=== PATIENT | female | born 1950 | race Caucasian/White ===

== ENCOUNTER 2025-01-06 17:52 | Inpatient (IN) | payer BC, SELFPAY ==
--- NOTE | 2025-01-06 16:04 | ED.GENMED ---
History of Present Illness
General
Chief Complaint: Breathing Problem
Time Seen by Provider: 01/06/25 15:53
History of Present Illness
History of Present Illness:
Patient is a 74-year-old woman with history of hypertension, hypothyroidism, ITP presenting to the emergency department with shortness of breath. For the past few days she has been having shortness of breath and a cough. Today she went to her
primary care doctor and was found to have pneumonia. Her symptoms worsened and she was having a hard time breathing so she came in for further evaluation. She has been having some nausea and vomiting. No diarrhea. No long car rides or plane
rides. No chest pain with the coughing.
Past History
Past History
ED Past Medical History: HTN, Hypothyroidism and Other (ITP, glaucoma, sleep apnea)
ED Past Surgical History: Gynecological (Hysterectomy) and Orthopedic (Bilateral total knee replacement)
Social History
Tobacco: Non-smoker
Alcohol: None
Drug: None
Personal:
Living: with family
Phy Exam
Physical Exam
Physical Exam:
GENERAL: in no acute distress
HEENT: normocephalic, extraocular movements intact, dry oral mucosa
NECK: normal inspection
RESPIRATORY: Moderate respiratory distress, tachypneic, coarse breath sounds in all lung rivera
CARDIOVASCULAR: regular rhythm tachycardic rate
ABDOMEN/: soft, non-distended, non-tender to palpation, no rebound or guarding
EXTREMITIES: non-tender, no edema/swelling
NEUROLOGIC: awake and alert, moves all extremities
SKIN: warm
Scores
Heart Failure Risk
Heart Failure Risk Score: Not Applicable
Sepsis
Sepsis Screening
Sepsis Assessment: Severe Sepsis
Sepsis Screening: Lactate >/=4mmol/L and Worsening O2 Saturation
Sepsis Screen
Sepsis Screen: Severe Sepsis
Date: 01/06/25
Time: 16:30
Course
Orders/Labs/Results
Orders:
Orders
01/06/25 16:01
0.9% Sodium Chloride 1000 ml [Nss] 1,000 ml IV BOLUS
Ondansetron Injectable [Zofran] 4 mg IV NOW STA
01/06/25 16:02
Electrocardiogram (*1) Urgent
Reason for Study: Shortness of Breath
EKG- Treatment ONCE
01/06/25 16:03
CR Chest Portable - 1 View Urgent
Comment:
Reason For Exam: cough
Reason Study Needs to be Portable: Patient Unstable
01/06/25 16:05
Blood Culture Q30M
GEN Source: Blood/Venous
Specimen Description:
01/06/25 16:06
COVID-19 Antigen Urgent
Source: Nasal Swab
Complete Blood Count/With Diff Urgent
Comprehensive Metabolic Panel Urgent
Lactic Acid Q4H
Comment: CANCEL 2nd LACTIC ACID IF 1st LACTIC ACID IS LESS THAN 2
Venous Blood Gas Urgent
%Oxygen/Room Air: 80
Influenza A+B Rapid Molecular Urgent
GEN Source: Nasal Swab
Specimen Description:
01/06/25 16:08
Acetaminophen 1000MG/100Ml [Ofirmev] 1,000 mg in 100 ml .ROUTE .STK-MED
01/06/25 16:11
Acetaminophen 1000MG/100Ml [Ofirmev] 1,000 mg IV NOW STA
01/06/25 16:25
Azithromycin 500 mg/250 ml [Zithromax Infusion] 500 mg in 250 ml IV NOW
CefTRIAXone [Rocephin] 2,000 mg IV NOW STA
01/06/25 16:29
Sterile Water [Sterile Water For Injection] 20 ml .ROUTE .STK-MED
01/06/25 16:45
Blood Culture Q30M
GEN Source: Blood/Venous
Specimen Description:
01/06/25 20:15
Lactic Acid Q4H
Comment: CANCEL 2nd LACTIC ACID IF 1st LACTIC ACID IS LESS THAN 2
Abnormal Lab Results
01/06/25
16:06
WBC 17.0 H 10^3/uL
(4.8-10.8)
RBC 6.47 H 10^6/uL
(4.20-5.40)
MCV 62.0 L fL
(81.0-99.0)
MCH 18.9 L pg
(27.0-31.0)
MCHC 30.4 L g/dL
(33.0-37.0)
RDW 17.2 H %
(11.5-14.5)
Abs Immat Gran (auto) 0.1 H 10^3/uL
(0-0.05)
Absolute Neuts (auto) 13.3 H 10^3/uL
(1.4-6.5)
Absolute Monos (auto) 1.1 H 10^3/uL
(0.1-0.6)
Immature Gran % 0.6 H %
(0-0.5)
Neutrophils % 78.3 H %
(42.2-75.2)
Lymphocytes % 14.3 L %
(20.5-51.1)
VBG pH 7.24 L
(7.32-7.43)
VBG pO2 54 H mmHg
(30-50)
VBG HCO3 18.4 L mmol/L
(22-27)
Chloride 109 H mmol/L
(98-107)
Carbon Dioxide 18 L mmol/L
(22-30)
Glucose 289 H mg/dl
(70-99)
Lactic Acid 6.7 H* mmol/L
(0.7-2.0)
Total Bilirubin 1.7 H mg/dl
(0.2-1.3)
AST 56 H U/L
(14-36)
ALT 47 H U/L
(0-35)
01/06/25 16:06
01/06/25 16:06
Vital Signs
Initial and Last Documented VS:
Initial Vital Signs
Temp Pulse Resp Pulse Ox
100.4 F H 123 18 86
01/06/25 15:47 01/06/25 15:47 01/06/25 15:47 01/06/25 15:47
Last Documented Vital Signs
Temp Pulse Resp BP Pulse Ox
100.4 F H 117 33 158/82 98
01/06/25 15:47 01/06/25 16:22 01/06/25 16:22 01/06/25 16:22 01/06/25 16:41
MDM/Problems Addressed
Differential Diagnosis Includes:
Patient is a 74-year-old woman presenting to the emergency department with shortness of breath difficulty breathing for the past few days. On arrival patient is febrile tachypneic tachycardic and hypoxic. Patient is placed on nasal cannula but
still hypoxic to the 80s so respiratory called for high flow. On exam she does have coarse breath sounds in all lung rivera and does have dry oral mucosa. Concern for sepsis, pneumonia, viral illness. Will check blood work EKG chest x-ray and
respiratory swab. Will give fluids and antiemetics.
*Critical Care Note
Total Time (30-74mins, 75-104mins- exclusive of procedures): 31
comment:
Critical care statement: A total of 31 minutes of critical care time was provided for this patient. This includes management of unstable vital signs, evaluation of the patient at bedside, reviewing the patient's pertinent medical records, ordering
and reviewing studies, arranging urgent treatment with development of a management plan, evaluating patient's response to treatment, frequent reassessment, and discussion with consultants. This time was separate from time utilized to perform the
aforementioned documented procedures.
Update Note
Update Note:
On reevaluation patient's respiratory distress has slightly improved though she remains tachypneic. VBG consistent with metabolic acidosis. She is maxed out on high flow nasal cannula. Her oxygen saturation is in the 90s. I did discuss goals of
care and patient is a full code. Portable chest x-ray per my interpretation with bilateral pneumonia. Will empirically give antibiotics.
I did receive a critical for patient's lactate it is at 6. Patient does meet criteria for sepsis. Will order additional fluids at patients ideal body weight to reach sepsis fluid goal (1.5L).
On reevaluation patient is able to speak in full sentences though remains slightly tachypneic. Her oxygen saturation has remained appropriate. Will discuss with hospitalist for admission.
ED Attending Note
-
Portions of this chart may have been created with voice recognition software.� Occasional wrong word or��sound alike� substitutions may have occurred due to the inherent limitations of voice recognition software.
Discharge Plan
Departure
Prescriptions:
No Action
levothyroxine 112 MCG tablet
112 mcg PO DAILY@07
latanoprost 1 DROP drops
1 drp BOTH EYES HS
Patient Comments:
metoprolol succinate 50 mg Capsule,Sprinkle,Er 24hr
50 mg PO HS
Elderberry Zinc Vit C 90-15 mg Lozenge
1 veronique PO DAILY
hydromorphone [Dilaudid] 2 mg tablet
2 mg PO Q4H PRN (Reason: moderate-severe pain) Qty: 30 0RF
Patient Comments:
05/16/22: Per PDMP, last filled 05/13/22 #30 for 5 days
lorazepam 0.5 MG tablet
0.5 mg PO HSPRN PRN (Reason: anxiety) Qty: 1 0RF
Patient Comments:
05/16/22: Per PDMP, last filled 04/14/22 #60 for 30 days
acetaminophen 325 MG tablet
650 mg PO Q4HPRN PRN (Reason: mild pain)
Rx Instructions:
Do NOT exceed >4000 mg daily.
prednisone 10 mg tablet
30 mg PO TAPER
Patient Comments:
05/16/22: Per daughter, 10mg dose to start 05/17/22
Rx Instructions:
3 tabs (30mg) x2 days, 2 tabs (20mg) x2 days, 1 tab (10mg) x2 days, then stop
aspirin 325 mg tablet
325 mg PO DAILY
Rx Instructions:
Take daily x4 weeks post-surgery for blood clot prevention.
docusate sodium 100 mg capsule
100 mg PO BIDPRN PRN (Reason: constipation)
ondansetron 4 mg tablet,disintegrating
4 mg PO Q6HPRN PRN (Reason: nausea and vomiting)
Referrals:
UNKNOWN,NO INTERVIEW [Family Provider] -
Interventions
Interventions:
*Risk Screen - Suicide Last Done: 01/06/25 15:47
*General Assessment Last Done: 01/06/25 15:47
*Neglect/Abuse Screening Last Done: 01/06/25 15:47
*ED- Fall Risk Assessment Last Done: 01/06/25 16:16
*ED COVID-19 Vaccine History Last Done: 01/06/25 16:16
ED- Cardiac Assessment Last Done: 01/06/25 16:50
ED- Pulmonary Assessment Last Done: 01/06/25 16:50
Discharge Date and Time
Print Language: SPANISH
[2025-01-06] MEDS: OFIRMEV 1000 MG IV (16:11)
[2025-01-06] MEDS: ZOFRAN 4 MG IV (16:12)
[2025-01-06] MEDS: NSS 1000 IV ×2 (16:12→20:24)
[2025-01-06 16:15] VITALS: BMI 40.9
[2025-01-06 16:21] LABS: Venous Blood Gas B.E. -8.7 mmol/L (-4 to +4); Venous Blood Gas HCO3 18.4 mmol/L (22-27); Venous Blood Gas O2 Sat % 85.1 %; Venous Blood Gas pCO2 43 mmHg (35-48); Venous Blood Gas pH 7.24 (7.32-7.43); Venous Blood Gas pO2 54 mmHg (30-50)
[2025-01-06 16:22] VITALS: BP 158/82
[2025-01-06 16:28] LABS: % Basophils 0.2 % (0-2); % Eosinophils 0.2 % (0-6); % Immature Granulocytes 0.6 % (0-0.5); % Lymphocytes 14.3 % (20.5-51.1); % Monocytes 6.4 % (1.7-9.3); % Neutrophils 78.3 % (42.2-75.2); Absolute Immature Granulocytes 0.1 10^3/uL (0-0.05); Absolute Lymphocytes 2.4 10^3/uL (1.2-3.4); Absolute Monocytes 1.1 10^3/uL (0.1-0.6); Absolute Neutrophils 13.3 10^3/uL (1.4-6.5); Hematocrit 40.1 % (37.0-47.0); Hemoglobin 12.2 g/dL (12.0-16.0); Mean Corp Hgb Conc. 30.4 g/dL (33.0-37.0); Mean Corpuscular Hgb 18.9 pg (27.0-31.0); Nucleated Red Blood Cells % 0.1 %; Platelet Count 263 10^3/uL (130-400); Red Blood Cell Count 6.47 10^6/uL (4.20-5.40); Red Cell Dist. Width 17.2 % (11.5-14.5)
[2025-01-06 16:36] LABS: ALT (SGPT) 47 U/L (0-35); AST (SGOT) 56 U/L (14-36); Albumin 4.5 g/dl (3.5-5.0); Alkaline Phosphatase 91 U/L (38-126); Blood Urea Nitrogen 17 mg/dl (7-17); Calcium 9.4 mg/dl (8.4-10.2); Carbon Dioxide 18 mmol/L (22-30); Chloride 109 mmol/L (98-107); Estimated Creatinine Clearance 58 ml/min; Glucose 289 mg/dl (70-99); Potassium 4.6 mmol/L (3.5-5.1); Sodium 141 mmol/L (135-145); Total Bilirubin 1.7 mg/dl (0.2-1.3); Total Protein 7.7 g/dl (6.3-8.2); eGFR > 60.00
[2025-01-06 16:41] LABS: Lactic Acid 6.7 mmol/L (0.7-2.0)
[2025-01-06] MEDS: ZITHROMAX INFUSION 250 IV (16:41)
[2025-01-06] MEDS: ROCEPHIN 2000 MG IV (16:41)
[2025-01-06 16:56] LABS: COVID-19 Antigen Negative (Negative)
--- NOTE | 2025-01-06 16:56 | HPS.HSE ---
Family Physician
-
Family Physician: NO INTERVIEW UNKNOWN
Chief Complaint
-
sob
fever
History of Present Illness
74-year-old woman with history of hypertension, hypothyroidism, ITP presenting to the emergency department with shortness of breath which is worse with exertion since Thursday. she was noted have fever of 101 for which she was taking Tylenol. she was
producing brownish sputum with cough today. Complain of dry heaves. She is complaining of headache. Denied dizzy. Denied chest pain. Patient denied abdominal pain, vomiting or diarrhea, she denied dysuria hematuria.
Upon arrival she was noted hypoxic. Chest x-ray concerning for pneumonia. Patient received fluids, antibiotics. Admitting for further management
Medical History
Past Medical History
Past Medical History: Reports Other
Additional Past Medical History:
Hypertension, stroke, asthma
Past Surgical History: Reports Other
Additional Past Surgical History:
Cataract surgery, right TKA, left TKA
Social History
Tobacco: Non-smoker
Alcohol: None
Drug: None
Living: With Family
Family History
Family History: Not pertinent
Allergies / Home Medications
Allergies reflects when Allergies were last updated in [facility].
Home Medications with original date entered in [facility]
Allergy/Medication List:
Allergies
Allergy/AdvReac Type Severity Reaction Status Date / Time
carvedilol Allergy chest Verified 01/06/25 15:46
discomfort
cyclobenzaprine HCl Allergy throat Verified 01/06/25 15:46
[From Flexeril] closing,
tongue
swelling
hydralazine Allergy chest Verified 01/06/25 15:46
discomfort
hydrochlorothiazide Allergy chest Verified 01/06/25 15:46
discomfort
levofloxacin [From Levaquin] Allergy diarrhea Verified 01/06/25 15:46
mivacurium Allergy pseudocholinesterase Verified 01/06/25 15:46
deficiency
oxycodone Allergy Nausea/Vomi Verified 01/06/25 15:46
ting
succinylcholine Allergy pseudocholinesterase Verified 01/06/25 15:46
deficiency
Home Medications
levothyroxine 112 mcg tablet 112 mcg PO DAILY Thyroid 09/14/16
latanoprost 0.005 % eye drops 1 drp BOTH EYES HS Eye condition 10/13/16
metoprolol succinate 50 mg capsule sprinkle, ext. release 24 hr 50 mg PO HS Blood pressure 04/21/22
lorazepam 0.5 mg tablet 0.5 mg PO HSPRN PRN anxiety #1 tab 05/13/22
acetaminophen 650 mg tablet,extended release 1,300 mg PO [id number] PRN mild pain 01/06/25
elderberry fruit 350 mg capsule 350 mg PO DAILY 01/06/25
gabapentin 100 mg capsule 100 mg PO Q8HPRN PRN mild pain 01/06/25
tizanidine 2 mg tablet 2 mg PO Q6HPRN PRN muscle spasms 01/06/25
Review of Systems
-
Constitutional: Reports Fever
EENT: Reports No Symptoms
Respiratory: Reports Cough and Trouble Breathing
Cardiac: Reports No Symptoms
Abdomen/GI: Reports No Symptoms
: Reports No Symptoms
Musculoskeletal: Reports No Symptoms
Skin: Reports No Symptoms
Neurological: Reports Headache
Endocrine: Reports No Symptoms
Hematologic/Lymphatic: Reports No Symptoms
Psych: Reports No Symptoms
Physical Exam
Vital Signs
Vital Signs
Temp Pulse Resp BP Pulse Ox
100.4 F H 117 33 158/82 98
01/06/25 15:47 01/06/25 16:22 01/06/25 16:22 01/06/25 16:22 01/06/25 16:41
Physical Exam
General: Well Developed, Well Nourished and No Apparent Distress
HEENT: NormoCephalic, Moist mucous membranes and Atraumatic
Respiratory: Rales and Rhonchi
Cardiac: S1/S2 and Regular Rhythm; No Murmur or Rub
GI: Soft, Non Tender, Non Distended and Normal Bowel Sounds; No Organomegaly
Rectal: Deferred by Provider
Musculoskeletal: No Clubbing, No Cyanosis and Other (Trace lower extremities edema)
Skin: No Rash
Neuro: AO x 3 and Nonfocal/grossly intact
Psych: Calm
Laboratory Results
-
01/06/25 16:06
01/06/25 16:06
Laboratory Results
Lactic Acid 6.7 mmol/L (0.7-2.0) H* 01/06/25 16:06
Total Bilirubin 1.7 mg/dl (0.2-1.3) H 01/06/25 16:06
AST 56 U/L (14-36) H 01/06/25 16:06
ALT 47 U/L (0-35) H 01/06/25 16:06
Alkaline Phosphatase 91 U/L (38-126) 01/06/25 16:06
Data Reviewed
-
Diagnostic Radiology: Report Reviewed by me
Lab Data: Labs Reviewed by me
Impression/Plan
-
# Severe sepsis secondary to pneumonia
# Acute hypoxic respiratory failure
- WBC 17.0, lactic 6.5, tach cardia, temp 100.4
- Flu, COVID-negative
- Chest x-ray with impression of Bilateral consolidative airspace opacities most concerning for pneumonia. Prominent pulmonary vascular markings raise the possibility for a component of pulmonary edema, and opacities could also reflect interstitial
and alveolar pulmonary edema in the appropriate clinical setting.
- IV ceftriaxone and Zithromax in ER
-initiated on vanco and Zosyn
- Tylenol as needed for fever
- Sepsis fluid continued
- Blood culture sent from ER
- Continue to trend lactic
- Continue supplemental oxygen to keep sat greater than 95
- Wean as tolerated
# Non-anion gap metabolic acidosis likely from dehydration
- CO2 18
- Fluids continued
- BMP in a.m.
# hyperglycemia
- Blood sugar elevated in 280
- Obtain A1c
- Sliding scale
# Transaminitis likely from dehydration/acute infection
- AST 56, ALT 47
- Denied any abdominal pain
- Trend LFT in a.m.
History of ITP/thalassemia
# History of incidental right upper lobe lung mass 2.4 x 2.3 x 1.4 cm
- PET scan as outpatient with no acute findings as per patient
# Hypothyroidism
- Levothyroxine continued
#Generalized anxiety
-Continue lorazepam 0.5 mg as needed give now
# History of hypertension
-Metoprolol continued
# History of muscle spasm
-Tizanidine continued
# DVT prophylaxis
-Lovenox
# CODE STATUS
-Full code
[2025-01-06 17:01] VITALS: BP 134/67
--- NOTE | 2025-01-06 17:48 | W.PN.UPDATE ---
Update Note
Progress Note Update
This is an addendum to the H&P written by Ashley Johnson on 01/06/2025.� Patient seen and examined independently with MERCHANDISE MARKER.
74-year-old female past medical history of lung mass, CAD, hypertension, hypothyroidism, ITP, thalassemia, anxiety, presenting with shortness of breath and cough.� Also with nausea and vomiting.
Patient incidentally found to have a right upper lung lobe lesion in 2021.� Followed up with [facility] had a PET scan and follow-up scan which showed that it had resolved and lobectomy was not needed.
Patient with temperature 100.4, tachycardic.� Patient hypoxemic requiring high flow oxygen.
Labs show leukocytosis, lactic acidosis of 6.7.� Blood sugar 289.� Mild transaminitis.� ABG shows pH of 7.24, [id number], bicarb of 18.
Chest x-ray shows bilateral consolidative airspace opacities concerning for pneumonia, pulmonary vascular markings raise the possibility for component of pulm edema.� COVID and flu are negative.
Patient with hypoxemic respiratory failure and sepsis secondary to community-acquired pneumonia.
Check sputum culture, blood cultures, strep antigen, Legionella antigen, MRSA.� IV fluids.� Vancomycin/Zosyn.� Pulmonary consulted.
Blood sugar of 289 likely secondary to infection.� No history of diabetes.� Check A1c.� Insulin sliding scale.
[2025-01-06] MEDS: NSS 500 IV (18:12)
[2025-01-06 19:00] VITALS: BP 118/48
[2025-01-06 19:42] VITALS: BMI 39.4
[2025-01-06 19:45] VITALS: BP 136/96
--- NOTE | 2025-01-06 19:57 | PHA.VAN.IN ---
Assessment
- Assessment
Renal Function: Appears similar to baseline
Concomitant Antimicrobials: piperacillin/tazobactam
Plan
- Plan
Initial / Loading Dose: vanc 2000mg pending administration
Maintenance Regimen: dosing by level
Monitoring: random level 01/07 0600
MRSA Screen: Ordered per protocol
Pharmacokinetics Vancomycin I
- -
Patient Age: 74
Patient Sex: Female
Vancomycin Day #: 1
Indication: Pulmonary/Respiratory
Requesting Provider: Ashley Johnson
Pertinent Antimicrobial Allergies:
levofloxacin - diarrhea
Height / Weight:
Height 5 ft
Actual Weight 91.5 kg
Pertinent Past Medical History: BMI ~39
- Vital Signs / Lab Results
Temp Pulse Resp BP Pulse Ox
98.5 F 111 49 134/67 91
01/06/25 18:13 01/06/25 17:01 01/06/25 17:01 01/06/25 17:01 01/06/25 19:42
Lab Results - Hematology
01/06/25
16:06
WBC 17.0 H
Lab Results - Chemistry
01/06/25
16:06
BUN 17
Creatinine 0.9
Estimated Creat Clear 58
Albumin 4.5
01/06/25
16:06
Lactic Acid 6.7 H*
Microbiology Results
01/06/25 16:06 Influenza Types A & B ([facility]) - Final
Nasal Swab Negative for Influenza A & B, NAAT
Negative results must be combined with clinical observations
and patient history.
Nucleic Acid Amplification test (NAAT)performed on the
[employer] platform.
[2025-01-06] MEDS: VANCOCIN 540 MG IV (20:23)
[2025-01-06] MEDS: MUCINEX 600 MG PO (20:25)
[2025-01-06] MEDS: XALATAN OPHTHALMIC SOLUTION 1 DROP BOTH EYES (20:25)
[2025-01-06] MEDS: LOVENOX SC (20:25)
[2025-01-06] MEDS: TOPROL XL 50 MG PO (20:49)
[2025-01-06 21:49] LABS: Glucose - Point of Care 190 mg/dl (70-99)
[2025-01-06] MEDS: TESSALON PERLES 100 MG PO (22:30)
[2025-01-06 22:47] VITALS: BP 135/86
[2025-01-06] MEDS: ZOSYN 50 IV (23:44)
[2025-01-07] VITALS (28 sets, daily range): BP systolic 106–157; BP diastolic 68–127; PULSE 2–122; O2SAT 95
[2025-01-07] MEDS: ZANAFLEX 2 MG PO (00:21)
[2025-01-07] MEDS: ATIVAN 0.5 MG PO (00:21)
[2025-01-07] MEDS: ZOSYN 50 IV (04:51)
[2025-01-07 05:42] LABS: Vancomycin Random 13.1 ug/ml
[2025-01-07 05:45] LABS: Hematocrit 34.2 % (37.0-47.0); Hemoglobin 10.5 g/dL (12.0-16.0); Mean Corp Hgb Conc. 30.7 g/dL (33.0-37.0); Mean Corpuscular Hgb 18.9 pg (27.0-31.0); Mean Corpuscular Volume 61.6 fL (81.0-99.0); Platelet Count 180 10^3/uL (130-400); Red Blood Cell Count 5.55 10^6/uL (4.20-5.40); Red Cell Dist. Width 15.6 % (11.5-14.5); White Blood Cell Count 11.6 10^3/uL (4.8-10.8)
[2025-01-07 05:49] LABS: ALT (SGPT) 68 U/L (0-35); AST (SGOT) 123 U/L (14-36); Albumin 3.5 g/dl (3.5-5.0); Alkaline Phosphatase 75 U/L (38-126); Blood Urea Nitrogen 15 mg/dl (7-17); Calcium 8.6 mg/dl (8.4-10.2); Carbon Dioxide 22 mmol/L (22-30); Chloride 114 mmol/L (98-107); Estimated Creatinine Clearance 64 ml/min; Glucose 118 mg/dl (70-99); Potassium 4.7 mmol/L (3.5-5.1); Sodium 145 mmol/L (135-145); Total Bilirubin 1.1 mg/dl (0.2-1.3); Total Protein 6.5 g/dl (6.3-8.2); eGFR > 60.00
[2025-01-07] MEDS: SYNTHROID 112 MCG PO (06:04)
--- NOTE | 2025-01-07 06:17 | PTCARENOTE ---
Admitted pt last night. Continues to be on HFNC, now 40L 40%, orthopneic, tachypneic, ESPITIA. Pt was having wheezing overnight at one point, PRN nebs ordered if needed, pt ended up settling down. VSS. NSR 80bpm. Dry cough, tessalon pearls ordered prn.
Pt very anxious at times, prn ativan given. Pt c/o R rotator cuff pain throughout the night, zanaflex given. IVF overnight. Rechecked lactic, now WNL. No fevers. Sugar 190 at bedtime. pt OOB to BSC, tolerating well. NO other issues. Will monitor.
[2025-01-07] MEDS: MUCINEX PO (07:53)
[2025-01-07] MEDS: TESSALON PERLES 100 MG PO ×2 (07:57→17:19)
[2025-01-07 08:07] LABS: Glucose - Point of Care 105 mg/dl (70-99)
[2025-01-07] MEDS: DUONEB 3 ML INH ×3 (08:14→17:49)
[2025-01-07 08:17] LABS: Glycohemoglobin (HgbA1c) 6.2 % (4.0-5.6)
--- NOTE | 2025-01-07 08:22 | W.PN.HOSP.TC ---
Today's Communication/Plan
-
Check cultures
Continue antibiotics
Wean high flow oxygen
Pulmonary consult
Incentive spirometry
Assessment / Plan
Assessment / Plan
Gen-AAOx3, NAD
HEENT-NC, AT, anicteric, clear oral mm
Neck-supple
CV-reg, no M, +S1/S2
Lungs-decreased breath sounds bilaterally with rales
Abd-soft, NT, ND
Ext-no edema
Musculoskeletal-no cyanosis, clubbing
Skin-warm and dry
Neuro-grossly non-focal
Psych-calm, cooperative
Acute hypoxic respiratory failure -due to extensive bilateral pneumonia. High flow nasal cannula currently, 40 L, 50%.
Pulmonary consulted.
Sepsis due to extensive multifocal community-acquired pneumonia -chest x-ray reviewed. CT scan noted.
Ceftriaxone/azithromycin ordered.
Urinary antigens negative. Blood cultures pending. Influenza and COVID-negative.
Fever improved. Leukocytosis improving.
Lactic acidosis due to sepsis, improved.
Intensive spirometry.
Elevated LFTs -suspect due to severe pneumonia, sepsis. Monitor for now.
Impaired fasting glucose -hemoglobin A1c 6.2%.
Essential hypertension -stable.
Hypothyroidism -levothyroxine.
Morbid obesity due to excess calories
Full code
Anticipated Discharge: > 48 hours
Subjective/Interval History
-
Date of Service: January 07, 2025
Patient seen and examined. Feeling a little better. No complaints.
Objective Data
-
Labs:
Laboratory Results
01/07/25
04:50
WBC 11.6 H
Hgb 10.5 L
Hct 34.2 L
Plt Count 180 D
Sodium 145
Potassium 4.7
Chloride 114 H
Carbon Dioxide 22
BUN 15
Creatinine 0.8
Glucose 118 H
Calcium 8.6
Total Bilirubin 1.1
AST 123 H
ALT 68 H
Alkaline Phosphatase 75
Vital Signs:
Vital Signs
Temp Pulse Resp BP Pulse Ox
98.4 F 91 44 142/86 93
01/07/25 06:28 01/07/25 06:08 01/07/25 06:08 01/07/25 06:08 01/07/25 08:19
I&O
01/06/25 01/07/25 01/08/25
06:59 06:59 06:59
Intake Total 480 / 480
Output Total 400 / 400
Balance -400 / -400 480 / 480
Review of Systems
-
History Source: Patient
All other systems: Reviewed and negative
[2025-01-07] MEDS: TYLENOL 650 MG PO (09:52)
[2025-01-07] MEDS: NSS 1000 IV ×2 (10:23→22:49)
--- NOTE | 2025-01-07 11:57 | PTCARENOTE ---
Patient complaining of feeling 'very warm'. Oral temp checked and was 100.8F. PO tylenol given per order and temp rechecked after approx an hour and was 98.1F orally.
[2025-01-07 12:47] LABS: Glucose - Point of Care 143 mg/dl (70-99)
[2025-01-07] MEDS: STERILE WATER FOR INJECTION 20 ML IV (13:19)
[2025-01-07] MEDS: ROCEPHIN 2000 MG IV (13:19)
[2025-01-07] MEDS: ZITHROMAX INFUSION 250 IV (15:47)
--- NOTE | 2025-01-07 15:59 | PTCARENOTE ---
Patient AOx3. NSR on monitor. BP stable. Patient on HFNC. HFNC being weaned by RT throughout shift. Patient has stress incontinence. Utilizes bedside commode. Assist x1 when OOB. IVF running per order. Call tompkins within reach, bed in lowest position,
and bed of wheels locked.
--- NOTE | 2025-01-07 16:40 | CON.PUL ---
Consultation
Consultation Request
Date/Time Consultation Requested: 01/06/2025 - 1946
Date/Time Consultation Performed: 01/07/2025 - 1439
Requesting Provider: PRITI Loya
Performing Provider: Dr. Priest
Reason for Consultation: PNA
Medical History
-
Chief Complaint: SOB + cough
History of Present Illness:
74-year-old female non-smoker with a past medical history of CVA, asthma, hypertension, hypothyroidism and ITP/thalassemia who presented with shortness of breath + cough. Symptoms started this past Thursday (01/03/2025). Initially in the ER she was
febrile to 100.4 �F, tachycardic to 123, respiratory rate initially 18, BP 158/82 and saturating 86% on room air. She was transitioned to high flow nasal cannula at 60% FiO2 with saturations improvement to 98%. Initial labs were significant for
leukocytosis to 17, glucose 289, lactate 6.7, T. bili 1.7, and COVID-19 antigen negative. Blood cultures collected, and CXR showed bilateral pneumonia. In the ER she was given ceftriaxone, acetaminophen, Zofran, Zithromax, and 1 L NS 0.9% and
admitted to the IMU for further care. Pulmonary service consulted for additional management/recommendations.
When I saw the patient today, she was tachypneic, still following commands but in mild respiratory distress. Still coughing up phlegm. Currently on high flow nasal cannula at 100% FiO2, 60 L/min. She denies chest pain, HERNANDES, nausea, fevers or
chills. Of note, CT chest obtained yesterday showed extensive bilateral multifocal pneumonia, worse on the right.
PMHx: Hypertension, history of CVA, asthma, hypothyroidism, history of ITP
PSHx: Cataract surgery, right TKA, left TKA
Past Medical History
Past Medical History: Other (Above as per HPI)
Past Surgical History: Other (Above as per HPI)
Social History
Tobacco: Non-smoker
Alcohol: None
Drug: None
Family History
Family History: Other (Mother: Osteoporosis)
Allergies / Home Medications
Allergies
Allergy/AdvReac Type Severity Reaction Status Date / Time
carvedilol Allergy chest Verified 01/06/25 15:46
discomfort
cyclobenzaprine HCl Allergy throat Verified 01/06/25 15:46
[From Flexeril] closing,
tongue
swelling
hydralazine Allergy chest Verified 01/06/25 15:46
discomfort
hydrochlorothiazide Allergy chest Verified 01/06/25 15:46
discomfort
levofloxacin [From Levaquin] Allergy diarrhea Verified 01/06/25 15:46
mivacurium Allergy pseudocholinesterase Verified 01/06/25 15:46
deficiency
oxycodone Allergy Nausea/Vomi Verified 01/06/25 15:46
ting
succinylcholine Allergy pseudocholinesterase Verified 01/06/25 15:46
deficiency
Home Medications
�Medication �Instructions �Recorded �Confirmed �Last Taken �Type
levothyroxine 112 mcg tablet 112 mcg PO DAILY Thyroid 09/14/16 01/06/25 01/06/25 History
latanoprost 0.005 % eye drops 1 drp BOTH EYES HS Eye condition 10/13/16 01/06/25 01/05/25 History
metoprolol succinate 50 mg capsule 50 mg PO HS Blood pressure 04/21/22 01/06/25 01/05/25 History
sprinkle, ext. release 24 hr
lorazepam 0.5 mg tablet 0.5 mg PO HSPRN PRN anxiety #1 tab 05/13/22 01/06/25 05/11/22 22:00 Rx
acetaminophen 650 mg 1,300 mg PO [id number] PRN mild pain 01/06/25 01/06/25 01/06/25 History
tablet,extended release
elderberry fruit 350 mg capsule 350 mg PO DAILY Supplement 01/06/25 01/06/25 Unknown History
gabapentin 100 mg capsule 100 mg PO Q8HPRN PRN mild pain 01/06/25 01/06/25 Unknown History
tizanidine 2 mg tablet 2 mg PO Q6HPRN PRN muscle spasms 01/06/25 01/06/25 Unknown History
Review of Systems
-
History Source: Patient
All other systems: Negative unless noted
Vitals / Labs / Diagnostic Testing
Vital Signs
Temp Pulse Resp BP Pulse Ox
100.8 F H 94 28 142/86 93
01/07/25 09:26 01/07/25 08:27 01/07/25 08:27 01/07/25 06:08 01/07/25 08:27
Lab Data
01/07/25 04:50
01/07/25 04:50
Microbiology
01/06/25 21:24 Nose Nasal Screen MRSA (PCR) - Final
MRSA not detected - performed by PCR methodology.
01/06/25 21:58 Urine Legionella Urinary Antigen - Final
Negative for Legionella pneumophila Serogroup 1 antigen.
A negative result does not rule out the possiblity of
Legionella infection due to other serogroups or species of
Legionella. Clinical correlation is recommended.
01/06/25 21:58 Urine Streptococcus pneumoniae Antigen (M - Final
Negative for Streptococcus pneumoniae antigen.
A negative result does not exclude infection with
Streptococcus pneumoniae. Clinical correlation is
recommended.
01/06/25 16:06 Nasal Swab Influenza Types A & B (CHIOMA) - Final
Negative for Influenza A & B, NAAT
Negative results must be combined with clinical observations
and patient history.
Nucleic Acid Amplification test (NAAT)performed on the
[employer] platform.
Diagnostic Testing:
Physical Exam
-
HEENT: Normocephalic and Anicteric
Cardiovascular: S1/S2, Peripheral Edema (negative) and Other (Tachycardic)
Respiratory: Wheeze (negative), Rales (Bibasilar), Rhonchi (Bilateral (R >L)) and Accessory Resp Muscle Use (Positive)
GI: Soft, Distended (Abdominal obesity), Non Tender and Normal Bowel Sounds
Neurology: AO x 3 and Tremors (negative)
Skin: Warm and Dry
General: Respiratory Distress (Mild), Chills (negative), Sweats (negative) and Other (Anxious appearing female)
Assessment
-
Assessment: 74-year-old female non-smoker with a past medical history of CVA, asthma, hypertension, hypothyroidism and ITP/thalassemia who presented with shortness of breath + cough. Symptoms started this past Thursday (01/03/2025). Initially in
the ER she was febrile to 100.4 �F, tachycardic to 123, respiratory rate initially 18, BP 158/82 and saturating 86% on room air. She was transitioned to high flow nasal cannula at 60% FiO2 with saturations improvement to 98%. Initial labs were
significant for leukocytosis to 17, glucose 289, lactate 6.7, T. bili 1.7, and COVID-19 antigen negative. Blood cultures collected, and CXR showed bilateral pneumonia. In the ER she was given ceftriaxone, acetaminophen, Zofran, Zithromax, and 1 L
NS 0.9% and admitted to the IMU for further care. Pulmonary service consulted for additional management/recommendations.
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
Impression:
#Severe CAP
#Acute respiratory failure with hypoxia due to above
#Sepsis without shock due to pneumonia
#Acute anemia
#Prediabetes (HbA1c: 6.2 on 01/07/2025)
#Transaminitis
#Obesity (BMI: 39.4)
#History of hypertension
#History of CVA
#History of ITP/thalassemia
#Severe hepatic steatosis likely due to morbid obesity
#Severe coronary artery calcifications seen radiographically on CT chest
Plan:
- Patient was admitted to the IMU with severe multifocal pneumonia with small bilateral effusions, likely parapneumonic although unable to rule out component of acute decompensated heart failure
- Although she has asthma and her medical history, she does not take any inhalers at home nor is she on home oxygen
- Continue with high flow nasal cannula with low threshold to intubate and transfer to ICU for closer monitoring given her respiratory distress and already on HFNC at 100% FiO2
- Continue aspiration precautions, keep HOB >30 to 45�
- Transition to BiPAP in an attempt to improve work of breathing; check blood gas; if respiratory status does not improve then she needs to be transferred to the ICU immediately
- Maintain SpO2 >90-94%
- Start DuoNebs TID with prn nebulized bronchodilators (not currently bronchospastic)
- Anxiolytics as needed - will give 2mg IV ativan now as well given she is very anxious
- Continue with ceftriaxone + Zithromax
- No need to broaden antibiotics at this time given she lacks risk factors for MRSA or Pseudomonas
- Start hydrocortisone given she has severe CAP
- Check sputum culture if we can collect a decent sample
- Legionella + strep pneumoniae urine antigens both negative
- Follow-up blood cultures x2 collected 01/06 (NGTD)
- Given the small bilateral pleural effusions with possible component of acute decompensated heart failure, check echo
-Of note, prior CTA chest from 05/16/2022 showed a posterolateral right upper lobe ovoid opacity measuring 2.4 x 2.3 x 1.4 cm. She apparently had followed with [facility] afterwards and had a subsequent PET/CT scan and was told that this
opacity had 'disappeared.'
- Given the degree of her current multifocal pneumonia, I am unable to tell if this opacity has persisted or not. We will need to repeat CT chest in 4 to 6 weeks to follow-up her multifocal pneumonia to resolution and to re-assess if this RUL
opacity has truly resolved or not
- Maintain MAP>65
- Replete electrolytes with K>4, Mg>2
- Maintain euglycemia with goal BG 140-180
- Trend H/H and transfuse if needed to keep Hb>7g/dL; keep plt>20k, unless there is concern for bleeding then keep plt>50k
- DVT ppx: LMWH
The patient's daughter, Jaylyn, was updated at bedside. All questions were answered.
Patient is on 100% FiO2 via high-flow nasal cannula and has a low threshold to be transferred to the ICU with need for endotracheal intubation. She is critically ill and needs to be closely monitored given her high-risk clinical status.
Critical care statement: A total of 42 minutes of critical care time was provided for this patient today. This includes management of unstable vital signs, evaluation of the patient at bedside, reviewing the patient's pertinent medical records
including radiographs, microbiology, laboratory evaluations, and discussion with primary team, consultants, pharmacy, nutrition, physical therapy, case management, charge nurse, critical care nursing, and respiratory therapy.
Data:
CT chest with IV contrast 01/06/2025:
Extensive bilateral multifocal pneumonia.
Small bilateral pleural effusions, right greater than left.
Severe coronary artery calcifications. Please correlate with symptoms of and risk factors for coronary artery disease, with further workup as clinically appropriate.
Severe hepatic steatosis.
[2025-01-07] MEDS: LOVENOX 40 MG SC (17:19)
[2025-01-07] MEDS: COMPAZINE 10 MG IV (17:19)
[2025-01-07 17:20] LABS: Glucose - Point of Care 134 mg/dl (70-99)
[2025-01-07] MEDS: SOLU-CORTEF 50 MG IV (18:01)
[2025-01-07] MEDS: ATIVAN 2 MG IV (18:01)
--- NOTE | 2025-01-07 18:05 | RR ---
Addendum entered by Jeanette Crawley RN 01/07/25 18:09:
SCRAP PREPARATION SUPERVISOR's, RT, and Dr. Priest to beside. Patient's HFNC turned up to 60L 100% with SpO2 in the 90's. Work of breathing still increased, HR in 140's and RR in high 30's-40's. Patient placed on BiPAP by RT 07/28. Patient very lethargic.
Original Note:
A Rapid Response was called on this patient, please see Rapid Response form.
Patients daughter notified this RN that patient 'does not look well'. RN to bedside. Patients HR in 140's, RR in 40's, and SpO2 in low 80's on HFNC 50%.
--- NOTE | 2025-01-07 18:31 | PTCARENOTE ---
Called to IMU bed 3356 for Intubation. Intubated by Dr Priest then transferred to ICU bed 3362. Propofol gtt started. Placing DHT.
8 ETT. 21 at the lip. On A/C 20/400/100%/5
--- NOTE | 2025-01-07 18:38 | PTCARENOTE ---
RT at bedside attempting to get ABG while patient on BiPAP 07/28. Patient limp, not responding to painful stimuli, cool to the touch, and pale. HR in 140's, RR in 40's and SpO2 in 80's-low 90's. Dr. Priest made aware. Intubation completed at
bedside by Dr. Priest. Patient transferred to ICU by 2 RN's and RT. Verbal report given to CAMPUS SECURITY OFFICER.
--- NOTE | 2025-01-07 18:39 | W.SUR.POST ---
Surgical Immediate Post Op
Note
Endotracheal Intubation Procedure
Date of procedure: 01/07/2025
Pre Op Diagnosis: Acute respiratory distress, acute hypoxic respiratory failure
Post Op Diagnosis: Same as above
Procedure Performed: Endotracheal intubation
Primary Proceduralist: Dr. Priest
Secondary Surgeons: N/A
RSI used: yes - 30 mg etomidate followed by 110 mg succinylcholine
ETT seen inserted through glottis: Yes
Successful endotracheal intubation confirmed by: Color capnometry + auscultation of bilateral lung rivera with stethoscope
Estimated Blood Loss: N/A
Fluids: N/A
Drains/Shunts: N/A
Specimens/Cultures: N/A
Doppler/Duplex/Angio (Y/N): N/A
Complications: No immediate complications
Details: Patient first pre-oxygenated via [id number] and then positioned into the sniff position. RSI given. Airway was first suctioned via Yankauer and then vocal cords were visualized using GlideScope using S3 blade. An 8.0 size ETT was
inserted into the glottis with no resistance. ETT highway patrol pilot balloon inflated. Color capnometry confirmed placement and there was bilateral breath sounds heard upon auscultation of the anterior chest. There were no immediate complications.
[2025-01-07] MEDS: SUBLIMAZE 100 MCG IV (19:44)
[2025-01-07] MEDS: LOPRESSOR 25 MG TUBE (19:45)
[2025-01-07] MEDS: SUBLIMAZE 100 IV (19:59)
--- NOTE | 2025-01-07 20:00 | PTCARENOTE ---
Resumed care of pt this evening. Received pt intubated and sedated w/ propofol gtt via right peripheral IV site. Pupils are equal and reactive to light. Pt is in NSR w/ BBB on tele monitor, +1 edema B/L lower extremities, and has palpable pedal
pulses bilaterally. Pt has a #8 ETT 25 cm at the right lip and tolerating vent settings satting at 97% pules ox. On auscultation pt lungs sound coarse, diminished with rhonchi TO. Pt is NPO and has a left nare small bore dobhoff NG tube. Pt's
abdomen is round, obese, and has active BS. Skin is C/D/I.
[2025-01-07] MEDS: TYLENOL ORAL SOLUTION 650 MG PO (20:13)
[2025-01-07 20:24] LABS: HCO3 20.8 mmol/L (21-28); O2 Saturation % 99.7 % (94-98); PCO2 36 mmHg (32-35); PO2 141 mmHg (83-108); pH 7.37 (7.35-7.45)
--- NOTE | 2025-01-07 22:00 | PTCARENOTE ---
Bailon placed per order. Fentanyl gtt initiated by this RN. Pt suctioned for small amount of blood tinged secretions. Pt continues to tolerate vent settings.
[2025-01-07 22:26] LABS: Hematocrit 28.4 % (37.0-47.0); Hemoglobin 8.7 g/dL (12.0-16.0); Mean Corp Hgb Conc. 30.6 g/dL (33.0-37.0); Mean Corpuscular Hgb 18.7 pg (27.0-31.0); Mean Corpuscular Volume 61.1 fL (81.0-99.0); Platelet Count 189 10^3/uL (130-400); Red Blood Cell Count 4.65 10^6/uL (4.20-5.40); Red Cell Dist. Width 15.7 % (11.5-14.5); White Blood Cell Count 9.7 10^3/uL (4.8-10.8)
[2025-01-07 22:33] LABS: INR 1.33; PT 16.8 Sec (11.4-14.6)
[2025-01-07 22:34] LABS: APTT 36.3 Sec (23.4-35.0)
[2025-01-07 22:36] LABS: Triglycerides 119 mg/dl (10-149)
[2025-01-07 22:37] LABS: Lactic Acid 1.7 mmol/L (0.7-2.0)
[2025-01-07 22:37] LABS: Blood Urea Nitrogen 17 mg/dl (7-17); Calcium 8.7 mg/dl (8.4-10.2); Carbon Dioxide 24 mmol/L (22-30); Chloride 112 mmol/L (98-107); Estimated Creatinine Clearance 64 ml/min; Glucose 217 mg/dl (70-99); Magnesium 2.1 mg/dl (1.6-2.3); Phosphorus 2.3 mg/dl (2.5-4.5); Potassium 4.2 mmol/L (3.5-5.1); Sodium 139 mmol/L (135-145); eGFR > 60.00
[2025-01-07] MEDS: XALATAN OPHTHALMIC SOLUTION 1 DROP BOTH EYES (22:58)
[2025-01-07 23:47] LABS: Glucose - Point of Care 191 mg/dl (70-99)
[2025-01-08] VITALS (24 sets, daily range): BP systolic 92–115; BP diastolic 60–72; BMI 40.7
[2025-01-08] MEDS: SOLU-CORTEF 50 MG IV ×5 (00:02→23:33)
[2025-01-08] MEDS: SUBLIMAZE 50 MCG IV ×2 (01:53→04:25)
--- NOTE | 2025-01-08 02:00 | PTCARENOTE ---
Pt awoke and can follow commands. Pt nods head appropriately when asked yes or no questions.
--- NOTE | 2025-01-08 05:00 | PTCARENOTE ---
Propofol and fentanyl gtts increased due to being asynchronous w/ vent.
[2025-01-08] MEDS: DIPRIVAN 100 IV ×3 (05:10→20:16)
[2025-01-08] MEDS: SYNTHROID 112 MCG TUBE (05:28)
[2025-01-08 05:30] LABS: Lactic Acid 1.9 mmol/L (0.7-2.0)
[2025-01-08 05:38] LABS: Hematocrit 28.2 % (37.0-47.0); Hemoglobin 8.8 g/dL (12.0-16.0); Mean Corp Hgb Conc. 31.2 g/dL (33.0-37.0); Platelet Count 178 10^3/uL (130-400); Red Blood Cell Count 4.62 10^6/uL (4.20-5.40); Red Cell Dist. Width 15.4 % (11.5-14.5); White Blood Cell Count 8.3 10^3/uL (4.8-10.8)
[2025-01-08 05:50] LABS: ALT (SGPT) 95 U/L (0-35); AST (SGOT) 106 U/L (14-36); Albumin 2.9 g/dl (3.5-5.0); Alkaline Phosphatase 78 U/L (38-126); Blood Urea Nitrogen 17 mg/dl (7-17); Calcium 8.6 mg/dl (8.4-10.2); Carbon Dioxide 22 mmol/L (22-30); Chloride 115 mmol/L (98-107); Estimated Creatinine Clearance 65 ml/min; Glucose 178 mg/dl (70-99); Magnesium 2.3 mg/dl (1.6-2.3); Potassium 4.8 mmol/L (3.5-5.1); Sodium 142 mmol/L (135-145); Total Bilirubin 0.9 mg/dl (0.2-1.3); Total Protein 5.6 g/dl (6.3-8.2); eGFR > 60.00
[2025-01-08] MEDS: NOVOLOG FLEXPEN-LOW RESISTANCE 1 UNITS SC ×3 (05:53→11:42)
[2025-01-08] MEDS: NSS IV (07:13)
[2025-01-08] MEDS: LOPRESSOR TUBE (08:02)
[2025-01-08] MEDS: DUONEB 3 ML INH ×3 (08:13→19:33)
--- NOTE | 2025-01-08 08:14 | W.PN.INTV ---
Today's Communication / Plan
Recommendations
Mechanical ventilation
Broad-spectrum antibiotics
DuoNebs
Light sedation with goal RASS 0 to -2
Stress dose steroids
Daily SAT/SBT if clinically appropriate
Maintain MAP >65
Send off sputum culture from ETT
Continue ICU level care for this critically ill pt
Assessment
-
Assessment: 74-year-old female non-smoker with a past medical history of CVA, asthma, hypertension, hypothyroidism and ITP/thalassemia who presented with shortness of breath + cough. Symptoms started this past Thursday (01/03/2025). Initially in
the ER she was febrile to 100.4 �F, tachycardic to 123, respiratory rate initially 18, BP 158/82 and saturating 86% on room air. She was transitioned to high flow nasal cannula at 60% FiO2 with saturations improvement to 98%. Initial labs were
significant for leukocytosis to 17, glucose 289, lactate 6.7, T. bili 1.7, and COVID-19 antigen negative. Blood cultures collected, and CXR showed bilateral pneumonia. In the ER she was given ceftriaxone, acetaminophen, Zofran, Zithromax, and 1 L
NS 0.9% and admitted to the IMU for further care. Pulmonary service consulted for additional management/recommendations; patient was managed in the IMU and she deteriorated, being transitioned from high flow nasal cannula to BiPAP and was
emergently intubated on 01/07 and transferred to the ICU where she is currently being managed.
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
Impression:
#Severe CAP
#Acute respiratory failure with hypoxia due to above on mechanical ventilation (intubated 01/07/2025)
#Sepsis without shock due to pneumonia
#Acute anemia
#Prediabetes (HbA1c: 6.2 on 01/07/2025)
#Transaminitis
#Obesity (BMI: 39.4)
#History of hypertension
#History of CVA
#History of ITP/thalassemia
#Severe hepatic steatosis likely due to morbid obesity
#Severe coronary artery calcifications seen radiographically on CT chest
Plan:
- Patient was admitted to the IMU with severe multifocal pneumonia with small bilateral effusions, likely parapneumonic although unable to rule out component of acute decompensated heart failure
- Although she has asthma in her medical history, she does not take any inhalers at home nor is she on home oxygen
- Patient was on high flow nasal cannula on 01/07 and became increasingly short of breath/tachypneic with a panic attack on the evening of 01/07 and then became unresponsive after given Ativan and transitioned to BiPAP and was emergently intubated
and transferred to the ICU where she currently is being managed
- Continue with mechanical ventilation with daily SAT/SBT if clinically appropriate
- Maintain plateau pressure <30 and titrate FiO2 + PEEP to keep SpO2 >90-94%
- Continue aspiration precautions; keep HOB >30-45�
- prn nebulized bronchodilators - not currently bronchospastic
- Oropharyngeal + deep ETT suctioning with subglottic as needed
- Daily CXR + blood gas
- Daily vent adjustments as needed based on blood gas and SaO2
- Low level of sedation with goal RASS as 0 to -2
- Continue DuoNebs TID with prn nebulized bronchodilators (not currently bronchospastic)
- Anxiolytics as needed
- Continue with ceftriaxone + Zithromax
- No need to broaden antibiotics at this time given she lacks risk factors for MRSA or Pseudomonas
- Check sputum culture from ETT
- Legionella + strep pneumoniae urine antigens both negative
- Follow-up blood cultures x2 collected 01/06 (NGTD)
- I believe there is a component of acute pulmonary edema � give 40 mg IV Lasix today and check echo tomorrow
- Recent CT chest on 01/06/2025 showed small bilateral pleural effusions with possible component of acute decompensated heart failure
- Of note, prior CTA chest from 05/16/2022 showed a posterolateral right upper lobe ovoid opacity measuring 2.4 x 2.3 x 1.4 cm. She apparently had followed with [facility] afterwards and had a subsequent PET/CT scan and was told that this
opacity had 'disappeared.'
- Given the degree of her current multifocal pneumonia, I am unable to tell if this opacity has persisted or not. We will need to repeat CT chest in 4 to 6 weeks to follow-up her multifocal pneumonia to resolution and to re-assess if this RUL
opacity has truly resolved or not
- Maintain MAP>65
- Continue hydrocortisone given severe CAP
- Replete electrolytes with K>4, Mg>2
- Maintain euglycemia with goal BG 140-180; A1C: 6.2 on 01/07/2025
- Start ISS and add q6hr aspart 3 units to help keep BG controlled adelina while on stress dose steroids
- Trend H/H and transfuse if needed to keep Hb>7g/dL; keep plt>20k, unless there is concern for bleeding then keep plt>50k
- Early nutrition � start tube feeds
- Consider starting PPI if she goes into shock, otherwise can hold off on stress ulcer prophylaxis per recent SCCM guidelines
- DVT ppx: LMWH
Code status: Full code
The patient's daughter, Jaylyn, was updated by phone by Dr. Urbina on 01/08. All questions were answered.
Continue ICU level of care for this critically ill patient
Critical care statement: A total of 46 minutes of critical care time was provided for this patient today. This includes management of unstable vital signs, evaluation of the patient at bedside, reviewing the patient's pertinent medical records
including radiographs, microbiology, laboratory evaluations, and discussion with primary team, consultants, pharmacy, nutrition, physical therapy, case management, charge nurse, critical care nursing, and respiratory therapy.
Data:
CT chest with IV contrast 01/06/2025:
Extensive bilateral multifocal pneumonia.
Small bilateral pleural effusions, right greater than left.
Severe coronary artery calcifications. Please correlate with symptoms of and risk factors for coronary artery disease, with further workup as clinically appropriate.
Severe hepatic steatosis.
Subjective Dataa
Subjective Data
Date of Service:
Date of Service: January 08, 2025
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
Subjective:
Patient intubated yesterday due to respiratory distress. Currently intubated on AC/CMV at 20/400/5/50% with PIP 26 cmH2O, VTe 286 mL and breathing at 20 breaths/minute. Plateau pressure currently 24. Sedated on propofol at 20 mcg/kg/min, and
fentanyl at 50 mcg/hr.
Patient's cousin, Karmyn, at bedside and I also spoke to the daughter, Jaylyn, over the phone. All questions were answered. Patient's heart rate currently 66, BP 108/71 and saturating 95%. Patient is easily arousable and following all commands.
Review of Systems
General: Other (Unobtainable due to intubated/on sedation)
Objective Data
Data Reviewed
Vital Signs / I&O / Oxygen:
Vital Signs
Temp Pulse Resp BP Pulse Ox
98.6 F 66 20 101/64 96
01/08/25 08:00 01/08/25 09:00 01/08/25 09:00 01/08/25 09:00 01/08/25 09:00
Intake and Output
01/07/25 01/08/25 01/09/25
06:59 06:59 06:59
Intake Total 3222.0 / 3222.0
Output Total 400 / 400 332.0 / 332.0
Balance -400 / -400 2890.0 / 2890.0
SaO2 [A/C] 98
SaO2 96
Nasal Cannula flow liters per 60
minute
Physical Exam
General: Respiratory Distress (negative), Chills (negative), Sweats (negative) and Other (Intubated/sedated)
HEENT: Normocephalic, Anicteric and Other (ETT in place)
Cardiovascular: S1-S2, Rub (negative) and Peripheral Edema (negative)
Respiratory: Wheeze (negative), Crackles (Bibasilar), Rhonchi (Bilaterally), Non-Labored Respirations, Stridor (negative) and ET Tube (Mechanical breath sounds heard bilaterally)
GI: Soft, Distended (Abdominal obesity), Non Tender and Normal Bowel Sounds
Neurology: Tremors (negative) and Other (Sedated although easily arousable and following all commands)
Skin: Warm, Dry, Cyanosis (negative) and Jaundice (negative)
Labs/Micro/Reports
Lab Data
01/08/25 04:59
01/08/25 04:59
Laboratory Results
01/07/25 01/07/25 01/07/25
18:15 20:01 22:10
PT 16.8 H
INR 1.33
APTT 36.3 H
pH Cancelled 7.37
pCO2 Cancelled 36 H
pO2 Cancelled 141 H
HCO3 Cancelled 20.8 L
O2 Delivery Level Cancelled
Microbiology
01/06/25 16:40 Blood/Venous Blood Culture - Preliminary
No Growth in 24 hours- Final report to follow
01/06/25 16:05 Blood/Venous Blood Culture - Preliminary
No Growth in 24 hours- Final report to follow
01/06/25 21:24 Nose Nasal Screen MRSA (PCR) - Final
MRSA not detected - performed by PCR methodology.
01/06/25 21:58 Urine Legionella Urinary Antigen - Final
Negative for Legionella pneumophila Serogroup 1 antigen.
A negative result does not rule out the possiblity of
Legionella infection due to other serogroups or species of
Legionella. Clinical correlation is recommended.
01/06/25 21:58 Urine Streptococcus pneumoniae Antigen (M - Final
Negative for Streptococcus pneumoniae antigen.
A negative result does not exclude infection with
Streptococcus pneumoniae. Clinical correlation is
recommended.
05/16/25 16:06 Nasal Swab Influenza Types A & B (CHIOMA) - Final
Negative for Influenza A & B, NAAT
Negative results must be combined with clinical observations
and patient history.
Nucleic Acid Amplification test (NAAT)performed on the
[employer] platform.
--- NOTE | 2025-01-08 08:17 | W.PN.HOSP.TC ---
Today's Communication/Plan
-
BNP
Anemia labs
Continue antibiotics
Assessment / Plan
Assessment / Plan
Gen-sedated, intubated
HEENT-NC, AT, anicteric, clear oral mm
Neck-supple
CV-reg, no M, +S1/S2
Lungs-decreased breath sounds bilaterally with rales
Abd-soft, NT, ND
Ext-no edema
Musculoskeletal-no cyanosis, clubbing
Skin-warm and dry
Acute hypoxic respiratory failure -due to extensive bilateral pneumonia. Transitioned from high flow nasal cannula to intubation January 07. Stable in ICU. Currently sedated.
Intensive care service ordered echocardiogram. Will also check BNP, cannot rule out component of heart failure.
Started on empiric steroids by lumpia wrapper maker for possible ARDS.
Sepsis due to extensive multifocal community-acquired pneumonia -chest x-ray reviewed. CT scan noted.
Continue ceftriaxone/azithromycin.
Urinary antigens negative. Blood cultures negative so far. Influenza and COVID-negative.
Fever improved. Leukocytosis resolved.
Lactic acidosis due to sepsis, improved.
Intensive spirometry.
Elevated LFTs -suspect due to severe pneumonia, sepsis. Monitor for now.
Microcytic anemia -baseline hemoglobin unknown, suspect hemoglobin of 12.2 on admission was hemoconcentration. Current hemoglobin 8.8. No clinical evidence of bleeding. Will check anemia labs.
Impaired fasting glucose -hemoglobin A1c 6.2%.
Essential hypertension -stable.
Hypothyroidism -levothyroxine.
Morbid obesity due to excess calories
Full code
Anticipated Discharge: > 48 hours
Subjective/Interval History
-
Date of Service: January 08, 2025
Patient seen and examined. Sedated, intubated.
Objective Data
-
Labs:
Laboratory Results
01/07/25 01/07/25 01/08/25
20:01 22:10 04:59
WBC 9.7 8.3
Hgb 8.7 L 8.8 L
Hct 28.4 L 28.2 L
Plt Count 189 178
PT 16.8 H
INR 1.33
APTT 36.3 H
HCO3 20.8 L
Sodium 139 142
Potassium 4.2 4.8
Chloride 112 H 115 H
Carbon Dioxide 24 22
BUN 17 17
Creatinine 0.8 0.8
Glucose 217 H 178 H
Calcium 8.7 8.6
Total Bilirubin 0.9
AST 106 H
ALT 95 H
Alkaline Phosphatase 78
Vital Signs:
Vital Signs
Temp Pulse Resp BP Pulse Ox
98.5 F 61 20 92/60 97
01/08/25 07:42 01/08/25 06:00 01/08/25 06:00 01/08/25 06:00 01/08/25 04:00
I&O
01/07/25 01/08/25 01/09/25
06:59 06:59 06:59
Intake Total 3222.0 / 3222.0
Output Total 400 / 400 332.0 / 332.0
Balance -400 / -400 2890.0 / 2890.0
Review of Systems
-
Unable to obtain full review of systems at this time due to: Acuity and Patient Intubation
[2025-01-08 08:44] LABS: Reticulocyte Count 1.1 % (0.4-2.8)
[2025-01-08 08:52] LABS: Iron 29 ug/dl (37-170)
[2025-01-08 09:01] LABS: Percent Saturation 13 % (20-50); Total Iron Binding Capacity 211 ug/dl (265-497)
[2025-01-08] MEDS: TYLENOL ORAL SOLUTION 650 MG PO (10:02)
[2025-01-08 10:20] LABS: NT-proBNP 7480 pg/ml
[2025-01-08] MEDS: LASIX 40 MG IV (10:41)
[2025-01-08 11:17] LABS: Folate 11.1 ng/ml (2.76-20); Vitamin B12 603 pg/ml (239-931)
[2025-01-08] MEDS: LIDOCAINE 4% PATCH 1 PATCH TOPICAL (11:38)
[2025-01-08 11:52] LABS: Glucose - Point of Care 188 mg/dl (70-99)
--- NOTE | 2025-01-08 12:23 | PTCARENOTE ---
elevated blood sugars discussed with Dr Priest, plans to add standing coverage with ssi
--- NOTE | 2025-01-08 12:28 | PTCARENOTE ---
systems reviewed. pt given lasix as ordered this am and ivf capped. Anxious at times but settles with current sedation. Had c/o headache that resolved with tylenol. Plan to initiate tf when recs entered from dietitian. Pt denies
sob/pain/nausea. Breath sounds mildly improved from am, otherwise no changes in assessment. Otherwise please refer to work list
[2025-01-08] MEDS: ROCEPHIN 2000 MG IV (13:25)
[2025-01-08] MEDS: STERILE WATER FOR INJECTION 20 ML IV (13:25)
--- NOTE | 2025-01-08 13:40 | CHAP ---
Ms. Ireland was resting, with her cousin at the bedside. Her cousin shared background; Ramona has been caring for her at home. Emotional and spiritual support provided. Prayer blanket also provided, along with assurance of our
on-going availability.
--- NOTE | 2025-01-08 15:45 | PTCARENOTE ---
systems reviewed. pt remains pleasant and cooperative. assisting with repositioning in bed. only c/o itchy eyes, asked for face to be washed.
[2025-01-08] MEDS: ZITHROMAX INFUSION 250 IV (16:04)
[2025-01-08] MEDS: NOVOLOG FLEXPEN-MODERATE RESISTANCE 1 UNITS SC ×2 (17:18→23:35)
[2025-01-08] MEDS: NOVOLOG FLEXPEN 3 UNITS SC ×2 (17:18→23:35)
[2025-01-08] MEDS: LOVENOX 40 MG SC (17:25)
[2025-01-08 17:26] LABS: Glucose - Point of Care 163 mg/dl (70-99)
[2025-01-08] MEDS: SUBLIMAZE 100 IV (19:22)
--- NOTE | 2025-01-08 20:00 | PTCARENOTE ---
Resumed care of pt this evening. Received pt intubated and sedated on propofol and fentanyl gtts infusing via peripheral IV sites. Pt is arousable to verbal and tactile cues. Pt can open eyes spontaneously, move all 4 extremities, and can nod or
shake head to yes and no questions. Pt is in NSR on tele monitor w/ a BBB, has trace edema B/L lower extremities, and palpable pedal pulses bilaterally. Pt tolerating current vent settings satting at 94% pulse ox. On auscultation pt lungs sound
coarse, rhonchorous, w/ scattered fine crackles TO. Pt receiving tube feeds via left nare dobhoff NG tube. Pt's abdomen is round w/ active BS. Bailon cath in place draining edward colored urine. Skin is C/D/I.
[2025-01-08] MEDS: LOPRESSOR 25 MG TUBE (20:16)
[2025-01-08] MEDS: XALATAN OPHTHALMIC SOLUTION 1 DROP BOTH EYES (23:35)
[2025-01-09] VITALS (29 sets, daily range): BP systolic 98–148; BP diastolic 58–96; BMI 40.9
[2025-01-09] MEDS: DIPRIVAN 100 IV ×3 (03:13→17:24)
[2025-01-09 03:54] LABS: Hematocrit 27.8 % (37.0-47.0); Hemoglobin 8.8 g/dL (12.0-16.0); Mean Corp Hgb Conc. 31.7 g/dL (33.0-37.0); Mean Corpuscular Volume 60.2 fL (81.0-99.0); Platelet Count 219 10^3/uL (130-400); Red Blood Cell Count 4.62 10^6/uL (4.20-5.40); Red Cell Dist. Width 15.5 % (11.5-14.5); White Blood Cell Count 10.2 10^3/uL (4.8-10.8)
[2025-01-09 04:09] LABS: ALT (SGPT) 78 U/L (0-35); AST (SGOT) 46 U/L (14-36); Albumin 2.9 g/dl (3.5-5.0); Alkaline Phosphatase 77 U/L (38-126); Blood Urea Nitrogen 25 mg/dl (7-17); Carbon Dioxide 22 mmol/L (22-30); Chloride 114 mmol/L (98-107); Estimated Creatinine Clearance 52 ml/min; Glucose 199 mg/dl (70-99); Potassium 4.2 mmol/L (3.5-5.1); Sodium 142 mmol/L (135-145); Total Bilirubin 0.5 mg/dl (0.2-1.3); Total Protein 5.6 g/dl (6.3-8.2); Triglycerides 260 mg/dl (10-149); eGFR 59.86
[2025-01-09 04:40] LABS: B.E. -3.7 mmol/L; HCO3 20.1 mmol/L (21-28); PCO2 31 mmHg (32-35); PO2 89 mmHg (83-108); pH 7.42 (7.35-7.45)
[2025-01-09 05:45] LABS: Glucose - Point of Care 236 mg/dl (70-99)
[2025-01-09] MEDS: NOVOLOG FLEXPEN-MODERATE RESISTANCE 3 UNITS SC ×3 (05:46→17:46)
[2025-01-09] MEDS: NOVOLOG FLEXPEN 3 UNITS SC ×3 (05:47→17:46)
[2025-01-09] MEDS: SOLU-CORTEF 50 MG IV ×4 (05:55→23:31)
[2025-01-09] MEDS: SYNTHROID 112 MCG TUBE (05:55)
--- NOTE | 2025-01-09 08:00 | PTCARENOTE ---
Received from date night caregiver RN; AAOx3, drowsy and lightly sedated but nods appropriately to verbal and tactile stimulation from RN; +2 Pupils - PERRLA present; Anxious at times; VSS; SR with occasional PVC's on monitor; +1 B/L ankle edema; +2 radial
and DP pulses; SpO2 93-98%; ET tube 8.0 at 24 cm at center lip; Ventilator settings A/C 20/400/5 FiO2 40%; Lungs sounds diminished, rhonchi, and coarse throughout; Dobhoff at 70 cm in left nare with tube feed settings Jevity 1.5 at 40 ml/hr with 25
ml Q1H flushes; Urinary catheter draining clear, yellow urine; PIVx2 - #20 RAC and #20 left hand; Propofol and Fentanyl infusing - see nursing flowsheets for further details; See nursing documentation for further details
[2025-01-09] MEDS: DUONEB 3 ML INH ×3 (08:01→19:56)
[2025-01-09] MEDS: LIDOCAINE 4% PATCH 1 PATCH TOPICAL (08:19)
[2025-01-09] MEDS: LOPRESSOR 25 MG TUBE ×2 (08:19→20:23)
--- NOTE | 2025-01-09 08:56 | W.PN.HOSP.TC ---
Today's Communication/Plan
-
Mechanical vent. Antibiotics. Cardiology eval.
Assessment / Plan
Assessment / Plan
Gen-sedated, intubated
HEENT-NC, AT, anicteric, clear oral mm
Neck-supple
CV-reg, no M, +S1/S2
Lungs-decreased breath sounds bilaterally with rales
Abd-soft, NT, ND
Ext-no edema
Musculoskeletal-no cyanosis, clubbing
Skin-warm and dry
A/P:
Acute hypoxic respiratory failure -due to extensive bilateral pneumonia. Transitioned from high flow nasal cannula to intubation January 07. Remains in ICU. Currently sedated but follows commands on the ventilator.
Started on empiric steroids by pearl cutter for possible ARDS. Currently on hydrocortisone 50 mg IV every 6 hours. Discussed with family at bedside today on 01/09.
Abnormal echocardiogram with features of acute HFrEF/valvulopathy/WMA-BNP 7480; Echocardiogram showed EF of 45 to 50% and basal inferolateral hypokinesis, moderate-severe mitral regurgitation, mild aortic regurgitation. Will likely need diuresis as
needed and ischemic evaluation at some point. Cardiology consult-discussed with cardiology via [place] text today.
Sepsis due to extensive multifocal community-acquired pneumonia -chest x-ray reviewed. CT scan noted.
Continue ceftriaxone/azithromycin.
Urinary antigens negative. Blood cultures negative so far. Influenza and COVID-negative.
Fever improved. Leukocytosis resolved.
Lactic acidosis due to sepsis, improved.
Intensive spirometry.
Elevated LFTs -suspect due to severe pneumonia, sepsis. Cannot rule out passive venous congestion. Monitor for now.
Microcytic anemia -baseline hemoglobin unknown, suspect hemoglobin of 12.2 on admission was hemoconcentration. Current hemoglobin 8.8. No clinical evidence of bleeding. B12 603, folate 11, iron 29, TIBC 211, 13% saturation, and ferritin 636.
Impaired fasting glucose -hemoglobin A1c 6.2%.
Essential hypertension -stable.
Hypothyroidism -levothyroxine.
Morbid obesity due to excess calories
Full code
Total time spent on today's encounter was 52 minutes which included time spent in counseling the patient/family regarding diagnosis and treatment plan as listed above, goals of care, and symptom management. Case was discussed with nursing staff,
specialists, and care coordinators/case management. All labs and imaging personally reviewed by me. Remainder the time spent in detailed review of previous records, lab data, imaging, and other medical provider documentation.
Anticipated Discharge: > 48 hours
Subjective/Interval History
-
Date of Service: January 09, 2025
Patient seen and examined. Remains on the vent. She is alert and follows simple commands. Afebrile
Objective Data
-
Labs:
Laboratory Results
01/09/25 01/09/25
03:31 04:18
WBC 10.2
Hgb 8.8 L
Hct 27.8 L
Plt Count 219 D
HCO3 20.1 L
Sodium 142
Potassium 4.2
Chloride 114 H
Carbon Dioxide 22
BUN 25 H
Creatinine 1.0
Glucose 199 H
Calcium 9.0
Total Bilirubin 0.5
AST 46 H
ALT 78 H
Alkaline Phosphatase 77
Vital Signs:
Vital Signs
Temp Pulse Resp BP Pulse Ox
98.0 F 70 23 112/71 95
01/09/25 08:00 01/09/25 08:19 01/09/25 08:03 01/09/25 08:19 01/09/25 08:03
I&O
01/08/25 01/09/25 01/10/25
06:59 06:59 06:59
Intake Total 3222.0 / 3338.0 1819 / 1835 32 / 32
Output Total 332.0 / 342.0 1136 / 1156 36 / 36
Balance 2890.0 / 2996.0 683 / 679 -4 / -4
[2025-01-09] MEDS: NOVOLOG FLEXPEN SC (12:06)
[2025-01-09 12:12] LABS: Glucose - Point of Care 204 mg/dl (70-99)
[2025-01-09] MEDS: ROCEPHIN 2000 MG IV (13:17)
[2025-01-09] MEDS: STERILE WATER FOR INJECTION 20 ML IV (13:18)
--- NOTE | 2025-01-09 13:36 | PTCARENOTE ---
Spontaneous breathing trial attempted; Tube feed placed on hold as per MD Rawls for trial; Fentanyl and Propofol drips weaned off; Patient requesting frequent suctioning during trial; SpO2 dropped to 87-90% and patient placed back on A/C 20//5
FiO2 40% by RT; SpO2 still dropping to 89-91% after spontaneous breathing trial attempt - MD Rawls notified and FiO2 increased to 50%; Tube feed restarted; Fentanyl and Propofol drips restarted; Patient now resting comfortably in bed
--- NOTE | 2025-01-09 15:08 | CM ---
Met with patient and introduced CM and role. Unable to speak at this time. Called and spoke with daughter, Jaylyn, who reports that patient lives with her in a 1 story home plus basement home with 6 steps to enter in the front and no steps
through the garage with a stair lift to the main level. [employer] patient was independent and drove. She does not use any DME or in-home services. 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 Patient has a large family and support
system. She does have a HC POA. Daughter will supply to nurses. PCP is Dr. Giuseppe Gonzalez and Pharmacy is [facility] on [address] in [place]. Discharge POC: TBD based on medical progression. If HH is warranted, family prefers [facility]
services.
--- NOTE | 2025-01-09 15:46 | CON.CAR ---
Addendum entered and electronically signed by Jose Antonio Jaquez MD 01/09/25 17:53:
74 yo female with PMH of HTN, hyperlipidemia admitted with severe PNA. We are consulted for acute HF. She is intubated, but awake and alert on exam. Tele: SR 60s. Echo: EF 45-50%, basal inferolateral hypokinesis, moderate/severe MR.
She sees a registered nurses at [facility]. We have requested records including last echo.
Continue lasix 40mg IV bid.
Original Note:
Consultation
Consultation Request
Date/Time Consultation Requested: 01/09/25 1534
Date/Time Consultation Performed: 01/09/25 1545
Requesting Provider: Dr. Guzman
Performing Provider: Cheryl MARCOS for Dr. Jaquez
Reason for Consultation: CM EF 45-50% on echo
Medical History
-
Chief Complaint: SOB and cough
History of Present Illness:
74 y/o female with hypertension, dyslipidemia, hypothyroidism, ITP who presented for SOB and cough and is being treated for PNA, sepsis. In this setting, she has acute respiratory failure and is intubated and ventilated. She is being treated with IV
ABX. She is in no distress at the time of my assessment. She is on fentanyl and propofol, but is awake and shakes head yes/no to questions. Yesterday, she was felt to be overloaded as well, so lasix ordered x 1 and echo ordered. Echo showed EF
45-50% with WMA (details below) and moderate to severe MR. She denies any CP.
Dr. Hudson is registered nurses- records requested.
Past Medical History
Past Medical History: HTN, Hypercholesterolemia, Hypothyroidism and Other (as above)
Social History
Tobacco: Non-Smoker
Allergies / Home Medications
Allergy/AdvReac Type Severity Reaction Status Date / Time
carvedilol Allergy chest Verified 01/06/25 15:46
discomfort
cyclobenzaprine HCl Allergy throat Verified 01/06/25 15:46
[From Flexeril] closing,
tongue
swelling
hydralazine Allergy chest Verified 01/06/25 15:46
discomfort
hydrochlorothiazide Allergy chest Verified 01/06/25 15:46
discomfort
levofloxacin [From Levaquin] Allergy diarrhea Verified 01/06/25 15:46
mivacurium Allergy pseudocholinesterase Verified 01/06/25 15:46
deficiency
oxycodone Allergy Nausea/Vomi Verified 01/06/25 15:46
ting
succinylcholine Allergy pseudocholinesterase Verified 01/06/25 15:46
deficiency
�Medication �Instructions �Recorded �Confirmed �Type
levothyroxine 112 mcg tablet 112 mcg PO DAILY Thyroid 09/14/16 01/06/25 History
latanoprost 0.005 % eye drops 1 drp BOTH EYES HS Eye condition 10/13/16 01/06/25 History
metoprolol succinate 50 mg capsule 50 mg PO HS Blood pressure 04/21/22 01/06/25 History
sprinkle, ext. release 24 hr
lorazepam 0.5 mg tablet 0.5 mg PO HSPRN PRN anxiety #1 tab 05/13/22 01/06/25 Rx
acetaminophen 650 mg 1,300 mg PO [id number] PRN mild pain 01/06/25 01/06/25 History
tablet,extended release
elderberry fruit 350 mg capsule 350 mg PO DAILY Supplement 01/06/25 01/06/25 History
gabapentin 100 mg capsule 100 mg PO Q8HPRN PRN mild pain 01/06/25 01/06/25 History
tizanidine 2 mg tablet 2 mg PO Q6HPRN PRN muscle spasms 01/06/25 01/06/25 History
Review of Systems
-
History Source: Patient and Other (and chart)
All other systems: Negative unless noted
Respiratory: Cough and Trouble Breathing
Physical Exam
Vital Signs
Temp Pulse Resp BP Pulse Ox
98.6 F 72 24 128/80 97
01/09/25 15:34 01/09/25 15:07 01/09/25 15:07 01/09/25 14:00 01/09/25 15:09
Lab Results
01/09/25 03:31
01/09/25 03:31
Ewv-V-Uuzrujithhv Pept 7480 pg/ml 01/08/25 04:59
Physical Exam
General: Well Developed, Well Nourished and No Apparent Distress
HEENT: Normocephalic and Anicteric
Respiratory: Rhonchi (coarse lung sounds) and Other (intubated and ventilated)
Cardiac: Regular Rhythm
Musculoskeletal: Edema (mild BLE edema)
Skin: Warm and Dry
Neuro: Awake, Alert and Other (on fentanyl and propofol, but eyes open to voice and shakes head yes/no to questions)
Psych: Calm
Impression / Plan
-
Acute, hypoxic respiratory failure:
-this condition is threat to life
-she is intubated and ventilated
-she is on IV fentanyl and propofol
-PNA and CHF tx as below
PNA, sepsis:
-on IV abx
Acute HFmEF:
-will add IV Lasix, which requires intensive monitoring
CM, type unknown, but WMA noted so concern for ischemic:
-patient shook head yes when I asked if she was told she had a weak heart before, but details unknown and last echo we have access to was normal. Records requested.
-Echo 01/09/25: Mildly reduced left ventricular systolic function. Left ventricular ejection fraction is 45-50% by Thomas's method of discs. Basal inferolateral hypokinesis. Mild aortic regurgitation. Moderate/severe mitral regurgitation.
-had abnormal nuclear stress test 2017 per OP notes, but denies having had cath or stents or [place] (mild reversible high lateral defect may represent mild ischemia)
-GDMT when able
-ischemic eval consideration after recovery from acute illness
HTN:
-stable, monitor
-continue BB
anemia:
-management per primary team
Data Reviewed
-
EKG: Tracing Personally Visualized and interpreted (SR with inferior and lateral ST abnormalities)
Radiology: Report Reviewed by me (CXR: Stable appearance of the support lines and tubes. Stable bilateral consolidative opacities, more pronounced on the right and which likely represent multifocal pneumonia.)
Medical Tests (Nuc Med, Echo etc): Report Reviewed by me (Echo 01/09/25: Mildly reduced left ventricular systolic function. Left ventricular ejection fraction is 45-50% by Thomas's method of discs. Basal inferolateral hypokinesis. Mild aortic
regurgitation. Moderate/severe mitral regurgitation.)
Labs: Labs Reviewed by me
Old Records: Requested
[2025-01-09] MEDS: ZITHROMAX INFUSION 250 IV (16:17)
--- NOTE | 2025-01-09 16:27 | W.PN.INTV ---
Today's Communication / Plan
Recommendations
- IV Lasix, twice daily
- Follow-up chest x-ray and ABG in a.m.
- SAT SBT again on 01/10
Assessment
-
Assessment: 74-year-old female non-smoker with a past medical history of CVA, asthma, hypertension, hypothyroidism and ITP/thalassemia who presented with shortness of breath + cough. Symptoms started this past Thursday (01/03/2025). Initially in
the ER she was febrile to 100.4 �F, tachycardic to 123, respiratory rate initially 18, BP 158/82 and saturating 86% on room air. She was transitioned to high flow nasal cannula at 60% FiO2 with saturations improvement to 98%. Initial labs were
significant for leukocytosis to 17, glucose 289, lactate 6.7, T. bili 1.7, and COVID-19 antigen negative. Blood cultures collected, and CXR showed bilateral pneumonia. In the ER she was given ceftriaxone, acetaminophen, Zofran, Zithromax, and 1 L
NS 0.9% and admitted to the IMU for further care. Pulmonary service consulted for additional management/recommendations; patient was managed in the IMU and she deteriorated, being transitioned from high flow nasal cannula to BiPAP and was
emergently intubated on 01/07 and transferred to the ICU where she is currently being managed.
Chronic conditions [place]: Hypertension, history of CVA, asthma, hypothyroidism, history of ITP
12/31. Patient currently intubated, mechanically ventilated. 400/20/40%/PEEP of 5. ABG 7.42, 31, 89.
120/80, not on any pressors
Current infusions, propofol and fentanyl
Assessment and plan:
#1. Severe community-acquired pneumonia with acute hypoxic respiratory failure, intubated 01/07/2025.
-Patient was initially on high flow, subsequently intubated due to increasing respiratory distress
-Continue Rocephin and Zithromax. MRSA screen negative, all cultures negative so far
-SAT/SBT was attempted on 01/09, patient after 30 minutes started to develop tachypnea and increased work of breathing, was switched back to volume assist-control.
-Daily SAT/SBT as tolerated.
-No significant secretions noted from ET tube
-Follow-up chest x-ray and ABG in a.m.
#2. Newly diagnosed Acute on suspect Chronic heart failure with reduced EF. Echocardiogram 01/09 shows EF of 45 to 50% with moderate to severe mitral regurgitation.
- BNP elevated at more than 7000, suspect pulmonary edema also contributing to infiltrates noted on imaging
- Continue Lasix IV twice daily, cardiology service on case
- Labs in a.m., follow-up chest x-ray in a.m.
#3. h/o Lung nodule
- Patient will need follow-up imaging in about 8 weeks time once volume overload and pneumonia have resolved
- Reported history of follow-up with [facility]ology and a PET scan in the past, details not available for my review
Other medical co-morbidities:
#Prediabetes (HbA1c: 6.2 on 01/07/2025)
#Transaminitis
#Obesity (BMI: 39.4)
#History of hypertension
#History of CVA
#History of ITP/thalassemia
#Severe hepatic steatosis likely due to morbid obesity
#Severe coronary artery calcifications seen radiographically on CT chest
Continue ICU level of care for this critically ill patient
Critical care statement: A total of 58 minutes of critical care time was provided for this patient today. This includes management of unstable vital signs, evaluation of the patient at bedside, reviewing the patient's pertinent medical records
including radiographs, microbiology, laboratory evaluations, and discussion with primary team, consultants, pharmacy, nutrition, physical therapy, case management, charge nurse, critical care nursing, and respiratory therapy.
Data:
CT chest with IV contrast 01/06/2025:
Extensive bilateral multifocal pneumonia.
Small bilateral pleural effusions, right greater than left.
Severe coronary artery calcifications. Please correlate with symptoms of and risk factors for coronary artery disease, with further workup as clinically appropriate.
Severe hepatic steatosis.
Subjective Dataa
Subjective Data
Date of Service:
Date of Service: January 09, 2025
Chief Complaint: Content Checker Follow Up
Subjective:
Patient currently intubated, mechanically ventilated and sedated.
Review of Systems
General: Unobtainable - Sedation
Objective Data
Data Reviewed
Vital Signs / I&O / Oxygen:
Vital Signs
Temp Pulse Resp BP Pulse Ox
98.6 F 72 24 128/80 93
01/09/25 15:34 01/09/25 15:07 01/09/25 15:07 01/09/25 14:00 01/09/25 16:00
Intake and Output
01/08/25 01/09/25 01/10/25
06:59 06:59 06:59
Intake Total 3222.0 / 3338.0 1819 / 1900 854.0 / 854.0
Output Total 332.0 / 342.0 1136 / 1156 223 / 223
Balance 2890.0 / 2996.0 683 / 744 631.0 / 631.0
SaO2 [CPAP/PSV] 93
SaO2 [A/C] 93
SaO2 97
Nasal Cannula flow liters per 60
minute
Physical Exam
HEENT: Normocephalic and Anicteric
Cardiovascular: S1-S2
Respiratory: Rhonchi (Right side primarily.), Non-Labored Respirations and Stridor (negative)
GI: Soft, Distended (Abdominal obesity), Non Tender and Normal Bowel Sounds
Neurology: Awake and Other (Lightly sedated, opens eye, makes eye contact, obeys simple commands.)
Skin: Warm and Dry
Labs/Micro/Reports
Lab Data
01/09/25 03:31
01/09/25 03:31
Laboratory Results
01/09/25
04:18
pH 7.42
pCO2 31 L
pO2 89
HCO3 20.1 L
O2 Delivery Level
Microbiology
01/06/25 16:05 Blood/Venous Blood Culture - Preliminary
No Growth in 72 hours- Final report to follow
01/08/25 11:44 Endotracheal Respiratory Culture - Preliminary
NO GROWTH
01/08/25 11:44 Endotracheal Gram Stain - Preliminary
01/06/25 16:40 Blood/Venous Blood Culture - Preliminary
No Growth in 48 hours- Final report to follow
01/06/25 21:24 Nose Nasal Screen MRSA (PCR) - Final
MRSA not detected - performed by PCR methodology.
01/06/25 21:58 Urine Legionella Urinary Antigen - Final
Negative for Legionella pneumophila Serogroup 1 antigen.
A negative result does not rule out the possiblity of
Legionella infection due to other serogroups or species of
Legionella. Clinical correlation is recommended.
01/06/25 21:58 Urine Streptococcus pneumoniae Antigen (M - Final
Negative for Streptococcus pneumoniae antigen.
A negative result does not exclude infection with
Streptococcus pneumoniae. Clinical correlation is
recommended.
01/06/25 16:06 Nasal Swab Influenza Types A & B (CHIOMA) - Final
Negative for Influenza A & B, NAAT
Negative results must be combined with clinical observations
and patient history.
Nucleic Acid Amplification test (NAAT)performed on the
[employer] platform.
--- NOTE | 2025-01-09 16:54 | PTCARENOTE ---
IV Lasix 40 mg BID ordered by cardiology; SpO2 93-97% and FiO2 maintained at 50%; Frequent mouth care given; Patient resting comfortably in bed
[2025-01-09] MEDS: LASIX 40 MG IV (17:04)
[2025-01-09] MEDS: LOVENOX 40 MG SC (17:05)
[2025-01-09 17:44] LABS: Glucose - Point of Care 243 mg/dl (70-99)
[2025-01-09] MEDS: SUBLIMAZE 100 IV (18:08)
[2025-01-09] MEDS: ATIVAN 1 MG IV (20:24)
[2025-01-09] MEDS: NSS (PRESERVATIVE FREE) 1 ML IV (20:24)
--- NOTE | 2025-01-09 20:40 | PTCARENOTE ---
Resumed care of pt this evening. Received pt intubated and sedated. Pt remains on prop and fent gtts. Pt tolerating vent settings satting at 96% pulse ox. Pt appears more anxious today and mildly asynchronous w/ the vent. PRN ativan administered by
this RN. Pt mentating appropriately and nods/shakes head to yes and not questions.
[2025-01-09] MEDS: XALATAN OPHTHALMIC SOLUTION 1 DROP BOTH EYES (23:16)
[2025-01-09] MEDS: NOVOLOG FLEXPEN 6 UNITS SC (23:22)
[2025-01-09] MEDS: NOVOLOG FLEXPEN-MODERATE RESISTANCE 1 UNITS SC (23:23)
[2025-01-09 23:29] LABS: Glucose - Point of Care 196 mg/dl (70-99)
[2025-01-10] VITALS (26 sets, daily range): BP systolic 104–169; BP diastolic 57–97; BMI 41.3
--- NOTE | 2025-01-10 | PTCARENOTE ---
Upon reassessment pt is resting comfortably and tolerating vent settings. Pt suctioned for small amount of blood tinged secretions.
[2025-01-10 01:31] LABS: Glucose - Point of Care 205 mg/dl (70-99)
[2025-01-10] MEDS: DIPRIVAN 100 IV ×2 (01:42→19:55)
[2025-01-10 04:26] LABS: Hematocrit 28.3 % (37.0-47.0); Hemoglobin 8.7 g/dL (12.0-16.0); Mean Corp Hgb Conc. 30.7 g/dL (33.0-37.0); Mean Corpuscular Hgb 18.6 pg (27.0-31.0); Mean Corpuscular Volume 60.3 fL (81.0-99.0); Platelet Count 246 10^3/uL (130-400); Red Blood Cell Count 4.69 10^6/uL (4.20-5.40); Red Cell Dist. Width 15.5 % (11.5-14.5); White Blood Cell Count 12.2 10^3/uL (4.8-10.8)
[2025-01-10 04:43] LABS: ALT (SGPT) 63 U/L (0-35); AST (SGOT) 30 U/L (14-36); Alkaline Phosphatase 74 U/L (38-126); Blood Urea Nitrogen 32 mg/dl (7-17); Carbon Dioxide 24 mmol/L (22-30); Chloride 112 mmol/L (98-107); Direct Bilirubin 0.2 mg/dl (0.0-0.4); Estimated Creatinine Clearance 52 ml/min; Glucose 229 mg/dl (70-99); Potassium 3.9 mmol/L (3.5-5.1); Sodium 141 mmol/L (135-145); Total Bilirubin 0.5 mg/dl (0.2-1.3); Total Protein 5.6 g/dl (6.3-8.2); eGFR 59.86
[2025-01-10 04:44] LABS: HCO3 22.1 mmol/L (21-28); PCO2 34 mmHg (32-35); PO2 92 mmHg (83-108); pH 7.42 (7.35-7.45)
--- NOTE | 2025-01-10 05:30 | PTCARENOTE ---
Pt having moderate amount of soft loose brown BMs x2.
[2025-01-10] MEDS: SOLU-CORTEF 50 MG IV ×2 (06:18→11:16)
[2025-01-10] MEDS: SYNTHROID 112 MCG TUBE (06:18)
[2025-01-10 06:24] LABS: Glucose - Point of Care 228 mg/dl (70-99)
[2025-01-10] MEDS: NOVOLOG FLEXPEN-HIGH RESISTANCE 4 UNITS SC (06:24)
[2025-01-10] MEDS: NOVOLOG FLEXPEN 6 UNITS SC ×2 (06:24→11:23)
[2025-01-10] MEDS: DUONEB 3 ML INH ×3 (07:45→20:08)
[2025-01-10] MEDS: LASIX 40 MG IV ×2 (08:29→15:25)
[2025-01-10] MEDS: LIDOCAINE 4% PATCH 1 PATCH TOPICAL (08:29)
[2025-01-10] MEDS: LOPRESSOR 25 MG TUBE ×2 (08:30→20:00)
--- NOTE | 2025-01-10 10:06 | W.PN.CD ---
Today's Communication / Plan
-
Continue diuresis and pna treatment
Hopeful extubation tomorrow
Continue BB. Assess for additional GDMT as she continues to improve.
Impression / Plan
-
Acute, hypoxic respiratory failure:
-this condition is threat to life
-she is intubated and breathing comfortably on ventilator
-PNA and CHF tx as below
PNA, sepsis:
-on IV abx
Acute HFmEF:
-Reviewed outside cardiology records. She was last seen in 2021 at which time she had a normal echo and stress test with no ischemia.
-Echo 01/09/25: Mildly reduced left ventricular systolic function. Left ventricular ejection fraction is 45-50% by Thomas's method of discs. Basal inferolateral hypokinesis. Mild aortic regurgitation. Moderate/severe mitral regurgitation.
-continue BID IV Lasix, which requires intensive monitoring
-Dry weight 182 lb by her report
CM, type unknown, but WMA noted so concern for ischemic:
-Reviewed outside cardiology records. She was last seen in 2021 at which time she had a normal echo and stress test with no ischemia.
-Echo 01/09/25: Mildly reduced left ventricular systolic function. Left ventricular ejection fraction is 45-50% by Thomas's method of discs. Basal inferolateral hypokinesis. Mild aortic regurgitation. Moderate/severe mitral regurgitation.
-had abnormal nuclear stress test 2017 per OP notes, but denies having had cath or stents or KS (mild reversible high lateral defect may represent mild ischemia)
-Continue Metoprolol. Additional GDMT when able
-CM to alves Entresto and SGLT2i
-ischemic eval consideration after recovery from acute illness
HTN:
-stable, monitor
-continue BB
anemia:
-management per primary team
Subjective: Awake and able to converse through writing and head shaking/nodding
Telemetry: Normal sinus rhythm. No ECG alarms.
Physical Exam
Vital Signs/Labs
Vital Signs
Temp Pulse Resp BP Pulse Ox
97.8 F 87 32 152/86 99
01/10/25 07:52 01/10/25 10:01 01/10/25 10:01 01/10/25 10:01 01/10/25 10:01
01/09/25 01/10/25 01/11/25
06:59 06:59 06:59
Actual Weight 209 lb 10.554 oz 211 lb 6.773 oz
01/10/25 03:51
01/10/25 03:51
PT 16.8 Sec (11.4-14.6) H 01/07/25 22:10
INR 1.33 01/07/25 22:10
APTT 36.3 Sec (23.4-35.0) H 01/07/25 22:10
Magnesium 2.3 mg/dl (1.6-2.3) 01/08/25 04:59
Triglycerides 260 mg/dl (10-149) H 01/09/25 03:31
01/08/25
04:59
Vxh-T-Agevulaujzy Pept 7480
Physical Exam
Constitutional: No acute distress and Comfortable
Cardiovascular: Rhythm & rate is regular, Pedal edema is absent, S1S2 is normal and Murmur/rub/gallop absent
Respiratory: Respiratory effort normal (breathing comfortably on ventilator) and Crackles Present
Data Reviewed
-
Date of Service: January 10, 2025
Medical Decision Making: Reviewed Test Results, Independent Historian Assessment, Test Interpretation and Review of Case with other Provider
EKG: Tracing Personally Visualized and interpreted
Echo: Report Reviewed by me
X-Ray/CT/US/MRI/NUC/PET: Image Personally Visualized and interpreted
Labs: Labs Reviewed by me
Old Records: Reviewed
[2025-01-10] MEDS: ATIVAN 1 MG IV ×3 (10:48→19:55)
[2025-01-10] MEDS: SUBLIMAZE 50 MCG IV ×3 (11:15→18:37)
[2025-01-10] MEDS: NOVOLOG FLEXPEN-MODERATE RESISTANCE 3 UNITS SC ×2 (11:23→17:37)
[2025-01-10 11:24] LABS: Glucose - Point of Care 211 mg/dl (70-99)
[2025-01-10] MEDS: HUMULIN N KWIKPEN 12 UNITS SC ×2 (11:33→17:40)
--- NOTE | 2025-01-10 12:05 | CM ---
PNA, CHF, Intubated, sedated, IV/AB. Plan to possibly extubate on 01/11/25. Discharge POC: TBD. No therapy evaluation as yet due to intubation.
--- NOTE | 2025-01-10 12:08 | PTCARENOTE ---
Pt weaned x 2hrs. Became anxious and tachypneic, RR as high as 40. Placed back on A/C. PRN Ativan given. Rhonchi noted bilaterally. Small amount of blood tinged secretions.
Large loose BM. Tube feeds at goal.
Urine output improved with IV Lasix, see I&Os.
All other assessments unchanged.
--- NOTE | 2025-01-10 13:06 | W.PN.INTV ---
Today's Communication / Plan
Recommendations
- SAT SBT in a.m.
- Lower IV hydrocortisone to 25 mg IV every 6 hours
- Start insulin NPH, 12 units SQ every 12, sliding scale insulin in addition
- Follow-up chest x-ray and ABG in a.m.
Assessment
-
Assessment: 74-year-old female non-smoker with a past medical history of CVA, asthma, hypertension, hypothyroidism and ITP/thalassemia who presented with shortness of breath + cough. Symptoms started this past Thursday (01/03/2025). Initially in
the ER she was febrile to 100.4 �F, tachycardic to 123, respiratory rate initially 18, BP 158/82 and saturating 86% on room air. She was transitioned to high flow nasal cannula at 60% FiO2 with saturations improvement to 98%. Initial labs were
significant for leukocytosis to 17, glucose 289, lactate 6.7, T. bili 1.7, and COVID-19 antigen negative. Blood cultures collected, and CXR showed bilateral pneumonia. In the ER she was given ceftriaxone, acetaminophen, Zofran, Zithromax, and 1 L
NS 0.9% and admitted to the IMU for further care. Pulmonary service consulted for additional management/recommendations; patient was managed in the IMU and she deteriorated, being transitioned from high flow nasal cannula to BiPAP and was
emergently intubated on 01/07 and transferred to the ICU where she is currently being managed.
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
01/10. Patient currently intubated, mechanically ventilated. 400/20/40%/PEEP of 5. ABG 7.42, 34, 92.
120/80, not on any pressors
Current infusions none. Propofol and fentanyl both on hold for SAT/SBT.
Assessment and plan:
#1. Severe community-acquired pneumonia with acute hypoxic respiratory failure, intubated 01/07/2025.
-Patient was initially on high flow, subsequently intubated due to increasing respiratory distress
-Continue Rocephin and Zithromax. MRSA screen negative, all cultures negative so far
-SAT/SBT was attempted on 01/09, patient after 30 minutes started to develop tachypnea and increased work of breathing, was switched back to volume assist-control.
-SAT/SBT 01/10, tachypnea noted with respiratory rate persistently in low 30s, switched back to assist-control
-Daily SAT/SBT as tolerated.
-No significant secretions noted from ET tube
-Follow-up chest x-ray and ABG in a.m
- Continues to gradually improve, anticipate extubation over next 24 hours
#2. Newly diagnosed Acute on suspect Chronic heart failure with reduced EF. Echocardiogram 01/09 shows EF of 45 to 50% with moderate to severe mitral regurgitation.
- BNP elevated at more than 7000, suspect pulmonary edema also contributing to infiltrates noted on imaging
- Continue Lasix IV twice daily, cardiology service on case
- Labs in a.m., follow-up chest x-ray improving, suggestive of improving pulmonary edema
#3. h/o Lung nodule
- Patient will need follow-up imaging in about 8 weeks time once volume overload and pneumonia have resolved
- Reported history of follow-up with [facility] and a PET scan in the past, details not available for my review
#4. Hyperglycemia. Related to stress of acute illness, IV steroids and tube feeding.
- Start NPH 12 units, every 12 hours. Sliding scale insulin in addition. Lower hydropic cortisone to 25 mg every 6 hours
Other medical co-morbidities:
#Prediabetes (HbA1c: 6.2 on 01/07/2025)
#Transaminitis
#Obesity (BMI: 39.4)
#History of hypertension
#History of CVA
#History of ITP/thalassemia
#Severe hepatic steatosis likely due to morbid obesity
#Severe coronary artery calcifications seen radiographically on CT chest
Continue ICU level of care for this critically ill patient
Critical care statement: A total of 45 minutes of critical care time was provided for this patient today. This includes management of unstable vital signs, evaluation of the patient at bedside, reviewing the patient's pertinent medical records
including radiographs, microbiology, laboratory evaluations, and discussion with primary team, consultants, pharmacy, nutrition, physical therapy, case management, charge nurse, critical care nursing, and respiratory therapy.
Data:
CT chest with IV contrast 01/06/2025:
Extensive bilateral multifocal pneumonia.
Small bilateral pleural effusions, right greater than left.
Severe coronary artery calcifications. Please correlate with symptoms of and risk factors for coronary artery disease, with further workup as clinically appropriate.
Severe hepatic steatosis.
Subjective Dataa
Subjective Data
Date of Service:
Date of Service: January 10, 2025
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
Subjective:
Patient awake and alert, currently mechanically ventilated.
Review of Systems
Genitourinary: Other (No new symptoms reported)
Objective Data
Data Reviewed
Vital Signs / I&O / Oxygen:
Vital Signs
Temp Pulse Resp BP Pulse Ox
99 F 81 25 132/72 93
01/10/25 11:30 01/10/25 12:00 01/10/25 12:00 01/10/25 12:00 01/10/25 12:00
Intake and Output
01/09/25 01/10/25 01/11/25
06:59 06:59 06:59
Intake Total 1819 / 1900 1868.0 / 1949.0 519 / 519
Output Total 1136 / 1156 1468 / 1468 820 / 820
Balance 683 / 744 400.0 / 481.0 -301 / -301
SaO2 [CPAP/PSV] 93
SaO2 [A/C] 96
SaO2 93
Nasal Cannula flow liters per 60
minute
Physical Exam
General: Respiratory Distress (negative), Chills (negative), Sweats (negative) and Other (Intubated/sedated)
HEENT: Normocephalic and Anicteric
Cardiovascular: S1-S2
Respiratory: Rhonchi (Right side primarily.), Non-Labored Respirations and Stridor (negative)
GI: Soft, Distended (Abdominal obesity), Non Tender and Normal Bowel Sounds
Neurology: Awake and Alert
Skin: Warm and Dry
Labs/Micro/Reports
Lab Data
01/10/25 03:51
01/10/25 03:51
Laboratory Results
01/10/25
04:37
pH 7.42
pCO2 34
pO2 92
HCO3 22.1
O2 Delivery Level
Microbiology
01/06/25 16:40 Blood/Venous Blood Culture - Preliminary
No Growth in 72 hours- Final report to follow
01/06/25 16:05 Blood/Venous Blood Culture - Preliminary
No Growth in 72 hours- Final report to follow
01/08/25 11:44 Endotracheal Respiratory Culture - Preliminary
NO GROWTH
01/08/25 11:44 Endotracheal Gram Stain - Preliminary
--- NOTE | 2025-01-10 13:34 | W.PN.HOSP.TC ---
Today's Communication/Plan
-
Diuresis. Antibiotics. Insulin. Mechanical ventilation
Assessment / Plan
Assessment / Plan
Gen-sedated, intubated
HEENT-NC, AT, anicteric, clear oral mm
Neck-supple
CV-reg, no M, +S1/S2
Lungs-decreased breath sounds bilaterally with rales
Abd-soft, NT, ND
Ext-no edema
Musculoskeletal-no cyanosis, clubbing
Skin-warm and dry
A/P:
Acute hypoxic respiratory failure -due to extensive bilateral pneumonia. Transitioned from high flow nasal cannula to intubation January 07. Remains in ICU. Currently sedated but follows commands on the ventilator.
Started on empiric steroids by draw frame runner for possible ARDS. Currently on hydrocortisone now decreased to 25 mg IV every 6 hours. Discussed with daughter at bedside today on 01/10.
Acute HFrEF/valvulopathy/cardiomyopathy type unknown-BNP 7480; Echocardiogram showed EF of 45 to 50% and basal inferolateral hypokinesis, moderate-severe mitral regurgitation, mild aortic regurgitation. On IV Lasix 40 mg twice a day and ischemic
evaluation at some point. Cardiology consulted and input appreciated
Sepsis due to extensive multifocal community-acquired pneumonia -chest x-ray reviewed. CT scan noted.
Continue ceftriaxone/azithromycin.
Urinary antigens negative. Blood cultures negative so far. Influenza and COVID-negative.
Fever improved. Leukocytosis resolved.
Lactic acidosis due to sepsis, improved.
Intensive spirometry.
Elevated LFTs -suspect due to severe pneumonia, sepsis. Cannot rule out passive venous congestion. Monitor for now.
Microcytic anemia -baseline hemoglobin unknown, suspect hemoglobin of 12.2 on admission was hemoconcentration. Current hemoglobin 8.8. No clinical evidence of bleeding. B12 603, folate 11, iron 29, TIBC 211, 13% saturation, and ferritin 636.
Pre-Diabetes mellitus-hemoglobin A1c 6.2%. Started insulin NPH 12 units every 12 hour and insulin sliding scale.
Essential hypertension -stable.
Hypothyroidism -levothyroxine.
Morbid obesity due to excess calories
Full code
Total time spent on today's encounter was 52 minutes which included time spent in counseling the patient/family regarding diagnosis and treatment plan as listed above, goals of care, and symptom management. Case was discussed with nursing staff,
specialists, and care coordinators/case management. All labs and imaging personally reviewed by me. Remainder the time spent in detailed review of previous records, lab data, imaging, and other medical provider documentation.
Anticipated Discharge: > 48 hours
Subjective/Interval History
-
Date of Service: January 10, 2025
Patient remains on the ventilator. She is to alert. Afebrile
Objective Data
-
Labs:
Laboratory Results
01/10/25 01/10/25
03:51 04:37
WBC 12.2 H
Hgb 8.7 L
Hct 28.3 L
Plt Count 246
HCO3 22.1
Sodium 141
Potassium 3.9
Chloride 112 H
Carbon Dioxide 24
BUN 32 H
Creatinine 1.0
Glucose 229 H
Calcium 9.0
Total Bilirubin 0.5
AST 30
ALT 63 H
Alkaline Phosphatase 74
Vital Signs:
Vital Signs
Temp Pulse Resp BP Pulse Ox
99 F 78 21 132/72 95
01/10/25 11:30 01/10/25 13:08 01/10/25 13:08 01/10/25 12:00 01/10/25 13:08
I&O
01/09/25 01/10/25 01/11/25
06:59 06:59 06:59
Intake Total 1819 / 1900 1868.0 / 1949.0 519 / 519
Output Total 1136 / 1156 1468 / 1468 820 / 820
Balance 683 / 744 400.0 / 481.0 -301 / -301
[2025-01-10 14:35] LABS: Glucose - Point of Care 193 mg/dl (70-99)
[2025-01-10] MEDS: STERILE WATER FOR INJECTION 20 ML IV (15:25)
[2025-01-10] MEDS: ROCEPHIN 2000 MG IV (15:25)
--- NOTE | 2025-01-10 17:00 | PTCARENOTE ---
Restless, tachypneic RR 30s, SpO2 87-90%, reporting throat pain from tube. Fentanyl bolus given and gtt restarted. PRN Ativan given.
Small amount of blood tinged secretions from ETT.
Loose stools x3 today. RT placed.
All other assessments unchanged.
[2025-01-10] MEDS: ZITHROMAX INFUSION 250 IV (17:25)
[2025-01-10] MEDS: LOVENOX 40 MG SC (17:26)
[2025-01-10] MEDS: SOLU-CORTEF 25 MG IV ×2 (17:26→23:44)
[2025-01-10 17:37] LABS: Glucose - Point of Care 215 mg/dl (70-99)
[2025-01-10] MEDS: SUBLIMAZE 100 IV (22:07)
[2025-01-10] MEDS: XALATAN OPHTHALMIC SOLUTION 1 DROP BOTH EYES (23:44)
[2025-01-10] MEDS: NOVOLOG FLEXPEN-MODERATE RESISTANCE 1 UNITS SC (23:45)
[2025-01-10 23:54] LABS: Glucose - Point of Care 181 mg/dl (70-99)
[2025-01-11] VITALS (25 sets, daily range): BP systolic 100–138; BP diastolic 52–89; BMI 40.4
--- NOTE | 2025-01-11 00:05 | PTCARENOTE ---
Pt intubated/sedated/restrained for safety reasons. Fent/Prop titrated to clinical endpoints. Following commands, GALO. Afebeile, NSR. Additional IV line placed.Pulses palpable trace edema in upper extremities. Vent settings as ordered. DHT with
tube feeds at goal. RT for loose stools. Brothers draining clear yellow urine. Will monitor
[2025-01-11] MEDS: DIPRIVAN 100 IV ×2 (02:59→13:12)
[2025-01-11 03:24] LABS: % Basophils 0.1 % (0-2); % Immature Granulocytes 2.8 % (0-0.5); % Monocytes 5.1 % (1.7-9.3); Absolute Immature Granulocytes 0.3 10^3/uL (0-0.05); Absolute Lymphocytes 0.5 10^3/uL (1.2-3.4); Absolute Monocytes 0.6 10^3/uL (0.1-0.6); Absolute Neutrophils 10.6 10^3/uL (1.4-6.5); Hematocrit 29.3 % (37.0-47.0); Mean Corp Hgb Conc. 30.7 g/dL (33.0-37.0); Mean Corpuscular Hgb 18.7 pg (27.0-31.0); Mean Corpuscular Volume 60.8 fL (81.0-99.0); Platelet Count 281 10^3/uL (130-400); Red Blood Cell Count 4.82 10^6/uL (4.20-5.40); Red Cell Dist. Width 15.6 % (11.5-14.5); White Blood Cell Count 12.1 10^3/uL (4.8-10.8)
[2025-01-11 03:40] LABS: ALT (SGPT) 60 U/L (0-35); AST (SGOT) 24 U/L (14-36); Alkaline Phosphatase 71 U/L (38-126); Blood Urea Nitrogen 35 mg/dl (7-17); Calcium 8.7 mg/dl (8.4-10.2); Carbon Dioxide 30 mmol/L (22-30); Chloride 109 mmol/L (98-107); Estimated Creatinine Clearance 53 ml/min; Glucose 236 mg/dl (70-99); Magnesium 2.4 mg/dl (1.6-2.3); Potassium 3.5 mmol/L (3.5-5.1); Sodium 144 mmol/L (135-145); Total Bilirubin 0.5 mg/dl (0.2-1.3); Total Protein 5.6 g/dl (6.3-8.2); eGFR 59.86
--- NOTE | 2025-01-11 04:00 | PTCARENOTE ---
No change in previous assessment. WIll monitor
[2025-01-11] MEDS: SOLU-CORTEF 25 MG IV ×2 (05:00→12:30)
[2025-01-11] MEDS: SYNTHROID 112 MCG TUBE (05:00)
[2025-01-11 05:03] LABS: B.E. 3.5 mmol/L; HCO3 27.8 mmol/L (21-28); PCO2 40 mmHg (32-35); PO2 89 mmHg (83-108); pH 7.45 (7.35-7.45)
[2025-01-11 05:04] LABS: O2 Therapy 40
[2025-01-11 05:08] LABS: Glucose - Point of Care 264 mg/dl (70-99)
[2025-01-11] MEDS: NOVOLOG FLEXPEN-MODERATE RESISTANCE 5 UNITS SC (05:09)
[2025-01-11] MEDS: DUONEB 3 ML INH ×3 (07:21→20:30)
--- NOTE | 2025-01-11 07:48 | W.PN.HOSP.TC ---
Today's Communication/Plan
-
IV diuresis. IV antibiotics. Mechanical ventilation
Assessment / Plan
Assessment / Plan
Gen-sedated, intubated
HEENT-NC, AT, anicteric, clear oral mm
Neck-supple
CV-reg, no M, +S1/S2
Lungs-decreased breath sounds bilaterally with rales
Abd-soft, NT, ND
Ext-no edema
Musculoskeletal-no cyanosis, clubbing
Skin-warm and dry
A/P:
Acute hypoxic respiratory failure -due to extensive bilateral pneumonia and heart failure and ?ARDS. Transitioned from high flow nasal cannula/BPAP to intubation January 07. Remains in ICU. Currently sedated but follows commands on the ventilator.
Finished course of steroids. Seen follow-up chest x-ray today 01/11. Not ready for extubation yet. Discussed with daughter at bedside on 01/11.
Acute HFrEF/valvulopathy/cardiomyopathy type unknown-BNP 7480; Echocardiogram showed EF of 45 to 50% and basal inferolateral hypokinesis, moderate-severe mitral regurgitation, mild aortic regurgitation. On IV Lasix 80 mg twice a day. Ischemic
evaluation after acute illness. Cardiology consulted and input appreciated.
Sepsis due to extensive multifocal community-acquired pneumonia- on IV ceftriaxone 2 g daily. Completed azithromycin.
Elevated LFTs -suspect due to severe pneumonia, sepsis and also passive venous congestion. Monitor every so often.
Microcytic anemia -Current hemoglobin 9. No clinical evidence of bleeding. B12 603, folate 11, iron 29, TIBC 211, 13% saturation, and ferritin 636.
Pre-Diabetes mellitus-hemoglobin A1c 6.2%. Continue insulin NPH 15 units every 12 hour and insulin sliding scale.
Essential hypertension -stable.
Hypothyroidism -levothyroxine.
Morbid obesity due to excess calories
Full code
Total time spent on today's encounter was 52 minutes which included time spent in counseling the patient/family regarding diagnosis and treatment plan as listed above, goals of care, and symptom management. Case was discussed with nursing staff,
specialists, and care coordinators/case management. All labs and imaging personally reviewed by me. Remainder the time spent in detailed review of previous records, lab data, imaging, and other medical provider documentation.
Anticipated Discharge: > 48 hours
Subjective/Interval History
-
Date of Service: January 11, 2025
Remains on the ventilator. Good urine output. Awake and able to converse through writing and head shaking/nodding-no chest pain, mildly anxious. Afebrile.
Objective Data
-
Labs:
Laboratory Results
01/11/25 01/11/25
03:07 04:50
WBC 12.1 H
Hgb 9.0 L
Hct 29.3 L
Plt Count 281
HCO3 27.8
Sodium 144
Potassium 3.5
Chloride 109 H
Carbon Dioxide 30
BUN 35 H
Creatinine 1.0
Glucose 236 H
Calcium 8.7
Total Bilirubin 0.5
AST 24
ALT 60 H
Alkaline Phosphatase 71
Vital Signs:
Vital Signs
Temp Pulse Resp BP Pulse Ox
98.1 F 83 22 121/70 93
01/11/25 07:46 01/11/25 07:23 01/11/25 07:23 01/11/25 06:00 01/11/25 07:23
I&O
01/10/25 01/11/25 01/12/25
06:59 06:59 06:59
Intake Total 1868.0 / 1949.0 2024. / 2024.5
Output Total 1468 / 1468 2385 / 2385
Balance 400.0 / 481.0 -359.5 / -359.5
[2025-01-11] MEDS: HUMULIN N KWIKPEN 12 UNITS SC (08:11)
[2025-01-11] MEDS: LOPRESSOR 25 MG TUBE ×2 (08:13→20:30)
[2025-01-11] MEDS: LASIX 80 MG IV ×2 (08:13→16:40)
[2025-01-11] MEDS: PROTONIX IV 40 MG IV (08:13)
[2025-01-11] MEDS: LIDOCAINE 4% PATCH 1 PATCH TOPICAL (08:14)
[2025-01-11] MEDS: NSS (PRESERVATIVE FREE) 10 ML IV (08:14)
--- NOTE | 2025-01-11 08:55 | W.PN.CD ---
Today's Communication / Plan
-
I's and O's negative the last 2 days.. Total -800. Weight is trending down.
Diuretics increased by critical care team now on Lasix 80 mg twice daily. Will assess additional response to treatment. Patient is put out 350 mL in the last hour. Monitor renal function closely.
Continue treatment of pneumonia as directed by pulmonary and primary team
Weaning of vent as per pulmonary.
If there is a question regarding response to treatment and volume status despite diuretics then could consider right heart cath. However patient currently appears to be having increased diuresis. Will assess clinical response.
Impression / Plan
-
Acute, hypoxic respiratory failure/ VDRF
-this condition is threat to life
-she is intubated and breathing comfortably on ventilator
-PNA and CHF tx as below
- Wean per plmonry
PNA, sepsis:
-on IV abx
Acute HFmEF:
-Reviewed outside cardiology records. She was last seen in 2021 at which time she had a normal echo and stress test with no ischemia.
-Echo 01/09/25: Mildly reduced left ventricular systolic function. Left ventricular ejection fraction is 45-50% by Thomas's method of discs. Basal inferolateral hypokinesis. Mild aortic regurgitation. Moderate/severe mitral regurgitation.
-continue BID IV Lasix, which requires intensive monitoring
-Dry weight 182 lb by her report
- weight trending down ( i/o negtive 700-800ml over last 2 days)
CM, type unknown, but WMA noted so concern for ischemic:
-Reviewed outside cardiology records. She was last seen in 2021 at which time she had a normal echo and stress test with no ischemia.
-Echo 01/09/25: Mildly reduced left ventricular systolic function. Left ventricular ejection fraction is 45-50% . Basal inferolateral hypokinesis. Mild aortic regurgitation. Moderate/severe mitral regurgitation.
-had abnormal nuclear stress test 2017 per OP notes, but denies having had cath or stents or NC (mild reversible high lateral defect may represent mild ischemia)
-Continue Metoprolol. Additional GDMT when able
-Case management to alvse Entresto and SGLT2i
-ischemic eval consideration after recovery from acute illness
HTN:
-stable, monitor
-continue BB
anemia:
-management per primary team
Subjective: Awake and able to converse through writing and head shaking/nodding
Telemetry: Normal sinus rhythm. No ECG alarms.
CXR 01/11/25
IMPRESSION:
1. Endotracheal tube and enteric catheter in position.
2. Low lung volumes. Persistent bilateral consolidation, slightly improved. Probable minimal bilateral effusions.
3. Unchanged cardiomegaly.
Physical Exam
Vital Signs/Labs
Vital Signs
Temp Pulse Resp BP Pulse Ox
98.1 F 92 26 128/69 90
01/11/25 07:46 01/11/25 08:04 01/11/25 08:04 01/11/25 08:04 01/11/25 08:04
01/10/25 01/11/25 01/12/25
06:59 06:59 06:59
Actual Weight 95.9 kg 93.8 kg
01/11/25 03:07
01/11/25 03:07
PT 16.8 Sec (11.4-14.6) H 01/07/25 22:10
INR 1.33 01/07/25 22:10
APTT 36.3 Sec (23.4-35.0) H 01/07/25 22:10
Magnesium 2.4 mg/dl (1.6-2.3) H 01/11/25 03:07
Triglycerides 260 mg/dl (10-149) H 01/09/25 03:31
01/08/25
04:59
Lvw-B-Bjbdembdgbn Pept 7480
Physical Exam
Constitutional: No acute distress
Cardiovascular: Rhythm & rate is regular
Respiratory: Wheeze Absent and Other (Coarse vented breath sounds . Rhonchorous sounds along with radiation of sounds in tubing.)
Neuro/Psych: Alert
Data Reviewed
-
Date of Service: January 11, 2025
Medical Decision Making: Reviewed Test Results
Echo: Report Reviewed by me
Medical Tests (PFT, Pathology etc): Report Reviewed by me
Labs: Labs Reviewed by me
Critical Care Time (in minutes): 35
[2025-01-11] MEDS: KCL ELIXIR 40 MEQ TUBE ×2 (10:14→18:10)
[2025-01-11] MEDS: HUMULIN N KWIKPEN 3 UNITS SC (10:14)
[2025-01-11] MEDS: ATIVAN 1 MG IV ×2 (10:25→18:10)
[2025-01-11] MEDS: SUBLIMAZE 50 MCG IV ×3 (11:30→16:39)
--- NOTE | 2025-01-11 11:32 | CM ---
CM following re: discharge planning.
Reviewed pt's chart.
Per chart review, pt remains intubated, on mechanical ventilation, anticipate extubation over next 24 hours, continue supportive care.
D/C plan: uncertain at this time and will depend on pt's progress.
CM will follow with discharge plan updates as hospitalization progresses
[2025-01-11] MEDS: NOVOLOG FLEXPEN-MODERATE RESISTANCE 1 UNITS SC (12:23)
[2025-01-11 12:24] LABS: Glucose - Point of Care 178 mg/dl (70-99)
--- NOTE | 2025-01-11 12:55 | PTCARENOTE ---
Addendum entered by Sanam Lopez RN 01/11/25 14:48:
Low tibal vollumes during SBT (250-300). Placed back on assist control and respiratory rate improved to 26 immediately.
Original Note:
SBT for about 2hrs. Pt became tachypneic to 40. Increased WOB and anxiety. Tidal volumes Placed back on A/C. Fentanyl gtt restarted and increased with fentanyl bolus per protocol. Rhonchi noted bilaterally with crackles at the bases. All other
assessments unchanged.
[2025-01-11] MEDS: ROCEPHIN 2000 MG IV (14:30)
[2025-01-11] MEDS: STERILE WATER FOR INJECTION 20 ML IV (14:30)
[2025-01-11] MEDS: TYLENOL ORAL SOLUTION 650 MG PO (17:03)
[2025-01-11] MEDS: LOVENOX 40 MG SC (17:04)
--- NOTE | 2025-01-11 17:22 | PTCARENOTE ---
During turn, pt became tachypneic to low 40s. SpO2 dropped to 85%. Sat pt up and FiO2 increased to 100%. Fentanyl bolus given. SpO2 increased to 95% on 100% FiO2 after 5min. Respiratory rate improved to 26. SpO2 89% when returned to 45% FiO2.
Now 94% on 60% FiO2. Small amount of blood tinged secretions.
Now appears to be resting comfortably.
Tylenol given for temp 100.3 via temperature sensing ballard.
Good urine output. Edema appears improved in lower extremities.
All other assessments unchanged.
--- NOTE | 2025-01-11 17:35 | W.PN.INTV ---
Today's Communication / Plan
Recommendations
- Increase Lasix to 80 mg IV twice a day
- Give potassium 40 mEq p.o.
- Discontinue steroids
- Follow-up ABG and chest x-ray in a.m.
- Check BNP and procalcitonin in a.m.
- Depending upon clinical course, might need CT chest on 12/2021
Assessment
-
Assessment: 74-year-old female non-smoker with a past medical history of CVA, asthma, hypertension, hypothyroidism and ITP/thalassemia who presented with shortness of breath + cough. Symptoms started this past Thursday (01/03/2025). Initially in
the ER she was febrile to 100.4 �F, tachycardic to 123, respiratory rate initially 18, BP 158/82 and saturating 86% on room air. She was transitioned to high flow nasal cannula at 60% FiO2 with saturations improvement to 98%. Initial labs were
significant for leukocytosis to 17, glucose 289, lactate 6.7, T. bili 1.7, and COVID-19 antigen negative. Blood cultures collected, and CXR showed bilateral pneumonia. In the ER she was given ceftriaxone, acetaminophen, Zofran, Zithromax, and 1 L
NS 0.9% and admitted to the IMU for further care. Pulmonary service consulted for additional management/recommendations; patient was managed in the IMU and she deteriorated, being transitioned from high flow nasal cannula to BiPAP and was
emergently intubated on 01/07 and transferred to the ICU where she is currently being managed.
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
01/11. Patient currently on mechanical ventilation 400/20/45%/5. ABG 7.45, 40, 89.
Fluid balance, -600 mL.
Assessment and plan:
#1. Severe community-acquired pneumonia with acute hypoxic respiratory failure, intubated 01/07/2025.
-Patient was initially on high flow, subsequently intubated due to increasing respiratory distress
-Continue Rocephin and Zithromax. MRSA screen negative, all cultures negative so far, heidi noted on sputum
-In view of persistent infiltrates and respiratory failure, repeat tracheal aspirate for culture today also patient has low-grade fever.
-Failed SAT SBT, 01/11.
-No significant secretions noted from ET tube
-Follow-up chest x-ray and ABG in a.m
-If no significant improvement by morning, will pursue CT chest for further evaluation and possibly right heart cath later as I suspect some of her infiltrates are related to volume overload rather than infection.
- Check BNP and procalcitonin
#2. Newly diagnosed Acute on suspect Chronic heart failure with reduced EF. Echocardiogram 01/09 shows EF of 45 to 50% with moderate to severe mitral regurgitation.
- BNP elevated at more than 7000, suspect pulmonary edema also contributing to infiltrates noted on imaging
- Increase Lasix dose to 80 mg IV twice daily considering patient is not in significant negative fluid balance and chest x-ray still shows significant opacities
- Replace potassium
- Follow-up chest x-ray and BNP in a.m.
#3. h/o Lung nodule
- Patient will need follow-up imaging in about 8 weeks time once volume overload and pneumonia have resolved
- Reported history of follow-up with [place] pul[facility]ology and a PET scan in the past, details not available for my review
#4. Hyperglycemia. Related to stress of acute illness, IV steroids and tube feeding.
- Increase NPH to 15 units, every 12 hours. Sliding scale insulin in addition.
- DC hydrocortisone
Other medical co-morbidities:
#Prediabetes (HbA1c: 6.2 on 01/07/2025)
#Transaminitis
#Obesity (BMI: 39.4)
#History of hypertension
#History of CVA
#History of ITP/thalassemia
#Severe hepatic steatosis likely due to morbid obesity
#Severe coronary artery calcifications seen radiographically on CT chest
Continue ICU level of care for this critically ill patient
Updated patient's daughter at bedside. Discussed with cardiology service.
Critical care statement: A total of 55 minutes of critical care time was provided for this patient today. This includes management of unstable vital signs, evaluation of the patient at bedside, reviewing the patient's pertinent medical records
including radiographs, microbiology, laboratory evaluations, and discussion with primary team, consultants, pharmacy, nutrition, physical therapy, case management, charge nurse, critical care nursing, and respiratory therapy.
Data:
CT chest with IV contrast 01/06/2025:
Extensive bilateral multifocal pneumonia.
Small bilateral pleural effusions, right greater than left.
Severe coronary artery calcifications. Please correlate with symptoms of and risk factors for coronary artery disease, with further workup as clinically appropriate.
Severe hepatic steatosis.
Subjective Dataa
Subjective Data
Date of Service:
Date of Service: January 11, 2025
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
Subjective:
Patient awake and alert and interactive while mechanically ventilated.
Review of Systems
Genitourinary: Other (No new symptoms reported.)
Objective Data
Data Reviewed
Vital Signs / I&O / Oxygen:
Vital Signs
Temp Pulse Resp BP Pulse Ox
100.3 F 93 24 126/78 90
01/11/25 17:11 01/11/25 17:00 01/11/25 17:00 01/11/25 17:00 01/11/25 17:00
Intake and Output
01/10/25 01/11/25 01/12/25
06:59 06:59 06:59
Intake Total 1868.0 / 1949.0 2025.5 / 2104.1 873.5 / 873.5
Output Total 1468 / 1468 2385 / 2385 2275 / 2275
Balance 400.0 / 481.0 -359.5 / -280.9 -1401.5 / -1401.5
SaO2 [CPAP/PSV] 93
SaO2 [A/C] 96
SaO2 90
Nasal Cannula flow liters per 60
minute
Physical Exam
General: Respiratory Distress (negative), Chills (negative), Sweats (negative) and Other (Intubated/sedated)
HEENT: Normocephalic and Anicteric
Cardiovascular: S1-S2 and Peripheral Edema
Respiratory: Rhonchi (Right side primarily.), Non-Labored Respirations and Stridor (negative)
GI: Soft, Distended (Abdominal obesity), Non Tender and Normal Bowel Sounds
Neurology: Awake and Alert
Skin: Warm and Dry
Labs/Micro/Reports
Lab Data
01/11/25 03:07
01/11/25 03:07
Laboratory Results
01/11/25
04:50
pH 7.45
pCO2 40 H
pO2 89
HCO3 27.8
O2 Delivery Level 40
Microbiology
01/06/25 16:40 Blood/Venous Blood Culture - Final
No Growth - Final Report
01/06/25 16:05 Blood/Venous Blood Culture - Final
No Growth - Final Report
01/08/25 11:44 Endotracheal Respiratory Culture - Final
Heidi albicans
01/08/25 11:44 Endotracheal Gram Stain - Final
[2025-01-11] MEDS: NOVOLOG FLEXPEN-MODERATE RESISTANCE 3 UNITS SC (18:15)
[2025-01-11 18:16] LABS: Glucose - Point of Care 218 mg/dl (70-99)
[2025-01-11] MEDS: SUBLIMAZE 100 IV (18:58)
--- NOTE | 2025-01-11 20:00 | PTCARENOTE ---
Resumed care of pt this evening. Received pt intubated and sedated on fentanyl and propofol gtts infusing via right peripheral IV site. Pt appears drowsy but responds to verbal and tactile stimuli. Pt able to move all 4 extremities. Pt is in NSR on
tele monitor, has +1 B/L lower extremities, trace left arm edema, and palpable pedal pulses. Pt tolerating vent settings satting at 95% pulse ox. Pt suctioned for a small amount of thick yan and blood tinged secretions. Pt receiving tube feeds at
goal rate via left nare dobhoff tube. Pts abdomen is round obese and has hypoactive BS. Pt has ballard cath in place draining edward colored urine. Skin is C/D/I.
[2025-01-11 20:22] LABS: Glucose - Point of Care 228 mg/dl (70-99)
[2025-01-11] MEDS: HUMULIN N KWIKPEN 15 UNITS SC (20:24)
--- NOTE | 2025-01-11 21:00 | PTCARENOTE ---
Pt has a core temp of 101.2 F. PRN dose of tylenol administered by this RN.
[2025-01-11] MEDS: MAXIPIME 1000 MG IV (21:13)
[2025-01-11] MEDS: STERILE WATER FOR INJECTION 10 ML IV (21:14)
[2025-01-11] MEDS: XALATAN OPHTHALMIC SOLUTION 1 DROP BOTH EYES (21:14)
[2025-01-11 23:21] LABS: Glucose - Point of Care 148 mg/dl (70-99)
[2025-01-11] MEDS: NOVOLOG FLEXPEN-HIGH RESISTANCE 1 UNITS SC (23:23)
[2025-01-12] VITALS (14 sets, daily range): BP systolic 91–138; BP diastolic 57–79; BMI 39.9
--- NOTE | 2025-01-12 | PTCARENOTE ---
Pt desatting to 80s pulse ox upon turning during bed change. 100% O2 setting turned on temporarily for recovery. Pt recovered to mid 90s saturation after approx. 5 mins.
[2025-01-12] MEDS: TYLENOL ORAL SOLUTION 650 MG PO ×4 (00:10→12:32)
[2025-01-12] MEDS: DIPRIVAN 100 IV ×3 (00:57→16:55)
[2025-01-12] MEDS: MAXIPIME 1000 MG IV ×3 (02:46→15:05)
[2025-01-12] MEDS: STERILE WATER FOR INJECTION 10 ML IV ×3 (02:47→15:06)
[2025-01-12] MEDS: SUBLIMAZE 100 IV ×3 (02:54→20:21)
[2025-01-12 03:53] LABS: Hematocrit 37.8 % (37.0-47.0); Hemoglobin 11.1 g/dL (12.0-16.0); Mean Corp Hgb Conc. 29.4 g/dL (33.0-37.0); Mean Corpuscular Hgb 18.8 pg (27.0-31.0); Mean Corpuscular Volume 63.9 fL (81.0-99.0); Mean Platelet Volume 11.2 fL (7.4-10.4); Platelet Count 314 10^3/uL (130-400); Red Blood Cell Count 5.92 10^6/uL (4.20-5.40); Red Cell Dist. Width 17.6 % (11.5-14.5); White Blood Cell Count 12.3 10^3/uL (4.8-10.8)
[2025-01-12 04:02] LABS: Blood Urea Nitrogen 36 mg/dl (7-17); Calcium 8.8 mg/dl (8.4-10.2); Carbon Dioxide 34 mmol/L (22-30); Chloride 108 mmol/L (98-107); Estimated Creatinine Clearance 47 ml/min; Glucose 162 mg/dl (70-99); Potassium 3.9 mmol/L (3.5-5.1); Sodium 148 mmol/L (135-145); Triglycerides 235 mg/dl (10-149); eGFR 53.39
[2025-01-12 04:12] LABS: NT-proBNP 10900 pg/ml
[2025-01-12 04:18] LABS: Procalcitonin 2.21 ng/ml (0.0-0.25)
[2025-01-12 04:39] LABS: Absolute Neutrophils -Man Diff 11.9 10^3/uL (1.4-6.5); Anisocytosis 2+; Band Neutrophils 0 % (0-3); Eosinophils 1 % (0-6); Lymphocytes 2 % (20-51); Monocytes 0 % (2-9); Normal RBC Morphology No; Platelets Checked Yes; Segmented Neutrophils 97 % (42-75)
[2025-01-12 04:40] LABS: Microcytosis 3+; Ovalocytes 1+; Polychromasia 1+; Total Cells Counted 100
[2025-01-12 04:43] LABS: B.E. 7.5 mmol/L; O2 Saturation % 97.7 % (94-98); PCO2 44 mmHg (32-35); PO2 80 mmHg (83-108); pH 7.47 (7.35-7.45)
--- NOTE | 2025-01-12 04:45 | PTCARENOTE ---
Core temp 102 F. 2nd PRN dose of tylenol administered by this RN.
[2025-01-12] MEDS: SYNTHROID 112 MCG TUBE (05:02)
[2025-01-12] MEDS: NOVOLOG FLEXPEN-HIGH RESISTANCE 4 UNITS SC (05:07)
[2025-01-12 05:08] LABS: Glucose - Point of Care 226 mg/dl (70-99)
[2025-01-12 05:50] LABS: Glucose - Point of Care 227 mg/dl (70-99)
[2025-01-12 07:38] LABS: Glucose - Point of Care 153 mg/dl (70-99)
[2025-01-12] MEDS: NSS (PRESERVATIVE FREE) 10 ML IV (07:38)
[2025-01-12] MEDS: PROTONIX IV 40 MG IV (07:38)
[2025-01-12] MEDS: LASIX 80 MG IV (07:38)
[2025-01-12] MEDS: LIDOCAINE 4% PATCH 1 PATCH TOPICAL (07:38)
[2025-01-12] MEDS: HUMULIN N KWIKPEN 15 UNITS SC (07:39)
[2025-01-12] MEDS: DUONEB 3 ML INH ×3 (07:40→19:40)
--- NOTE | 2025-01-12 07:42 | W.PN.CD ---
Today's Communication / Plan
-
FiO2 increased from 45% to 60% over the last 24 hours despite additional diuresis and being 1700 mL negative over the last 24 hours.
Patient also with temperature up to 101 over the last 24 hours which raises concern that hypoxemia related to underlying pulmonary process/pneumonia more so than heart failure
CT ordered by pulmonary. Will await results. Cannot continue to diuresis but may need to decrease rate based on BP and BMP. Continue to monitor closely.
Impression / Plan
-
Acute, hypoxic respiratory failure/ VDRF
-this condition is threat to life
-she is intubated and breathing comfortably on ventilator
-PNA and CHF tx as below
- Between 01/11/2025 and 01/12/2025 patient with increased O2 requirements FiO2 increased from 45% to 60% despite diuresis. Additional assessment by pulmonary plan for CT scan today.
- If hypoxemia related to heart failure I would not expect to have increased O2 requirements after being 1700 mL negative. Will get pulmonary input after CT scan performed if there is additional questions regarding volume status then RHC could be
considered
.
PNA, sepsis:
-on IV abx
- Increased O2 requirements over last 24 hours and patient spiked temperature to 102
- CT scan ordered
Acute HFmEF:
- Previous notes suggest records from outside showed she was last seen in 2021 at which time she had a normal echo and stress test with no ischemia.
-Echo 01/09/25: Mildly reduced left ventricular systolic function. Left ventricular ejection fraction is 45-50% by Thomas's method of discs. Basal inferolateral hypokinesis. Mild aortic regurgitation. Moderate/severe mitral regurgitation.
- Increased O2 requirements despite being 1700 mL negative over the last 24 hours. Creatinine with slight trend up. Will back down to 40 twice daily
-Dry weight 182 lb by her report
- weight trending down ( i/o negtive 700-800ml over last 2 days)
CM, type unknown, but WMA's concern for underlying CAD
-Reviewed outside cardiology records. She was last seen in 2021 at which time she had a normal echo and stress test with no ischemia.
-Echo 01/09/25: Mildly reduced left ventricular systolic function. Left ventricular ejection fraction is 45-50% . Basal inferolateral hypokinesis. Mild aortic regurgitation. Moderate/severe mitral regurgitation.
-had abnormal nuclear stress test 2017 per OP notes, but denies having had cath or stents or CO (mild reversible high lateral defect may represent mild ischemia)
-Continue Metoprolol. Additional GDMT when able
-ischemic eval consideration after recovery from acute illness
HTN:
-stable, monitor
-continue BB
anemia:
-management per primary team
Subjective: Vented and sedated
CXR 01/11/25
Physical Exam
Vital Signs/Labs
Vital Signs
Temp Pulse Resp BP Pulse Ox
100.7 F H 72 20 102/62 98
01/12/25 07:35 01/12/25 06:00 01/12/25 06:00 01/12/25 06:00 01/12/25 07:34
01/11/25 01/12/25 01/13/25
06:59 06:59 06:59
Actual Weight 93.8 kg 92.7 kg
01/12/25 03:34
01/12/25 03:34
PT 16.8 Sec (11.4-14.6) H 01/07/25 22:10
INR 1.33 01/07/25 22:10
APTT 36.3 Sec (23.4-35.0) H 01/07/25 22:10
Magnesium 2.4 mg/dl (1.6-2.3) H 01/11/25 03:07
Triglycerides 235 mg/dl (10-149) H 01/12/25 03:34
01/08/25 01/12/25
04:59 03:34
[id number]-M-[id number] Pept [id number]
Physical Exam
Constitutional: No acute distress
Cardiovascular: Rhythm & rate is regular
Respiratory: Respiratory effort normal
GI: Soft
Neuro/Psych: Alert
Data Reviewed
-
Date of Service: January 12, 2025
Medical Decision Making: Reviewed Test Results
Echo: Report Reviewed by me
Medical Tests (PFT, Pathology etc): Report Reviewed by me
Labs: Labs Reviewed by me
[2025-01-12] MEDS: LOPRESSOR 25 MG TUBE (07:45)
[2025-01-12] MEDS: SUBLIMAZE 50 MCG IV (08:13)
--- NOTE | 2025-01-12 08:36 | W.PN.HOSP.TC ---
Today's Communication/Plan
-
Change of IV antibiotics. Continue mechanical ventilation.
Assessment / Plan
Assessment / Plan
Gen-sedated, intubated
HEENT-NC, AT, anicteric, clear oral mm
Neck-supple
CV-reg, no M, +S1/S2
Lungs-decreased breath sounds bilaterally with rales
Abd-soft, NT, ND
Ext-no edema
Musculoskeletal-no cyanosis, clubbing
Neuro-sedated on the vent
Skin-warm and dry
A/P:
Acute hypoxic respiratory failure/worsening hypoxemia today and recurrent fevers-due to extensive bilateral pneumonia and heart failure and ARDS. Transitioned from high flow nasal cannula/BPAP to intubation January 07. Remains in ICU. Currently
sedated but follows commands on the ventilator. Finished course of steroids. Not ready for extubation yet. Discussed with daughter at bedside today on 01/12. Antibiotics changed to cefepime and status post CT scan of the chest today and seen and
reviewed with bilateral parenchymal extensive involvement.
Acute HFrEF/valvulopathy/cardiomyopathy type unknown-BNP 7480; Echocardiogram showed EF of 45 to 50% and basal inferolateral hypokinesis, moderate-severe mitral regurgitation, mild aortic regurgitation. Diuretics on hold. Started on aspirin.
Ischemic evaluation after acute illness. Cardiology consulted and input appreciated.
Sepsis due to extensive multifocal community-acquired pneumonia- Completed azithromycin. Ceftriaxone changed to IV cefepime today on 01/12
Elevated LFTs -suspect due to severe pneumonia, sepsis and also passive venous congestion. Monitor every so often.
Microcytic anemia -Current [id number]. No clinical evidence of bleeding. B12 603, folate 11, iron 29, TIBC 211, 13% saturation, and ferritin 636.
Pre-Diabetes mellitus-hemoglobin A1c 6.2%. Continue insulin NPH 15 units every 12 hour and insulin sliding scale.
Essential hypertension -stable.
Hypothyroidism -levothyroxine.
Morbid obesity due to excess calories
Full code
Total time spent on today's encounter was 52 minutes which included time spent in counseling the patient/family regarding diagnosis and treatment plan as listed above, goals of care, and symptom management. Case was discussed with nursing staff,
specialists, and care coordinators/case management. All labs and imaging personally reviewed by me. Remainder the time spent in detailed review of previous records, lab data, imaging, and other medical provider documentation.
Anticipated Discharge: > 48 hours
Subjective/Interval History
-
Date of Service: January 12, 2025
Patient remains on the ventilator. Patient more hypoxemic and febrile with Tmax of 101.2 Fahrenheit last evening Tmax 100.7 Fahrenheit today.
Objective Data
-
Labs:
Laboratory Results
01/12/25 01/12/25
03:34 04:38
WBC 12.3 H
Hgb 11.1 L D
Hct 37.8
Plt Count 314
HCO3 32.0 H
Sodium 148 H
Potassium 3.9
Chloride 108 H
Carbon Dioxide 34 H
BUN 36 H
Creatinine 1.1 H
Glucose 162 H
Calcium 8.8
Vital Signs:
Vital Signs
Temp Pulse Resp BP Pulse Ox
100.7 F H 84 22 135/74 97
01/12/25 07:35 01/12/25 07:47 01/12/25 07:47 01/12/25 07:45 01/12/25 07:48
I&O
01/11/25 01/12/25 01/13/25
06:59 06:59 06:59
Intake Total 2024.5 / 2103.1 2064.1 / 2082.5 36.8 / 36.8
Output Total 2384 3683.0 / 3728.0 95 / 95
Balance -359.5 / -280.9 -1617.9 / -1644.5 -58.2 / -58.2
[2025-01-12] MEDS: LASIX IV (09:50)
[2025-01-12 09:53] LABS: COVID-19 Antigen Negative (Negative)
[2025-01-12 09:55] LABS: Glucose - Point of Care 200 mg/dl (70-99)
[2025-01-12] MEDS: NOVOLIN R 4 UNITS IV (09:59)
[2025-01-12] MEDS: NOVOLIN R INSULIN INFUSION 100 IV (09:59)
[2025-01-12] MEDS: DECADRON 20 MG IV (10:00)
--- NOTE | 2025-01-12 10:11 | PTCARENOTE ---
Addendum entered by Jeanette Martinez RN 01/12/25 10:15:
Dr. Rawls aware of pts temp despite tylenol.
Original Note:
pt received this am from previous rn ett to vent- see settings as charted. pt on propofol and fentanyl- able to follow simple commands and nod yes and no appropriately. pt desat upon morning care, fentanyl bolus given, pt recovered- Dr. Rawls at
bedside and aware, ordered to hold SBT and SAT and to keep pt with rass goal of -2 to -4. Dr. Oakes at bedside, ekg completed, troponin sent and aware of result. pt nsr with st depression. pt taken to ct per order. Daughter Jaylyn at bedside and
during rounds- verbalized understanding to plan of care. insulin gtt started as per order. ballard draining yellow urine, rectal trumpet inserted without difficulty for loose stools. all safety precautions in place.
[2025-01-12] MEDS: LOW STRENGTH ASPIRIN 324 MG PO (10:23)
[2025-01-12 11:01] LABS: Glucose - Point of Care 134 mg/dl (70-99)
[2025-01-12 12:03] LABS: Glucose - Point of Care 114 mg/dl (70-99)
[2025-01-12] MEDS: MIRALAX 17 GRAMS TUBE (12:15)
[2025-01-12] MEDS: NOVOLOG FLEXPEN SC (12:15)
--- NOTE | 2025-01-12 12:20 | OR.RPT ---
Operative Report
Operative Report
Left Radial Arterial catheter placement
Informed consent was obtained from patient's daughter at bedside. [facility] for ABGs, blood draws. Worsening respiratory failure.
Bedside ultrasound was used to confirm patency of left radial artery. Under sterile condition area was subsequently cleaned and a drape was placed. Under direct ultrasound visualization,, radial artery was cannulated. Once blood was noted in the
chamber guidewire was advanced. Arterial catheter was subsequently advanced over the guidewire, and then guidewire was removed. Pressure tubing was subsequently attached to the catheter and arterial waveform was noted on the monitor. Subsequently
a dressing was placed.
Complications: None
Date of service: 01/12/2025
[2025-01-12 12:37] LABS: B.E. 8.8 mmol/L; HCO3 33.5 mmol/L (21-28); O2 Saturation % 99.4 % (94-98); PCO2 46 mmHg (32-35); PO2 155 mmHg (83-108); pH 7.47 (7.35-7.45)
--- NOTE | 2025-01-12 12:41 | PTCARENOTE ---
pt remains sedated on propofol and fentanyl, Rass of -2. Dr Rawls at bedside placed left radial irena- zeroed and functioning. turned and repositioned. insulin gtt continues. assessment unchanged further. labs sent per order.
[2025-01-12 12:50] LABS: Lactic Acid 0.9 mmol/L (0.7-2.0)
[2025-01-12 12:58] LABS: Glucose - Point of Care 178 mg/dl (70-99)
--- NOTE | 2025-01-12 13:05 | PTCARENOTE ---
Dr. Oakes aware of trop no new orders.
[2025-01-12] MEDS: LR 250 IV ×2 (13:46→13:47)
[2025-01-12] MEDS: LEVOPHED 250 IV (13:47)
[2025-01-12 13:51] LABS: Glucose - Point of Care 197 mg/dl (70-99)
--- NOTE | 2025-01-12 14:04 | PTCARENOTE ---
right upper arm midline placed by IV team. pt with map 59, Dr. Rawls aware, 500cc bolus infusing as per order, levophed started to maintain map>65. map improved to 82, family at bedside and remains updated.
--- NOTE | 2025-01-12 14:23 | CM ---
Remains intubated. IV/AB, steroids and Lasix. PT eval ordered but unable to complete due to patient's medical instability at this time. Will follow.
[2025-01-12 15:02] LABS: Glucose - Point of Care 194 mg/dl (70-99)
[2025-01-12 15:49] LABS: HCO3 33.5 mmol/L (21-28); O2 Saturation % 99.5 % (94-98); PCO2 45 mmHg (32-35); PO2 107 mmHg (83-108); pH 7.48 (7.35-7.45)
[2025-01-12 15:58] LABS: % Basophils 0.1 % (0-2); % Eosinophils 0.2 % (0-6); % Immature Granulocytes 4.4 % (0-0.5); % Lymphocytes 2.2 % (20.5-51.1); % Monocytes 1.5 % (1.7-9.3); % Neutrophils 91.6 % (42.2-75.2); Absolute Immature Granulocytes 0.7 10^3/uL (0-0.05); Absolute Lymphocytes 0.3 10^3/uL (1.2-3.4); Absolute Monocytes 0.2 10^3/uL (0.1-0.6); Absolute Neutrophils 13.7 10^3/uL (1.4-6.5); Hematocrit 30.1 % (37.0-47.0); Hemoglobin 9.3 g/dL (12.0-16.0); Mean Corp Hgb Conc. 30.9 g/dL (33.0-37.0); Mean Corpuscular Hgb 19.1 pg (27.0-31.0); Mean Corpuscular Volume 61.8 fL (81.0-99.0); Mean Platelet Volume 10.8 fL (7.4-10.4); Nucleated Red Blood Cells % 0.8 %; Platelet Count 327 10^3/uL (130-400); Red Blood Cell Count 4.87 10^6/uL (4.20-5.40); Red Cell Dist. Width 16.9 % (11.5-14.5); White Blood Cell Count 14.9 10^3/uL (4.8-10.8)
[2025-01-12] MEDS: NOVOLOG FLEXPEN 4 UNITS SC (16:00)
[2025-01-12 16:01] LABS: Glucose - Point of Care 195 mg/dl (70-99)
--- NOTE | 2025-01-12 16:04 | W.PN.INTV ---
Today's Communication / Plan
Recommendations
- Ringer lactate 500 mL bolus
- Start Levophed as needed to keep MAP above 65
- Discontinue IV Lasix
- Follow-up on blood cultures, sputum culture. Check influenza screen as well as COVID-19
- Lung protective ventilation, 360/20/50%/10. Keep driving pressure less than 15 and blood pressure less than 30
- Start dexamethasone 20 mg daily for suspected ARDS
Assessment
-
Assessment: 74-year-old female non-smoker with a past medical history of CVA, asthma, hypertension, hypothyroidism and ITP/thalassemia who presented with shortness of breath + cough. Symptoms started this past Thursday (01/03/2025). Initially in
the ER she was febrile to 100.4 �F, tachycardic to 123, respiratory rate initially 18, BP 158/82 and saturating 86% on room air. She was transitioned to high flow nasal cannula at 60% FiO2 with saturations improvement to 98%. Initial labs were
significant for leukocytosis to 17, glucose 289, lactate 6.7, T. bili 1.7, and COVID-19 antigen negative. Blood cultures collected, and CXR showed bilateral pneumonia. In the ER she was given ceftriaxone, acetaminophen, Zofran, Zithromax, and 1 L
NS 0.9% and admitted to the IMU for further care. Pulmonary service consulted for additional management/recommendations; patient was managed in the IMU and she deteriorated, being transitioned from high flow nasal cannula to BiPAP and was
emergently intubated on 01/07 and transferred to the ICU where she is currently being managed.
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
Assessment and plan:
#1. Severe CAP with acute hypoxic respiratory failure, ?developing ARDS
- Patient was initially on high flow, subsequently intubated (01/07) due to increasing respiratory distress. On propofol and fentanyl for sedation.
- MRSA screen negative, culture stayed negative, Heidi noted on sputum. Legionella screen negative. Influenza AB and COVID-19 negative.
- Patient completed 5 days of azithromycin and was continued on ceftriaxone until 01/11, then switched to cefepime in view of worsening respiratory failure
-0 01/12, worsening hypoxia and desaturation with position change noted over the last 12 hours. Patient also started spiking fever. Concern for developing relapse/ARDS. Worsening infiltrate noted on chest x-ray.
- Repeat blood cultures ordered, repeat tracheal aspirate cultures, antibiotic coverage broadened to include cefepime.
- Lung protective mechanical ventilation for suspected ARDS, tidal volume dropped to 360 mL, PEEP increased to 10, FiO2 50%. Driving pressure less than 15 maintained, Plateau pressure around 24, lung compliance is less than 30. Check ABG, A-line
placed, if PF ratio drops below 150, will consider proning the patient
- Start dexamethasone 20 mg daily with high suspicion of developing ARDS and respiratory failure
- Blood-tinged tracheal aspirate. Hemoglobin otherwise has been stable, depending on clinical course will consider bronchoscopy and serial aliquots to evaluate for any alveolar hemorrhage
- Check DIONY, ANCA. Repeat influenza and COVID-19 testing.
#2. Newly diagnosed Acute on suspect Chronic heart failure with reduced EF. Echocardiogram 01/09 shows EF of 45 to 50% with moderate to severe mitral regurgitation.
- [place] at > [address] despite aggressive diuresis. Pulmonary edema also in differential diagnosis in addition to ARDS
- Holding additional Lasix in view of developing mild SHARMIN, hypotension.
- Elevated troponin noted, discussed with cardiology service, felt to be related to underlying critical illness. Depending upon clinical course might need left heart cath/right heart cath
- Follow-up chest x-ray
#3. h/o Lung nodule
- Patient will need follow-up imaging in about 8 weeks time once volume overload and pneumonia have resolved
- Reported history of follow-up with [facility] and a PET scan in the past, details not available for my review
#4. Hyperglycemia. Related to stress of acute illness, IV steroids and tube feeding.
-Considering now switching to 20 mg of Decadron daily, will start insulin infusion and discontinue NPH
#5. Brief hypotension.
- Related to diuresis as well as sedation
- 500 mL LR bolus given, start Levophed as needed
- If persistent need for pressor support, will discuss with patient's daughter regarding placing a central line
Other medical co-morbidities:
#Prediabetes (HbA1c: 6.2 on 01/07/2025)
#Transaminitis
#Obesity (BMI: 39.4)
#History of hypertension
#History of CVA
#History of ITP/thalassemia
#Severe hepatic steatosis likely due to morbid obesity
#Severe coronary artery calcifications seen radiographically on CT chest
Continue ICU level of care for this critically ill patient
Updated patient's daughter at bedside. Discussed with cardiology service.
Critical care statement: A total of 55 minutes of critical care time was provided for this patient today. This includes management of unstable vital signs, evaluation of the patient at bedside, reviewing the patient's pertinent medical records
including radiographs, microbiology, laboratory evaluations, and discussion with primary team, consultants, pharmacy, nutrition, physical therapy, case management, charge nurse, critical care nursing, and respiratory therapy.
Data:
CT chest with IV contrast 01/06/2025:
Extensive bilateral multifocal pneumonia.
Small bilateral pleural effusions, right greater than left.
Severe coronary artery calcifications. Please correlate with symptoms of and risk factors for coronary artery disease, with further workup as clinically appropriate.
Severe hepatic steatosis.
Subjective Dataa
Subjective Data
Date of Service:
Date of Service: January 12, 2025
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
Subjective:
Patient continues to be intubated, mechanically ventilated and sedated
Review of Systems
General: Unobtainable - Sedation
Objective Data
Data Reviewed
Vital Signs / I&O / Oxygen:
Vital Signs
Temp Pulse Resp BP Pulse Ox
99.6 F 72 20 106/61 96
01/12/25 15:48 01/12/25 14:15 01/12/25 14:15 01/12/25 12:00 01/12/25 16:00
Intake and Output
01/11/25 01/12/25 01/13/25
06:59 06:59 06:59
Intake Total 2025.5 / 2104.1 2065.1 / 2158.5 1317.6 / 1317.6
Output Total 2385 / 2385 3683.0 / 3728.0 1445 / 1445
Balance -359.5 / -280.9 -1617.9 / -1569.5 -127.4 / -127.4
SaO2 [CPAP/PSV] 93
SaO2 [A/C] 96
SaO2 97
Nasal Cannula flow liters per 60
minute
Physical Exam
General: Respiratory Distress (negative), Chills (negative), Sweats (negative) and Other (Intubated/sedated)
HEENT: Normocephalic and Anicteric
Cardiovascular: S1-S2 and Peripheral Edema
Respiratory: Rhonchi (Right side primarily.), Non-Labored Respirations and Stridor (negative)
GI: Soft, Distended (Abdominal obesity), Non Tender and Normal Bowel Sounds
Neurology: Other (Currently sedated)
Skin: Warm and Dry
Labs/Micro/Reports
Lab Data
01/12/25 15:41
Laboratory Results
01/12/25 01/12/25 01/12/25
04:38 12:22 15:41
pH 7.47 H 7.47 H 7.48 H
pCO2 44 H 46 H 45 H
pO2 80 L 155 H 107
HCO3 32.0 H 33.5 H 33.5 H
O2 Delivery Level
Microbiology
01/11/25 18:21 Tracheal Aspirate Gram Stain - Preliminary
01/12/25 12:56 Nasal Swab Influenza Types A & B (CHIOMA) - Final
Negative for Influenza A & B, NAAT
Negative results must be combined with clinical observations
and patient history.
Nucleic Acid Amplification test (NAAT)performed on the
[employer] platform.
01/06/25 16:40 Blood/Venous Blood Culture - Final
No Growth - Final Report
01/06/25 16:05 Blood/Venous Blood Culture - Final
No Growth - Final Report
01/08/25 11:44 Endotracheal Respiratory Culture - Final
Heidi albicans
01/08/25 11:44 Endotracheal Gram Stain - Final
[2025-01-12 16:17] LABS: ALT (SGPT) 56 U/L (0-35); AST (SGOT) 30 U/L (14-36); Albumin 2.9 g/dl (3.5-5.0); Alkaline Phosphatase 72 U/L (38-126); Blood Urea Nitrogen 38 mg/dl (7-17); Carbon Dioxide 32 mmol/L (22-30); Chloride 107 mmol/L (98-107); Estimated Creatinine Clearance 52 ml/min; Glucose 189 mg/dl (70-99); Sodium 143 mmol/L (135-145); Total Protein 5.7 g/dl (6.3-8.2); eGFR 59.86
[2025-01-12] MEDS: LOVENOX 40 MG SC (16:55)
[2025-01-12 16:58] LABS: Glucose - Point of Care 236 mg/dl (70-99)
--- NOTE | 2025-01-12 17:16 | PTCARENOTE ---
assessment unchanged, plan of care and labs discussed with Dr. gutiérrez, no new orders. family at bedside and remains updated.
[2025-01-12 17:58] LABS: Glucose - Point of Care 264 mg/dl (70-99)
[2025-01-12 18:55] LABS: Glucose - Point of Care 176 mg/dl (70-99)
[2025-01-12 19:58] LABS: Glucose - Point of Care 103 mg/dl (70-99)
[2025-01-12 21:06] LABS: Glucose - Point of Care 138 mg/dl (70-99)
[2025-01-12] MEDS: ATIVAN 1 MG IV (21:33)
[2025-01-12] MEDS: XALATAN OPHTHALMIC SOLUTION 1 DROP BOTH EYES (21:34)
[2025-01-12 22:08] LABS: Glucose - Point of Care 198 mg/dl (70-99)
--- NOTE | 2025-01-12 22:33 | PTCARENOTE ---
Pt received, intubated and sedated on propofol and fentanyl. Nods head y/n appropriately. GALO. Periods of restlessness/fighting the vent, PRNs given as ordered--see MAR. #8 ETT, 24cm at the lip, repositioned from center to left. AC 20/360/50%/+8.
Pulse ox 91-97%. Breath sounds coarse/rhonchi t/o. DHT with TF running at goal, tolerating. Rectal trumpet in place, draining loose brown stool. Bailon in place, yellow urine, 30-50ml/hr.
[2025-01-12 23:02] LABS: Glucose - Point of Care 167 mg/dl (70-99)
[2025-01-12 23:59] LABS: Glucose - Point of Care 137 mg/dl (70-99)
[2025-01-13] MEDS: NOVOLOG FLEXPEN 4 UNITS SC ×2 (00:02→18:11)
[2025-01-13] MEDS: DIPRIVAN 100 IV ×3 (00:05→14:52)
[2025-01-13] MEDS: MAXIPIME 1000 MG IV ×3 (00:06→16:27)
[2025-01-13] MEDS: STERILE WATER FOR INJECTION 10 ML IV ×3 (00:06→16:27)
[2025-01-13 01:59] LABS: Glucose - Point of Care 216 mg/dl (70-99)
[2025-01-13 03:04] LABS: Glucose - Point of Care 204 mg/dl (70-99)
[2025-01-13 03:21] LABS: B.E. 8.2 mmol/L; HCO3 32.8 mmol/L (21-28); O2 Saturation % 99.4 % (94-98); PCO2 45 mmHg (32-35); PO2 86 mmHg (83-108); pH 7.47 (7.35-7.45)
[2025-01-13 03:27] LABS: % Basophils 0.1 % (0-2); % Immature Granulocytes 3.5 % (0-0.5); % Lymphocytes 3.1 % (20.5-51.1); % Monocytes 2.2 % (1.7-9.3); % Neutrophils 91.1 % (42.2-75.2); Absolute Immature Granulocytes 0.5 10^3/uL (0-0.05); Absolute Lymphocytes 0.5 10^3/uL (1.2-3.4); Absolute Monocytes 0.3 10^3/uL (0.1-0.6); Absolute Neutrophils 13.3 10^3/uL (1.4-6.5); Hematocrit 30.9 % (37.0-47.0); Hemoglobin 9.2 g/dL (12.0-16.0); Mean Corp Hgb Conc. 29.8 g/dL (33.0-37.0); Mean Corpuscular Hgb 18.5 pg (27.0-31.0); Mean Platelet Volume 10.8 fL (7.4-10.4); Nucleated Red Blood Cells % 0.6 %; Platelet Count 313 10^3/uL (130-400); Red Blood Cell Count 4.98 10^6/uL (4.20-5.40); Red Cell Dist. Width 16.2 % (11.5-14.5); White Blood Cell Count 14.6 10^3/uL (4.8-10.8)
[2025-01-13 03:51] LABS: Blood Urea Nitrogen 44 mg/dl (7-17); Calcium 8.9 mg/dl (8.4-10.2); Carbon Dioxide 34 mmol/L (22-30); Chloride 106 mmol/L (98-107); Estimated Creatinine Clearance 47 ml/min; Glucose 185 mg/dl (70-99); Sodium 144 mmol/L (135-145); eGFR 53.39
[2025-01-13 04:21] LABS: Glucose - Point of Care 222 mg/dl (70-99)
[2025-01-13] MEDS: SUBLIMAZE 50 MCG IV (04:30)
[2025-01-13] MEDS: NOVOLIN R INSULIN INFUSION 100 IV ×2 (04:32→22:16)
--- NOTE | 2025-01-13 04:45 | PTCARENOTE ---
Pt assessment unchanged. CHG bath provided.
[2025-01-13 05:07] LABS: Glucose - Point of Care 204 mg/dl (70-99)
[2025-01-13 06:00] VITALS: BMI 40.1
[2025-01-13 06:07] LABS: Glucose - Point of Care 183 mg/dl (70-99)
[2025-01-13] MEDS: NOVOLOG FLEXPEN 8 UNITS SC (06:08)
[2025-01-13] MEDS: SYNTHROID 112 MCG TUBE (06:09)
[2025-01-13 07:05] LABS: Glucose - Point of Care 113 mg/dl (70-99)
[2025-01-13] MEDS: SUBLIMAZE 100 IV ×2 (07:05→18:07)
[2025-01-13] MEDS: DUONEB 3 ML INH ×3 (08:01→17:52)
[2025-01-13 08:02] LABS: Glucose - Point of Care 72 mg/dl (70-99)
[2025-01-13] MEDS: MIRALAX 17 GRAMS TUBE (08:09)
[2025-01-13] MEDS: LIDOCAINE 4% PATCH 1 PATCH TOPICAL (08:09)
[2025-01-13] MEDS: PROTONIX IV 40 MG IV (08:09)
[2025-01-13] MEDS: NSS (PRESERVATIVE FREE) 10 ML IV (08:09)
[2025-01-13] MEDS: LOW STRENGTH ASPIRIN 81 MG TUBE (08:09)
--- NOTE | 2025-01-13 08:48 | PTCARENOTE ---
pt received from previous rn- ett to vent- see settings as charted. pt remains on propofol and fentanyl for rass -2 to -4, remains on low dose levo to maintain map>65. left radial irena zeroed and functioning. daughter at bedside and updated,
verbalized understanding. all safety precautions in place. nsr with 1st degree on monitor.
[2025-01-13 08:56] LABS: Glucose - Point of Care 122 mg/dl (70-99)
--- NOTE | 2025-01-13 09:10 | W.PN.CD ---
Today's Communication / Plan
-
FiO2 down from 60% to 50% blood pressure stable.
Troponin trending downward
- ECG with anterolateral and inferior ST and T wave changes are stable compared to yesterday troponin yesterday was 3.7 but has since trended down. Issues have been reviewed with interventional cardiology. Would eventually plan for cardiac
catheterization but considering degree of patient's illness and weighing risk of benefit at this time we will continue with supportive treatment and additional treatment of pneumonia and respiratory failure and plan for left heart catheterization
later this admission
- Continue aspirin.
- Continue treatment of pneumonia and optimization of treatment of VDRF as directed by pulmonary/critical care
Impression / Plan
-
Acute, hypoxic respiratory failure/ VDRF
-this condition is threat to life
-she is intubated and breathing comfortably on ventilator
-PNA and CHF tx as below
- Between 01/11/2025 and 01/12/2025 patient with increased O2 requirements FiO2 increased from 45% to 60% despite diuresis.
- CT scan 01/12/2025 severe bilateral multifocal airspace consolidation with air bronchograms most suggestive of severe multifocal pneumonia pulmonary edema is considered less likely although not completely excluded small bilateral effusions severe
coronary calcification
- Considering findings on CT scan and increased O2 requirement despite diuresis VDRF felt to be primarily due to multifocal pneumonia possible component of ARDS. Reviewed with critical care team no plan for RHC right at this time.
- Continue to optimize treatment of pneumonia and VDRF as directed by pulmonary/critical care
- Continue to monitor volume status closely.
- FiO2 was decreased from 60% to 50%
.
PNA, sepsis:
-on IV abx
- Increased O2 requirements over last 24 hours and patient spiked temperature to 102
- Issues as noted above.
Acute HFmEF:
- Previous notes suggest records from outside showed she was last seen in 2021 at which time she had a normal echo and stress test with no ischemia.
-Echo 01/09/25: Mildly reduced left ventricular systolic function. Left ventricular ejection fraction is 45-50% by Thomas's method of discs. Basal inferolateral hypokinesis. Mild aortic regurgitation. Moderate/severe mitral regurgitation.
- Increased O2 requirements despite being 1700 mL negative 01/10/2025 - 01/12/2025. Patient also had a decrease in blood pressure on 01/12/2025 so diuretics held. Will continue to monitor and can use Lasix to keep I's and O's even at this point
- Follow-up echocardiogram with some technical challenge ejection fraction 40 to 45% there is inferolateral wall motion abnormalities previously noted.
CM,. Patient with wall motion abnormality inferolateral and ejection fraction 40 to 45%.
- ECG with anterolateral and inferior ST and T wave changes are stable compared to yesterday troponin yesterday was 3.7 but has since trended down. Suspect type II MD . Issues have been reviewed with interventional cardiology. Would eventually
plan for cardiac catheterization but considering degree of patient's illness and weighing risk of benefit at this time we will continue with supportive treatment and additional treatment of pneumonia and respiratory failure and plan for left heart
catheterization later this admission
.
HTN:
-stable, monitor
-continue BB
anemia:
-management per primary team
Subjective: Vented and sedated
CXR 01/11/25
Physical Exam
Vital Signs/Labs
Vital Signs
Temp Pulse Resp BP Pulse Ox
98.9 F 62 20 106/61 96
01/13/25 07:58 01/13/25 08:05 01/13/25 08:05 01/12/25 12:00 01/13/25 08:07
01/12/25 01/13/25 01/14/25
06:59 06:59 06:59
Actual Weight 92.7 kg 93.2 kg
01/13/25 03:13
01/13/25 03:13
PT 16.8 Sec (11.4-14.6) H 01/07/25 22:10
INR 1.33 01/07/25 22:10
APTT 36.3 Sec (23.4-35.0) H 01/07/25 22:10
Magnesium 2.4 mg/dl (1.6-2.3) H 01/11/25 03:07
Triglycerides 235 mg/dl (10-149) H 01/12/25 03:34
01/08/25 01/12/25
04:59 03:34
Qkg-[id number] Pept [id number]
LAB Results
01/12/25 01/12/25 01/12/25
08:12 09:13 12:22
Troponin I Cancelled 3.600 H* 3.760 H*
01/12/25 01/12/25
14:00 18:11
Troponin I Cancelled 3.130 H*
Physical Exam
Constitutional: No acute distress and Other (Vented)
Cardiovascular: Rhythm & rate is regular
Respiratory: Other (Coarse vented breath sounds bilaterally)
GI: Normal bowel sounds
Neuro/Psych: Alert and Other (Eyes open.)
Data Reviewed
-
Date of Service: January 13, 2025
Medical Decision Making: Reviewed Test Results
Medical Tests (PFT, Pathology etc): Report Reviewed by me
Labs: Labs Reviewed by me
[2025-01-13 10:03] LABS: Glucose - Point of Care 180 mg/dl (70-99)
--- NOTE | 2025-01-13 10:49 | PTCARENOTE ---
pt placed on wean, follows commands, active and passive ROM provided. pt denies pain.
[2025-01-13] MEDS: DECADRON 20 MG IV (11:05)
[2025-01-13 11:10] LABS: Glucose - Point of Care 195 mg/dl (70-99)
[2025-01-13] MEDS: NOVOLOG FLEXPEN 2 UNITS SC (11:14)
[2025-01-13 11:56] LABS: Glucose - Point of Care 174 mg/dl (70-99)
--- NOTE | 2025-01-13 12:10 | W.PN.INTV ---
Today's Communication / Plan
Recommendations
- Daily SAT/SBT for 2 hours until patient is ready for extubation
- Continue current treatment, follow-up ABG and chest x-ray in a.m.
- Continue tube feeding
Assessment
-
Assessment: 74-year-old female non-smoker with a past medical history of CVA, asthma, hypertension, hypothyroidism and ITP/thalassemia who presented with shortness of breath + cough. Symptoms started this past Thursday (01/03/2025). Initially in
the ER she was febrile to 100.4 �F, tachycardic to 123, respiratory rate initially 18, BP 158/82 and saturating 86% on room air. She was transitioned to high flow nasal cannula at 60% FiO2 with saturations improvement to 98%. Initial labs were
significant for leukocytosis to 17, glucose 289, lactate 6.7, T. bili 1.7, and COVID-19 antigen negative. Blood cultures collected, and CXR showed bilateral pneumonia. In the ER she was given ceftriaxone, acetaminophen, Zofran, Zithromax, and 1 L
NS 0.9% and admitted to the IMU for further care. Pulmonary service consulted for additional management/recommendations; patient was managed in the IMU and she deteriorated, being transitioned from high flow nasal cannula to BiPAP and was
emergently intubated on 01/07 and transferred to the ICU where she is currently being managed.
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
Assessment and plan:
01/13. Fluid balance, +1.5 L. 106/61, not on any pressors.
7.47/45/86, went settings 360/20/50%/8, PF ratio 170. Blood pressure around 19, PEEP of 8, driving pressure 11. Compliance 32.7
Current infusions propofol and fentanyl. Not on any pressors. Patient otherwise afebrile. No significant secretions coming from ET tube.
#1. Severe CAP with acute hypoxic respiratory failure, complicated by ARDS
- Patient was initially on high flow, subsequently intubated (01/07) due to increasing respiratory distress. On propofol and fentanyl for sedation.
- MRSA screen negative, culture stayed negative, Heidi noted on sputum. Legionella screen negative. Influenza AB and COVID-19 negative.
- Patient completed 5 days of azithromycin and was continued on ceftriaxone until 01/11, then switched to cefepime in view of worsening respiratory failure
- 01/12, worsening hypoxia and desaturation with position change noted. Patient also started spiking fever. Concern for developing ARDS. Worsening infiltrate noted on chest x-ray.
- Repeat blood cultures ordered, repeat tracheal aspirate cultures, antibiotic coverage broadened to include cefepime. No further fever noted.
- Lung protective mechanical ventilation for suspected ARDS, tidal volume dropped to 360 mL, PEEP @ 8, FiO2 50%.
- Continue dexamethasone 20 mg daily in view of ARDS
- Blood-tinged tracheal aspirate, resolved. Minimal endotracheal secretions. Hemoglobin has been stable and O2 requirement has not changed. Not suggestive of diffuse alveolar hemorrhage.
- Repeat influenza and COVID-19 testing negative. Await tracheal aspirate cultures. DIONY and ANCA pending.
#2. Newly diagnosed Acute on suspect Chronic heart failure with reduced EF. Echocardiogram 01/09 shows EF of 45 to 50% with moderate to severe mitral regurgitation.
- BNP elevated at > [address] despite aggressive diuresis. Pulmonary edema also in differential diagnosis in addition to ARDS
- Holding additional Lasix in view of developing mild SHARMIN, hypotension. Intermittently requiring Levophed at 1
- Elevated troponin noted, discussed with cardiology service (01/12), felt to be related to underlying critical illness. Depending upon clinical course might need left heart cath/right heart cath
- Follow-up chest x-ray in AM
#3. h/o Lung nodule
- Patient will need follow-up imaging in about 8 weeks time once volume overload and pneumonia have resolved
- Reported history of follow-up with [facility] and a PET scan in the past, details not available for my review
#4. Hyperglycemia. Related to stress of acute illness, IV steroids and tube feeding.
- Continue insulin infusion
#5. Brief hypotension (01/12)
- Related to diuresis as well as sedation
- 500 mL LR bolus given, start Levophed as needed
- Resolved
Other medical co-morbidities:
#Prediabetes (HbA1c: 6.2 on 01/07/2025)
#Transaminitis
#Obesity (BMI: 39.4)
#History of hypertension
#History of CVA
#History of ITP/thalassemia
#Severe hepatic steatosis likely due to morbid obesity
#Severe coronary artery calcifications seen radiographically on CT chest
Continue ICU level of care for this critically ill patient
Updated patient's daughter at bedside. Discussed with cardiology service.
Critical care statement: A total of 45 minutes of critical care time was provided for this patient today. This includes management of unstable vital signs, evaluation of the patient at bedside, reviewing the patient's pertinent medical records
including radiographs, microbiology, laboratory evaluations, and discussion with primary team, consultants, pharmacy, nutrition, physical therapy, case management, charge nurse, critical care nursing, and respiratory therapy.
Data:
CT chest with IV contrast 01/06/2025:
Extensive bilateral multifocal pneumonia.
Small bilateral pleural effusions, right greater than left.
Severe coronary artery calcifications. Please correlate with symptoms of and risk factors for coronary artery disease, with further workup as clinically appropriate.
Severe hepatic steatosis.
Subjective Dataa
Subjective Data
Date of Service:
Date of Service: January 13, 2025
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
Subjective:
Patient continues to be intubated, mechanically ventilated and sedated.
Review of Systems
General: Unobtainable - Sedation
Objective Data
Data Reviewed
Vital Signs / I&O / Oxygen:
Vital Signs
Temp Pulse Resp BP Pulse Ox
98.9 F 76 19 106/61 94
01/13/25 07:58 01/13/25 11:00 01/13/25 11:00 01/12/25 12:00 01/13/25 11:56
Intake and Output
01/12/25 01/13/25 01/14/25
06:59 06:59 06:59
Intake Total 2065.1 / 2158.5 2530.8 / 2567.9 533.4 / 533.4
Output Total 3683.0 / 3728.0 1971 245 / 245
Balance -1617.9 / -1569.5 558.8 / 555.9 288.4 / 288.4
SaO2 [CPAP/PSV] 93
SaO2 [A/C] 94
SaO2 96
Nasal Cannula flow liters per 60
minute
Physical Exam
General: Respiratory Distress (negative), Chills (negative), Sweats (negative) and Other (Intubated/sedated)
HEENT: Normocephalic and Anicteric
Cardiovascular: S1-S2 and Peripheral Edema
Respiratory: Rhonchi (Bilateral and diffuse), Non-Labored Respirations and Stridor (negative)
GI: Soft, Distended (Abdominal obesity), Non Tender and Normal Bowel Sounds
Neurology: Other (Currently sedated)
Skin: Warm and Dry
Labs/Micro/Reports
Lab Data
01/13/25 03:13
01/13/25 03:13
Laboratory Results
01/12/25 01/12/25 01/13/25
12:22 15:41 03:13
pH 7.47 H 7.48 H 7.47 H
pCO2 46 H 45 H 45 H
pO2 155 H 107 86
HCO3 33.5 H 33.5 H 32.8 H
O2 Delivery Level
Microbiology
01/11/25 18:21 Tracheal Aspirate Respiratory Culture - Preliminary
01/11/25 18:21 Tracheal Aspirate Gram Stain - Preliminary
01/11/25 20:49 Blood/Venous Blood Culture - Preliminary
No Growth in 24 hours- Final report to follow
01/11/25 21:07 Blood/Venous Blood Culture - Preliminary
No Growth in 24 hours- Final report to follow
01/12/25 12:56 Nasal Swab Influenza Types A & B (CHIOMA) - Final
Negative for Influenza A & B, NAAT
Negative results must be combined with clinical observations
and patient history.
Nucleic Acid Amplification test (NAAT)performed on the
[employer] platform.
01/06/25 16:40 Blood/Venous Blood Culture - Final
No Growth - Final Report
01/06/25 16:05 Blood/Venous Blood Culture - Final
No Growth - Final Report
01/08/25 11:44 Endotracheal Respiratory Culture - Final
Heidi albicans
01/08/25 11:44 Endotracheal Gram Stain - Final
[2025-01-13 12:28] LABS: Triglycerides 129 mg/dl (10-149)
[2025-01-13 13:13] LABS: Glucose - Point of Care 187 mg/dl (70-99)
--- NOTE | 2025-01-13 13:39 | PTCARENOTE ---
pt tolerated wean for approx 2 hours, pt remains on prop and fent, turned and repositioned, incont care provided. assessment unchanged
--- NOTE | 2025-01-13 13:42 | W.PN.HOSP.TC ---
Today's Communication/Plan
-
Steroids. Antibiotics. Mechanical ventilation
Assessment / Plan
Assessment / Plan
Gen-sedated, intubated
HEENT-NC, AT, anicteric, clear oral mm
Neck-supple
CV-reg, no M, +S1/S2
Lungs-decreased breath sounds bilaterally with rales
Abd-soft, NT, ND
Ext-no edema
Musculoskeletal-no cyanosis, clubbing
Neuro-sedated on the vent
Skin-warm and dry
A/P:
Acute hypoxic respiratory failure/worsening hypoxemia today and recurrent fevers-due to extensive bilateral pneumonia and heart failure and ARDS. Transitioned from high flow nasal cannula/BPAP to intubation January 07. Continue IV cefepime. Continue
IV dexamethasone. Weaning trials as able. Updated daughter at bedside today.
Acute HFrEF/valvulopathy/cardiomyopathy type unknown-BNP 7480; Echocardiogram showed EF of 45 to 50% and basal inferolateral hypokinesis, moderate-severe mitral regurgitation, mild aortic regurgitation. Diuresed appropriately but now diuretics on
hold. Started on aspirin. Beta-blockers on hold due to hypotension. Ischemic evaluation after acute illness. Cardiology consulted and input appreciated.
Sepsis due to extensive multifocal community-acquired pneumonia- Completed azithromycin. Ceftriaxone changed to IV cefepime on 01/12
Elevated LFTs -suspect due to severe pneumonia, sepsis and also passive venous congestion.
Microcytic anemia -Current hemoglobin 9.2. No clinical evidence of bleeding. B12 603, folate 11, iron 29, TIBC 211, 13% saturation, and ferritin 636.
Pre-Diabetes mellitus-hemoglobin A1c 6.2%. On glycemic protocol
Essential hypertension -stable.
Hypothyroidism -levothyroxine.
Morbid obesity due to excess calories
Full code
Total time spent on today's encounter was 52 minutes which included time spent in counseling the patient/family regarding diagnosis and treatment plan as listed above, goals of care, and symptom management. Case was discussed with nursing staff,
specialists, and care coordinators/case management. All labs and imaging personally reviewed by me. Remainder the time spent in detailed review of previous records, lab data, imaging, and other medical provider documentation.
Anticipated Discharge: > 48 hours
Subjective/Interval History
-
Date of Service: January 13, 2025
Patient remains on the ventilator. Patient seen and examined.
Objective Data
-
Labs:
Laboratory Results
01/13/25 01/13/25
03:13 16:00
WBC 14.6 H
Hgb 9.2 L
Hct 30.9 L
Plt Count 313
HCO3 32.8 H Pending
Sodium 144
Potassium 4.0
Chloride 106
Carbon Dioxide 34 H
BUN 44 H
Creatinine 1.1 H
Glucose 185 H
Calcium 8.9
Vital Signs:
Vital Signs
Temp Pulse Resp BP Pulse Ox
99.2 F 65 20 106/61 94
01/13/25 12:00 01/13/25 13:00 01/13/25 13:00 01/12/25 12:00 01/13/25 13:00
I&O
01/12/25 01/13/25 01/14/25
06:59 06:59 06:59
Intake Total 2065.1 / 2158.5 2530.8 / 2567.9 631.7 / 631.7
Output Total 3683.0 / 3728.0 1971 305 / 305
Balance -1617.9 / -1569.5 558.8 / 555.9 326.7 / 326.7
[2025-01-13 14:00] LABS: Glucose - Point of Care 178 mg/dl (70-99)
--- NOTE | 2025-01-13 14:07 | CM ---
Tube feed, intubated, daily SBT, plan for cardiac cath later in admission. Discharge POC: TBD.
[2025-01-13 14:58] LABS: Glucose - Point of Care 234 mg/dl (70-99)
--- NOTE | 2025-01-13 15:22 | PTCARENOTE ---
Assumed care of patient @ 1500 intubated/sedated/restrained-see flow sheet. Pt. drowsy, opens eyes spont to verbal stim; nods head y/n approp and follows simple commands. SR on monitor. SpO2 94% on vent settings AC20/360/.50/+8. Suctioned for
small amts of thick/bloody tinged sputum. ETT #8.0, 24 @ lip on L side. Auscultated coarse breath sounds anteriorly. +BS, abd round/obese. L nare dobhoff w TF's infusing. Rectal trumpet draining brown/liq stool. Them ballard in place draining
yellow urine. R midline w prop/fent gtts; #22 R hand w insulin gtt on glycemic protocol- see flow sheets. L rad A-line transduced, calibrated, and monitor; all ports patent and secured. Safe environment maintained. Family remains @ bedside.
[2025-01-13 16:18] LABS: Glucose - Point of Care 241 mg/dl (70-99)
[2025-01-13 16:25] LABS: B.E. 8.4 mmol/L; HCO3 32.8 mmol/L (21-28); O2 Saturation % 98.4 % (94-98); PCO2 44 mmHg (32-35); PO2 76 mmHg (83-108); pH 7.48 (7.35-7.45)
[2025-01-13 16:39] LABS: Triglycerides 126 mg/dl (10-149)
[2025-01-13 17:24] LABS: Glucose - Point of Care 247 mg/dl (70-99)
[2025-01-13 18:04] LABS: Glucose - Point of Care 271 mg/dl (70-99)
[2025-01-13] MEDS: LOVENOX 40 MG SC (18:09)
[2025-01-13 18:53] LABS: Glucose - Point of Care 255 mg/dl (70-99)
[2025-01-13 20:04] LABS: Glucose - Point of Care 225 mg/dl (70-99)
[2025-01-13 21:04] LABS: Glucose - Point of Care 252 mg/dl (70-99)
[2025-01-13 22:10] LABS: Glucose - Point of Care 234 mg/dl (70-99)
[2025-01-13] MEDS: XALATAN OPHTHALMIC SOLUTION 1 DROP BOTH EYES (22:10)
[2025-01-13 23:24] LABS: Glucose - Point of Care 172 mg/dl (70-99)
[2025-01-14] MEDS: DIPRIVAN 100 IV ×4 (00:22→23:03)
[2025-01-14] MEDS: MAXIPIME 1000 MG IV ×4 (00:22→23:05)
[2025-01-14] MEDS: STERILE WATER FOR INJECTION 10 ML IV ×4 (00:22→23:05)
[2025-01-14 00:25] LABS: Glucose - Point of Care 118 mg/dl (70-99)
[2025-01-14] MEDS: NOVOLOG FLEXPEN SC ×2 (01:25→13:20)
--- NOTE | 2025-01-14 01:25 | PTCARENOTE ---
Pt received at 19:00, inutbated and sedated on prop/fent. Insulin gtt for glycemic protocol continues. Nods y/n appropriately, attempts to mouth words when aware. Anxious and restless at times. SR, 70s-80s. L radial a-line, zeroed/transduced and
correlating with cuff pressure. #8 ETT, 24 at the lip. 20/360/50%/+8. Breath sounds coarse t/o. DHT with TF infusing as ordered. Rectal trumpet in place, loose brown stool. [place] draining yellow urine. Safe environment maintained.
[2025-01-14 01:32] LABS: Glucose - Point of Care 102 mg/dl (70-99)
[2025-01-14 02:37] LABS: Glucose - Point of Care 123 mg/dl (70-99)
[2025-01-14 03:59] LABS: Glucose - Point of Care 126 mg/dl (70-99)
[2025-01-14 04:28] LABS: B.E. 7.4 mmol/L; O2 Saturation % 98.4 % (94-98); PCO2 45 mmHg (32-35); PO2 81 mmHg (83-108); pH 7.46 (7.35-7.45)
[2025-01-14 04:47] LABS: % Basophils 0.1 % (0-2); % Immature Granulocytes 1.9 % (0-0.5); % Lymphocytes 4.4 % (20.5-51.1); % Monocytes 5.3 % (1.7-9.3); % Neutrophils 88.3 % (42.2-75.2); Absolute Immature Granulocytes 0.2 10^3/uL (0-0.05); Absolute Lymphocytes 0.5 10^3/uL (1.2-3.4); Absolute Monocytes 0.6 10^3/uL (0.1-0.6); Absolute Neutrophils 10.3 10^3/uL (1.4-6.5); Hemoglobin 8.5 g/dL (12.0-16.0); Mean Corp Hgb Conc. 30.4 g/dL (33.0-37.0); Mean Corpuscular Hgb 18.9 pg (27.0-31.0); Mean Corpuscular Volume 62.4 fL (81.0-99.0); Nucleated Red Blood Cells % 1.2 %; Platelet Count 242 10^3/uL (130-400); Red Blood Cell Count 4.49 10^6/uL (4.20-5.40); White Blood Cell Count 11.7 10^3/uL (4.8-10.8)
[2025-01-14 04:54] LABS: ALT (SGPT) 43 U/L (0-35); AST (SGOT) 20 U/L (14-36); Albumin 2.8 g/dl (3.5-5.0); Alkaline Phosphatase 69 U/L (38-126); Blood Urea Nitrogen 54 mg/dl (7-17); Calcium 8.6 mg/dl (8.4-10.2); Carbon Dioxide 34 mmol/L (22-30); Chloride 107 mmol/L (98-107); Estimated Creatinine Clearance 52 ml/min; Glucose 117 mg/dl (70-99); Magnesium 2.8 mg/dl (1.6-2.3); Potassium 4.2 mmol/L (3.5-5.1); Sodium 141 mmol/L (135-145); Total Bilirubin 0.6 mg/dl (0.2-1.3); Total Protein 5.5 g/dl (6.3-8.2); eGFR 59.86
[2025-01-14 04:56] VITALS: BMI 41.1
[2025-01-14 05:01] LABS: Glucose - Point of Care 143 mg/dl (70-99)
[2025-01-14] MEDS: SYNTHROID 112 MCG TUBE (05:47)
[2025-01-14] MEDS: SUBLIMAZE 100 IV ×2 (05:47→18:04)
[2025-01-14 06:09] LABS: Glucose - Point of Care 126 mg/dl (70-99)
[2025-01-14] MEDS: NOVOLOG FLEXPEN 300 UNITS SC (06:11)
[2025-01-14] MEDS: NOVOLOG FLEXPEN 4 UNITS SC ×2 (06:11→18:11)
[2025-01-14] MEDS: DUONEB 3 ML INH ×3 (07:30→17:22)
[2025-01-14] MEDS: MIRALAX 17 GRAMS TUBE (07:57)
[2025-01-14] MEDS: LIDOCAINE 4% PATCH 1 PATCH TOPICAL (07:57)
[2025-01-14] MEDS: NSS (PRESERVATIVE FREE) 10 ML IV (07:57)
[2025-01-14] MEDS: PROTONIX IV 40 MG IV (07:57)
--- NOTE | 2025-01-14 07:57 | W.PN.INTV ---
Today's Communication / Plan
Recommendations
- Switch to ASV mode, target minute ventilation 8 L, 50% FiO2, 8 of PEEP, ABG in 1 hour
- Lasix 40 mg IV x 1, follow-up chest x-ray in a.m.
- Follow-up labs and ABG in a.m.
- SAT trial as tolerated
- Continue tube feeding, insulin and sedation
Assessment
-
Assessment: 74-year-old female non-smoker with a past medical history of CVA, asthma, hypertension, hypothyroidism and ITP/thalassemia who presented with shortness of breath + cough. Symptoms started this past Thursday (01/03/2025). Initially in
the ER she was febrile to 100.4 �F, tachycardic to 123, respiratory rate initially 18, BP 158/82 and saturating 86% on room air. She was transitioned to high flow nasal cannula at 60% FiO2 with saturations improvement to 98%. Initial labs were
significant for leukocytosis to 17, glucose 289, lactate 6.7, T. bili 1.7, and COVID-19 antigen negative. Blood cultures collected, and CXR showed bilateral pneumonia. In the ER she was given ceftriaxone, acetaminophen, Zofran, Zithromax, and 1 L
NS 0.9% and admitted to the IMU for further care. Pulmonary service consulted for additional management/recommendations; patient was managed in the IMU and she deteriorated, being transitioned from high flow nasal cannula to BiPAP and was
emergently intubated on 01/07 and transferred to the ICU where she is currently being managed.
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
Assessment and plan:
01/13. Fluid balance, + 834 mL L. MAP 94, not on any pressors.
7.3 / on, went settings 360/20/50%/8, PF ratio 160.
Current infusions propofol and fentanyl along with heparin. Not on any pressors. Patient otherwise afebrile. No significant secretions coming from ET tube.
#1. Severe CAP with acute hypoxic respiratory failure, complicated by ARDS
- Patient was initially on high flow, subsequently intubated (01/07) due to increasing respiratory distress. On propofol and fentanyl for sedation.
- MRSA screen negative, culture stayed negative, Heidi noted on sputum. Legionella screen negative. Influenza AB and COVID-19 negative.
- Patient completed 5 days of azithromycin and was continued on ceftriaxone until 01/11, then switched to cefepime in view of worsening respiratory failure
- 01/12, worsening hypoxia and desaturation with position change noted. Patient also started spiking fever. Concern for developing ARDS. Worsening infiltrate noted on chest x-ray.
- Repeat blood cultures ordered, repeat tracheal aspirate cultures, antibiotic coverage broadened to include cefepime. No further fever noted.
- Lung protective mechanical ventilation for suspected ARDS
- Continue dexamethasone 20 mg daily in view of ARDS
- Blood-tinged tracheal aspirate, resolved. Minimal endotracheal secretions. Hemoglobin has been stable and O2 requirement has not changed. Not suggestive of diffuse alveolar hemorrhage.
- Repeat influenza and COVID-19 testing negative. Await tracheal aspirate cultures. DIONY and ANCA.
- 01/14, change ventilation mode to ASV, 170%, minute ventilation target 8 L., 50%, PEEP 8. ABG in 1 hour
- Continue tube feeding, having bowel movements.
#2. Newly diagnosed Acute on suspect Chronic heart failure with reduced EF. Echocardiogram 01/09 shows EF of 45 to 50% with moderate to severe mitral regurgitation.
- BNP elevated at > 37929 despite aggressive diuresis. Pulmonary edema also in differential diagnosis in addition to ARDS
- Lasix had been on hold in view of mild SHARMIN, now in positive fluid balance, Lasix 40 mg IV x 1 today
- Elevated troponin noted, discussed with cardiology service (01/12), felt to be related to underlying critical illness. Depending upon clinical course might need left heart cath/right heart cath
- Follow-up chest x-ray in AM
#3. h/o Lung nodule
- Patient will need follow-up imaging in about 8 weeks time once volume overload and pneumonia have resolved
- Reported history of follow-up with Gen pulmonology and a PET scan in the past, details not available for my review
#4. Hyperglycemia. Related to stress of acute illness, IV steroids and tube feeding.
- Continue insulin infusion
#5. Brief hypotension (01/12)
- Resolved, begin diuresing gently
Other medical co-morbidities:
#Prediabetes (HbA1c: 6.2 on 01/07/2025)
#Transaminitis
#Obesity (BMI: 39.4)
#History of hypertension
#History of CVA
#History of ITP/thalassemia
#Severe hepatic steatosis likely due to morbid obesity
#Severe coronary artery calcifications seen radiographically on CT chest
Continue ICU level of care for this critically ill patient
Updated patient's daughter at bedside. Discussed with cardiology service.
Critical care statement: A total of 48 minutes of critical care time was provided for this patient today. This includes management of unstable vital signs, evaluation of the patient at bedside, reviewing the patient's pertinent medical records
including radiographs, microbiology, laboratory evaluations, and discussion with primary team, consultants, pharmacy, nutrition, physical therapy, case management, charge nurse, critical care nursing, and respiratory therapy.
Data:
CT chest with IV contrast 01/06/2025:
Extensive bilateral multifocal pneumonia.
Small bilateral pleural effusions, right greater than left.
Severe coronary artery calcifications. Please correlate with symptoms of and risk factors for coronary artery disease, with further workup as clinically appropriate.
Severe hepatic steatosis.
Subjective Dataa
Subjective Data
Date of Service:
Date of Service: January 14, 2025
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
Subjective:
Patient intubated, mechanically ventilated and sedated. No new overnight events, afebrile.
Review of Systems
General: Unobtainable - Sedation
Objective Data
Data Reviewed
Vital Signs / I&O / Oxygen:
Vital Signs
Temp Pulse Resp BP Pulse Ox
98.5 F 43 23 106/61 94
01/14/25 07:35 01/14/25 07:36 01/14/25 07:36 01/12/25 12:00 01/14/25 07:36
Intake and Output
01/13/25 01/14/25 01/15/25
06:59 06:59 06:59
Intake Total 2530.8 / 2567.9 2324.0 / 2324.0
Output Total 1971 1490 / 1490
Balance 558.8 / 555.9 834.0 / 834.0
SaO2 [CPAP/PSV] 93
SaO2 [A/C] 95
SaO2 94
Nasal Cannula flow liters per 60
minute
Physical Exam
General: Respiratory Distress (negative), Chills (negative), Sweats (negative) and Other (Intubated/sedated)
HEENT: Normocephalic and Anicteric
Cardiovascular: S1-S2 and Peripheral Edema (1+)
Respiratory: Rhonchi (Bilateral and diffuse), Non-Labored Respirations and Stridor (negative)
GI: Soft, Distended (Abdominal obesity), Non Tender and Normal Bowel Sounds
Neurology: Other (Currently sedated)
Skin: Warm and Dry
Labs/Micro/Reports
Lab Data
01/14/25 04:19
01/14/25 04:19
Laboratory Results
01/13/25 01/14/25
16:15 04:19
pH 7.48 H 7.46 H
pCO2 44 H 45 H
pO2 76 L 81 L
HCO3 32.8 H 32.0 H
O2 Delivery Level
Microbiology
01/11/25 21:07 Blood/Venous Blood Culture - Preliminary
No Growth in 48 hours- Final report to follow
01/11/25 20:49 Blood/Venous Blood Culture - Preliminary
No Growth in 48 hours- Final report to follow
01/11/25 18:21 Tracheal Aspirate Respiratory Culture - Preliminary
01/11/25 18:21 Tracheal Aspirate Gram Stain - Preliminary
01/12/25 12:56 Nasal Swab Influenza Types A & B ([facility]) - Final
Negative for Influenza A & B, NAAT
Negative results must be combined with clinical observations
and patient history.
Nucleic Acid Amplification test (NAAT)performed on the
[facility] platform.
01/06/25 16:40 Blood/Venous Blood Culture - Final
No Growth - Final Report
01/06/25 16:05 Blood/Venous Blood Culture - Final
No Growth - Final Report
--- NOTE | 2025-01-14 08:00 | PTCARENOTE ---
Assumed care of patient @ 0700 intubated/sedated/restrained-see flow sheet. Sedation half'd prior to wean per MD for SAT- see flow sheets. Pt. drowsy, opens eyes spont to verbal stim; nods head y/n approp and follows simple commands. SR w 1st
degree AVB on monitor. SpO2 94% on vent settings ASV= MV-170%/PEEP +8/FiO2 50%. RT switched to wean settings @ approx 0745 per orders; tolerating wean. Suctioned for small amts of thick/bloody tinged sputum. ETT #8.0, 24 @ lip on R side.
Auscultated coarse breath sounds w scattt rhonchi posteriorly. +BS, abd round/obese. L nare dobhoff w TF's infusing. Rectal trumpet draining brown/liq stool. Them ballard in place draining yellow urine. R midline w prop/fent gtts; #22 R hand w
insulin gtt on glycemic protocol- see flow sheets. L rad A-line transduced, calibrated, and monitor; all ports patent and secured. Safe environment maintained.
[2025-01-14 08:12] LABS: Glucose - Point of Care 126 mg/dl (70-99)
[2025-01-14] MEDS: LASIX 40 MG IV (08:17)
[2025-01-14] MEDS: LOW STRENGTH ASPIRIN 81 MG TUBE (08:18)
--- NOTE | 2025-01-14 09:11 | W.PN.CD ---
Today's Communication / Plan
-
Continue to optimize treatment of pneumonia and VDRF as directed by pulmonary/critical care. ABG pending.
Suspect type II AR (demand ischemia), but there is certainly evidence for underlying occlusive CAD.
Furthermore, physiologic exacerbation of underlying ischemic in the LCx territory could lead to an acute worsening of mitral valve regurgitation, thus compounding the hypoxic respiratory failure.
The patient should undergo R/L heart catheterization + coronary angiography as part of her evaluation for her critical illness, but this can be deferred until she has further recovered as her primary issue is likely infectious.
Given the complexity of her volume status and pulmonary injury which may increase RV filling pressures - BNP should NOT be used as a marker of volume.
GDMT when hemodynamics will tolerate.
Impression / Plan
-
Impression/Plan: 74 y/o female with hypothyroidism, HTN, HLD, ITP/thalassemia, admitted with fever and acute hypoxic respiratory failure consistent with CAP with severe sepsis, progressing to ARDS requiring intubation/ventillation (01/07/2025), new
diagnosis of HFmEF (LVEF 45-50% with inferolateral hypokinesis) and moderate severe MR and mildly elevated troponin.
#Acute, hypoxic respiratory failure/VDRF
-Condition is threat to life.
-Remains intubated and breathing comfortably on ventilator. Currently on assist-control, Vt remains low, mildly tachypneic.
-Multifactorial, due to CAP (likely progressed to ARDS) and HFmEF with moderate/severe MR.
-01/11/2025 and 01/12/2025: FiO2 increased from 45% to 60% despite diuresis, recurrent fever.
-01/12/2025: Defervesced after 11:41. CT chest most suggestive of severe multifocal pneumonia pulmonary edema is considered less likely, small bilateral effusions severe coronary calcification. Ceftriaxone changed to cefepime. A-Line placed.
Norepinephrine started to maintain MAP > 65 mmHg. Vent settings changed and dexamethasone started for ARDS. Plateau pressure ~ 24 cmH2O (consistent with non-compliant lung parenchyma). ANCA/DIONY ordered for hemoptysis. Troponin 3.7.
-01/13/2025: FiO2 down to 50%. I/O net positive 1500 mL. Norepinephrine weaned. Repeat Flu/COVID negative.
-Continue to optimize treatment of pneumonia and VDRF as directed by pulmonary/critical care. ABG pending.
#PNA, sepsis:
-Acute, threat to life.
-Completed azithromycin.
-Recurrent fever on 01/11/2025, combined with worsening FiO2 requirements in spite of diuresis prompted saucedo in ABX from ceftriaxone to cefepime.
-Briefly required norepinephrine after over-diuresis.
-FiO2/Vent settings are slowly improving on ABX, dexamethasone.
#HFmEF/[employer]ING [employer]IATE/Troponin elevation
-New diagnosis.
-Previous notes suggest records from outside showed she was last seen in 2021 at which time she had a normal echo and stress test with no ischemia.
-Echo 01/09/25: Mildly reduced left ventricular systolic function. Left ventricular ejection fraction is 45-50% with basal inferolateral hypokinesis, mild AI, moderate/severe MR.
-Unclear how big of a role HFmEF is playing in current clinical setting.
-Given the complexity of her volume status and pulmonary injury which may increase RV filling pressures - BNP should NOT be used as a marker of volume.
-ECG with anterolateral and inferior ST and T wave changes and troponin elevation (3.7) raise possibility of ischemia (further suggested by coronary calcification on CT chest).
-Suspect type II AR (demand ischemia), but there is certainly a suspicion for underlying occlusive CAD. Furthermore, physiologic exacerbation of underlying ischemic in the LCx territory could lead to an acute worsening of mitral valve
regurgitation, thus compounding the hypoxic respiratory failure.
-At this time, the patient's trajectory appears generally improved. I am in agreement with my colleagues - the patient should undergo R/L heart catheterization + coronary angiography as part of her evaluation for her critical illness, but this can
be deferred until she has further recovered as her primary issue is likely infectious.
-Were she to decompensate again, I would be in favor of starting with an indwelling PA catheter to assess her filling pressures and guide hemodynamic management.
-Continue aspirin.
-GDMT when hemodynamics will tolerate.
#HTN
-Currently normotensive to mildly hypertensive.
-Restart home medications (including anti-hypertensives) when hemodynamics will permit.
#Anemia
-Chronic, known history of ITP/thalassemia.
-Hbg fluctuating between 8.5 - 9.3.
-Platelets stable.
-Management per primary team.
Critical Care Time = 60 minutes.
Subjective/Interval History:
Remains intubated and sedated.
Weight is up 2.3 kg from yesterday after I/O allowed to run positive.
Pulm/CC gave furosemide 40 mg this morning.
Mildly hypertensive.
WBC down to 11.7.
DATA:
Cultures:
Blood Cx (01/06/2025): Negative x2
Influenza (01/06/2025): Negative
SARS-CoV-2 Ag (01/06/2025): Negative
Legionella UAg (01/06/2025): Negative
S. Pneumoniae UAg (01/06/2025): Negative
Endotracheal Aspirate Cx (01/08/2025): C. Albicans
Endotracheal Aspirate Cx (01/11/2025): C. Albicans
Blood Cx (01/11/2025): NGTD x2
Influenza (01/12/2025): Negative
SARS-CoV-2 Ag (01/12/2025): Negative
CT Chest, 01/06/2025:
IMPRESSION:
Extensive bilateral multifocal pneumonia.
Small bilateral pleural effusions, right greater than left.
Severe coronary artery calcifications. Please correlate with symptoms of and risk factors for coronary artery disease, with further workup as clinically appropriate.
Severe hepatic steatosis.
TTE, 01/09/2025:
CONCLUSIONS
Mildly reduced left ventricular systolic function. Left ventricular ejection
fraction is 45-50% by Thomas's method of discs.
Basal inferolateral hypokinesis.
Mild aortic regurgitation.
Moderate/severe mitral regurgitation.
No prior study available for comparison.
CT Chest, 01/12/2025:
IMPRESSION:
1. Severe bilateral multifocal airspace consolidation with air bronchograms, most suggestive of severe multifocal pneumonia. Pulmonary edema is considered less likely, although not completely excluded.
2. Small bilateral pleural effusions, right greater than left.
3. 6 mm lung nodule within the right lower lobe, which may be related to severe pneumonia. Consider CT examination following resolution of the acute event to evaluate for true pulmonary nodule.
4. Severe coronary arterial calcification. Please correlate with symptoms of and risk factors for coronary artery disease, with further workup as clinically appropriate.
5. Cholelithiasis.
6. Diffuse fatty infiltration of the liver.
TTE, 01/12/2025:
CONCLUSIONS
Mildly reduced left ventricular systolic function.
Inferolateral hypokinesis LV ejection fraction is 40-45% .
Moderate to severe mitral regurgitation.
Compared to previous echo 01/09/2025 reported EF is mildly less. Previously
estimated 45 to 50%. Mitral regurgitation appears a bit more prominent on the
previous study but some of this may be related to imaging technique .
Physical Exam
Vital Signs/Labs
Vital Signs
Temp Pulse Resp BP Pulse Ox
36.9 C 85 23 156/72 95
01/14/25 07:35 01/14/25 08:17 01/14/25 07:36 01/14/25 08:17 01/14/25 08:00
01/12/25 01/13/25 01/14/25
11:59 11:59 11:59
Actual Weight 92.7 kg 93.2 kg 95.5 kg
01/14/25 04:19
01/14/25 04:19
PT 16.8 Sec (11.4-14.6) H 01/07/25 22:10
INR 1.33 01/07/25 22:10
APTT 36.3 Sec (23.4-35.0) H 01/07/25 22:10
Magnesium 2.8 mg/dl (1.6-2.3) H 01/14/25 04:19
Triglycerides 126 mg/dl (10-149) 01/13/25 16:15
01/08/25 01/12/25
04:59 03:34
[id number] Pept 7480 [id number]
LAB Results
01/12/25 01/12/25 01/12/25
08:12 09:13 12:22
Troponin I Cancelled 3.600 H* 3.760 H*
01/12/25 01/12/25 01/13/25
14:00 18:11 08:28
Troponin I Cancelled 3.130 H* 2.890 H*
Physical Exam
Constitutional: No acute distress and Comfortable
EENT: Anicteric, Moist mucous membranes and Other (ET tube in place.)
Cardiovascular: Rhythm & rate is regular, Pedal edema is absent, JVD pressure is normal, S1S2 is normal and Murmur/rub/gallop absent
Respiratory: Respiratory effort normal, Crackles Present and Rhonchi Present
GI: Soft, Distention absent, Flat, Non tender and Normal bowel sounds
Neuro/Psych: Other (Sedated.)
Data Reviewed
-
Date of Service: January 14, 2025
Medical Decision Making: Reviewed Test Results, Independent Historian Assessment, Test Interpretation and Review of Case with other Provider
EKG: Tracing Personally Visualized and interpreted and Report Reviewed by me
Echo: Tracing Personally Visualized and interpreted and Report Reviewed by me
X-Ray/CT/US/MRI/NUC/PET: Image Personally Visualized and interpreted and Report Reviewed by me
Labs: Labs Reviewed by me
Old Records: Reviewed
[2025-01-14 09:20] LABS: B.E. 8.1 mmol/L; O2 Saturation % 96.2 % (94-98); PCO2 41 mmHg (32-35); PO2 64 mmHg (83-108)
[2025-01-14] MEDS: DECADRON 20 MG IV (09:48)
[2025-01-14 10:04] LABS: Glucose - Point of Care 106 mg/dl (70-99)
[2025-01-14] MEDS: SUBLIMAZE 50 MCG IV ×4 (10:14→18:45)
[2025-01-14 11:22] LABS: Glucose - Point of Care 121 mg/dl (70-99)
--- NOTE | 2025-01-14 12:05 | W.PN.HOSP.TC ---
Today's Communication/Plan
-
IV antibiotics. IV steroids. IV Lasix. Mechanical ventilator
Assessment / Plan
Assessment / Plan
Gen-sedated, intubated
HEENT-NC, AT, anicteric, clear oral mm
Neck-supple
CV-reg, no M, +S1/S2
Lungs-decreased breath sounds bilaterally with rales
Abd-soft, NT, ND
Ext-no edema
Musculoskeletal-no cyanosis, clubbing
Neuro-sedated on the vent
Skin-warm and dry
A/P:
Acute hypoxic respiratory failure/worsening hypoxemia today and recurrent fevers-due to extensive bilateral pneumonia and heart failure and ARDS. Transitioned from high flow nasal cannula/BPAP to intubation January 07. Continue IV cefepime. Continue
IV dexamethasone. Switched to ASV mode per pulmonary with SAT trial. Lasix IV x 1 today. Updated daughter at bedside today.
Acute HFrEF/valvulopathy/suspected type II [place] but cannot rule out obstructive CAD-BNP 7480; Echocardiogram showed EF of 45 to 50% and basal inferolateral hypokinesis, moderate-severe mitral regurgitation, mild aortic regurgitation. Diuresed
appropriately but now diuretics on hold. Started on aspirin. Beta-blockers on hold due to hypotension. Ischemic evaluation after acute illness. Cardiology consulted and input appreciated.
Sepsis due to extensive multifocal community-acquired pneumonia- Completed azithromycin. Ceftriaxone changed to IV cefepime on 01/12
Elevated LFTs -suspect due to severe pneumonia, sepsis and also passive venous congestion.
Microcytic anemia -Current hemoglobin 8.5. No clinical evidence of bleeding. B12 603, folate 11, iron 29, TIBC 211, 13% saturation, and ferritin 636.
Pre-Diabetes mellitus-hemoglobin A1c 6.2%. On glycemic protocol
Essential hypertension -stable.
Hypothyroidism -levothyroxine.
Morbid obesity due to excess calories
Full code
Total time spent on today's encounter was 52 minutes which included time spent in counseling the patient/family regarding diagnosis and treatment plan as listed above, goals of care, and symptom management. Case was discussed with nursing staff,
specialists, and care coordinators/case management. All labs and imaging personally reviewed by me. Remainder the time spent in detailed review of previous records, lab data, imaging, and other medical provider documentation.
Anticipated Discharge: > 48 hours
Subjective/Interval History
-
Date of Service: January 14, 2025
Patient seen and examined. Remains on ventilator
Objective Data
-
Labs:
Laboratory Results
01/14/25 01/14/25 01/14/25
04:19 09:11 16:00
WBC 11.7 H
Hgb 8.5 L
Hct 28.0 L
Plt Count 242 D
HCO3 32.0 H 32.0 H Pending
Sodium 141
Potassium 4.2
Chloride 107
Carbon Dioxide 34 H
BUN 54 H
Creatinine 1.0
Glucose 117 H
Calcium 8.6
Total Bilirubin 0.6
AST 20
ALT 43 H
Alkaline Phosphatase 69
Vital Signs:
Vital Signs
Temp Pulse Resp BP Pulse Ox
98.8 F 87 22 156/72 94
01/14/25 11:00 01/14/25 11:00 01/14/25 11:00 01/14/25 08:17 01/14/25 11:00
I&O
01/13/25 01/14/25 01/15/25
06:59 06:59 06:59
Intake Total 2530.8 / 2567.9 2324.0 / 2424.3 455.0 / 455.0
Output Total 1971 1490 / 1565 275 / 275
Balance 558.8 / 555.9 834.0 / 859.3 180.0 / 180.0
[2025-01-14 12:23] LABS: Glucose - Point of Care 115 mg/dl (70-99)
--- NOTE | 2025-01-14 12:59 | PTCARENOTE ---
Pt. w some tachypnea w rates into high 20's during ASV wean. SpO2 89-92% on initial settings. ABG drawn and sent to lab; results and clinical status reviewed by Dr. Rawls. ASV settings changed to MV- 150%/ PEEP 10/ FiO2 60%. SpO2 improved to
92-94% and rates improved into low 20's. Pt. remains on ASV settings; plan for next ABG @ 1600. Pt. requiring sedation increased to keep CPOT and RASS in goal range- see flow sheets; Dr. Rawls aware. Family @ bedside, updated. Safe environment
maintained.
[2025-01-14 13:21] LABS: Glucose - Point of Care 105 mg/dl (70-99)
[2025-01-14 14:06] LABS: Glucose - Point of Care 116 mg/dl (70-99)
[2025-01-14 15:26] LABS: Glucose - Point of Care 174 mg/dl (70-99)
[2025-01-14 16:13] LABS: Glucose - Point of Care 203 mg/dl (70-99)
[2025-01-14 16:24] LABS: B.E. 8.6 mmol/L; HCO3 32.8 mmol/L (21-28); O2 Saturation % 97.3 % (94-98); PCO2 43 mmHg (32-35); PO2 67 mmHg (83-108); pH 7.49 (7.35-7.45)
[2025-01-14 17:05] LABS: Glucose - Point of Care 210 mg/dl (70-99)
[2025-01-14 18:09] LABS: Glucose - Point of Care 228 mg/dl (70-99)
[2025-01-14] MEDS: LOVENOX 40 MG SC (18:11)
[2025-01-14] MEDS: NOVOLIN R INSULIN INFUSION 100 IV (18:12)
--- NOTE | 2025-01-14 18:27 | PTCARENOTE ---
Assessment unchanged from previous. Plan to keep pt. on ASV wean overnight; pt. tolerating. Family remains @ bedside. Safe environment maintained.
[2025-01-14 19:21] LABS: Glucose - Point of Care 222 mg/dl (70-99)
[2025-01-14 20:04] LABS: Glucose - Point of Care 193 mg/dl (70-99)
[2025-01-14 21:12] LABS: Glucose - Point of Care 173 mg/dl (70-99)
[2025-01-14 22:07] LABS: Glucose - Point of Care 182 mg/dl (70-99)
[2025-01-14] MEDS: XALATAN OPHTHALMIC SOLUTION 1 DROP BOTH EYES (22:09)
[2025-01-14 23:06] LABS: Glucose - Point of Care 174 mg/dl (70-99)
[2025-01-15 00:09] LABS: Glucose - Point of Care 197 mg/dl (70-99)
[2025-01-15] MEDS: NOVOLOG FLEXPEN 4 UNITS SC ×3 (00:09→23:37)
[2025-01-15 01:05] LABS: Glucose - Point of Care 207 mg/dl (70-99)
[2025-01-15 02:05] LABS: Glucose - Point of Care 208 mg/dl (70-99)
[2025-01-15 03:17] LABS: Glucose - Point of Care 185 mg/dl (70-99)
[2025-01-15 04:16] LABS: B.E. 7.4 mmol/L; PCO2 45 mmHg (32-35); PO2 123 mmHg (83-108); pH 7.46 (7.35-7.45)
[2025-01-15 04:17] LABS: Glucose - Point of Care 147 mg/dl (70-99)
[2025-01-15 04:39] LABS: Hematocrit 28.2 % (37.0-47.0); Hemoglobin 8.4 g/dL (12.0-16.0); Mean Corp Hgb Conc. 29.8 g/dL (33.0-37.0); Mean Corpuscular Hgb 18.4 pg (27.0-31.0); Mean Corpuscular Volume 61.7 fL (81.0-99.0); Mean Platelet Volume 11.1 fL (7.4-10.4); Platelet Count 233 10^3/uL (130-400); Red Blood Cell Count 4.57 10^6/uL (4.20-5.40); Red Cell Dist. Width 15.8 % (11.5-14.5); White Blood Cell Count 10.8 10^3/uL (4.8-10.8)
[2025-01-15 04:48] LABS: ALT (SGPT) 42 U/L (0-35); AST (SGOT) 20 U/L (14-36); Albumin 2.9 g/dl (3.5-5.0); Alkaline Phosphatase 66 U/L (38-126); Blood Urea Nitrogen 61 mg/dl (7-17); Calcium 8.5 mg/dl (8.4-10.2); Carbon Dioxide 31 mmol/L (22-30); Chloride 106 mmol/L (98-107); Estimated Creatinine Clearance 53 ml/min; Glucose 145 mg/dl (70-99); Magnesium 2.9 mg/dl (1.6-2.3); Potassium 4.3 mmol/L (3.5-5.1); Sodium 140 mmol/L (135-145); Total Bilirubin 0.9 mg/dl (0.2-1.3); Total Protein 5.5 g/dl (6.3-8.2); Triglycerides 140 mg/dl (10-149); eGFR 59.86
[2025-01-15] MEDS: SUBLIMAZE 100 IV ×2 (05:00→21:16)
[2025-01-15] MEDS: DIPRIVAN 100 IV ×3 (05:02→18:03)
[2025-01-15 05:18] LABS: Glucose - Point of Care 124 mg/dl (70-99)
[2025-01-15] MEDS: NOVOLIN R INSULIN INFUSION 100 IV (05:55)
[2025-01-15] MEDS: NOVOLOG FLEXPEN 8 UNITS SC (05:59)
[2025-01-15] MEDS: SYNTHROID 112 MCG TUBE (05:59)
[2025-01-15 06:00] VITALS: BMI 40.8
[2025-01-15 06:11] LABS: Glucose - Point of Care 133 mg/dl (70-99)
--- NOTE | 2025-01-15 06:12 | PTCARENOTE ---
Pt received at 19:00, intubated and sedated on propofol/fentanyl. Insulin gtt for glycemic protocol continues. Opens eyes to voice, follows simple commands, nods y/n appropriately. #8 ETT, received on ASV wean, RESEARCH KENNEL SUPERVISOR placed back on AC 20/360/50%/+10
per athlete marketing agent. Breath sounds coarse t/o. Abdomen round, +BS, rectal trumpet in place, draining loose brown stool, small amount of leaking around rectal trumpet. DHT in place, TF infusing as ordered. Bailon in place, approx 35-50ml/hr. Safe
environment maintained, pt repositioned q2h.
[2025-01-15 07:03] LABS: Myeloperoxidase Antibody 1 AU/mL (0-19); Serine Protease-3, IgG 0 AU/mL (0-19)
[2025-01-15 07:16] LABS: Glucose - Point of Care 108 mg/dl (70-99)
[2025-01-15] MEDS: DUONEB 3 ML INH ×3 (07:26→21:03)
--- NOTE | 2025-01-15 07:28 | W.PN.CD ---
Today's Communication / Plan
-
Patient remains on 50% FiO2
Hemodynamically stable blood pressures are higher than they were a number of days ago. Of note patient was on metoprolol as an outpatient.
Continue to monitor volume status. Patient did receive diuretic earlier this admission which discontinued when she developed low blood lower blood pressures and it appeared that more of her respiratory failure was related to PNA/ARDS
Continue to monitor volume status. Mildly positive over the last 3 days. BUN trending up. Continue to monitor renal function. Can use Lasix as needed
Impression / Plan
-
Impression/Plan: 74 y/o female with hypothyroidism, HTN, HLD, ITP/thalassemia, admitted with fever and acute hypoxic respiratory failure consistent with CAP with severe sepsis, progressing to ARDS requiring intubation/ventillation (01/07/2025), new
diagnosis of HFmEF (LVEF 45-50% with inferolateral hypokinesis) and moderate severe MR and mildly elevated troponin.
#Acute, hypoxic respiratory failure/VDRF
-Condition is threat to life.
-Remains intubated and breathing comfortably on ventilator. Currently on assist-control, Vt remains low, mildly tachypneic.
-Multifactorial, due to CAP (likely progressed to ARDS) and HFmEF with moderate/severe MR.
-01/11/2025 and 01/12/2025: FiO2 increased from 45% to 60% despite diuresis, recurrent fever.
-01/12/2025: Defervesced after 11:41. CT chest most suggestive of severe multifocal pneumonia pulmonary edema is considered less likely, small bilateral effusions severe coronary calcification. Ceftriaxone changed to cefepime. A-Line placed.
Norepinephrine started to maintain MAP > 65 mmHg. Vent settings changed and dexamethasone started for ARDS. Plateau pressure ~ 24 cmH2O (consistent with non-compliant lung parenchyma). ANCA/DIONY ordered for hemoptysis. Troponin 3.7.
-01/13/2025: FiO2 down to 50%. I/O net positive 1500 mL. Norepinephrine weaned. Repeat Flu/COVID negative.
-Continue to optimize treatment of pneumonia and VDRF as directed by pulmonary/critical care.
#PNA, sepsis:
-Acute, threat to life.
-Completed azithromycin.
-Recurrent fever on 01/11/2025, combined with worsening FiO2 requirements in spite of diuresis prompted saucedo in ABX from ceftriaxone to cefepime.afebrile and 01/14
-Briefly required norepinephrine after over-diuresis.
-FiO2/Vent settings are slowly improving on ABX, dexamethasone.
#HFmEF/FILING CLERK/Troponin elevation
-New diagnosis.
- Peak troponin
-Previous notes suggest records from outside showed she was last seen in 2021 at which time she had a normal echo and stress test with no ischemia.
-Echo 01/09/25: Mildly reduced left ventricular systolic function. Left ventricular ejection fraction is 45-50% with basal inferolateral hypokinesis, mild AI, moderate/severe MR.
-Unclear how big of a role HFmEF is playing in current clinical setting.
-Given the complexity of her volume status and pulmonary injury which may increase RV filling pressures - BNP should NOT be used as a marker of volume.
-ECG with anterolateral and inferior ST and T wave changes and troponin elevation (3.7) raise possibility of ischemia (further suggested by coronary calcification on CT chest).
-Suspect type II OH (demand ischemia),n
- R/L heart catheterization + coronary angiography later this admission after additional recovery. primary issue is likely infectious.
-Were she to decompensate again, I would be in favor of starting with an indwelling PA catheter to assess her filling pressures and guide hemodynamic management.
-Continue aspirin.
-GDMT when hemodynamics will tolerate.
#HTN
- Appears patient was on metoprolol as an outpatient.
#Anemia
-Chronic, known history of ITP/thalassemia.
- Monitor anemia
-Management per primary team.
Critical Care Time = 35 minutes.
Subjective/Interval History:
Remains intubated and sedated.
Weight is up 2.3 kg from yesterday after I/O allowed to run positive.
Pulm/CC gave furosemide 40 mg this morning.
Mildly hypertensive.
WBC down to 11.7.
DATA:
Cultures:
Blood Cx (01/06/2025): Negative x2
Influenza (01/06/2025): Negative
SARS-CoV-2 Ag (01/06/2025): Negative
Legionella UAg (01/06/2025): Negative
S. Pneumoniae UAg (01/06/2025): Negative
Endotracheal Aspirate Cx (01/08/2025): C. Albicans
Endotracheal Aspirate Cx (01/11/2025): C. Albicans
Blood Cx (01/11/2025): NGTD x2
Influenza (01/12/2025): Negative
SARS-CoV-2 Ag (01/12/2025): Negative
CT Chest, 01/06/2025:
IMPRESSION:
Extensive bilateral multifocal pneumonia.
Small bilateral pleural effusions, right greater than left.
Severe coronary artery calcifications. Please correlate with symptoms of and risk factors for coronary artery disease, with further workup as clinically appropriate.
Severe hepatic steatosis.
TTE, 01/09/2025:
CONCLUSIONS
Mildly reduced left ventricular systolic function. Left ventricular ejection
fraction is 45-50% by Thomas's method of discs.
Basal inferolateral hypokinesis.
Mild aortic regurgitation.
Moderate/severe mitral regurgitation.
No prior study available for comparison.
CT Chest, 01/12/2025:
IMPRESSION:
1. Severe bilateral multifocal airspace consolidation with air bronchograms, most suggestive of severe multifocal pneumonia. Pulmonary edema is considered less likely, although not completely excluded.
2. Small bilateral pleural effusions, right greater than left.
3. 6 mm lung nodule within the right lower lobe, which may be related to severe pneumonia. Consider CT examination following resolution of the acute event to evaluate for true pulmonary nodule.
4. Severe coronary arterial calcification. Please correlate with symptoms of and risk factors for coronary artery disease, with further workup as clinically appropriate.
5. Cholelithiasis.
6. Diffuse fatty infiltration of the liver.
TTE, 01/12/2025:
CONCLUSIONS
Mildly reduced left ventricular systolic function.
Inferolateral hypokinesis LV ejection fraction is 40-45% .
Moderate to severe mitral regurgitation.
Compared to previous echo 01/09/2025 reported EF is mildly less. Previously
estimated 45 to 50%. Mitral regurgitation appears a bit more prominent on the
previous study but some of this may be related to imaging technique .
Physical Exam
Vital Signs/Labs
Vital Signs
Temp Pulse Resp BP Pulse Ox
98.1 F 72 26 156/72 96
01/15/25 07:19 01/15/25 07:00 01/15/25 07:00 01/14/25 08:17 01/15/25 07:00
01/14/25 01/15/25 01/16/25
06:59 06:59 06:59
Actual Weight 95.5 kg 94.8 kg
01/15/25 04:08
01/15/25 04:08
PT 16.8 Sec (11.4-14.6) H 01/07/25 22:10
INR 1.33 01/07/25 22:10
APTT 36.3 Sec (23.4-35.0) H 01/07/25 22:10
Magnesium 2.9 mg/dl (1.6-2.3) H 01/15/25 04:08
Triglycerides 140 mg/dl (10-149) 01/15/25 04:08
01/08/25 01/12/25
04:59 03:34
Gsm-E-Lijwyglywuv Pept 7480 [id number]
LAB Results
01/12/25 01/12/25 01/12/25
08:12 09:13 12:22
Troponin I Cancelled 3.600 H* 3.760 H*
01/12/25 01/12/25 01/13/25
14:00 18:11 08:28
Troponin I Cancelled 3.130 H* 2.890 H*
Physical Exam
Constitutional: No acute distress
Cardiovascular: Rhythm & rate is regular
Respiratory: Respiratory effort normal
GI: Soft, Non tender and Normal bowel sounds
Neuro/Psych: Alert
Data Reviewed
-
Date of Service: January 15, 2025
Medical Decision Making: Reviewed Test Results
Echo: Report Reviewed by me
Medical Tests (PFT, Pathology etc): Image Personally Visualized and interpreted
Labs: Labs Reviewed by me
[2025-01-15] MEDS: LOW STRENGTH ASPIRIN 81 MG TUBE (07:43)
[2025-01-15] MEDS: MIRALAX 17 GRAMS TUBE (07:43)
[2025-01-15] MEDS: LIDOCAINE 4% PATCH 1 PATCH TOPICAL (07:43)
[2025-01-15] MEDS: PROTONIX IV 40 MG IV (07:44)
[2025-01-15] MEDS: NSS (PRESERVATIVE FREE) 10 ML IV (07:45)
[2025-01-15] MEDS: STERILE WATER FOR INJECTION 10 ML IV ×2 (07:45→16:26)
[2025-01-15] MEDS: MAXIPIME 1000 MG IV ×2 (07:45→16:26)
[2025-01-15 08:17] LABS: Glucose - Point of Care 96 mg/dl (70-99)
--- NOTE | 2025-01-15 08:43 | W.PN.INTV ---
Today's Communication / Plan
Recommendations
- Lasix 40 mg IV twice a day
- Follow-up chest x-ray and ABG in a.m.
- ASV more during daytime, switch back to volume assist-control 360/20/50%/8
- Continue current management
Assessment
-
Assessment: 74-year-old female non-smoker with a past medical history of CVA, asthma, hypertension, hypothyroidism and ITP/thalassemia who presented with shortness of breath + cough. Symptoms started this past Thursday (01/03/2025). Initially in
the ER she was febrile to 100.4 �F, tachycardic to 123, respiratory rate initially 18, BP 158/82 and saturating 86% on room air. She was transitioned to high flow nasal cannula at 60% FiO2 with saturations improvement to 98%. Initial labs were
significant for leukocytosis to 17, glucose 289, lactate 6.7, T. bili 1.7, and COVID-19 antigen negative. Blood cultures collected, and CXR showed bilateral pneumonia. In the ER she was given ceftriaxone, acetaminophen, Zofran, Zithromax, and 1 L
NS 0.9% and admitted to the IMU for further care. Pulmonary service consulted for additional management/recommendations; patient was managed in the IMU and she deteriorated, being transitioned from high flow nasal cannula to BiPAP and was
emergently intubated on 01/07 and transferred to the ICU where she is currently being managed.
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
Assessment and plan:
01/14. Fluid balance, + 594 mL L. MAP 74, not on any pressors.
7.4 5/45/123, FiO2 50% and PEEP of 10, PF ratio more than 200, went settings 360/20/50%/10, PF ratio 240.
Current infusions propofol and fentanyl along with heparin. Not on any pressors. Patient otherwise afebrile. No significant secretions coming from ET tube.
#1. Severe CAP with acute hypoxic respiratory failure, complicated by ARDS
- Patient was initially on high flow, subsequently intubated (01/07) due to increasing respiratory distress. On propofol and fentanyl for sedation.
- MRSA screen negative, culture stayed negative, Heidi noted on sputum. Legionella screen negative. Influenza A, B and COVID-19 negative.
- Patient completed 5 days of azithromycin and was continued on ceftriaxone until 01/11, then switched to cefepime in view of worsening respiratory failure
- 01/12, worsening hypoxia and desaturation with position change noted. Patient also started spiking fever. Concern for developing ARDS. Worsening infiltrate noted on chest x-ray.
- Repeat blood cultures ordered, repeat tracheal aspirate cultures, antibiotic coverage broadened to include cefepime. No further fever noted.
- Lung protective mechanical ventilation for suspected ARDS
- Continue dexamethasone 20 mg daily in view of ARDS
- Blood-tinged tracheal aspirate, resolved. Minimal endotracheal secretions. Hemoglobin has been stable and O2 requirement has not changed. Not suggestive of diffuse alveolar hemorrhage.
- Repeat influenza and COVID-19 testing negative. Tracheal aspirate again growing Heidi.
- 01/14, patient tolerating ASV during daytime well, switching to volume assist-control at night as her PF ratio tends to drop on ASV.
- Continue tube feeding, having bowel movements.
#2. Newly diagnosed Acute on suspect Chronic heart failure with reduced EF. Echocardiogram 01/09 shows EF of 45 to 50% with moderate to severe mitral regurgitation.
- BNP elevated at > [address] despite aggressive diuresis. Pulmonary edema also in differential diagnosis in addition to ARDS
- Lasix had been on hold in view of mild SHARMIN, now in positive fluid balance, Lasix 40 mg IV twice daily, started 01/14
- Elevated troponin noted, discussed with cardiology service (01/12), felt to be related to underlying critical illness. Depending upon clinical course might need left heart cath/right heart cath
- Follow-up chest x-ray in AM
- Depending on her clinical course, will discuss with cardiology service if a [place] might be appropriate to help guide diuresis
#3. h/o Lung nodule
- Patient will need follow-up imaging in about 8 weeks time once volume overload and pneumonia have resolved
- Reported history of follow-up with [place] [facility] and a PET scan in the past, details not available for my review
#4. Hyperglycemia. Related to stress of acute illness, IV steroids and tube feeding.
- Continue insulin infusion
#5. Brief hypotension (01/12)
- Resolved, begin diuresing gently
Other medical co-morbidities:
#Prediabetes (HbA1c: 6.2 on 01/07/2025)
#Transaminitis
#Obesity (BMI: 39.4)
#History of hypertension
#History of CVA
#History of ITP/thalassemia
#Severe hepatic steatosis likely due to morbid obesity
#Severe coronary artery calcifications seen radiographically on CT chest
Continue ICU level of care for this critically ill patient
Critical care statement: A total of 45 minutes of critical care time was provided for this patient today. This includes management of unstable vital signs, evaluation of the patient at bedside, reviewing the patient's pertinent medical records
including radiographs, microbiology, laboratory evaluations, and discussion with primary team, consultants, pharmacy, nutrition, physical therapy, case management, charge nurse, critical care nursing, and respiratory therapy.
Data:
CT chest with IV contrast 01/06/2025:
Extensive bilateral multifocal pneumonia.
Small bilateral pleural effusions, right greater than left.
Severe coronary artery calcifications. Please correlate with symptoms of and risk factors for coronary artery disease, with further workup as clinically appropriate.
Severe hepatic steatosis.
Subjective Dataa
Subjective Data
Date of Service:
Date of Service: January 15, 2025
Chief Complaint: Care Advocate Follow Up
Subjective:
Patient currently on mechanical ventilation, intubated and sedated.
Review of Systems
General: Unobtainable - Sedation
Objective Data
Data Reviewed
Vital Signs / I&O / Oxygen:
Vital Signs
Temp Pulse Resp BP Pulse Ox
98.1 F 86 19 156/72 95
01/15/25 07:19 01/15/25 08:00 01/15/25 08:00 01/14/25 08:17 01/15/25 08:00
Intake and Output
01/14/25 01/15/25 01/16/25
06:59 06:59 06:59
Intake Total 2324.0 / 2424.3 2388.0 / 2491.1 191.5 / 191.5
Output Total 1840 / 1915 1840 / 1880 80 / 80
Balance 484.0 / 509.3 548.0 / 611.1 111.5 / 111.5
SaO2 [ASV] 95
SaO2 [CPAP/PSV] 93
SaO2 [A/C] 99
SaO2 96
Nasal Cannula flow liters per 60
minute
Physical Exam
General: Respiratory Distress (negative), Chills (negative), Sweats (negative) and Other (Intubated/sedated)
HEENT: Normocephalic and Anicteric
Cardiovascular: S1-S2, Peripheral Edema (1+) and Other (In atrial fibrillation,)
Respiratory: Rhonchi (Right lower hemithorax), Non-Labored Respirations and Stridor (negative)
GI: Soft, Distended (Abdominal obesity) and Non Tender
Neurology: Other (Currently sedated)
Skin: Warm and Dry
Labs/Micro/Reports
Lab Data
01/15/25 04:08
01/15/25 04:08
Laboratory Results
01/14/25 01/14/25 01/15/25
09:11 16:08 04:08
pH 7.50 H 7.49 H 7.46 H
pCO2 41 H 43 H 45 H
pO2 64 L 67 L 123 H
HCO3 32.0 H 32.8 H 32.0 H
O2 Delivery Level
Microbiology
01/11/25 20:49 Blood/Venous Blood Culture - Preliminary
No Growth in 72 hours- Final report to follow
01/11/25 21:07 Blood/Venous Blood Culture - Preliminary
No Growth in 72 hours- Final report to follow
01/11/25 18:21 Tracheal Aspirate Respiratory Culture - Final
Heidi albicans
01/11/25 18:21 Tracheal Aspirate Gram Stain - Final
01/12/25 12:56 Nasal Swab Influenza Types A & B ([facility]) - Final
Negative for Influenza A & B, NAAT
Negative results must be combined with clinical observations
and patient history.
Nucleic Acid Amplification test (NAAT)performed on the
[employer] platform.
[2025-01-15 08:53] LABS: ANA, IgG Reflex to HEp-2 None Detected (None Detected)
[2025-01-15 09:28] LABS: Glucose - Point of Care 77 mg/dl (70-99)
--- NOTE | 2025-01-15 09:30 | PTCARENOTE ---
Rec'd care of patient at 0700. Patient intubated/sedated. Propofol and Fentanyl drips weaned for SAT. Patient alert and following commands. Nods head appropraitely. MAEx4. NSR on tele monitor. Trace anasarca. +1 pedal edema. Palpable pulses. #8.0
ett, 23 cm @ the lip. Placed on ASV vent setting around 0730. Settings: 150 mv, PEEP 8, 50% fio2. Lung sounds coarse throughout. Moist, productive cough present. Blood tinged secretions suctioned from ett. +BS. TFs running at goal through DHT.
Rectal trumpet in place for bowel incontinence. Bailon for critical I/O. Fent and Prop infusing through right midline. Insulin gtt stopped per GP; protocol maintained. Left radial irena leveled and zeroed. VSS.
[2025-01-15] MEDS: DECADRON 20 MG IV (10:10)
[2025-01-15 10:21] LABS: Glucose - Point of Care 75 mg/dl (70-99)
--- NOTE | 2025-01-15 10:45 | CHAP ---
Ramona was resting, with daughter Jaylyn at the bedside. Jaylyn shared updates, and said her mother's [employer]ish lucila is very important to her. Emotional and spiritual support provided, along with assurance of our on-going availability.
[2025-01-15 11:19] LABS: Glucose - Point of Care 109 mg/dl (70-99)
--- NOTE | 2025-01-15 11:35 | W.PN.HOSP.TC ---
Today's Communication/Plan
-
IV antibiotics. IV steroids. Mechanical ventilation
Assessment / Plan
Assessment / Plan
Gen-sedated, intubated
HEENT-NC, AT, anicteric, clear oral mm
Neck-supple
CV-reg, no M, +S1/S2
Lungs-decreased breath sounds bilaterally with rales
Abd-soft, NT, ND
Ext-no edema
Musculoskeletal-no cyanosis, clubbing
Neuro-alert and oriented on the vent and no neurological deficits
Skin-warm and dry
A/P:
Acute hypoxic respiratory failure-due to extensive bilateral pneumonia and heart failure and ARDS. Transitioned from high flow nasal cannula/BPAP to intubation January 07. Continue IV cefepime. Continue IV dexamethasone 20 mg daily. Updated daughter
at bedside today on 01/15.
Acute HFrEF/valvulopathy/suspected type II [place] but cannot rule out obstructive CAD-BNP 7480; Echocardiogram showed EF of 45 to 50% and basal inferolateral hypokinesis, moderate-severe mitral regurgitation, mild aortic regurgitation. Diuresed
initially but now on hold. Started on aspirin. Beta-blockers on hold due to hypotension. Ischemic evaluation after acute illness. Cardiology consulted and input appreciated.
Sepsis due to extensive multifocal community-acquired pneumonia- Completed azithromycin. Ceftriaxone changed to IV cefepime on 01/12
Elevated LFTs -suspect due to severe pneumonia, sepsis and also passive venous congestion.
Microcytic anemia -Current hemoglobin 8.4. No clinical evidence of bleeding. B12 603, folate 11, iron 29, TIBC 211, 13% saturation, and ferritin 636.
Pre-Diabetes mellitus-hemoglobin A1c 6.2%. On glycemic protocol.
Essential hypertension -stable.
Hypothyroidism -levothyroxine.
Morbid obesity due to excess calories
Full code
Total time spent on today's encounter was 52 minutes which included time spent in counseling the patient/family regarding diagnosis and treatment plan as listed above, goals of care, and symptom management. Case was discussed with nursing staff,
specialists, and care coordinators/case management. All labs and imaging personally reviewed by me. Remainder the time spent in detailed review of previous records, lab data, imaging, and other medical provider documentation.
Anticipated Discharge: > 48 hours
Subjective/Interval History
-
Date of Service: January 15, 2025
Patient seen and examined. Remains on ventilator. More alert and off restraints today. Afebrile
Objective Data
-
Labs:
Laboratory Results
01/15/25
04:08
WBC 10.8
Hgb 8.4 L
Hct 28.2 L
Plt Count 233
HCO3 32.0 H
Sodium 140
Potassium 4.3
Chloride 106
Carbon Dioxide 31 H
BUN 61 H
Creatinine 1.0
Glucose 145 H
Calcium 8.5
Total Bilirubin 0.9
AST 20
ALT 42 H
Alkaline Phosphatase 66
Vital Signs:
Vital Signs
Temp Pulse Resp BP Pulse Ox
98.1 F 85 24 156/72 95
01/15/25 07:19 01/15/25 11:00 01/15/25 11:00 01/14/25 08:17 01/15/25 11:04
I&O
01/14/25 01/15/25 01/16/25
06:59 06:59 06:59
Intake Total 2324.0 / 2424.3 2388.0 / 2491.1 456.7 / 456.7
Output Total 1840 / 1915 184 / 1880 170 / 170
Balance 484.0 / 509.3 548.0 / 611.1 286.7 / 286.7
[2025-01-15 12:19] LABS: Glucose - Point of Care 115 mg/dl (70-99)
--- NOTE | 2025-01-15 13:17 | PTCARENOTE ---
Patient's urine output 5 cc's/hr. Sizing Sponger notified. IV Lasix order resumed.
[2025-01-15] MEDS: SUBLIMAZE 50 MCG IV (13:43)
--- NOTE | 2025-01-15 13:46 | PTCARENOTE ---
Addendum entered by Alana Prado RN 01/15/25 14:01:
Patient placed back on A/C vent settings by RT.
Original Note:
Patient observed to be more restless in bed. RR in the 30's. Vent alarming frequently. Pulse ox 91-92%. Fentanyl bolus administered and sedation increased.
[2025-01-15 14:19] LABS: Glucose - Point of Care 164 mg/dl (70-99)
--- NOTE | 2025-01-15 14:52 | PTCARENOTE ---
Patient's ballard continuing to have scant output. Bladder scan - 178 cc's. Ballard exchanged. 200 cc's of urine immediately drained.
[2025-01-15] MEDS: LASIX 40 MG IV (16:27)
[2025-01-15 16:34] LABS: B.E. 6.9 mmol/L; HCO3 31.3 mmol/L (21-28); O2 Saturation % 98.8 % (94-98); PCO2 43 mmHg (32-35); PO2 83 mmHg (83-108); pH 7.47 (7.35-7.45)
[2025-01-15 16:36] LABS: Glucose - Point of Care 184 mg/dl (70-99)
--- NOTE | 2025-01-15 16:41 | PTCARENOTE ---
Systems reviewed. No major changes. Patient alert. VSS. Lasix administered as ordered. Repeat ABG sent. Insulin gtt restarted per GP.
[2025-01-15] MEDS: LOVENOX 40 MG SC (17:26)
[2025-01-15] MEDS: NOVOLOG FLEXPEN 2 UNITS SC (17:29)
[2025-01-15 17:41] LABS: Glucose - Point of Care 262 mg/dl (70-99)
[2025-01-15 18:47] LABS: Glucose - Point of Care 215 mg/dl (70-99)
[2025-01-15 19:45] LABS: Glucose - Point of Care 236 mg/dl (70-99)
--- NOTE | 2025-01-15 20:00 | PTCARENOTE ---
Received pt intubated and sedated on propofol and fentanyl. Pt awakens easily to verbal. Follows commands, nods appropriately, tries to make needs known. GALO. Restraints in place for safety. NSR on tele. HR 70s-80s. BP 130s/60s via L radial A line -
transduced and zeroed. + pulses. AFebrile. +1 UE and LE edema. #8 ETT @ 23cm, moved to the center. Tolerating A/C 20/360/+8/50%. Spo2 95%. Lungs coarse and diminished bibasilar. Small amt blood tinged sputum via ETT. Dobhoff tube with osmo at
50ml/hr with 25ml/hr h20 flush. Hypoactive bowel sounds. Rectal trumpet draining loose brown stool. Temp sensing ballard cath draining yellow urine - see I&O. R midline with propofol, fentanyl and insulin gtt for glycemic protocol. #22 R wrist removed
due to leaking. Turning q2. Mouth care provided
[2025-01-15 20:50] LABS: Glucose - Point of Care 220 mg/dl (70-99)
[2025-01-15] MEDS: XALATAN OPHTHALMIC SOLUTION 1 DROP BOTH EYES (21:15)
[2025-01-15] MEDS: ATIVAN 1 MG IV (21:20)
[2025-01-15 21:35] LABS: Glucose - Point of Care 196 mg/dl (70-99)
[2025-01-15 22:40] LABS: Glucose - Point of Care 148 mg/dl (70-99)
[2025-01-15 23:44] LABS: Glucose - Point of Care 106 mg/dl (70-99)
--- NOTE | 2025-01-16 00:15 | PTCARENOTE ---
Pt was mildly anxious, looking around room, RR 30s. Pt denied pain. PRN ativan given with good effect. Pt now resting calmly, RR low 20s. No other changes in assessment
[2025-01-16] MEDS: MAXIPIME 1000 MG IV ×3 (00:20→08:38)
[2025-01-16] MEDS: STERILE WATER FOR INJECTION 10 ML IV ×4 (00:20→19:38)
[2025-01-16] MEDS: DIPRIVAN 100 IV ×4 (00:20→19:52)
[2025-01-16 00:34] LABS: Glucose - Point of Care 96 mg/dl (70-99)
[2025-01-16] MEDS: SUBLIMAZE 50 MCG IV ×2 (00:43→03:31)
[2025-01-16 01:37] LABS: Glucose - Point of Care 127 mg/dl (70-99)
[2025-01-16 02:56] LABS: B.E. 7.9 mmol/L; O2 Saturation % 98.7 % (94-98); PCO2 42 mmHg (32-35); PO2 82 mmHg (83-108); pH 7.49 (7.35-7.45)
[2025-01-16 02:58] LABS: Glucose - Point of Care 190 mg/dl (70-99)
[2025-01-16 03:31] VITALS: BMI 40.7
[2025-01-16 03:44] LABS: Glucose - Point of Care 186 mg/dl (70-99)
[2025-01-16 03:51] LABS: % Basophils 0.2 % (0-2); % Immature Granulocytes 5.1 % (0-0.5); % Lymphocytes 3.4 % (20.5-51.1); % Monocytes 7.4 % (1.7-9.3); % Neutrophils 83.9 % (42.2-75.2); Absolute Immature Granulocytes 0.6 10^3/uL (0-0.05); Absolute Lymphocytes 0.4 10^3/uL (1.2-3.4); Absolute Monocytes 0.9 10^3/uL (0.1-0.6); Absolute Neutrophils 10.5 10^3/uL (1.4-6.5); Hematocrit 26.9 % (37.0-47.0); Hemoglobin 8.2 g/dL (12.0-16.0); Mean Corp Hgb Conc. 30.5 g/dL (33.0-37.0); Mean Corpuscular Hgb 18.6 pg (27.0-31.0); Nucleated Red Blood Cells % 0.2 %; Platelet Count 226 10^3/uL (130-400); Red Blood Cell Count 4.41 10^6/uL (4.20-5.40); Red Cell Dist. Width 15.5 % (11.5-14.5); White Blood Cell Count 12.5 10^3/uL (4.8-10.8)
--- NOTE | 2025-01-16 04:01 | PTCARENOTE ---
No major changes in assessment. Insulin gtt was on hold for 2 hours due to BG of 96. Gtt now back on.
Bathed with CHG. ETT moved to right side.
[2025-01-16 04:09] LABS: ALT (SGPT) 40 U/L (0-35); AST (SGOT) 23 U/L (14-36); Albumin 2.8 g/dl (3.5-5.0); Alkaline Phosphatase 66 U/L (38-126); Blood Urea Nitrogen 57 mg/dl (7-17); Calcium 8.2 mg/dl (8.4-10.2); Carbon Dioxide 31 mmol/L (22-30); Chloride 102 mmol/L (98-107); Estimated Creatinine Clearance 52 ml/min; Glucose 172 mg/dl (70-99); Magnesium 2.7 mg/dl (1.6-2.3); Potassium 4.6 mmol/L (3.5-5.1); Sodium 138 mmol/L (135-145); Total Bilirubin 0.9 mg/dl (0.2-1.3); Total Protein 5.3 g/dl (6.3-8.2); Triglycerides 127 mg/dl (10-149); eGFR 59.86
[2025-01-16 04:43] LABS: Glucose - Point of Care 181 mg/dl (70-99)
[2025-01-16] MEDS: SYNTHROID 112 MCG TUBE (04:57)
[2025-01-16] MEDS: NOVOLOG FLEXPEN 4 UNITS SC ×2 (05:36→17:35)
[2025-01-16 05:47] LABS: Glucose - Point of Care 164 mg/dl (70-99)
[2025-01-16] MEDS: SUBLIMAZE 100 IV ×2 (06:36→19:53)
[2025-01-16 06:39] LABS: Glucose - Point of Care 117 mg/dl (70-99)
--- NOTE | 2025-01-16 07:21 | W.PN.INTV ---
Today's Communication / Plan
Recommendations
- Vent settings changed to 320/20/50%/8. ABG in a.m.
- Follow-up chest x-ray in a.m.
- Will discuss with cardiology service regarding possible right heart cath/[place] guided diuresis
Assessment
-
Assessment: 74-year-old female non-smoker with a past medical history of CVA, asthma, hypertension, hypothyroidism and ITP/thalassemia who presented with shortness of breath + cough. Symptoms started this past Thursday (01/03/2025). Initially in
the ER she was febrile to 100.4 �F, tachycardic to 123, respiratory rate initially 18, BP 158/82 and saturating 86% on room air. She was transitioned to high flow nasal cannula at 60% FiO2 with saturations improvement to 98%. Initial labs were
significant for leukocytosis to 17, glucose 289, lactate 6.7, T. bili 1.7, and COVID-19 antigen negative. Blood cultures collected, and CXR showed bilateral pneumonia. In the ER she was given ceftriaxone, acetaminophen, Zofran, Zithromax, and 1 L
NS 0.9% and admitted to the IMU for further care. Pulmonary service consulted for additional management/recommendations; patient was managed in the IMU and she deteriorated, being transitioned from high flow nasal cannula to BiPAP and was
emergently intubated on 01/07 and transferred to the ICU where she is currently being managed.
Chronic conditions GENERAL ASSIGNMENT REPORTER: Hypertension, history of CVA, asthma, hypothyroidism, history of ITP
Assessment and plan:
01/16. Urine output 2.2 L.. MAP 71, not on any pressors.
7.49/42/82 on 360/20/50%/8. PF ratio 160.. Tidal volume lowered to 320 in view of mild alkalosis. Pplat pressure 22, driving pressure 14.
Current infusions propofol and fentanyl along with heparin. Not on any pressors. Patient otherwise afebrile. Min blood tinged secretions coming from ET tube.
#1. Severe CAP with acute hypoxic respiratory failure, complicated by ARDS
- Patient was initially on high flow, subsequently intubated (01/07) due to increasing respiratory distress. On propofol and fentanyl for sedation.
- MRSA screen negative, culture stayed negative, Heidi noted on sputum. Legionella screen negative. Influenza A, B and COVID-19 negative.
- Patient completed 5 days of azithromycin and was continued on ceftriaxone until 01/11, then switched to cefepime in view of worsening respiratory failure
- 01/12, worsening hypoxia and desaturation with position change noted. Patient also started spiking fever. Concern for developing ARDS. Worsening infiltrate noted on chest x-ray.
- Repeat blood cultures ordered, repeat tracheal aspirate cultures, antibiotic coverage broadened to include cefepime. No further fever noted.
- Lung protective mechanical ventilation for suspected ARDS
- Continue dexamethasone 20 mg daily in view of ARDS
- Minimal Blood-tinged tracheal aspirate, improved. Minimal endotracheal secretions. Hemoglobin has been stable and O2 requirement has not changed. Not suggestive of diffuse alveolar hemorrhage. DIONY and ANCA negative
- Repeat influenza and COVID-19 testing negative. Tracheal aspirate again growing Heidi.
- Patient tends to develop tachypnea and decreased pO2 on ASV. Continuing volume control for now.
- Continue tube feeding, having bowel movements.
#2. Newly diagnosed Acute on suspect Chronic heart failure with reduced EF. Echocardiogram 01/09 shows EF of 45 to 50% with moderate to severe mitral regurgitation.
- BNP elevated at > 16984 despite aggressive diuresis. Pulmonary edema also in differential diagnosis in addition to ARDS
- Lasix had been on hold in view of mild SHARMIN, now in positive fluid balance, Lasix 40 mg IV twice daily, re-started 01/14
- Elevated troponin noted, discussed with cardiology service (01/12), felt to be related to underlying critical illness. Depending upon clinical course might need left heart cath/right heart cath
- Follow-up chest x-ray in AM
- Will discuss regarding cardiology service for possible right heart cath/[place] guided diuresis
#3. h/o Lung nodule
- Patient will need follow-up imaging in about 8 weeks time once volume overload and pneumonia have resolved
- Reported history of follow-up with [facility] and a PET scan in the past, details not available for my review
#4. Hyperglycemia. Related to stress of acute illness, IV steroids and tube feeding.
- Continue insulin infusion
#5. Brief hypotension (01/12)
- Resolved, continue Lasix 40 mg IV twice daily
Other medical co-morbidities:
#Prediabetes (HbA1c: 6.2 on 01/07/2025)
#Transaminitis
#Obesity (BMI: 39.4)
#History of hypertension
#History of CVA
#History of ITP/thalassemia
#Severe hepatic steatosis likely due to morbid obesity
#Severe coronary artery calcifications seen radiographically on CT chest
Continue ICU level of care for this critically ill patient
Critical care statement: A total of 55 minutes of critical care time was provided for this patient today. This includes management of unstable vital signs, evaluation of the patient at bedside, reviewing the patient's pertinent medical records
including radiographs, microbiology, laboratory evaluations, and discussion with primary team, consultants, pharmacy, nutrition, physical therapy, case management, charge nurse, critical care nursing, and respiratory therapy.
Data:
CT chest with IV contrast 01/06/2025:
Extensive bilateral multifocal pneumonia.
Small bilateral pleural effusions, right greater than left.
Severe coronary artery calcifications. Please correlate with symptoms of and risk factors for coronary artery disease, with further workup as clinically appropriate.
Severe hepatic steatosis.
Subjective Dataa
Subjective Data
Date of Service:
Date of Service: January 16, 2025
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
Subjective:
Patient currently intubated, mechanically ventilated and sedated.
Review of Systems
General: Unobtainable - Sedation
Objective Data
Data Reviewed
Vital Signs / I&O / Oxygen:
Vital Signs
Temp Pulse Resp BP Pulse Ox
98.5 F 61 20 136/62 97
01/16/25 07:10 01/16/25 07:00 01/16/25 07:00 01/15/25 16:27 01/16/25 07:00
Intake and Output
01/15/25 01/16/25 01/17/25
06:59 06:59 06:59
Intake Total 2388.0 / 2491.1 2355.1 / 2375.1 20.0 / 20.0
Output Total 1840 / 1880 2190 / 2240 50 / 50
Balance 548.0 / 611.1 165.1 / 135.1 -30.0 / -30.0
SaO2 [ASV] 92
SaO2 [CPAP/PSV] 93
SaO2 [A/C] 98
SaO2 97
Nasal Cannula flow liters per 60
minute
Physical Exam
General: Respiratory Distress (negative), Chills (negative), Sweats (negative) and Other (Intubated/sedated)
HEENT: Normocephalic and Anicteric
Cardiovascular: S1-S2, Peripheral Edema (1+) and Other (In atrial fibrillation,)
Respiratory: Rhonchi (improving rhonchi ), Non-Labored Respirations and Stridor (negative)
GI: Soft, Distended (Abdominal obesity) and Non Tender
Neurology: Other (Currently sedated)
Skin: Warm and Dry
Labs/Micro/Reports
Lab Data
01/16/25 02:43
01/16/25 02:43
Laboratory Results
01/15/25 01/16/25
16:21 02:43
pH 7.47 H 7.49 H
pCO2 43 H 42 H
pO2 83 82 L
HCO3 31.3 H 32.0 H
O2 Delivery Level
Microbiology
01/11/25 20:49 Blood/Venous Blood Culture - Preliminary
No Growth in 4 days- Final report to follow
01/11/25 21:07 Blood/Venous Blood Culture - Preliminary
No Growth in 4 days- Final report to follow
01/11/25 18:21 Tracheal Aspirate Respiratory Culture - Final
Heidi albicans
01/11/25 18:21 Tracheal Aspirate Gram Stain - Final
[2025-01-16] MEDS: NSS (PRESERVATIVE FREE) 10 ML IV (07:22)
[2025-01-16] MEDS: PROTONIX IV 40 MG IV (07:22)
[2025-01-16] MEDS: LASIX 40 MG IV ×2 (07:23→15:36)
[2025-01-16] MEDS: LIDOCAINE 4% PATCH 1 PATCH TOPICAL (07:23)
[2025-01-16] MEDS: LOW STRENGTH ASPIRIN 81 MG TUBE (07:24)
[2025-01-16] MEDS: MIRALAX 17 GRAMS TUBE (07:24)
[2025-01-16] MEDS: DUONEB 3 ML INH ×3 (07:33→19:12)
[2025-01-16 07:54] LABS: Glucose - Point of Care 108 mg/dl (70-99)
--- NOTE | 2025-01-16 07:58 | W.PN.HOSP.TC ---
Today's Communication/Plan
-
Consider right heart catheterization
Increase dose of cefepime
Continue IV Lasix
Monitor renal function
Assessment / Plan
Assessment / Plan
Gen-sedated, intubated
HEENT-NC, AT, anicteric, clear oral mm
Neck-supple
CV-reg, no M, +S1/S2
Lungs-decreased breath sounds bilaterally
Abd-soft, NT, ND
Ext-no edema
Musculoskeletal-no cyanosis, clubbing
Neuro-alert and oriented on the vent and no neurological deficits
Skin-warm and dry
Acute hypoxic respiratory failure - likely multifactorial etiology, due to extensive bilateral pneumonia and heart failure and ARDS. Transitioned from high flow nasal cannula/BPAP to intubation January 07. Continue IV dexamethasone 20 mg daily. Updated
daughter at bedside today on 01/15.
Cefepime started January 11, will increase dose to 2 g every 12 hours. Discussed with gas pump attendant.
Agree with right heart catheterization to better assess volume status. Discussed with gas pump attendant. Currently on empiric IV Lasix 40 mg every 12 hours. Body weight remains relatively stable compared to admission.
Acute HFrEF/valvulopathy/suspected type II SC - but cannot rule out obstructive CAD-BNP 7480; Echocardiogram showed EF of 45 to 50% and basal inferolateral hypokinesis, moderate-severe mitral regurgitation, mild aortic regurgitation. Diuresed
initially but now on hold. Started on aspirin. Beta-blockers on hold due to hypotension. Ischemic evaluation after acute illness. Cardiology consulted and input appreciated.
Sepsis due to extensive multifocal community-acquired pneumonia- Completed azithromycin. Ceftriaxone changed to IV cefepime on 01/11. Blood cultures negative. Respiratory culture shows Heidi, likely colonization.
Fever resolved. Last fever was January 12.
Elevated LFTs -suspect due to severe pneumonia, sepsis and also passive venous congestion.
Microcytic anemia -hemoglobin stable. No clinical evidence of bleeding. B12 603, folate 11, iron 29, TIBC 211, 13% saturation, and ferritin 636.
Impaired fasting glucose - hemoglobin A1c 6.2%. On IV regular insulin infusion, glucose is also elevated due to steroids.
Essential hypertension -stable.
Hypothyroidism -levothyroxine.
Morbid obesity due to excess calories
Full code
Anticipated Discharge: > 48 hours
Subjective/Interval History
-
Date of Service: January 16, 2025
Patient seen and examined. Remains intubated, sedated.
Objective Data
-
Labs:
Laboratory Results
01/16/25 01/16/25
02:43 11:59
WBC 12.5 H
Hgb 8.2 L
Hct 26.9 L
Plt Count 226
HCO3 32.0 H Pending
Sodium 138
Potassium 4.6
Chloride 102
Carbon Dioxide 31 H
BUN 57 H
Creatinine 1.0
Glucose 172 H
Calcium 8.2 L
Total Bilirubin 0.9
AST 23
ALT 40 H
Alkaline Phosphatase 66
Vital Signs:
Vital Signs
Temp Pulse Resp BP Pulse Ox
98.5 F 61 20 114/57 98
01/16/25 07:10 01/16/25 07:35 01/16/25 07:35 01/16/25 07:23 01/16/25 07:45
I&O
01/15/25 01/16/25 01/17/25
06:59 06:59 06:59
Intake Total 2388.0 / 2491.1 2355.1 / 2375.1 39.8 / 39.8
Output Total 1840 / 1880 2190 / 2240 95 / 95
Balance 548.0 / 611.1 165.1 / 135.1 -55.2 / -55.2
Review of Systems
-
Unable to obtain full review of systems at this time due to: Acuity and Patient Intubation
--- NOTE | 2025-01-16 08:00 | PTCARENOTE ---
Received patient from night stocker. patient is intubated and sedated. RASS is -2. She is able to awaken when aroused and follow commands. Patient has a #8ETT which is now set at AC 20/320/8/50%. oxygen saturation is 95%. Oral care completed.
She is sinus rhythm on monitor in 60s. Left radial Elinor transduced and zero'ed to atmospheric pressure. Patient has osmolite running through left nare DHT. At goal. Bailon is draining yellow to edward urine, patient due to recieve lasix this
morning. Patient has some areas of MASD. has right midline and left forearm INT.
--- NOTE | 2025-01-16 08:20 | W.PN.CD ---
Today's Communication / Plan
-
- Plan for right heart cath with [place] placement in a.m.
- Hold tube feeds after midnight.
Impression / Plan
-
Impression/Plan: 74 y/o female with hypothyroidism, HTN, HLD, ITP/thalassemia, admitted with fever and acute hypoxic respiratory failure consistent with CAP with severe sepsis, progressing to ARDS requiring intubation/ventillation (01/07/2025), new
diagnosis of HFmEF (LVEF 45-50% with inferolateral hypokinesis) and moderate severe MR and mildly elevated troponin.
#Acute, hypoxic respiratory failure/VDRF
-Condition is threat to life.
-Remains intubated and breathing comfortably on ventilator. Currently on assist-control, Vt remains low, mildly tachypneic.
-Multifactorial, due to CAP (likely progressed to ARDS) and HFmEF with moderate/severe MR.
-01/11/2025 and 01/12/2025: FiO2 increased from 45% to 60% despite diuresis, recurrent fever.
-01/12/2025: Defervesced after 11:41. CT chest most suggestive of severe multifocal pneumonia pulmonary edema is considered less likely, small bilateral effusions severe coronary calcification. Ceftriaxone changed to cefepime. A-Line placed.
Norepinephrine started to maintain MAP > 65 mmHg. Vent settings changed and dexamethasone started for ARDS. Plateau pressure ~ 24 cmH2O (consistent with non-compliant lung parenchyma). ANCA/DIONY ordered for hemoptysis. Troponin 3.7.
-01/13/2025: FiO2 down to 50%. I/O net positive 1500 mL. Norepinephrine weaned. Repeat Flu/COVID negative.
-Continue to optimize treatment of pneumonia and VDRF as directed by pulmonary/critical care.
#PNA, sepsis:
-Acute, threat to life.
-Completed azithromycin.
-Recurrent fever on 01/11/2025, combined with worsening FiO2 requirements in spite of diuresis prompted saucedo in ABX from ceftriaxone to cefepime.afebrile and 01/14
-Briefly required norepinephrine after over-diuresis.
-FiO2/Vent settings are slowly improving on ABX, dexamethasone.
#HFmEF/BUSINESS OFFICE COORDINATOR/Troponin elevation
-New diagnosis.
- Peak troponin
-Previous notes suggest records from outside showed she was last seen in 2021 at which time she had a normal echo and stress test with no ischemia.
-Echo 01/09/25: Mildly reduced left ventricular systolic function. Left ventricular ejection fraction is 45-50% with basal inferolateral hypokinesis, mild AI, moderate/severe MR.
-Unclear how big of a role HFmEF is playing in current clinical setting.
-Given the complexity of her volume status and pulmonary injury which may increase RV filling pressures - BNP should NOT be used as a marker of volume.
-ECG with anterolateral and inferior ST and T wave changes and troponin elevation (3.7) raise possibility of ischemia (further suggested by coronary calcification on CT chest).
-Suspect type II NE (demand ischemia),n
- R/L heart catheterization + coronary angiography later this admission after additional recovery. primary issue is likely infectious.
-Plan for an indwelling PA catheter to assess her filling pressures and guide hemodynamic management.
-Continue aspirin.
-GDMT when hemodynamics will tolerate.
#HTN
- Appears patient was on metoprolol as an outpatient.
#Anemia
-Chronic, known history of ITP/thalassemia.
- Monitor anemia
-Management per primary team.
Critical Care Time = 35 minutes.
Subjective/Interval History:
Remains intubated and sedated.
Unclear volume status.
DATA:
Cultures:
Blood Cx (01/06/2025): Negative x2
Influenza (01/06/2025): Negative
SARS-CoV-2 Ag (01/06/2025): Negative
Legionella UAg (01/06/2025): Negative
S. Pneumoniae UAg (01/06/2025): Negative
Endotracheal Aspirate Cx (01/08/2025): C. Albicans
Endotracheal Aspirate Cx (01/11/2025): C. Albicans
Blood Cx (01/11/2025): NGTD x2
Influenza (01/12/2025): Negative
SARS-CoV-2 Ag (01/12/2025): Negative
CT Chest, 01/06/2025:
IMPRESSION:
Extensive bilateral multifocal pneumonia.
Small bilateral pleural effusions, right greater than left.
Severe coronary artery calcifications. Please correlate with symptoms of and risk factors for coronary artery disease, with further workup as clinically appropriate.
Severe hepatic steatosis.
TTE, 01/09/2025:
CONCLUSIONS
Mildly reduced left ventricular systolic function. Left ventricular ejection
fraction is 45-50% by Thomas's method of discs.
Basal inferolateral hypokinesis.
Mild aortic regurgitation.
Moderate/severe mitral regurgitation.
No prior study available for comparison.
CT Chest, 01/12/2025:
IMPRESSION:
1. Severe bilateral multifocal airspace consolidation with air bronchograms, most suggestive of severe multifocal pneumonia. Pulmonary edema is considered less likely, although not completely excluded.
2. Small bilateral pleural effusions, right greater than left.
3. 6 mm lung nodule within the right lower lobe, which may be related to severe pneumonia. Consider CT examination following resolution of the acute event to evaluate for true pulmonary nodule.
4. Severe coronary arterial calcification. Please correlate with symptoms of and risk factors for coronary artery disease, with further workup as clinically appropriate.
5. Cholelithiasis.
6. Diffuse fatty infiltration of the liver.
TTE, 01/12/2025:
CONCLUSIONS
Mildly reduced left ventricular systolic function.
Inferolateral hypokinesis LV ejection fraction is 40-45% .
Moderate to severe mitral regurgitation.
Compared to previous echo 01/09/2025 reported EF is mildly less. Previously
estimated 45 to 50%. Mitral regurgitation appears a bit more prominent on the
previous study but some of this may be related to imaging technique .
Physical Exam
Vital Signs/Labs
Vital Signs
Temp Pulse Resp BP Pulse Ox
98.5 F 61 20 114/57 98
01/16/25 07:10 01/16/25 07:35 01/16/25 07:35 01/16/25 07:23 01/16/25 07:45
01/15/25 01/16/25 01/17/25
06:59 06:59 06:59
Actual Weight 94.8 kg 94.5 kg
01/16/25 02:43
01/16/25 02:43
PT 16.8 Sec (11.4-14.6) H 01/07/25 22:10
INR 1.33 01/07/25 22:10
APTT 36.3 Sec (23.4-35.0) H 01/07/25 22:10
Magnesium 2.7 mg/dl (1.6-2.3) H 01/16/25 02:43
Triglycerides 127 mg/dl (10-149) 01/16/25 02:43
01/08/25 01/12/25
04:59 03:34
Hdp-H-Kugpznnvopg Pept 7480 [id number]
LAB Results
01/13/25
08:28
Troponin I 2.890 H*
Physical Exam
Constitutional: No acute distress and Comfortable
EENT: Anicteric and Moist mucous membranes
Cardiovascular: Rhythm & rate is regular, Pedal edema is absent and JVD present
Respiratory: Respiratory effort normal and Rhonchi Present
GI: Soft
Neuro/Psych: Other (Intubated and sedated)
Data Reviewed
-
Date of Service: January 16, 2025
Medical Decision Making: Reviewed Test Results, Test Interpretation and Review of Case with other Provider
EKG: Tracing Personally Visualized and interpreted
Echo: Report Reviewed by me
Labs: Labs Reviewed by me
Old Records: Reviewed
Critical Care Time (in minutes): 35
[2025-01-16] MEDS: NSS (PRESERVATIVE FREE) 0.5 ML IV (08:38)
[2025-01-16] MEDS: ATIVAN 1 MG IV (08:39)
[2025-01-16 08:45] LABS: Glucose - Point of Care 147 mg/dl (70-99)
--- NOTE | 2025-01-16 09:15 | PTCARENOTE ---
No plans to wean today, awaiting potential right heart cath. continuing supportive care.
[2025-01-16 10:02] LABS: Glucose - Point of Care 151 mg/dl (70-99)
[2025-01-16] MEDS: DECADRON 20 MG IV (10:16)
[2025-01-16 10:49] LABS: Glucose - Point of Care 134 mg/dl (70-99)
[2025-01-16] MEDS: NOVOLIN R INSULIN INFUSION 100 IV (12:42)
[2025-01-16 12:45] LABS: B.E. 8.6 mmol/L; HCO3 32.8 mmol/L (21-28); O2 Saturation % 96.4 % (94-98); PCO2 43 mmHg (32-35); PO2 65 mmHg (83-108); pH 7.49 (7.35-7.45)
[2025-01-16] MEDS: NOVOLOG FLEXPEN 2 UNITS SC (12:45)
[2025-01-16 12:54] LABS: Glucose - Point of Care 151 mg/dl (70-99)
--- NOTE | 2025-01-16 13:03 | PTCARENOTE ---
No change in patient's assessment. 1200 ABG sent. Accu checks are q2 as directed. continuing supportive care, family updated in plan, no plans to wean from vent today.
[2025-01-16 14:50] LABS: Glucose - Point of Care 193 mg/dl (70-99)
[2025-01-16 15:46] LABS: Glucose - Point of Care 192 mg/dl (70-99)
[2025-01-16 16:47] LABS: Glucose - Point of Care 184 mg/dl (70-99)
[2025-01-16] MEDS: LOVENOX 40 MG SC (17:12)
[2025-01-16 17:46] LABS: Glucose - Point of Care 180 mg/dl (70-99)
[2025-01-16 18:43] LABS: Glucose - Point of Care 146 mg/dl (70-99)
[2025-01-16] MEDS: MAXIPIME 2000 MG IV (19:38)
[2025-01-16 19:54] LABS: Glucose - Point of Care 162 mg/dl (70-99)
--- NOTE | 2025-01-16 20:17 | PTCARENOTE ---
Received pt intubated and sedated on propofol and fentanyl. Pt awake, calm, interacting with staff and family at bedside. Follows commands, nods appropriately, tries to make needs known. GALO. Restraints in place for safety. NSR on tele. HR 70s-80s.
BP 100-110s/40s-50s via L radial A line - transduced and zeroed. + pulses. AFebrile. +1 UE and LE edema. #8 ETT @ 23cm, moved to the center. Tolerating A/C 20/320/+8/50%. Spo2 93%. Lungs coarse and diminished bibasilar. Small amt blood tinged sputum
via ETT. Dobhoff tube with osmo at 50ml/hr with 25ml/hr h20 flush. Hypoactive bowel sounds. Temp sensing ballard cath draining yellow urine - see I&O. R midline with propofol, fentanyl and insulin gtt for glycemic protocol. #20 L FA patent and capped.
Turning q2. Mouth care provided. Family at bedside updated.
[2025-01-16 20:45] LABS: Glucose - Point of Care 137 mg/dl (70-99)
[2025-01-16 21:39] LABS: Glucose - Point of Care 130 mg/dl (70-99)
[2025-01-16 22:39] LABS: Glucose - Point of Care 140 mg/dl (70-99)
[2025-01-16] MEDS: XALATAN OPHTHALMIC SOLUTION 1 DROP BOTH EYES (22:45)
--- NOTE | 2025-01-16 23:57 | PTCARENOTE ---
Pt reassessed. Tube feeds placed on hold due to orders to maintain NPO after midnight. No other changes, pt resting calmly
[2025-01-17 00:08] LABS: Glucose - Point of Care 113 mg/dl (70-99)
[2025-01-17] MEDS: NOVOLOG FLEXPEN SC ×5 (00:08→17:30)
[2025-01-17] MEDS: ATIVAN 1 MG IV ×2 (00:55→19:46)
[2025-01-17 01:21] LABS: Glucose - Point of Care 122 mg/dl (70-99)
[2025-01-17] MEDS: DIPRIVAN 100 IV ×2 (02:10→11:12)
[2025-01-17 02:21] LABS: Glucose - Point of Care 113 mg/dl (70-99)
[2025-01-17 03:14] LABS: B.E. 9.8 mmol/L; HCO3 34.3 mmol/L (21-28); PCO2 46 mmHg (32-35); PO2 104 mmHg (83-108); pH 7.48 (7.35-7.45)
[2025-01-17 03:17] LABS: Glucose - Point of Care 102 mg/dl (70-99)
[2025-01-17 03:24] LABS: % Basophils 0.1 % (0-2); % Eosinophils 0.1 % (0-6); % Immature Granulocytes 4.8 % (0-0.5); % Lymphocytes 3.4 % (20.5-51.1); % Monocytes 5.7 % (1.7-9.3); % Neutrophils 85.9 % (42.2-75.2); Absolute Immature Granulocytes 0.7 10^3/uL (0-0.05); Absolute Lymphocytes 0.5 10^3/uL (1.2-3.4); Absolute Monocytes 0.8 10^3/uL (0.1-0.6); Absolute Neutrophils 12.4 10^3/uL (1.4-6.5); Hemoglobin 8.4 g/dL (12.0-16.0); Mean Corp Hgb Conc. 31.1 g/dL (33.0-37.0); Mean Corpuscular Volume 61.2 fL (81.0-99.0); Nucleated Red Blood Cells % 0.3 %; Platelet Count 218 10^3/uL (130-400); Red Blood Cell Count 4.41 10^6/uL (4.20-5.40); Red Cell Dist. Width 15.7 % (11.5-14.5); White Blood Cell Count 14.4 10^3/uL (4.8-10.8)
[2025-01-17 03:40] LABS: ALT (SGPT) 43 U/L (0-35); AST (SGOT) 19 U/L (14-36); Albumin 2.8 g/dl (3.5-5.0); Alkaline Phosphatase 64 U/L (38-126); Blood Urea Nitrogen 57 mg/dl (7-17); Calcium 8.2 mg/dl (8.4-10.2); Carbon Dioxide 35 mmol/L (22-30); Chloride 103 mmol/L (98-107); Estimated Creatinine Clearance 52 ml/min; Glucose 98 mg/dl (70-99); Potassium 4.3 mmol/L (3.5-5.1); Sodium 139 mmol/L (135-145); Total Protein 5.5 g/dl (6.3-8.2); eGFR 59.86
[2025-01-17 04:23] LABS: Glucose - Point of Care 109 mg/dl (70-99)
[2025-01-17 05:17] LABS: Glucose - Point of Care 112 mg/dl (70-99)
[2025-01-17] MEDS: SYNTHROID TUBE (05:40)
[2025-01-17 06:00] VITALS: BMI 40.3
[2025-01-17 06:13] LABS: Glucose - Point of Care 116 mg/dl (70-99)
[2025-01-17 07:17] LABS: Glucose - Point of Care 111 mg/dl (70-99)
[2025-01-17] MEDS: DUONEB 3 ML INH ×3 (07:22→19:49)
--- NOTE | 2025-01-17 07:30 | PTCARENOTE ---
Received patient arousable to voice, able to follow commands, on restraints, ET to vent at FiO2 40%, SR, Left radial art line, Left nare DHT, NPO currently, Bailon draining yellow/edward urine, propofol @10mcg/kg/min, fentanly @75mcg/hr, insulin
@1.2unit/hr.
--- NOTE | 2025-01-17 08:13 | W.PN.HOSP.TC ---
Today's Communication/Plan
-
Right heart catheterization
Assessment / Plan
Assessment / Plan
Gen-awake but intubated
HEENT-NC, AT, anicteric, clear oral mm
Neck-supple
CV-reg, no M, +S1/S2
Lungs-decreased breath sounds bilaterally
Abd-soft, NT, ND
Ext-bilateral lower extremity pedal edema
Musculoskeletal-no cyanosis, clubbing
Neuro-alert and oriented on the vent and no neurological deficits
Skin-warm and dry
Acute hypoxic respiratory failure - likely multifactorial etiology, due to extensive bilateral pneumonia and heart failure and ARDS. Transitioned from high flow nasal cannula/BPAP to intubation January 07. FiO2 down to 40% on ventilator.
Continue IV dexamethasone 20 mg daily. Updated daughter at bedside today on 01/17.
Cefepime started January 11, continue for 7 days total. Discussed with corporate analyst.
Agree with right heart catheterization to better assess volume status. Discussed with corporate analyst. Currently on empiric IV Lasix 40 mg every 12 hours. Body weight remains relatively stable compared to admission.
Acute HFmEF/valvulopathy/suspected type II IA - but cannot rule out obstructive CAD-BNP 7480; Echocardiogram showed EF of 40-45% and basal inferolateral hypokinesis, moderate-severe mitral regurgitation, mild aortic regurgitation. Diuresed
initially but now on hold. Started on aspirin. Beta-blockers on hold due to hypotension. Ischemic evaluation after acute illness. Cardiology consulted and input appreciated.
Sepsis due to extensive multifocal community-acquired pneumonia- Completed azithromycin. Ceftriaxone changed to IV cefepime on 01/11. Blood cultures negative. Respiratory culture shows Heidi, likely colonization.
Fever resolved. Last fever was January 12.
Leukocytosis due to steroids.
Elevated LFTs -suspect due to severe pneumonia, sepsis and also passive venous congestion.
Troponin elevation -troponin peaked. Suspect type II IA due to demand ischemia.
Microcytic anemia -hemoglobin stable. No clinical evidence of bleeding. B12 603, folate 11, iron 29, TIBC 211, 13% saturation, and ferritin 636.
Impaired fasting glucose - hemoglobin A1c 6.2%. On IV regular insulin infusion, glucose is also elevated due to steroids.
Essential hypertension -stable.
Hypothyroidism -levothyroxine.
Morbid obesity due to excess calories
Full code
Daughter updated at the bedside.
Anticipated Discharge: > 48 hours
Subjective/Interval History
-
Date of Service: January 17, 2025
Patient seen and examined. Remains intubated. Looks comfortable.
Objective Data
-
Labs:
Laboratory Results
01/17/25
03:05
WBC 14.4 H
Hgb 8.4 L
Hct 27.0 L
Plt Count 218
HCO3 34.3 H
Sodium 139
Potassium 4.3
Chloride 103
Carbon Dioxide 35 H
BUN 57 H
Creatinine 1.0
Glucose 98
Calcium 8.2 L
Total Bilirubin 1.0
AST 19
ALT 43 H
Alkaline Phosphatase 64
Vital Signs:
Vital Signs
Temp Pulse Resp BP Pulse Ox
98.1 F 65 20 114/57 99
01/17/25 08:08 01/17/25 07:26 01/17/25 07:26 01/16/25 07:23 01/17/25 07:26
I&O
01/16/25 01/17/25 01/18/25
06:59 06:59 06:59
Intake Total 2355.1 / 2450.1 1787.8 / 1802.1 14.3 / 14.3
Output Total 2190 / 2240 2840 / 2895 55 / 55
Balance 165.1 / 210.1 -1052.2 / -1092.9 -40.7 / -40.7
Review of Systems
-
Unable to obtain full review of systems at this time due to: Patient Intubation
History Source: Patient
All other systems: Reviewed and negative
[2025-01-17] MEDS: PROTONIX IV 40 MG IV (08:14)
[2025-01-17] MEDS: NSS (PRESERVATIVE FREE) 10 ML IV (08:14)
[2025-01-17] MEDS: LASIX 40 MG IV (08:15)
[2025-01-17] MEDS: MAXIPIME 2000 MG IV (08:15)
[2025-01-17] MEDS: STERILE WATER FOR INJECTION 10 ML IV ×3 (08:15→19:49)
[2025-01-17] MEDS: LIDOCAINE 4% PATCH 1 PATCH TOPICAL (08:16)
[2025-01-17] MEDS: LOW STRENGTH ASPIRIN 81 MG TUBE (08:16)
[2025-01-17] MEDS: MIRALAX TUBE (08:17)
--- NOTE | 2025-01-17 08:20 | W.PN.INTV ---
Today's Communication / Plan
Recommendations
- For RHC today; given inferolateral hypokinesis seen on recent echo, also favor left heart catheterization
- Continue aggressive IV diuresis
- Keep K>4, Mg>2
- Continue ABx with cefepime for at least 7 days, assuming she continues to remain afebrile prior to stopping
- Mechanical ventilation with lung protective strategy
- Maintain plateau pressure <30
- Keep SpO2 >88-90%
- If unable to extubate this week then she is heading towards tracheostomy
- Continue ICU level care for this critically ill patient
Assessment
-
Assessment: 74-year-old female non-smoker with a past medical history of CVA, asthma, hypertension, hypothyroidism and ITP/thalassemia who presented with shortness of breath + cough. Symptoms started this past Thursday (01/03/2025). Initially in
the ER she was febrile to 100.4 �F, tachycardic to 123, respiratory rate initially 18, BP 158/82 and saturating 86% on room air. She was transitioned to high flow nasal cannula at 60% FiO2 with saturations improvement to 98%. Initial labs were
significant for leukocytosis to 17, glucose 289, lactate 6.7, T. bili 1.7, and COVID-19 antigen negative. Blood cultures collected, and CXR showed bilateral pneumonia. In the ER she was given ceftriaxone, acetaminophen, Zofran, Zithromax, and 1 L
NS 0.9% and admitted to the IMU for further care. Pulmonary service consulted for additional management/recommendations; patient was managed in the IMU and she deteriorated, being transitioned from high flow nasal cannula to BiPAP and was
emergently intubated on 01/07 and transferred to the ICU where she is currently being managed.
Chronic conditions MEDICAL RECORDS RECEPTIONIST: Hypertension, history of CVA, asthma, hypothyroidism, history of ITP
Assessment and plan:
#1. Severe CAP with acute hypoxic respiratory failure, complicated by suspected ARDS
- Patient was initially on high flow, subsequently intubated (01/07) due to increasing respiratory distress. On propofol and fentanyl for sedation.
- MRSA screen negative, culture stayed negative, Heidi noted on sputum - likely contaminant. Legionella + Strep PNA urine antigens both negative. Influenza A, B and COVID-19 negative.
- Patient completed 5 days of azithromycin and was continued on ceftriaxone until 01/11, then switched to cefepime on 01/11 in view of worsening respiratory failure
- 01/12, worsening hypoxia and desaturation with position change noted. Patient also started spiking fever. Concern for developing ARDS. Worsening infiltrate noted on chest x-ray.
- Lung protective mechanical ventilation for suspected ARDS
- s/p dexamethasone 20 mg daily from 01/12 - 01/16/2025 in view of ARDS --> resume decadron at 10mg daily
- Minimal Blood-tinged tracheal aspirate, improved. Minimal endotracheal secretions. Hemoglobin has been stable and O2 requirement has not changed. Not suggestive of diffuse alveolar hemorrhage. DIONY and ANCA negative
- Repeat influenza and COVID-19 testing negative. Tracheal aspirate again growing Heidi.
- Patient tends to develop tachypnea and decreased pO2 on ASV. Continuing volume control for now.
- Continue tube feeding, monitor for bowel movements
#2. Newly diagnosed Acute on suspect Chronic heart failure with mildly reduced EF. Echocardiogram 01/09 shows EF of 45 to 50% with moderate to severe mitral regurgitation.
- BNP elevated at > [address] despite aggressive diuresis. Pulmonary edema also in differential diagnosis in addition to ARDS
- Lasix had been on hold in view of mild SHARMIN, now in positive fluid balance, Lasix 40 mg IV twice daily, re-started 01/15
- Elevated troponin noted, discussed with cardiology service (01/12), felt to be related to underlying critical illness
- Would favor obtaining left heart cath/right heart cath with Treadwell-guided diuresis. Left heart cath also favored given inferolateral hypokinesis seen on TTE from 01/12/2025
#3. h/o Lung nodule
- Patient will need follow-up imaging in about 8 weeks time once volume overload and pneumonia have resolved
- Reported history of follow-up with [facility] and a PET scan in the past, details not available for my review
#4. Hyperglycemia. Related to stress of acute illness, IV steroids and tube feeding.
- Continue insulin infusion
- Goal BG 140-180
#5. Brief hypotension (01/12)
- Resolved, continue Lasix 40 mg IV twice daily
Other medical co-morbidities:
#Prediabetes (HbA1c: 6.2 on 01/07/2025)
#Transaminitis
#Obesity (BMI: 39.4)
#History of hypertension
#History of CVA
#History of ITP/thalassemia
#Severe hepatic steatosis likely due to morbid obesity
#Severe coronary artery calcifications seen radiographically on CT chest
Continue ICU level of care for this critically ill patient
The patient's daughter, Jaylyn, was updated at bedside and all questions were answered.
Critical care statement: A total of 46 minutes of critical care time was provided for this patient today. This includes management of unstable vital signs, evaluation of the patient at bedside, reviewing the patient's pertinent medical records
including radiographs, microbiology, laboratory evaluations, and discussion with primary team, consultants, pharmacy, nutrition, physical therapy, case management, charge nurse, critical care nursing, and respiratory therapy.
Data:
CT chest with IV contrast 01/06/2025:
Extensive bilateral multifocal pneumonia.
Small bilateral pleural effusions, right greater than left.
Severe coronary artery calcifications. Please correlate with symptoms of and risk factors for coronary artery disease, with further workup as clinically appropriate.
Severe hepatic steatosis.
CT chest without contrast 01/12/2025:
1. Severe bilateral multifocal airspace consolidation with air bronchograms, most suggestive of severe multifocal pneumonia. Pulmonary edema is considered less likely, although not completely excluded.
2. Small bilateral pleural effusions, right greater than left.
3. 6 mm lung nodule within the right lower lobe, which may be related to severe pneumonia. Consider CT examination following resolution of the acute event to evaluate for true pulmonary nodule.
4. Severe coronary arterial calcification. Please correlate with symptoms of and risk factors for coronary artery disease, with further workup as clinically appropriate.
5. Cholelithiasis.
6. Diffuse fatty infiltration of the liver.
Subjective Dataa
Subjective Data
Date of Service:
Date of Service: January 17, 2025
Chief Complaint: Operations Lead Follow Up
Subjective:
Pt seen this AM. Remains intubated on AC/CMV on 20/320/8/40% with PIP [id number], VTe 304cc and f: 20 b/min. She is awake and alert, following all commands. Sedated with propofol at 10mcg/kg/min and fentayn at 75mcg/hr. No pain reported - insulin
gtt currently off. Small amount of ETT secretions. Going for RHC today.
Review of Systems
General: Unobtainable - Sedation
Objective Data
Data Reviewed
Vital Signs / I&O / Oxygen:
Vital Signs
Temp Pulse Resp BP Pulse Ox
98.1 F 73 22 148/60 89
01/17/25 08:08 01/17/25 09:00 01/17/25 09:00 01/17/25 08:15 01/17/25 09:00
Intake and Output
01/16/25 01/17/25 01/18/25
06:59 06:59 06:59
Intake Total 2355.1 / 2450.1 1787.8 / 1802.1 41.7 / 41.7
Output Total 2190 / 2240 2840 / 2895 205 / 205
Balance 165.1 / 210.1 -1052.2 / -1092.9 -163.3 / -163.3
SaO2 [ASV] 92
SaO2 [CPAP/PSV] 93
SaO2 [A/C] 96
SaO2 89
Nasal Cannula flow liters per 60
minute
Physical Exam
General: Respiratory Distress (negative), Comfortable, Chills (negative), Sweats (negative) and Other (Intubated/sedated)
HEENT: Normocephalic, Anicteric and Other (ETT in place)
Cardiovascular: S1-S2, Peripheral Edema (Trace LE edema bilaterally) and Other (In atrial fibrillation,)
Respiratory: Wheeze (negative), Crackles (negative), Rhonchi (negative), Non-Labored Respirations, Stridor (negative) and ET Tube (Mechanical breath sounds heard bilaterally)
GI: Soft, Distended (Abdominal obesity) and Non Tender
Neurology: Awake, Alert and Tremors (negative)
Skin: Warm, Dry, Cyanosis (negative) and Jaundice (negative)
Labs/Micro/Reports
Lab Data
01/17/25 03:05
01/17/25 03:05
Laboratory Results
01/16/25 01/17/25
12:34 03:05
pH 7.49 H 7.48 H
pCO2 43 H 46 H
pO2 65 L 104
HCO3 32.8 H 34.3 H
O2 Delivery Level
Microbiology
01/11/25 21:07 Blood/Venous Blood Culture - Final
No Growth - Final Report
01/11/25 20:49 Blood/Venous Blood Culture - Final
No Growth - Final Report
01/11/25 18:21 Tracheal Aspirate Respiratory Culture - Final
Heidi albicans
01/11/25 18:21 Tracheal Aspirate Gram Stain - Final
[2025-01-17 09:08] LABS: Glucose - Point of Care 95 mg/dl (70-99)
[2025-01-17 10:15] LABS: Glucose - Point of Care 95 mg/dl (70-99)
[2025-01-17] MEDS: SUBLIMAZE 100 IV (11:00)
[2025-01-17] MEDS: NOVOLIN R INSULIN INFUSION 100 IV (11:08)
[2025-01-17 11:17] LABS: Glucose - Point of Care 109 mg/dl (70-99)
--- NOTE | 2025-01-17 12:00 | PTCARENOTE ---
10:00, ANAHI BRANDT ordered to r/o DVT because of edema. Daughter Jaylyn participated rounding, all questions answered by the team.
12:00, reassessed the patient, A&O to self and family at bedside, on low dose propofol and fentanyl drips, oral care done and moved ET tube to the left side, no other changes noted.
[2025-01-17 12:19] LABS: Glucose - Point of Care 113 mg/dl (70-99)
[2025-01-17] MEDS: MAXIPIME 1000 MG IV ×2 (13:12→19:49)
[2025-01-17 13:16] LABS: Glucose - Point of Care 111 mg/dl (70-99)
--- NOTE | 2025-01-17 15:34 | ITS.CL.CATH ---
[facility] - Catheterization
Cardiac Catheterization
Procedure Report:
RIGHT HEART CATHETERIZATION
Date of Procedure: 01/17/2025
Referring: Tracey Shepherd M.D.
INDICATION: Persistent hypoxic/vent dependent respiratory failure.
ACCESS:
8 Wallisian right internal jugular vein using a modified Seldinger technique with a micropuncture kit under ultrasound guidance.
CATHETERS:
7.5 Wallisian thermodilution [place] catheter.
PROCEDURE:
The patient was prepped and draped in standard sterile fashion. The area for internal jugular access was anesthetized with 1% lidocaine. The right common internal jugular vein was punctured under ultrasound guidance. A micropuncture wire was
advanced through the needle and into the right atrium under fluoroscopy. The needle was withdrawn and a micropuncture kit was advanced over the wire and into the right IJ. The inner dilator and micropuncture wire were withdrawn and a 0.035 J-wire
was advanced into the right atrium. A small incision was made at the base of the micropuncture sheath and the outer sheath was withdrawn. A 8 Wallisian sheath was inserted into the internal jugular vein and the dilator and wire were removed. A 7.5
Wallisian [place] catheter was advanced through the sheath into the superior vena cava. An SVC oxygen saturation was drawn. The balloon wedge catheter was advanced into the pulmonary artery and a pulmonary artery oxygen saturation was drawn. Arterial
oxygen saturation was taken from her arterial line. Cardiac output was calculated using the Joshua equation and thermodilution. The PA, wedge, RV and RA pressures were measured. The [place] catheter was locked in place using the cover (49 cm of
the hub). The 8 Wallisian sheath was sutured in place and covered with Tegaderms.
Weight (kg): 93.4
PA (s/d/x mmHg): 78/37/51
PCWP (a/v/x mmHg): 36/52/31
RV (s/x mmHg): 78/20
RA (a/v/x mmHg): 28/26/21
SVC SvO2 (%): 35.1
IVC SvO2 (%): Not obtained.
RA SvO2 (%): Not obtained.
RV SvO2 (%): Not obtained.
PA SvO2 (%): 32.0
SaO2 (%): 75.0
Hbg (g/dL): 10.8
Joshua
CO (liters/minute): 3.20
CI (liters/minute/m2): 1.70
Thermodilution
CO (liters/minute): 3.77
CI (liters/minute/m2): 2.00
TPG (mmHg): 20
PVR (Malloy Units): 6.25
AVO2 Difference (Volume %): 6.32
Radiation (mGy): 22.97
DAP (cm2.Gy): 2.3397
Fluoroscopy time (minutes): 2.2
CONCLUSION:
1. Severely elevated filling pressures (PCWP = 31 mmHg at 93.4 kg) with large V waves (52 mmHg) consistent with a noncompliant left atrium as well as a history of moderate to severe mitral regurgitation.
2. Moderately to severely depressed cardiac function (cardiac index = 1.70 L/min/m� by Joshua equation, 2.0 L/min/m� by thermodilution).
3. 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
RECOMMENDATIONS:
1. Expectant management after right heart catheterization via right internal jugular approach.
2. Initiate aggressive diuresis, starting with bumetanide drip at 1 mg/h.
3. Vent management per pulmonology given persistent hypoxia.
4. GDMT/OMT when hemodynamics will permit.
Copy to: Osman Priest M.D., Tracey Shepherd M.D., Alonso Guillaume D.O.
Jerry Garcia D.O., FACC, FACP
[2025-01-17] MEDS: DECADRON 10 MG IV (16:23)
[2025-01-17 17:16] LABS: Glucose - Point of Care 138 mg/dl (70-99)
[2025-01-17] MEDS: BUMEX 50 IV (17:33)
[2025-01-17] MEDS: LOVENOX 40 MG SC (17:58)
--- NOTE | 2025-01-17 18:00 | PTCARENOTE ---
16:00, Patient came back from cathead worker after Right heart cath. Pt now has RIJ swan catheter @49cm (per cathead worker report) with a Cordis. Pt desaturated in cathead worker to high 70% on FiO2 40%. Received pt awake alert, tachypneic on the vent on FiO2 100%,
set up swan catheter on the monitor.
17:30, Started patient on Bumex drip at fixed rate @1mg/hr per Dr. Garcia.
18:00, Restarted TF per order.
[2025-01-17 18:58] LABS: Glucose - Point of Care 188 mg/dl (70-99)
--- NOTE | 2025-01-17 19:16 | PTCARENOTE ---
CXR completed as ordered. [place] position result made aware to Dr. Galvez. No new orders received.
[2025-01-17] MEDS: XALATAN OPHTHALMIC SOLUTION 1 DROP BOTH EYES (19:50)
[2025-01-17 20:20] LABS: Glucose - Point of Care 166 mg/dl (70-99)
--- NOTE | 2025-01-17 20:30 | PTCARENOTE ---
Received pt intubated and sedated on propofol and fentanyl. Pt awakens easily to verbal. Follows commands, nods appropriately, tries to make needs known. GALO. Restraints in place for safety. NSR on tele. L radial A line - transduced and zeroed. +
pulses. AFebrile. +1 UE and LE edema. #8 ETT @ 23cm, moved to the center. A/C 20/320/+8/80%. Dobhoff tube with osmo at 50ml/hr with 25ml/hr FWF. GP ongoing. Temp sensing ballard cath draining yellow urine - see I&O, bumex gtt infusing. trixie samuels
catheter intact after R heart cath on , @ 49cm. Turning q2. Mouth care provided. family updated at bedside. care ongoing.
[2025-01-17 22:13] LABS: Glucose - Point of Care 211 mg/dl (70-99)
[2025-01-18] MEDS: DIPRIVAN 100 IV (00:12)
[2025-01-18] MEDS: HEPARIN 25000 UNITS/250 ML IV (00:13)
[2025-01-18] MEDS: BUMEX 50 IV ×2 (00:13→12:40)
[2025-01-18 00:22] LABS: Glucose - Point of Care 175 mg/dl (70-99)
[2025-01-18 00:38] VITALS: BMI 39.0
[2025-01-18 00:40] LABS: Hematocrit 31.1 % (37.0-47.0); Hemoglobin 9.7 g/dL (12.0-16.0); Mean Corp Hgb Conc. 31.2 g/dL (33.0-37.0); Mean Corpuscular Hgb 19.1 pg (27.0-31.0); Mean Corpuscular Volume 61.2 fL (81.0-99.0); Mean Platelet Volume 11.3 fL (7.4-10.4); Platelet Count 241 10^3/uL (130-400); Red Blood Cell Count 5.08 10^6/uL (4.20-5.40); Red Cell Dist. Width 16.5 % (11.5-14.5); White Blood Cell Count 20.3 10^3/uL (4.8-10.8)
[2025-01-18] MEDS: NOVOLOG FLEXPEN 2 UNITS SC ×3 (00:41→12:10)
--- NOTE | 2025-01-18 00:44 | PTCARENOTE ---
heparin gtt initiated for LUE thrombus seen on bedside US after ICU TOW MOTOR OPERATOR reviewed results. PTT sent. CHG bath, ballard care, oral care done. assessment unchanged at this time. care continues.
[2025-01-18 01:04] LABS: APTT 29.9 Sec (23.4-35.0)
[2025-01-18] MEDS: ATIVAN 1 MG IV (01:28)
[2025-01-18] MEDS: MAXIPIME 1000 MG IV ×4 (01:28→20:08)
[2025-01-18] MEDS: STERILE WATER FOR INJECTION 10 ML IV ×4 (01:28→20:08)
[2025-01-18 02:15] LABS: Glucose - Point of Care 229 mg/dl (70-99)
[2025-01-18 03:12] LABS: Glucose - Point of Care 201 mg/dl (70-99)
[2025-01-18] MEDS: SUBLIMAZE 100 IV (03:18)
[2025-01-18 04:28] LABS: Glucose - Point of Care 171 mg/dl (70-99)
[2025-01-18 04:30] LABS: B.E. 18.1 mmol/L; O2 Saturation % 99.3 % (94-98); O2 Therapy 65; PCO2 46 mmHg (32-35); PO2 98 mmHg (83-108); pH 7.57 (7.35-7.45)
[2025-01-18 04:31] LABS: HCO3 42.1 mmol/L (21-28)
[2025-01-18 04:37] LABS: % Basophils 0.1 % (0-2); % Immature Granulocytes 2.5 % (0-0.5); % Lymphocytes 2.5 % (20.5-51.1); % Monocytes 3.8 % (1.7-9.3); % Neutrophils 91.1 % (42.2-75.2); Absolute Immature Granulocytes 0.5 10^3/uL (0-0.05); Absolute Lymphocytes 0.5 10^3/uL (1.2-3.4); Absolute Monocytes 0.8 10^3/uL (0.1-0.6); Absolute Neutrophils 18.5 10^3/uL (1.4-6.5); Hematocrit 30.9 % (37.0-47.0); Hemoglobin 9.3 g/dL (12.0-16.0); Mean Corp Hgb Conc. 30.1 g/dL (33.0-37.0); Mean Corpuscular Hgb 18.5 pg (27.0-31.0); Mean Corpuscular Volume 61.3 fL (81.0-99.0); Nucleated Red Blood Cells % 0.1 %; Platelet Count 234 10^3/uL (130-400); Red Blood Cell Count 5.04 10^6/uL (4.20-5.40); Red Cell Dist. Width 16.2 % (11.5-14.5); White Blood Cell Count 20.3 10^3/uL (4.8-10.8)
[2025-01-18 04:57] LABS: ALT (SGPT) 39 U/L (0-35); AST (SGOT) 22 U/L (14-36); Albumin 3.2 g/dl (3.5-5.0); Alkaline Phosphatase 76 U/L (38-126); Blood Urea Nitrogen 60 mg/dl (7-17); Calcium 8.1 mg/dl (8.4-10.2); Carbon Dioxide 37 mmol/L (22-30); Chloride 99 mmol/L (98-107); Estimated Creatinine Clearance 46 ml/min; Potassium 3.5 mmol/L (3.5-5.1); Sodium 142 mmol/L (135-145); Total Bilirubin 1.2 mg/dl (0.2-1.3); Total Protein 6.4 g/dl (6.3-8.2); Triglycerides 89 mg/dl (10-149); eGFR 53.39
[2025-01-18 05:30] LABS: Glucose 161 mg/dl (70-99)
[2025-01-18 05:56] VITALS: BMI 39.0
[2025-01-18] MEDS: SYNTHROID 112 MCG TUBE (06:02)
[2025-01-18] MEDS: KCL 50 IV (06:02)
[2025-01-18 06:11] LABS: Glucose - Point of Care 197 mg/dl (70-99)
[2025-01-18 06:35] LABS: APTT 79.3 Sec (23.4-35.0)
[2025-01-18 07:14] LABS: Glucose - Point of Care 169 mg/dl (70-99)
--- NOTE | 2025-01-18 07:14 | PTCARENOTE ---
AM labs sent. prop/fent/heparin/GP/bumex gtts continue. Kcl repleted. neuro status unchanged. FiO2 weaned to 65%. care continues
[2025-01-18] MEDS: MIRALAX TUBE (07:27)
[2025-01-18] MEDS: LOW STRENGTH ASPIRIN 81 MG TUBE (07:27)
[2025-01-18] MEDS: DECADRON 10 MG IV (07:27)
[2025-01-18] MEDS: LIDOCAINE 4% PATCH 1 PATCH TOPICAL (07:27)
[2025-01-18] MEDS: DUONEB 3 ML INH ×3 (07:45→19:25)
--- NOTE | 2025-01-18 08:10 | W.PN.INTV ---
Today's Communication / Plan
Recommendations
- Continue Alzada guided diuresis with Bumex drip, holding for hypotension
- Eventual LHC given inferolateral hypokinesis seen on recent echo
- Keep K>4, Mg>2
- Continue ABx with cefepime for at least 7 days, assuming she continues to remain afebrile prior to stopping
- Mechanical ventilation with lung protective strategy
- Maintain plateau pressure <30
- Keep SpO2 >88-90%
- If unable to extubate this week then she is heading towards tracheostomy
- If PASP remains elevated despite diuresis then would start inhaled Flolan versus nitric oxide
- Depending on how much I believe pulmonary hypertension is contributing to her hypoxia, she may benefit from a IV prostacyclin, in which case she should be transferred to a tertiary care center
- Continue ICU level care for this critically ill patient
Assessment
-
Assessment: 74-year-old female non-smoker with a past medical history of CVA, asthma, hypertension, hypothyroidism and ITP/thalassemia who presented with shortness of breath + cough. Symptoms started this past Thursday (01/03/2025). Initially in
the ER she was febrile to 100.4 �F, tachycardic to 123, respiratory rate initially 18, BP 158/82 and saturating 86% on room air. She was transitioned to high flow nasal cannula at 60% FiO2 with saturations improvement to 98%. Initial labs were
significant for leukocytosis to 17, glucose 289, lactate 6.7, T. bili 1.7, and COVID-19 antigen negative. Blood cultures collected, and CXR showed bilateral pneumonia. In the ER she was given ceftriaxone, acetaminophen, Zofran, Zithromax, and 1 L
NS 0.9% and admitted to the IMU for further care. Pulmonary service consulted for additional management/recommendations; patient was managed in the IMU and she deteriorated, being transitioned from high flow nasal cannula to BiPAP and was
emergently intubated on 01/07 and transferred to the ICU where she is currently being managed.
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
Assessment and plan:
#1. Severe CAP with acute hypoxic respiratory failure, complicated by suspected ARDS
- Patient was initially on high flow, subsequently intubated (01/07) due to increasing respiratory distress. On propofol and fentanyl for sedation.
- MRSA screen negative, culture stayed negative, Heidi noted on sputum - likely contaminant. Legionella + Strep PNA urine antigens both negative. Influenza A, B and COVID-19 negative.
- Patient completed 5 days of azithromycin and was continued on ceftriaxone until 01/11, then switched to cefepime on 01/11 in view of worsening respiratory failure
- 01/12, worsening hypoxia and desaturation with position change noted. Patient also started spiking fever. Concern for developing ARDS. Worsening infiltrate noted on chest x-ray.
- Lung protective mechanical ventilation for suspected ARDS
- s/p dexamethasone 20 mg daily from 01/12 - 01/16/2025 in view of ARDS --> resumed decadron at 10mg daily on 01/17
- Minimal Blood-tinged tracheal aspirate, improved. Minimal endotracheal secretions. Hemoglobin has been stable and O2 requirement has not changed. Not suggestive of diffuse alveolar hemorrhage. DIONY and ANCA negative
- Repeat influenza and COVID-19 testing negative. Tracheal aspirate again growing Heidi.
- Patient tends to develop tachypnea and decreased pO2 on ASV. Continuing volume control for now.
- Continue tube feeding, monitor for bowel movements
#2. Newly diagnosed Acute on suspect Chronic heart failure with mildly reduced EF. Echocardiogram 01/09 shows EF of 45 to 50% with moderate to severe mitral regurgitation.
- BNP elevated at > 15033 despite aggressive diuresis. Pulmonary edema in addition to ARDS
- Lasix was on hold in view of mild SHARMIN, now in positive fluid balance, Lasix 40 mg IV twice daily, re-started 01/15
- Elevated troponin noted, discussed with cardiology service (01/12), felt to be related to underlying critical illness
- Patient underwent RHC on 01/17 showing PCWP 31, mPAP 51, PVR 6.25, TPG 20, and CO/CI 3.77/2 --> bumex gtt started. Continue with Alzada guided diuresis while trending PA pressures, CO + CI. If she adequately diuresis but PASP remains elevated then
would start a parenteral prostacyclin with Flolan versus nitric oxide. Eventual left heart cath favored given inferolateral hypokinesis seen on TTE from 01/12/2025
#3. h/o Lung nodule
- Patient will need follow-up imaging in about 8 weeks time once volume overload and pneumonia have resolved
- Patient reportedly had an outpatient PET/CT and this right-sided nodule had resolved, per daughter
- History of follow-up with [facility]
#4. Hyperglycemia. Related to stress of acute illness, IV steroids and tube feeding.
- Continue insulin infusion
- Goal BG 140-180
Other medical co-morbidities:
#Prediabetes (HbA1c: 6.2 on 01/07/2025)
#Transaminitis
#Obesity (BMI: 39.4)
#History of hypertension
#History of CVA
#History of ITP/thalassemia
#Severe hepatic steatosis likely due to morbid obesity
#Severe coronary artery calcifications seen radiographically on CT chest
Continue ICU level of care for this critically ill patient
The patient's daughter, Jaylyn, was updated at bedside and all questions were answered.
Critical care statement: A total of 42 minutes of critical care time was provided for this patient today. This includes management of unstable vital signs, evaluation of the patient at bedside, reviewing the patient's pertinent medical records
including radiographs, microbiology, laboratory evaluations, and discussion with primary team, consultants, pharmacy, nutrition, physical therapy, case management, charge nurse, critical care nursing, and respiratory therapy.
Data:
CT chest with IV contrast 01/06/2025:
Extensive bilateral multifocal pneumonia.
Small bilateral pleural effusions, right greater than left.
Severe coronary artery calcifications. Please correlate with symptoms of and risk factors for coronary artery disease, with further workup as clinically appropriate.
Severe hepatic steatosis.
CT chest without contrast 01/12/2025:
1. Severe bilateral multifocal airspace consolidation with air bronchograms, most suggestive of severe multifocal pneumonia. Pulmonary edema is considered less likely, although not completely excluded.
2. Small bilateral pleural effusions, right greater than left.
3. 6 mm lung nodule within the right lower lobe, which may be related to severe pneumonia. Consider CT examination following resolution of the acute event to evaluate for true pulmonary nodule.
4. Severe coronary arterial calcification. Please correlate with symptoms of and risk factors for coronary artery disease, with further workup as clinically appropriate.
5. Cholelithiasis.
6. Diffuse fatty infiltration of the liver.
Subjective Dataa
Subjective Data
Date of Service:
Date of Service: January 18, 2025
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
Subjective:
Patient was seen and evaluated this morning. Remains intubated on AC/CMV 20/320/18/40%. She was switched over to SBT on 03/31 and plateau pressures were 23. Alzada inserted yesterday showing elevated PA pressures as well as elevated wedge pressure.
Bumex gtt continues and she has good urine output about 200-300 cc an hour. Current BP via A-line 126/50, PAP 42/16, saturating 92%. Currently sedated with propofol at 10 mcg/kg/hr and fentanyl at 75mcg/hr. Minimal ETT secretions. LUE US
positive for superficial clot. Insulin gtt is at 1.5 units/hr.
Review of Systems
General: Unobtainable - Sedation
Objective Data
Data Reviewed
Vital Signs / I&O / Oxygen:
Vital Signs
Temp Pulse Resp BP Pulse Ox
98.8 F 79 28 148/60 91
01/18/25 07:18 01/18/25 09:30 01/18/25 09:30 01/17/25 08:15 01/18/25 09:30
Intake and Output
01/17/25 01/18/25 01/19/25
06:59 06:59 06:59
Intake Total 1787.8 / 1802.1 1632.65 / 1754.75 364.3 / 364.3
Output Total 2840 / 2895 4970 / 5245 775 / 775
Balance -1052.2 / -1092.9 -3337.35 / -3490.25 -410.7 / -410.7
SaO2 [ASV] 92
SaO2 [CPAP/PSV] 93
SaO2 [A/C] 94
SaO2 91
Nasal Cannula flow liters per 60
minute
Physical Exam
General: Respiratory Distress (negative), Comfortable, Chills (negative), Sweats (negative) and Other (Intubated/sedated)
HEENT: Normocephalic, Anicteric and Other (ETT in place)
Cardiovascular: S1-S2, Regular Rhythm and Peripheral Edema (Trace LE edema bilaterally)
Respiratory: Wheeze (negative), Crackles (negative), Rhonchi (negative), Non-Labored Respirations, Stridor (negative) and ET Tube (Mechanical breath sounds heard bilaterally)
GI: Soft, Distended (Abdominal obesity) and Non Tender
Neurology: Tremors (negative) and Other (Sedated but easily arousable and following all commands)
Skin: Warm, Dry, Cyanosis (negative) and Jaundice (negative)
Labs/Micro/Reports
Lab Data
01/18/25 04:18
01/18/25 04:18
Laboratory Results
01/18/25 01/18/25 01/18/25
00:11 04:18 06:00
APTT 29.9 79.3 H
pH 7.57 H
pCO2 46 H
pO2 98
HCO3 42.1 H*
O2 Delivery Level 65
Microbiology
01/11/25 21:07 Blood/Venous Blood Culture - Final
No Growth - Final Report
01/11/25 20:49 Blood/Venous Blood Culture - Final
No Growth - Final Report
--- NOTE | 2025-01-18 08:14 | PTCARENOTE ---
pt received from previous rn- ett to vent- see settings as charted. right IJ cordis with KVO- RIJ swan at 59cm, confirmed with offgoing rn. PA and CVP zeroed and transduced. left radial irena zeroed and functioning. see numbers as charted. pt NSR
with BBB on monitor. pt continues on propofol, fentanyl, bumex, insulin and heparin. pt awake and follows commands appropriately, pt denies pain. left nare dobhoff at 70cm, tube feeds continue pt tolerating. ballard draining yellow urine. all safety
precautions in place, pt remains restrained. turned and repositioned, oral care provided.
--- NOTE | 2025-01-18 08:30 | PTCARENOTE ---
pt received from previous rn ett to vent- see settings as charted. pt awake and appropriate on propofol and fentanyl. bumex, insulin and heparin continue per order. right IJ cordis with KVO. right ij swan zeroed and transduced. left radial irena
zeroed and functioning. see pressures and CO and CI as documented. swan at 49cm, site c/d/i. plan of care discussed with team. all safety precautions in place. daughter at bedside and updated.
[2025-01-18 09:19] LABS: Glucose - Point of Care 144 mg/dl (70-99)
--- NOTE | 2025-01-18 09:30 | W.PN.HOSP.TC ---
Today's Communication/Plan
-
Continue diuresis
Assessment / Plan
Assessment / Plan
Gen-awake but intubated
HEENT-NC, AT, anicteric, clear oral mm
Neck-supple
CV-reg, no M, +S1/S2
Lungs-decreased breath sounds bilaterally
Abd-soft, NT, ND
Ext-bilateral lower extremity pedal edema
Musculoskeletal-no cyanosis, clubbing
Neuro-alert and oriented on the vent and no neurological deficits
Skin-warm and dry
Acute hypoxic respiratory failure - likely multifactorial etiology, due to extensive bilateral pneumonia and heart failure and ARDS. Transitioned from high flow nasal cannula/BPAP to intubation January 07. FiO2 down to 40% on ventilator.
Steroids per child care lead teacher.
Cefepime started January 11, continue for 7 days total. Discussed with child care lead teacher.
Right heart catheterization done 01/17 showing high PCWP of 31 mmHg. Moderately to severely depressed cardiac function with cardiac index 1.7. 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
Acute HFmEF/valvulopathy/suspected type II MO - but cannot rule out obstructive CAD-BNP 7480; Echocardiogram showed EF of 40-45% and basal inferolateral hypokinesis, moderate-severe mitral regurgitation, mild aortic regurgitation. Started on
aspirin. Beta-blockers on hold due to hypotension. Ischemic evaluation after acute illness. Cardiology consulted and input appreciated.
Continue IV Bumex drip, started January 17. Weight trending down, from a high of 95 kg to 90 kg today.
Chest x-ray today shows some mild improvement in pulmonary edema.
Watch renal function closely. Potassium down to 3.5, will need to replete.
Sepsis due to extensive multifocal community-acquired pneumonia- Completed azithromycin. Ceftriaxone changed to IV cefepime on 01/11. Blood cultures negative. Respiratory culture shows Heidi, likely colonization.
Fever resolved. Last fever was January 12.
Leukocytosis due to steroids.
Acute left cephalic vein SVT -noted on Doppler ultrasound 01/17. Currently on IV heparin infusion.
Elevated LFTs -suspect due to severe pneumonia, sepsis and also passive venous congestion.
Troponin elevation -troponin peaked. Suspect type II MO due to demand ischemia.
Microcytic anemia -hemoglobin stable. No clinical evidence of bleeding. B12 603, folate 11, iron 29, TIBC 211, 13% saturation, and ferritin 636.
Impaired fasting glucose - hemoglobin A1c 6.2%. On IV regular insulin infusion, glucose is also elevated due to steroids.
Essential hypertension -stable.
Hypothyroidism -levothyroxine.
Morbid obesity due to excess calories
Full code
Daughter updated at the bedside.
Anticipated Discharge: > 48 hours
Subjective/Interval History
-
Date of Service: January 18, 2025
Patient seen and examined. Remains on the ventilator. Looks comfortable.
Objective Data
-
Labs:
Laboratory Results
01/18/25 01/18/25 01/18/25
00:11 04:18 06:00
WBC 20.3 H 20.3 H
Hgb 9.7 L 9.3 L
Hct 31.1 L 30.9 L
Plt Count 241 234
APTT 29.9 79.3 H
HCO3 42.1 H*
Sodium 142
Potassium 3.5
Chloride 99
Carbon Dioxide 37 H
BUN 60 H
Creatinine 1.1 H
Glucose 161 H
Calcium 8.1 L
Total Bilirubin 1.2
AST 22
ALT 39 H
Alkaline Phosphatase 76
01/18/25
13:00
WBC
Hgb
Hct
Plt Count
APTT Pending
HCO3
Sodium
Potassium
Chloride
Carbon Dioxide
BUN
Creatinine
Glucose
Calcium
Total Bilirubin
AST
ALT
Alkaline Phosphatase
Vital Signs:
Vital Signs
Temp Pulse Resp BP Pulse Ox
98.8 F 76 27 148/60 93
01/18/25 07:18 01/18/25 07:56 01/18/25 07:56 01/17/25 08:15 01/18/25 08:03
I&O
01/17/25 01/18/25 01/19/25
06:59 06:59 06:59
Intake Total 1787.8 / 1802.1 1632.65 / 1754.75 364.3 / 364.3
Output Total 2840 / 2895 4970 / 5245 775 / 775
Balance -1052.2 / -1092.9 -3337.35 / -3490.25 -410.7 / -410.7
Review of Systems
-
Unable to obtain full review of systems at this time due to: Acuity and Patient Intubation
[2025-01-18] MEDS: SUBLIMAZE 50 MCG IV (10:39)
[2025-01-18 11:18] LABS: Glucose - Point of Care 209 mg/dl (70-99)
[2025-01-18 11:50] VITALS: BP_SYST 104
[2025-01-18 12:20] LABS: Glucose - Point of Care 256 mg/dl (70-99)
[2025-01-18] MEDS: PRECEDEX 100 IV (12:41)
[2025-01-18] MEDS: NOVOLIN R INSULIN INFUSION 100 IV (12:50)
[2025-01-18 13:00] VITALS: BP_SYST 111
[2025-01-18 13:22] LABS: Glucose - Point of Care 221 mg/dl (70-99)
--- NOTE | 2025-01-18 14:00 | PTCARENOTE ---
right arm midline exchanged by IV team to right double lumen picc, xray completed, both lumens flush with good blood return. pt tachycardiac in the 130s- Dr. Priest aware, afternoon labs sent per order. pt now on precedex, weaning on ventilator
and tolerating. ongoing care.
[2025-01-18 15:16] LABS: Glucose - Point of Care 155 mg/dl (70-99)
[2025-01-18 15:35] VITALS: BP_SYST 116
[2025-01-18 15:36] LABS: Glucose - Point of Care 187 mg/dl (70-99)
--- NOTE | 2025-01-18 16:09 | W.PN.CD ---
Today's Communication / Plan
-
Continue diuresis.
No current role for milrinone or epoprostenol at this time.
Monitor renal function.
Low threshold for acetazolamide if pH/HCO3 gets too high.
Impression / Plan
-
Impression/Plan: 74 y/o female with hypothyroidism, HTN, HLD, ITP/thalassemia, admitted with fever and acute hypoxic respiratory failure consistent with CAP with severe sepsis, progressing to ARDS requiring intubation/ventillation (01/07/2025), new
diagnosis of HFmEF (LVEF 45-50% with inferolateral hypokinesis) and moderate severe MR and mildly elevated troponin.
#Acute, hypoxic respiratory failure/VDRF
-Condition is threat to life.
-Remains intubated and breathing comfortably on ventilator. Currently on assist-control, Vt remains low, mildly tachypneic.
-Multifactorial, due to CAP (likely progressed to ARDS) and HFmEF with moderate/severe MR and severe pulmonary hypertension.
-01/11/2025 and 01/12/2025: FiO2 increased from 45% to 60% despite diuresis, recurrent fever.
-01/12/2025: Defervesced after 11:41. CT chest most suggestive of severe multifocal pneumonia pulmonary edema is considered less likely, small bilateral effusions severe coronary calcification. Ceftriaxone changed to cefepime. A-Line placed.
Norepinephrine started to maintain MAP > 65 mmHg. Vent settings changed and dexamethasone started for ARDS. Plateau pressure ~ 24 cmH2O (consistent with non-compliant lung parenchyma). ANCA/DIONY ordered for hemoptysis. Troponin 3.7.
-01/13/2025: FiO2 down to 50%. I/O net positive 1500 mL. Norepinephrine weaned. Repeat Flu/COVID negative.
-Andrews-[place] placed, demonstrating severely elevated filling pressures, severe pulmonary hypertension, WHO groups 2/3.
#PNA, sepsis:
-Acute, threat to life.
-Completed azithromycin.
-Recurrent fever on 01/11/2025, combined with worsening FiO2 requirements in spite of diuresis prompted saucedo in ABX from ceftriaxone to cefepime.afebrile and 01/14
-Briefly required norepinephrine after over-diuresis.
-FiO2/Vent settings are slowly improving on ABX, dexamethasone.
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
-New diagnosis.
- Peak troponin
-Previous notes suggest records from outside showed she was last seen in 2021 at which time she had a normal echo and stress test with no ischemia.
-Echo 01/09/25: Mildly reduced left ventricular systolic function. Left ventricular ejection fraction is 45-50% with basal inferolateral hypokinesis, mild AI, moderate/severe MR.
-Unclear how big of a role HFmEF is playing in current clinical setting.
-Given the complexity of her volume status and pulmonary injury which may increase RV filling pressures - BNP should NOT be used as a marker of volume.
-ECG with anterolateral and inferior ST and T wave changes and troponin elevation (3.7) raise possibility of ischemia (further suggested by coronary calcification on CT chest).
-Suspect type II [place] (demand ischemia),n
-R/L heart catheterization + coronary angiography later this admission after additional recovery. primary issue is likely infectious.
-Plan for an indwelling PA catheter to assess her filling pressures and guide hemodynamic management.
-Continue aspirin.
-GDMT when hemodynamics will tolerate.
#HTN
- Appears patient was on metoprolol as an outpatient.
#Anemia
-Chronic, known history of ITP/thalassemia.
- Monitor anemia
-Management per primary team.
Critical Care Time = 42 minutes.
Subjective/Interval History:
Andrews showed severely elevated filling pressures and severe pulmonary hypertension, WHO group 2/3.
Bumetanide gtt started at 1 mg/hour.
LUE thrombus seen on bedside US per nursing notes. Heparin gtt initiated.
Weight down 3 kg (!).
Remains intubated/sedated. FiO2 = 60%.
DATA:
Cultures:
Blood Cx (01/06/2025): Negative x2
Influenza (01/06/2025): Negative
SARS-CoV-2 Ag (01/06/2025): Negative
Legionella UAg (01/06/2025): Negative
S. Pneumoniae UAg (01/06/2025): Negative
Endotracheal Aspirate Cx (01/08/2025): C. Albicans
Endotracheal Aspirate Cx (01/11/2025): C. Albicans
Blood Cx (01/11/2025): Negative x2
Influenza (01/12/2025): Negative
SARS-CoV-2 Ag (01/12/2025): Negative
CT Chest, 01/06/2025:
IMPRESSION:
Extensive bilateral multifocal pneumonia.
Small bilateral pleural effusions, right greater than left.
Severe coronary artery calcifications. Please correlate with symptoms of and risk factors for coronary artery disease, with further workup as clinically appropriate.
Severe hepatic steatosis.
TTE, 01/09/2025:
CONCLUSIONS
Mildly reduced left ventricular systolic function. Left ventricular ejection
fraction is 45-50% by Thomas's method of discs.
Basal inferolateral hypokinesis.
Mild aortic regurgitation.
Moderate/severe mitral regurgitation.
No prior study available for comparison.
CT Chest, 01/12/2025:
IMPRESSION:
1. Severe bilateral multifocal airspace consolidation with air bronchograms, most suggestive of severe multifocal pneumonia. Pulmonary edema is considered less likely, although not completely excluded.
2. Small bilateral pleural effusions, right greater than left.
3. 6 mm lung nodule within the right lower lobe, which may be related to severe pneumonia. Consider CT examination following resolution of the acute event to evaluate for true pulmonary nodule.
4. Severe coronary arterial calcification. Please correlate with symptoms of and risk factors for coronary artery disease, with further workup as clinically appropriate.
5. Cholelithiasis.
6. Diffuse fatty infiltration of the liver.
TTE, 01/12/2025:
CONCLUSIONS
Mildly reduced left ventricular systolic function.
Inferolateral hypokinesis LV ejection fraction is 40-45% .
Moderate to severe mitral regurgitation.
Compared to previous echo 01/09/2025 reported EF is mildly less. Previously
estimated 45 to 50%. Mitral regurgitation appears a bit more prominent on the
previous study but some of this may be related to imaging technique .
[facility], 01/17/2025:
CONCLUSION:
1. Severely elevated filling pressures (PCWP = 31 mmHg at 93.4 kg) with large V waves (52 mmHg) consistent with a noncompliant left atrium as well as a history of moderate to severe mitral regurgitation.
2. Moderately to severely depressed cardiac function (cardiac index = 1.70 L/min/m� by Joshua equation, 2.0 L/min/m� by thermodilution).
3. 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
Physical Exam
Vital Signs/Labs
Vital Signs
Temp Pulse Resp BP Pulse Ox
37.3 C 65 18 148/60 96
01/18/25 12:42 01/18/25 16:00 01/18/25 16:00 01/17/25 08:15 01/18/25 16:00
01/17/25 01/18/25 01/19/25
11:59 11:59 11:59
Actual Weight 93.6 kg 90.6 kg
01/18/25 04:18
PT 16.8 Sec (11.4-14.6) H 01/07/25 22:10
INR 1.33 01/07/25 22:10
APTT 79.3 Sec (23.4-35.0) H 01/18/25 06:00
Magnesium 2.7 mg/dl (1.6-2.3) H 01/16/25 02:43
Triglycerides 89 mg/dl (10-149) 01/18/25 04:18
01/08/25 01/12/25
04:59 03:34
[id number] Pept [id number]
Physical Exam
Constitutional: No acute distress and Comfortable
EENT: Anicteric, Moist mucous membranes and Other (ET Tube in place.)
Cardiovascular: Rhythm & rate is regular, Pedal edema is absent, S1S2 is normal and Murmur/rub/gallop absent
Respiratory: Respiratory effort normal and Crackles Present
GI: Soft, Distention absent, Flat, Non tender and Normal bowel sounds
Neuro/Psych: Other (Intubated/sedated.)
Other: Cath Site (RIJ sheath/PA catheter under tegaderm.)
Data Reviewed
-
Date of Service: January 18, 2025
Medical Decision Making: Reviewed Test Results, Independent Historian Assessment, Test Interpretation and Review of Case with other Provider
EKG: Tracing Personally Visualized and interpreted and Report Reviewed by me
Echo: Tracing Personally Visualized and interpreted and Report Reviewed by me
X-Ray/CT/US/MRI/NUC/PET: Image Personally Visualized and interpreted, Report Reviewed by me, Discussed with Physician, Discussed with Nurse and Discussed with Family
Medical Tests (PFT, Pathology etc): Image Personally Visualized and interpreted, Report Reviewed by me, Discussed with Physician, Discussed with Nurse and Discussed with Family
Labs: Labs Reviewed by me
Old Records: Reviewed
[2025-01-18 16:19] LABS: Glucose - Point of Care 153 mg/dl (70-99)
--- NOTE | 2025-01-18 16:47 | DOWNTIME ---
There was a [employer] Client Signal Tester Downtime on 01/18/2025 from 1230 to 01/18/2025 at 1550. Downtime documentation of patient's care, including medication administrations, has been reconciled in the electronic record per guidelines. Refer to the
patient's paper chart under the miscellaneous tab to see printed paper medication records and downtime forms.
--- NOTE | 2025-01-18 16:47 | PTCARENOTE ---
Dr. Garcia aware of CO and CI, ordered to hold bumex gtt, Dr. Priest notified of numerics as well. pt continues on wean, tolerating. precedex remains at 0.2mcg/kg/hr. turned and repositioned, pt continues to deny pain. assessment unchanged
further.
[2025-01-18 17:14] LABS: APTT 99.8 Sec (23.4-35.0)
[2025-01-18 17:28] LABS: Blood Urea Nitrogen 67 mg/dl (7-17); Calcium 8.4 mg/dl (8.4-10.2); Chloride 97 mmol/L (98-107); Estimated Creatinine Clearance 46 ml/min; Glucose 213 mg/dl (70-99); Magnesium 2.2 mg/dl (1.6-2.3); Phosphorus 3.5 mg/dl (2.5-4.5); Sodium 139 mmol/L (135-145); eGFR 53.39
[2025-01-18 17:29] LABS: Carbon Dioxide 35 mmol/L (22-30)
[2025-01-18 17:33] LABS: B.E. 20.5 mmol/L; PCO2 49 mmHg (32-35); PO2 201 mmHg (83-108); pH 7.57 (7.35-7.45)
[2025-01-18 17:39] LABS: HCO3 44.9 mmol/L (21-28)
[2025-01-18 17:43] LABS: Glucose - Point of Care 133 mg/dl (70-99)
[2025-01-18] MEDS: ROXICODONE ORAL SOLUTION 2.5 MG TUBE (18:16)
[2025-01-18] MEDS: LOVENOX 40 MG SC (18:17)
[2025-01-18] MEDS: DIAMOX 250 MG TUBE (18:17)
[2025-01-18 18:32] LABS: Glucose - Point of Care 147 mg/dl (70-99)
[2025-01-18] MEDS: NOVOLOG FLEXPEN SC ×2 (18:39→23:37)
[2025-01-18 19:19] LABS: Glucose - Point of Care 170 mg/dl (70-99)
[2025-01-18 20:10] LABS: Glucose - Point of Care 207 mg/dl (70-99)
[2025-01-18 21:12] LABS: Glucose - Point of Care 146 mg/dl (70-99)
[2025-01-18] MEDS: XALATAN OPHTHALMIC SOLUTION 1 DROP BOTH EYES (22:06)
--- NOTE | 2025-01-18 22:09 | PTCARENOTE ---
DHT clogged, tried to unclug with no success. ICU LEAN MANAGER aware, DHT removed. GP continues.
cardiology and chemical packager notified of 1999 swan numbers, bumex gtt remains off, UOP adequate. ENOC marcum @ 49cm.
pt arousable to voice, GALO, nods y/n appropriately. remains restrained. SR on monitor. A line/CVP/PA transduced and zeroed. edema improving. #8.0 ETT, 24cm @ [facility]. AC 20/320/8/50%. precedex/insulin/KVO gtts continue. CHG bath, ballard care, oral care
done. care continues.
[2025-01-18 22:16] LABS: Glucose - Point of Care 127 mg/dl (70-99)
[2025-01-18 23:10] LABS: Glucose - Point of Care 120 mg/dl (70-99)
[2025-01-18] MEDS: ROXICODONE ORAL SOLUTION TUBE (23:37)
[2025-01-19] MEDS: PRECEDEX 100 IV (02:00)
[2025-01-19 02:24] LABS: Glucose - Point of Care 107 mg/dl (70-99)
[2025-01-19 02:24] LABS: Glucose - Point of Care 135 mg/dl (70-99)
[2025-01-19 02:24] LABS: Glucose - Point of Care 129 mg/dl (70-99)
[2025-01-19 04:12] LABS: Glucose - Point of Care 123 mg/dl (70-99)
[2025-01-19 04:13] LABS: B.E. 20.5 mmol/L; O2 Saturation % 99.3 % (94-98); PCO2 49 mmHg (32-35); PO2 96 mmHg (83-108); pH 7.57 (7.35-7.45)
[2025-01-19 04:20] LABS: HCO3 44.9 mmol/L (21-28)
[2025-01-19 04:22] LABS: Hematocrit 30.5 % (37.0-47.0); Hemoglobin 9.6 g/dL (12.0-16.0); Mean Corp Hgb Conc. 31.5 g/dL (33.0-37.0); Mean Corpuscular Volume 60.5 fL (81.0-99.0); Platelet Count 224 10^3/uL (130-400); Red Blood Cell Count 5.04 10^6/uL (4.20-5.40); Red Cell Dist. Width 16.2 % (11.5-14.5); White Blood Cell Count 20.8 10^3/uL (4.8-10.8)
[2025-01-19 04:28] LABS: APTT 31.4 Sec (23.4-35.0)
[2025-01-19 04:42] LABS: ALT (SGPT) 34 U/L (0-35); AST (SGOT) 20 U/L (14-36); Albumin 3.1 g/dl (3.5-5.0); Alkaline Phosphatase 69 U/L (38-126); Blood Urea Nitrogen 65 mg/dl (7-17); Calcium 8.6 mg/dl (8.4-10.2); Chloride 98 mmol/L (98-107); Estimated Creatinine Clearance 34 ml/min; Glucose 122 mg/dl (70-99); Magnesium 2.4 mg/dl (1.6-2.3); Phosphorus 4.3 mg/dl (2.5-4.5); Potassium 3.5 mmol/L (3.5-5.1); Sodium 143 mmol/L (135-145); Total Bilirubin 1.4 mg/dl (0.2-1.3); Total Protein 6.1 g/dl (6.3-8.2); Triglycerides 128 mg/dl (10-149)
[2025-01-19 04:52] LABS: Carbon Dioxide 36 mmol/L (22-30)
[2025-01-19] MEDS: NOVOLOG FLEXPEN SC (05:04)
[2025-01-19] MEDS: ROXICODONE ORAL SOLUTION TUBE (05:05)
[2025-01-19] MEDS: SYNTHROID TUBE (05:05)
--- NOTE | 2025-01-19 05:47 | PTCARENOTE ---
AM labs sent, K repletion ordered. assessment unchanged. care continues
[2025-01-19 05:52] VITALS: BMI 37.4
[2025-01-19] MEDS: KCL 100 IV (05:52)
[2025-01-19 06:07] LABS: Glucose - Point of Care 120 mg/dl (70-99)
--- NOTE | 2025-01-19 07:06 | W.PN.CD ---
Today's Communication / Plan
-
Level/zero patient and wedge catheter.
Patient is likely at her dry weight given fall in filling pressures, new SHARMIN.
CXR.
Hold further diuretics.
Check UA/FENa.
Agree with acetazolamide.
Allow to be I/O even to slightly positive.
Impression / Plan
-
Impression/Plan: 74 y/o female with hypothyroidism, HTN, HLD, ITP/thalassemia, admitted with fever and acute hypoxic respiratory failure consistent with CAP with severe sepsis, progressing to ARDS requiring intubation/ventillation (01/07/2025), new
diagnosis of HFmEF (LVEF 45-50% with inferolateral hypokinesis) and moderate severe MR and mildly elevated troponin.
#Acute, hypoxic respiratory failure/VDRF
-Condition is threat to life.
-Remains intubated and breathing comfortably on ventilator. Currently on assist-control, Vt remains low, mildly tachypneic.
-Multifactorial, due to CAP (likely progressed to ARDS) and HFmEF with moderate/severe MR and severe pulmonary hypertension.
-01/11/2025 and 01/12/2025: FiO2 increased from 45% to 60% despite diuresis, recurrent fever.
-01/12/2025: Defervesced after 11:41. CT chest most suggestive of severe multifocal pneumonia pulmonary edema is considered less likely, small bilateral effusions severe coronary calcification. Ceftriaxone changed to cefepime. A-Line placed.
Norepinephrine started to maintain MAP > 65 mmHg. Vent settings changed and dexamethasone started for ARDS. Plateau pressure ~ 24 cmH2O (consistent with non-compliant lung parenchyma). ANCA/DIONY ordered for hemoptysis. Troponin 3.7.
-01/13/2025: FiO2 down to 50%. I/O net positive 1500 mL. Norepinephrine weaned. Repeat Flu/COVID negative.
-[place] placed, demonstrating severely elevated filling pressures, severe pulmonary hypertension, WHO groups 2/3.
-01/17-: Bumetanide gtt with drastic reduction in filling pressures. Bumetanide gtt turned off on 01/18/2025 PM.
-01/19/2025: PA = 20/08/17, RA = 4, CI = 1.92, SVR = 1718. New SHARMIN, HCO3 up to 36. ABG shows metabolic alkalosis with some respiratory acidosis. Agree with acetazolamide.
-Repeat CXR this morning.
-We will level the patient and wedge catheter. This may be her dry weight. If PCWP is < 15 mmHg with persistent pulmonary infiltrates/edema, diagnosis of ARDS will be confirmed.
-Continue vent weaning. If she is not making enough progress, we will need to get ENT involved for tracheostomy with a view towards director long term care wean.
#PNA, sepsis:
-Acute, threat to life.
-Completed azithromycin.
-Recurrent fever on 01/11/2025, combined with worsening FiO2 requirements in spite of diuresis prompted sauecdo in ABX from ceftriaxone to cefepime.afebrile and 01/14
-Briefly required norepinephrine after over-diuresis.
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
-New diagnosis.
-Previous notes suggest records from outside showed she was last seen in 2021 at which time she had a normal echo and stress test with no ischemia.
-Echo 01/09/25: Mildly reduced left ventricular systolic function. Left ventricular ejection fraction is 45-50% with basal inferolateral hypokinesis, mild AI, moderate/severe MR.
-Unclear how big of a role HFmEF is playing in current clinical setting.
-Given the complexity of her volume status and pulmonary injury which may increase RV filling pressures - BNP should NOT be used as a marker of volume.
-ECG with anterolateral and inferior ST and T wave changes and troponin elevation (3.7) raise possibility of ischemia (further suggested by coronary calcification on CT chest).
-L heart catheterization + coronary angiography later this admission after additional recovery. Primary issue remains infectious.
-Maintain indwelling PA catheter to assess her filling pressures and guide hemodynamic management.
-Continue aspirin.
-GDMT when hemodynamics will tolerate.
-Diuretics held.
#SHARMIN
-Acute.
-Creatinine up to 1.5.
-Likely from diuresis.
-Check UA, FENa.
#HTN
- Appears patient was on metoprolol as an outpatient.
#Anemia
-Chronic, known history of ITP/thalassemia.
-Management per primary team.
Critical Care Time = 38 minutes.
Subjective/Interval History:
Significant diuresis with bumetanide gtt.
PA pressures drastically improved. CI remains stable off of pressors. No milrinone required.
Weight is down an additional 2.7 kg.
Bumetanide gtt turned off yesterday afternoon. PAd/CI remain stable.
WBC remains ~ 20k.
ABG = 7.57/49/96/44.9.
HCO3 up to 36.
Creatinine up to 1.5.
DATA:
Cultures:
Blood Cx (01/06/2025): Negative x2
Influenza (01/06/2025): Negative
SARS-CoV-2 Ag (01/06/2025): Negative
Legionella UAg (01/06/2025): Negative
S. Pneumoniae UAg (01/06/2025): Negative
Endotracheal Aspirate Cx (01/08/2025): C. Albicans
Endotracheal Aspirate Cx (01/11/2025): C. Albicans
Blood Cx (01/11/2025): Negative x2
Influenza (01/12/2025): Negative
SARS-CoV-2 Ag (01/12/2025): Negative
CT Chest, 01/06/2025:
IMPRESSION:
Extensive bilateral multifocal pneumonia.
Small bilateral pleural effusions, right greater than left.
Severe coronary artery calcifications. Please correlate with symptoms of and risk factors for coronary artery disease, with further workup as clinically appropriate.
Severe hepatic steatosis.
TTE, 01/09/2025:
CONCLUSIONS
Mildly reduced left ventricular systolic function. Left ventricular ejection
fraction is 45-50% by Thomas's method of discs.
Basal inferolateral hypokinesis.
Mild aortic regurgitation.
Moderate/severe mitral regurgitation.
No prior study available for comparison.
CT Chest, 01/12/2025:
IMPRESSION:
1. Severe bilateral multifocal airspace consolidation with air bronchograms, most suggestive of severe multifocal pneumonia. Pulmonary edema is considered less likely, although not completely excluded.
2. Small bilateral pleural effusions, right greater than left.
3. 6 mm lung nodule within the right lower lobe, which may be related to severe pneumonia. Consider CT examination following resolution of the acute event to evaluate for true pulmonary nodule.
4. Severe coronary arterial calcification. Please correlate with symptoms of and risk factors for coronary artery disease, with further workup as clinically appropriate.
5. Cholelithiasis.
6. Diffuse fatty infiltration of the liver.
TTE, 01/12/2025:
CONCLUSIONS
Mildly reduced left ventricular systolic function.
Inferolateral hypokinesis LV ejection fraction is 40-45% .
Moderate to severe mitral regurgitation.
Compared to previous echo 01/09/2025 reported EF is mildly less. Previously
estimated 45 to 50%. Mitral regurgitation appears a bit more prominent on the
previous study but some of this may be related to imaging technique .
RHC, 01/17/2025:
CONCLUSION:
1. Severely elevated filling pressures (PCWP = 31 mmHg at 93.4 kg) with large V waves (52 mmHg) consistent with a noncompliant left atrium as well as a history of moderate to severe mitral regurgitation.
2. Moderately to severely depressed cardiac function (cardiac index = 1.70 L/min/m� by Joshua equation, 2.0 L/min/m� by thermodilution).
3. 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
Physical Exam
Vital Signs/Labs
Vital Signs
Temp Pulse Resp BP Pulse Ox
37.2 C 54 20 120/56 97
01/19/25 03:01 01/19/25 07:00 01/19/25 07:00 01/18/25 18:17 01/19/25 07:00
01/17/25 01/18/25 01/19/25
11:59 11:59 11:59
Actual Weight 93.6 kg 90.6 kg 86.9 kg
01/19/25 04:02
01/19/25 04:02
PT 16.8 Sec (11.4-14.6) H 01/07/25 22:10
INR 1.33 01/07/25 22:10
APTT 31.4 Sec (23.4-35.0) 01/19/25 04:02
Magnesium 2.4 mg/dl (1.6-2.3) H 01/19/25 04:02
Triglycerides 128 mg/dl (10-149) 01/19/25 04:02
01/08/25 01/12/25
04:59 03:34
Wez-H-Nuraioerzyb Pept 7480 22599
Physical Exam
Constitutional: No acute distress and Comfortable
EENT: Anicteric and Moist mucous membranes
Cardiovascular: Rhythm & rate is regular, Pedal edema is absent, S1S2 is normal and Murmur/rub/gallop absent
Respiratory: Respiratory effort normal, Lungs clear to auscul., Wheeze Absent, Crackles Absent and Rhonchi Absent
GI: Soft, Distention absent, Flat, Non tender and Normal bowel sounds
Neuro/Psych: Other (Intubated, sedated.)
Other: Cath Site ([facility] catheter site under tegaderm.)
Data Reviewed
-
Date of Service: January 19, 2025
Medical Decision Making: Reviewed Test Results, Tests Ordered, Test Interpretation and Review of Case with other Provider
EKG: Tracing Personally Visualized and interpreted and Report Reviewed by me
Echo: Tracing Personally Visualized and interpreted and Report Reviewed by me
X-Ray/CT/US/MRI/NUC/PET: Image Personally Visualized and interpreted, Report Reviewed by me, Discussed with Physician and Discussed with Family
Medical Tests (PFT, Pathology etc): Image Personally Visualized and interpreted, Report Reviewed by me, Discussed with Physician and Discussed with Family
Labs: Labs Reviewed by me
Old Records: Reviewed
[2025-01-19] MEDS: DUONEB 3 ML INH ×3 (07:46→19:46)
[2025-01-19 08:10] VITALS: BP_SYST 130
--- NOTE | 2025-01-19 08:10 | W.PN.INTV ---
Today's Communication / Plan
Recommendations
- Continue [place] abril to monitor PAP, CO and CI
- Bumex gtt now on hold as her PADP is in mid-teens and she now has an SHARMIN today
- Eventual LHC given inferolateral hypokinesis seen on recent echo
- Recommend cardiology evaluation for MitraClip given her severe MR
- Keep K>4, Mg>2
- s/p 7-day course of cefepime
- Mechanical ventilation with lung protective strategy - plan to extubate today to NIV; hold tube feeds if extubated; use NIV with sleep and prn during the day once extubated
- Maintain plateau pressure <30
- Keep SpO2 >88-90%
- Continue ICU level care for this critically ill patient
Assessment
-
Assessment: 74-year-old female non-smoker with a past medical history of CVA, asthma, hypertension, hypothyroidism and ITP/thalassemia who presented with shortness of breath + cough. Symptoms started this past Thursday (01/03/2025). Initially in
the ER she was febrile to 100.4 �F, tachycardic to 123, respiratory rate initially 18, BP 158/82 and saturating 86% on room air. She was transitioned to high flow nasal cannula at 60% FiO2 with saturations improvement to 98%. Initial labs were
significant for leukocytosis to 17, glucose 289, lactate 6.7, T. bili 1.7, and COVID-19 antigen negative. Blood cultures collected, and CXR showed bilateral pneumonia. In the ER she was given ceftriaxone, acetaminophen, Zofran, Zithromax, and 1 L
NS 0.9% and admitted to the IMU for further care. Pulmonary service consulted for additional management/recommendations; patient was managed in the IMU and she deteriorated, being transitioned from high flow nasal cannula to BiPAP and was
emergently intubated on 01/07 and transferred to the ICU where she is currently being managed.
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
Assessment and plan:
#1. Severe CAP with acute hypoxic respiratory failure, complicated by suspected ARDS
- Patient was initially on high flow, subsequently intubated (01/07) due to increasing respiratory distress. On propofol and fentanyl for sedation.
- MRSA screen negative, culture stayed negative, Heidi noted on sputum - likely contaminant. Legionella + Strep PNA urine antigens both negative. Influenza A, B and COVID-19 negative.
- Patient completed 5 days of azithromycin and was continued on ceftriaxone until 01/11, then switched to cefepime on 01/11 in view of worsening respiratory failure
- 01/12, worsening hypoxia and desaturation with position change noted. Patient also started spiking fever. Concern for developing ARDS. Worsening infiltrate noted on chest x-ray.
- Lung protective mechanical ventilation for suspected ARDS
- s/p dexamethasone 20 mg daily from 01/12 - 01/16/2025 in view of ARDS --> resumed decadron at 10mg daily on 01/17
- Minimal Blood-tinged tracheal aspirate, improved. Minimal endotracheal secretions. Hemoglobin has been stable and O2 requirement has not changed. Not suggestive of diffuse alveolar hemorrhage. DIONY and ANCA negative
- Repeat influenza and COVID-19 testing negative. Tracheal aspirate again growing Heidi.
- Patient tends to develop tachypnea and decreased pO2 on ASV. Continuing volume control for now --> tolerating PST this AM. Will lower PEEP down to zero and if tolerated then will check blood gas and extubate to NIV
- Continue tube feeding, monitor for bowel movements
#2. Newly diagnosed Acute on suspect Chronic heart failure with mildly reduced EF with severe MR. Echocardiogram 01/09 shows EF of 45 to 50% with moderate to severe mitral regurgitation.
- BNP elevated at > [address]1990 despite aggressive diuresis. Pulmonary edema in addition to ARDS
- Lasix was on hold in view of mild SHARMIN - Lasix 40 mg IV twice daily re-started 01/15
- Elevated troponin noted, discussed with cardiology service (01/12), felt to be related to underlying critical illness
- Patient underwent RHC on 01/17 showing PCWP 31, mPAP 51, PVR 6.25, TPG 20, and CO/CI 3.77/2 --> bumex gtt started. Bumex gtt now on hold as her PADP dropped to mid-teens on 11/18 and now she has an SHARMIN. Would keep net even for today. Continue [place]
while trending PA pressures, CO + CI. Eventual left heart cath favored given inferolateral hypokinesis seen on TTE from 01/12/2025
Would also favor interventional cardiology evaluating her for a mitraclip; repeat echo today shows severe MR with systolic flow reversal in the pulmonary veins
#3. h/o Lung nodule
- Patient will need follow-up imaging in about 8 weeks time once volume overload and pneumonia have resolved
- Patient reportedly had an outpatient PET/CT and this right-sided nodule had resolved, per daughter
- History of follow-up with [place] [facility]
#4. Hyperglycemia. Related to stress of acute illness, IV steroids and tube feeding.
- Continue insulin infusion
- Goal BG 140-180
Other medical co-morbidities:
#Prediabetes (HbA1c: 6.2 on 01/07/2025)
#Transaminitis
#Obesity (BMI: 39.4)
#History of hypertension
#History of CVA
#History of ITP/thalassemia
#Severe hepatic steatosis likely due to morbid obesity
#Severe coronary artery calcifications seen radiographically on CT chest
Continue ICU level of care for this critically ill patient
The patient's daughter, Jaylyn, was updated at bedside and all questions were answered.
Critical care statement: A total of 38 minutes of critical care time was provided for this patient today. This includes management of unstable vital signs, evaluation of the patient at bedside, reviewing the patient's pertinent medical records
including radiographs, microbiology, laboratory evaluations, and discussion with primary team, consultants, pharmacy, nutrition, physical therapy, case management, charge nurse, critical care nursing, and respiratory therapy.
Data:
CT chest with IV contrast 01/06/2025:
Extensive bilateral multifocal pneumonia.
Small bilateral pleural effusions, right greater than left.
Severe coronary artery calcifications. Please correlate with symptoms of and risk factors for coronary artery disease, with further workup as clinically appropriate.
Severe hepatic steatosis.
CT chest without contrast 01/12/2025:
1. Severe bilateral multifocal airspace consolidation with air bronchograms, most suggestive of severe multifocal pneumonia. Pulmonary edema is considered less likely, although not completely excluded.
2. Small bilateral pleural effusions, right greater than left.
3. 6 mm lung nodule within the right lower lobe, which may be related to severe pneumonia. Consider CT examination following resolution of the acute event to evaluate for true pulmonary nodule.
4. Severe coronary arterial calcification. Please correlate with symptoms of and risk factors for coronary artery disease, with further workup as clinically appropriate.
5. Cholelithiasis.
6. Diffuse fatty infiltration of the liver.
CXR 01/19/2025:
Generalized heterogeneous bilateral pulmonary opacities. These are without significant change when allowing for differences in lung volumes. Differential diagnosis includes pulmonary edema versus diffuse pneumonia.
Feeding tube with its tip in the region of the first portion of duodenum
Subjective Dataa
Subjective Data
Date of Service:
Date of Service: January 19, 2025
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
Subjective:
Patient was seen and evaluated this morning. Making about 30-60cc/hr. Off bumex gtt. PCWP 18 this AM. Remains intubated currently on a PST 03/31 at 40% FiO2. Sedated on Precedex 0.2 mcg/kg/hr.. Scant ETT secretions. HR currently 60, BP via
A-line 95/53, PAP 29/15, CO/CI 2.75/1.45. Current VTe 284 cc, PIP 14 cmH2O and breathing at 21 breaths/min. Dobbhoff clogged overnight and was exchanged this morning. Currently on insulin drip at 1.2 units/hr.
Review of Systems
General: Other (Unable to obtain as patient intubated/sedated)
Objective Data
Data Reviewed
Vital Signs / I&O / Oxygen:
Vital Signs
Temp Pulse Resp BP Pulse Ox
98.1 F 64 23 120/56 97
01/19/25 08:13 01/19/25 08:10 01/19/25 08:10 01/18/25 18:17 01/19/25 08:10
Intake and Output
01/18/25 01/19/25 01/20/25
06:59 06:59 06:59
Intake Total 1632.65 / 1754.75 1865.6 / 1881.3 31.4 / 31.4
Output Total 4970 / 5245 4380 / 4410 75 / 75
Balance -3337.35 / -3490.25 -2514.4 / -2528.7 -43.6 / -43.6
SaO2 [ASV] 92
SaO2 [CPAP/PSV] 95
SaO2 [A/C] 98
SaO2 97
Nasal Cannula flow liters per 60
minute
Physical Exam
General: Respiratory Distress (negative), Comfortable, Chills (negative), Sweats (negative) and Other (Intubated/sedated)
HEENT: Normocephalic, Anicteric and Other (ETT in place)
Cardiovascular: S1-S2, Regular Rhythm and Peripheral Edema (Trace LE edema bilaterally)
Respiratory: Wheeze (negative), Crackles (negative), Rhonchi (negative), Non-Labored Respirations, Stridor (negative) and ET Tube (Mechanical breath sounds heard bilaterally)
GI: Soft, Distended (Abdominal obesity) and Non Tender
Neurology: Tremors (negative) and Other (Sedated but easily arousable and following all commands)
Skin: Warm, Dry, Cyanosis (negative) and Jaundice (negative)
Labs/Micro/Reports
Lab Data
01/19/25 04:02
01/19/25 04:02
Laboratory Results
01/18/25 01/18/25 01/19/25
13:12 17:22 04:02
APTT 99.8 H 31.4
pH 7.57 H 7.57 H
pCO2 49 H 49 H
pO2 201 H 96
HCO3 44.9 H* 44.9 H*
O2 Delivery Level
Microbiology
01/11/25 21:07 Blood/Venous Blood Culture - Final
No Growth - Final Report
01/11/25 20:49 Blood/Venous Blood Culture - Final
No Growth - Final Report
--- NOTE | 2025-01-19 08:21 | PTCARENOTE ---
Addendum entered by Jeanette Martinez RN 01/19/25 08:34:
RIJ swan at 49cm
Original Note:
pt received from previous rn- ett to vent- remains on low dose precedex, awake and appropriate, follows commands, nods yes and no appropriately. pt currently denies pain. nsr with 1st degree and bbb on monitor. left radial irena zeroed and
functioning, right IJ swan zeroed and transduced, see numbers as documented. right ij cordis with kvo. am care provided. pt turned and repositioned, oral care. all safety precautions in place, pt participated in active rom. pt currently on wean on
ventilator.
[2025-01-19 08:22] LABS: Glucose - Point of Care 111 mg/dl (70-99)
--- NOTE | 2025-01-19 08:22 | W.PN.HOSP.TC ---
Today's Communication/Plan
-
Hold diuretics
Monitor renal function
Follow-up chest x-ray
Assessment / Plan
Assessment / Plan
Gen-awake but intubated
HEENT-NC, AT, anicteric, clear oral mm
Neck-supple
CV-reg, no M, +S1/S2
Lungs-decreased breath sounds bilaterally
Abd-soft, NT, ND
Ext-bilateral lower extremity pedal edema
Musculoskeletal-no cyanosis, clubbing
Neuro-alert and oriented on the vent and no neurological deficits
Skin-warm and dry
Acute hypoxic respiratory failure - likely multifactorial etiology, due to extensive bilateral pneumonia and heart failure and ARDS. Transitioned from high flow nasal cannula/BPAP to intubation January 07. FiO2 down to 40% on ventilator.
Steroids per machine room engineer.
Completed 7 days of cefepime. Now off antibiotics.
Right heart catheterization done 01/17 showing high PCWP of 31 mmHg. Moderately to severely depressed cardiac function with cardiac index 1.7. 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
Acute HFmEF/valvulopathy/suspected type II RI - but cannot rule out obstructive CAD-BNP 7480; Echocardiogram showed EF of 40-45% and basal inferolateral hypokinesis, moderate-severe mitral regurgitation, mild aortic regurgitation. Started on
aspirin. Beta-blockers on hold due to hypotension. Ischemic evaluation after acute illness. Cardiology consulted and input appreciated.
Continue IV Bumex drip, started January 17. Weight trending down, from a high of 95 kg to 86 kg today.
Chest x-ray today shows some mild improvement in pulmonary edema.
Bumex drip now on hold due to SHARMIN.
SHARMIN -concern for component of contraction alkalosis, diuretic effect. Creatinine 1.5, admission creatinine 0.9. IV Bumex now on hold.
Sepsis due to extensive multifocal community-acquired pneumonia -sepsis resolved. Now off antibiotics.
Acute left cephalic vein SVT -noted on Doppler ultrasound 01/17. Subcu Lovenox at prophylactic doses, dose reduced for renal insufficiency.
Hypokalemia -continue repletion. Magnesium was normal.
Elevated LFTs -transaminases normalized. Mild hyperbilirubinemia noted.
Troponin elevation -troponin peaked. Suspect type II RI due to demand ischemia.
Microcytic anemia -hemoglobin stable. Unknown acuity. No clinical evidence of bleeding. B12 603, folate 11, iron 29, TIBC 211, 13% saturation, and ferritin 636.
Impaired fasting glucose - hemoglobin A1c 6.2%. On IV regular insulin infusion, glucose is also elevated due to steroids.
Essential hypertension -stable.
Hypothyroidism -levothyroxine.
Morbid obesity due to excess calories
Full code
Anticipated Discharge: > 48 hours
Subjective/Interval History
-
Date of Service: January 19, 2025
Patient seen and examined. Remains intubated in ICU.
Objective Data
-
Labs:
Laboratory Results
01/19/25
04:02
WBC 20.8 H
Hgb 9.6 L
Hct 30.5 L
Plt Count 224
APTT 31.4
HCO3 44.9 H*
Sodium 143
Potassium 3.5
Chloride 98
Carbon Dioxide 36 H
BUN 65 H
Creatinine 1.5 H
Glucose 122 H
Calcium 8.6
Total Bilirubin 1.4 H
AST 20
ALT 34
Alkaline Phosphatase 69
Vital Signs:
Vital Signs
Temp Pulse Resp BP Pulse Ox
98.1 F 64 23 120/56 97
01/19/25 08:13 01/19/25 08:10 01/19/25 08:10 01/18/25 18:17 01/19/25 08:10
I&O
01/18/25 01/19/25 01/20/25
06:59 06:59 06:59
Intake Total 1632.65 / 1754.75 1865.6 / 1881.3 31.4 / 31.4
Output Total 4970 / 5245 4380 / 4410
Balance -3337.35 / -3490.25 -2514.4 / -2528.7 -43.6 / -43.6
Review of Systems
-
Unable to obtain full review of systems at this time due to: Acuity and Patient Intubation
--- NOTE | 2025-01-19 09:45 | PTCARENOTE ---
Dr. Garcia at bedside and aware of CO and CI, Dr. Garcia completed wedge. daughter at bedside, updated, ongoing care.
[2025-01-19 09:50] VITALS: BP_SYST 124
[2025-01-19] MEDS: LIDOCAINE 4% PATCH 1 PATCH TOPICAL (10:03)
[2025-01-19] MEDS: DECADRON 10 MG IV (10:03)
[2025-01-19] MEDS: MIRALAX 17 GRAMS TUBE (10:03)
[2025-01-19] MEDS: LOW STRENGTH ASPIRIN 81 MG TUBE (10:03)
[2025-01-19 10:20] LABS: Glucose - Point of Care 111 mg/dl (70-99)
[2025-01-19 10:21] VITALS: BP_SYST 100
--- NOTE | 2025-01-19 10:29 | W.PN.UPDATE ---
Update Note
Progress Note Update
Patient's PAC was placed in PCWP position.
PCWP = 18 mmHg.
We will keep I/O net even.
Large V-wave, consistent with moderate/severe mitral regurgitation.
Patient may benefit from TATYANA to assess anatomy of MV and physiology of MR.
At some point, she will need LHC/coronary angiography, but would like to avoid in the context of SHARMIN.
[2025-01-19 10:31] LABS: Urine Albumin 2+ (Neg - Trace); Urine Bilirubin Negative (Negative); Urine Character Clear (Clear); Urine Color Yellow; Urine Glucose Negative (Negative); Urine Ketone Negative (Negative); Urine Leukocyte Negative (Negative); Urine Nitrite Negative (Negative); Urine Occult Blood 3+ (Negative); Urine Specific Gravity 1.015 (<1.030); Urine Urobilinogen Negative (Neg - 1+)
[2025-01-19 10:35] VITALS: BP_SYST 99
[2025-01-19 10:38] LABS: Urine Squamous Cell 0-2 /LPF (Few); Urine White Cell 0-2 /HPF (0-5)
[2025-01-19 10:39] LABS: Urine Bacteria Few (Negative)
--- NOTE | 2025-01-19 10:45 | PTCARENOTE ---
right henri coronel at 70cm, xray completed, seen by Dr. Cem babcock to start TF. osmolite restarted.
--- NOTE | 2025-01-19 11:49 | PN.DE.MGMTRT ---
Insulin Management
- -
01/19/2025 Diabetes Management Consult
Patient admitted 01/06 with breathing problem, pneumonia, chf. PMH HTN hypothyroid. No history of diabetes, A1C on admission 6.2%. cr today 1.5, eGFR 36.80.
Patient progressed to intubation 01/07 and remains on vent. Currently attempting wean. Patient nods head appropriately to yes and no questions.
Patient was started on glycemic protocol due to elevated glucose, > 200, 01/12. Insulin infusion has been stopped for glucose < 100 and restarted for glucose > 180. Requiring up to 10 units per hour, last 4 hours requiring 4 to 1.2 units of insulin
per hour.
Patient is receiving 10 mg dexamethasone and tube feeds at 50 per hour. Will continue glycemic protocol today. Will assess insulin needs and consider Q 6 hour novolog if needed.
Discussed with cage manager team and nurse.
Will follow
Diabetes History
- -
Pre-Admission Diabetes Regimen
01/18/25 01/19/25
13:12 04:02
Creatinine 1.1 H 1.5 H
Lab Results
Hemoglobin A1c 6.2 % (4.0-5.6) H 01/07/25 04:50
Insulin Pump Settings
IP Diabetes Regimen
01/18/25 01/18/25 01/18/25
12:09 13:10 13:12
Glucose 213 H
POC Glucose 256 H 221 H
01/18/25 01/18/25 01/18/25
14:03 15:05 16:08
Glucose
POC Glucose 187 H 155 H 153 H
01/18/25 01/18/25 01/18/25
17:21 18:20 19:08
Glucose
POC Glucose 133 H 147 H 170 H
01/18/25 01/18/25 01/18/25
19:58 21:01 22:05
Glucose
POC Glucose 207 H 146 H 127 H
01/18/25 01/18/25 01/19/25
22:59 23:58 01:03
Glucose
POC Glucose 120 H 129 H 135 H
01/19/25 01/19/25 01/19/25
02:12 04:01 04:02
Glucose 122 H
POC Glucose 107 H 123 H
01/19/25 01/19/25 01/19/25
05:56 08:11 10:09
Glucose
POC Glucose 120 H 111 H 111 H
Patient Education
[2025-01-19 12:10] LABS: Glucose - Point of Care 161 mg/dl (70-99)
[2025-01-19] MEDS: DIAMOX 250 MG TUBE (12:11)
--- NOTE | 2025-01-19 12:20 | PTCARENOTE ---
pt remains on wean, peep changed to zero by Dr. Priest. CO and CI numbers given to Dr. Garcia, no new orders. assessment unchanged.
[2025-01-19 13:10] LABS: B.E. 12.7 mmol/L; HCO3 37.4 mmol/L (21-28); O2 Saturation % 96.7 % (94-98); PCO2 48 mmHg (32-35); PO2 70 mmHg (83-108)
--- NOTE | 2025-01-19 13:31 | PTCARENOTE ---
pt extubated to NIV, see settings as charted. TF on hold per Dr. Priest.
--- NOTE | 2025-01-19 13:53 | W.PN.UPDATE ---
Update Note
Progress Note Update
Pt extubated to NIV. Doing well. RR 22, VTe 350-450cc. Daughter at bedside - answered all her questions. Will keep TF off for now. Keep on NIV 12/8cmH2O 50% FiO2 for 2 hours, then take off and we will see how she does. Want her to continue NIV
tonight with sleep. Precedex currently off but ok to resume at low rate if needed for anxiety.
[2025-01-19 14:04] LABS: Glucose - Point of Care 219 mg/dl (70-99)
--- NOTE | 2025-01-19 14:39 | CM ---
Remains intubated. If unable to extubate will need tracheostomy. Plan for eventual left heart cath. IV/Steroids. Discharge POC: TBD based on medical progression.
[2025-01-19 15:03] LABS: Glucose - Point of Care 194 mg/dl (70-99)
[2025-01-19 15:08] LABS: Urine Sodium 77 mmol/L (30-90)
--- NOTE | 2025-01-19 15:39 | PTCARENOTE ---
pt on 6LNC and tolerating, denies sob or pain. Dr. Priest at bedside, ok to keep tube feeds off at this time.
[2025-01-19 16:10] LABS: Glucose - Point of Care 153 mg/dl (70-99)
--- NOTE | 2025-01-19 16:26 | PTCARENOTE ---
Dr. Garcia aware of CO and CI for 1600, ordered to notify if CI below 1.8. see numbers as charted. oral care provided, turned and repositioned, daughter at bedside and remains updated. assessment unchanged.
[2025-01-19] MEDS: LOVENOX 30 MG SC (17:55)
[2025-01-19] MEDS: NOVOLIN R INSULIN INFUSION 100 IV (18:02)
[2025-01-19 18:07] LABS: Glucose - Point of Care 113 mg/dl (70-99)
[2025-01-19 20:14] LABS: Glucose - Point of Care 106 mg/dl (70-99)
[2025-01-19] MEDS: ATIVAN 0.5 MG TUBE (21:00)
[2025-01-19] MEDS: XALATAN OPHTHALMIC SOLUTION 1 DROP BOTH EYES (21:00)
--- NOTE | 2025-01-19 21:46 | PTCARENOTE ---
Assumed care of pt at 1900. Pt is A/O x4, pleasant and cooperative with care. Has been speaking in a whisper. Received pt on 6LNC, SpO2 has been in mid 90s, plan to go on NIV tonight while asleep. Pt on insulin drip her critical care glycemic
protocol, see associated flowsheet on worklist for details. Pt has been off Precedex, requested Ativan to help her sleep which she takes PRN at home, this was ordered/administered, see EMAR for details. Pt with [place] catheter, C.O. and C.I.
obtained, see VS flowsheet for details. See nursing shift assessment flowsheet for full physical assessment details. Pt wanted to call her daughter Jaylyn, number dialed for her and pt able to hold the phone and briefly talk to Jaylyn and to her
as well. CHG cloth bath done, linens changed, ballard care, oral care done and pt's face washed, pt is now resting in bed with eyes closed.
[2025-01-19 22:10] LABS: Glucose - Point of Care 109 mg/dl (70-99)
[2025-01-20] VITALS (18 sets, daily range): BP systolic 104–152; BP diastolic 57–95; PULSE 2–94; O2SAT 95–96; BMI 37.3
[2025-01-20 00:51] LABS: Glucose - Point of Care 102 mg/dl (70-99)
--- NOTE | 2025-01-20 00:53 | PTCARENOTE ---
Assessment mostly unchanged. Lungs clear/diminished without crackles auscultated anteriorly as before. Pt currently on NIV 07/31 40%, placed on this around 2200. Around 2300 vent was alarming frequently, went in and pt indicated that she wanted the
mask off. Briefly removed mask for mouth care, explained the importance of wearing the mask and pt agreed. She then (< 5 min later) rang call tompkins and wanted the mask off. Discussed with patient about going back on Precedex to help her relax and
tolerate the NIV. She agreed, Precedex turned back on at 0.2mcg/kg/min (see med titration flowsheet). Pt has now been asleep but awakens easily to voice or light touch. SR/SB 50s-60s on monitor. C.O. and C.I. numbers obtained, see VS flowsheet.
[2025-01-20 02:13] LABS: Glucose - Point of Care 99 mg/dl (70-99)
[2025-01-20 03:38] LABS: B.E. 8.8 mmol/L; HCO3 33.5 mmol/L (21-28); O2 Saturation % 99.9 % (94-98); O2 Therapy NIV; PCO2 46 mmHg (32-35); PO2 111 mmHg (83-108); pH 7.47 (7.35-7.45)
[2025-01-20 03:39] LABS: Glucose - Point of Care 109 mg/dl (70-99)
[2025-01-20 03:51] LABS: Hematocrit 28.9 % (37.0-47.0); Mean Corp Hgb Conc. 31.1 g/dL (33.0-37.0); Mean Corpuscular Hgb 19.1 pg (27.0-31.0); Mean Corpuscular Volume 61.2 fL (81.0-99.0); Platelet Count 234 10^3/uL (130-400); Red Blood Cell Count 4.72 10^6/uL (4.20-5.40); Red Cell Dist. Width 16.1 % (11.5-14.5); White Blood Cell Count 15.7 10^3/uL (4.8-10.8)
[2025-01-20 04:02] LABS: ALT (SGPT) 28 U/L (0-35); AST (SGOT) 19 U/L (14-36); Alkaline Phosphatase 68 U/L (38-126); Blood Urea Nitrogen 60 mg/dl (7-17); Calcium 8.9 mg/dl (8.4-10.2); Carbon Dioxide 30 mmol/L (22-30); Chloride 108 mmol/L (98-107); Estimated Creatinine Clearance 41 ml/min; Glucose 112 mg/dl (70-99); Potassium 3.8 mmol/L (3.5-5.1); Sodium 144 mmol/L (135-145); Total Bilirubin 1.3 mg/dl (0.2-1.3); Total Protein 5.9 g/dl (6.3-8.2); eGFR 48.09
[2025-01-20 04:10] LABS: Glucose - Point of Care 108 mg/dl (70-99)
[2025-01-20 05:11] LABS: Glucose - Point of Care 110 mg/dl (70-99)
--- NOTE | 2025-01-20 05:11 | PTCARENOTE ---
Assessment unchanged. Pt remained on NIV until around 0500, now back on 6LNC. Precedex turned off when NIV stopped. Currently off insulin drip, blood glucose checks ongoing per glycemic protocol. SR 70s on monitor. SpO2 94% on 6LNC.
--- NOTE | 2025-01-20 05:50 | PTCARENOTE ---
Pt incontinent of liquid brown BM, this increases when she coughs. Rectal trumpet placed, incontinence care done, barrier cream applied.
[2025-01-20] MEDS: SYNTHROID 112 MCG TUBE (05:51)
[2025-01-20 06:10] LABS: Glucose - Point of Care 96 mg/dl (70-99)
--- NOTE | 2025-01-20 07:10 | PN.DE.MGMTRT ---
Insulin Management
- -
01/20/2025 Diabetes Management Consult Follow up
Patient admitted 01/06 with breathing problem, pneumonia, chf. PMH HTN, hypothyroid. No history of diabetes, A1C on admission 6.2%. cr today 1.2, eGFR 48.09.
Patient was on vent. extubated 01/19. Patient able to answer questions.
Patient was started on glycemic protocol due to elevated glucose, > 200, 01/12. Insulin infusion has been stopped for glucose < 100 and restarted for glucose > 180. Requiring up to 10 units per hour at times. Glucose trended below 100 overnight,
insulin infusion stopped. Glucose stable 130, and 158.
Patient has been ordered regular diet by Dr. Guillaume, will follow for need for modification. Will stop glycemic protocol and start AC corrective insulin. Will follow glucose for need for medication. Prior to admission no diagnosis of diabetes.
Discussed with nurse.
Will follow
Diabetes History
- -
Pre-Admission Diabetes Regimen
01/20/25
03:29
Creatinine 1.2 H
Lab Results
Hemoglobin A1c 6.2 % (4.0-5.6) H 01/07/25 04:50
Insulin Pump Settings
IP Diabetes Regimen
01/19/25 01/19/25 01/19/25
08:11 10:09 11:59
Glucose
POC Glucose 111 H 111 H 161 H
01/19/25 01/19/25 01/19/25
13:53 14:52 15:59
Glucose
POC Glucose 219 H 194 H 153 H
01/19/25 01/19/25 01/19/25
17:56 20:03 21:58
Glucose
POC Glucose 113 H 106 H 109 H
01/20/25 01/20/25 01/20/25
00: 02:02 03:28
Glucose
POC Glucose 102 H 99 109 H
01/20/25 01/20/25 01/20/25
03:29 03:59 05:00
Glucose 112 H
POC Glucose 108 H 110 H
01/20/25
05:59
Glucose
POC Glucose 96
Patient Education
[2025-01-20 07:37] LABS: Glucose - Point of Care 96 mg/dl (70-99)
[2025-01-20] MEDS: DUONEB 3 ML INH ×3 (08:13→18:37)
--- NOTE | 2025-01-20 08:19 | W.PN.INTV ---
Today's Communication / Plan
Recommendations
Remove [place] today
Continue holding diuretics in light of improving SHARMIN and she clearly developed a contraction alkalosis after Bumex drip was started, which also correlated with weight dropping to 190 pounds (dry weight)
Continue with BiPAP at night instead of NIV; advised family to bring in the patient's BiPAP as she may be more comfortable with that
Outpatient pulmonary office follow-up will be arranged; outpatient records from [facility] will need to be obtained
TATYANA with [facility] this upcoming Thursday - depending on these results, either MitraClip would be recommended vs discussion with cardiothoracic surgery for CABG + mitral valve replacement
Keep K>4, Mg>2
Diet as per BEHAVIORAL PEDIATRICIAN - remove dobhoff tube
Hopefully we can remove her rectal tube in the next 1-2 days; hold bowel regimen for loose stools; may need psyllium husk to absorb water and bulk up stool
s/p 7-day course of cefepime
Keep SpO2 >88-90%
Patient is stable for downgrade out of ICU to IMU. Cardiology service + hospitalist both in agreement with downgrade as patient is doing very well, thankfully. Pulmonary service will continue to follow along.
Assessment
-
Assessment: 74-year-old female non-smoker with a past medical history of CVA, asthma, hypertension, hypothyroidism and ITP/thalassemia who presented with shortness of breath + cough. Symptoms started this past Thursday (01/03/2025). Initially in
the ER she was febrile to 100.4 �F, tachycardic to 123, respiratory rate initially 18, BP 158/82 and saturating 86% on room air. She was transitioned to high flow nasal cannula at 60% FiO2 with saturations improvement to 98%. Initial labs were
significant for leukocytosis to 17, glucose 289, lactate 6.7, T. bili 1.7, and COVID-19 antigen negative. Blood cultures collected, and CXR showed bilateral pneumonia. In the ER she was given ceftriaxone, acetaminophen, Zofran, Zithromax, and 1 L
NS 0.9% and admitted to the IMU for further care. Pulmonary service consulted for additional management/recommendations; patient was managed in the IMU and she deteriorated, being transitioned from high flow nasal cannula to BiPAP and was
emergently intubated on 01/07 and transferred to the ICU where she is currently being managed.
Chronic conditions CRAFT ARTIST: Hypertension, history of CVA, asthma, hypothyroidism, history of ITP, MICK on BiPAP
Assessment and plan:
#1. 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
- Patient was initially on high flow, subsequently intubated (01/07) due to increasing respiratory distress. Extubated on 01/19/2025 to NIV
- MRSA screen negative, culture stayed negative, Heidi noted on sputum - likely contaminant. Legionella + Strep PNA urine antigens both negative. Influenza A, B and COVID-19 negative.
- Patient completed 5 days of azithromycin and was continued on ceftriaxone until 01/11, then switched to cefepime on 01/11 in view of worsening respiratory failure
- 01/12, worsening hypoxia and desaturation with position change noted. Patient also started spiking fever. Concern for developing ARDS. Worsening infiltrate noted on chest x-ray.
- Lung protective mechanical ventilation for suspected ARDS
- s/p dexamethasone 20 mg daily from 01/12 - 01/16/2025 in view of ARDS --> resumed decadron at 10mg daily on 01/17 for finite course
- Minimal blood-tinged tracheal aspirate, now resolved. Scant endotracheal secretions. Hemoglobin has been stable and O2 requirement has not changed. Not suggestive of diffuse alveolar hemorrhage. DIONY and ANCA negative
- Repeat influenza and COVID-19 testing negative. Tracheal aspirate again growing Heidi.
- Patient was successfully extubated on 01/19/2025 to NIV after tolerating pressure support trial the day prior on 03/31; PEEP dropped to 0 on 01/19 and she continued to tolerate this, and was liberated
- BEHAVIORAL PEDIATRICIAN eval --> passed, okay for regular solids with thin liquids; I will order her a cholesterol-lowering diet with fluid restriction as well as carbohydrate restrictions given her recent insulin drip requirements and she still is on the higher end
of normal regarding her blood glucose.
- Remove Dobhoff tube today (01/20)
#2. Newly diagnosed acute on suspected chronic heart failure with mildly reduced EF with severe MR. Echocardiogram 01/09 shows EF of 45 to 50% with moderate to severe mitral regurgitation; repeat echo on 01/19/2025 shows suspected severe mitral
regurgitation with systolic flow reversal in the pulmonary veins, as well as moderately hypokinetic LV except for the anterior and inferior septum; there was inferolateral hypokinesis seen on TTE from 01/12/2025
- Elevated troponin noted, discussed with cardiology service (01/12), felt to be related to underlying critical illness, although unable to rule out ACS, adelina given her WMA seen on echo from 01/12/2025
- BNP elevated at > 12615 despite aggressive diuresis. Pulmonary edema in addition to ARDS
- Recheck proBNP tomorrow as I do believe that we are at her euvolemic/dry weight which is 190 pounds
- Lasix was on hold in view of mild SHARMIN - Lasix 40 mg IV twice daily re-started (01/15 then stopped 01/17 due to RHC)
- Patient underwent RHC on 01/17 showing PCWP 31, mPAP 51, PVR 6.25, TPG 20, and CO/CI 3.77/2 --> bumex gtt started. Bumex gtt on hold as of 01/19 as her PADP dropped to mid-teens on 11/18 and she developed an SHARMIN. Believe that we are now at her dry
weight which is 190 pounds. Continue to assess daily if additional Lasix/Bumex is needed.
- [place] catheter removed today at bedside by Dr. Garcia
- Plan for TATYANA with left heart catheterization on Thursday (01/23), and then depending on those tests she potentially could be a candidate for mitraclip otherwise may need to speak to the cardiothoracic surgeons for CABG + mitral valve replacement.
#3. h/o Lung nodule
- Patient will need follow-up imaging in about 8 weeks time once volume overload and pneumonia have resolved
- Patient reportedly had an outpatient PET/CT and this right-sided nodule had resolved, per daughter
- History of follow-up with [place] pulmonology
- Patient would like to follow-up locally here at [place] and I will arrange for this; she had seen a director outcomes at [facility] and those records will need to be obtained; will also need the imaging reports that were done at [facility]
#4. Hyperglycemia. Related to stress of acute illness, IV steroids and tube feeding --> tube feeds now off, and her acute illness has markedly improved
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
- Goal BG 140-180
- ISS
Other medical co-morbidities:
#Prediabetes (HbA1c: 6.2 on 01/07/2025)
#Transaminitis
#Obstructive sleep apnea with suspected OHS on BiPAP at home (per the daughter it is a BiPAP)
#Obesity (BMI: 39.4)
#History of hypertension
#History of CVA
#History of ITP/thalassemia
#Severe hepatic steatosis likely due to morbid obesity
#Severe coronary artery calcifications seen radiographically on CT chest
The patient's daughter, Jaylyn, was updated at bedside and all questions were answered.
Code status: Full code
Patient is stable for downgrade out of ICU to IMU. This was discussed with the hospitalist, Dr. Guillaume, in addition to Cardiology, Dr. Garcia, and all of us are in agreement. Pulmonary service will continue to follow along.
Data:
CT chest with IV contrast 01/06/2025:
Extensive bilateral multifocal pneumonia.
Small bilateral pleural effusions, right greater than left.
Severe coronary artery calcifications. Please correlate with symptoms of and risk factors for coronary artery disease, with further workup as clinically appropriate.
Severe hepatic steatosis.
CT chest without contrast 01/12/2025:
1. Severe bilateral multifocal airspace consolidation with air bronchograms, most suggestive of severe multifocal pneumonia. Pulmonary edema is considered less likely, although not completely excluded.
2. Small bilateral pleural effusions, right greater than left.
3. 6 mm lung nodule within the right lower lobe, which may be related to severe pneumonia. Consider CT examination following resolution of the acute event to evaluate for true pulmonary nodule.
4. Severe coronary arterial calcification. Please correlate with symptoms of and risk factors for coronary artery disease, with further workup as clinically appropriate.
5. Cholelithiasis.
6. Diffuse fatty infiltration of the liver.
CXR 01/19/2025:
Generalized heterogeneous bilateral pulmonary opacities. These are without significant change when allowing for differences in lung volumes. Differential diagnosis includes pulmonary edema versus diffuse pneumonia.
Feeding tube with its tip in the region of the first portion of duodenum
Total time spent today was 57 minutes for this encounter. Time includes reviewing laboratory test/imaging results, reviewing pertinent medical records, obtaining and reviewing medical history, performing an appropriate exam, ordering medications,
tests and procedures. Time also includes documentation of this encounter, coordinating patient care and communicating with other healthcare professionals. Total time does not include separately billed tests performed on this date of service.
Subjective Dataa
Subjective Data
Date of Service:
Date of Service: January 20, 2025
Chief Complaint: Supervisor Rework Follow Up
Subjective:
Patient was seen and evaluated this morning. Extubated yesterday to NIV, and has been doing well, with no SOB or chest pain reported by the pt this AM. She did require Precedex overnight at rate of 0.2mcg/kg/hr. Yesterday was also her 's
birthday, and he has now .
This morning, she is awake, alert, still with a sore throat. Currently, heart rate 75, BP via A-line: 174/74, PAP 41/26, CO/CI 5.11/2.79, saturating 94%. Currently on 4 L/min. Insulin drip off since yesterday. Multiple family members were at
bedside and all questions were answered.
Review of Systems
General: Other (Negative unless mentioned above)
Objective Data
Data Reviewed
Vital Signs / I&O / Oxygen:
Vital Signs
Temp Pulse Resp BP Pulse Ox
98.5 F 74 25 128/56 98
01/20/25 08:09 01/20/25 08:21 01/20/25 08:21 01/19/25 12:11 01/20/25 08:21
Intake and Output
01/19/25 01/20/25 01/21/25
06:59 06:59 06:59
Intake Total 1865.6 / 1881.3 593.1 / 603.1
Output Total 4380 / 4410 1737 / 1787 175 / 175
Balance -2514.4 / -2528.7 -1143.9 / -1183.9 -145 / -145
SaO2 [NIV (Non Invasive 99
Ventilation)]
SaO2 [ASV] 92
SaO2 [CPAP/PSV] 91
SaO2 [A/C] 98
SaO2 98
Nasal Cannula flow liters per 6
minute
Physical Exam
General: Respiratory Distress (negative), Comfortable, Chills (negative), Sweats (negative) and Good Appetite
HEENT: Normocephalic and Anicteric
Cardiovascular: S1-S2, Regular Rhythm, Rub (negative) and Peripheral Edema (negative)
Respiratory: Clear, Wheeze (negative), Crackles (negative), Rhonchi (negative), Non-Labored Respirations and Stridor (negative)
GI: Soft, Distended (Abdominal obesity) and Non Tender
Neurology: AO x 3, Tremors (negative) and Other (Drowsy at times)
Skin: Warm, Dry, Cyanosis (negative) and Jaundice (negative)
Labs/Micro/Reports
Lab Data
01/20/25 03:29
01/20/25 03:29
Laboratory Results
01/19/25 01/20/25
12:58 03:29
pH 7.50 H 7.47 H
pCO2 48 H 46 H
pO2 70 L 111 H
HCO3 37.4 H 33.5 H
O2 Delivery Level Niv
--- NOTE | 2025-01-20 08:24 | CHAP ---
Ms. Ireland received [facility] from [facility] on 01/19/25 as requested.
--- NOTE | 2025-01-20 08:45 | PTCARENOTE ---
Received pt @ change of shift. Pt. drowsy, awakens to verbal stim; ox3; poor voice quality. SR w BBB on monitor. SpO2 93% on 4LNC. Coughing/deep breathing exercises encouraged; pt. demonstrated understanding. +BS, abd soft/round/obese. L nare
dobhoff clamped, used for meds. NPO status maintained. Rectal trumpet in place draining liq/brown stool. Therm ballard in place draining clear, yellow urine. AM yenny hygiene provided. R PICC patent, dressing c/d/i. R IJ cordis w swan in place;
C.O/C.I. obtained-see flow sheet. L rad A-line in place; transduced, calibrated, and monitored; all port patent and secured. Glycemic protocol maintained- see flow sheet. Pt. assisted w active repositioning in bed. Call tompkins in reach.
[2025-01-20] MEDS: LIDOCAINE 4% PATCH 1 PATCH TOPICAL (08:49)
[2025-01-20] MEDS: DECADRON 10 MG IV (08:49)
[2025-01-20] MEDS: LOW STRENGTH ASPIRIN 81 MG TUBE (08:50)
[2025-01-20] MEDS: MIRALAX TUBE (08:50)
--- NOTE | 2025-01-20 08:53 | W.PN.HOSP.TC ---
Today's Communication/Plan
-
Speech therapy consult
Assessment / Plan
Assessment / Plan
Gen-awake, alert, NAD, mild hoarseness
HEENT-NC, AT, anicteric, clear oral mm
Neck-supple
CV-reg, no M, +S1/S2
Lungs-decreased breath sounds bilaterally
Abd-soft, NT, ND
Ext-bilateral lower extremity pedal edema
Musculoskeletal-no cyanosis, clubbing
Neuro-alert and oriented on the vent and no neurological deficits
Skin-warm and dry
Acute hypoxic respiratory failure - likely multifactorial etiology, due to extensive bilateral pneumonia and heart failure and ARDS.
Successfully extubated January 19. Currently on 6 L nasal cannula oxygen, wean down as able.
Steroids per dust puller.
Completed 7 days of cefepime. Now off antibiotics.
Right heart catheterization done 01/17.
Acute HFmEF/valvulopathy/suspected type II NH - but cannot rule out obstructive CAD-BNP 7480; Echocardiogram showed EF of 40-45% and basal inferolateral hypokinesis, moderate-severe mitral regurgitation, mild aortic regurgitation. Started on
aspirin. Beta-blockers on hold due to hypotension. Ischemic evaluation after acute illness. Cardiology consulted and input appreciated.
Continue IV Bumex drip, started January 17. Weight trending down, from a high of 95 kg to 86 kg today.
Chest x-ray today shows some mild improvement in pulmonary edema.
Bumex drip now on hold due to SHARMIN.
Repeat PCWP improved to 18.
SHARMIN -concern for component of contraction alkalosis, diuretic effect. Creatinine now improving, 1.2. Anticipate resuming diuretics, defer to cardiology.
Sepsis due to extensive multifocal community-acquired pneumonia -sepsis resolved. Now off antibiotics.
Acute left cephalic vein SVT -noted on Doppler ultrasound 01/17. Subcu Lovenox at prophylactic doses.
Hypokalemia -continue repletion. Magnesium was normal.
Elevated LFTs -transaminases normalized. Mild hyperbilirubinemia noted.
Troponin elevation -troponin peaked. Suspect type II NH due to demand ischemia.
Microcytic anemia -hemoglobin stable. Unknown acuity. No clinical evidence of bleeding. B12 603, folate 11, iron 29, TIBC 211, 13% saturation, and ferritin 636.
Impaired fasting glucose - hemoglobin A1c 6.2%. IV insulin on hold given controlled glucoses, 96 this morning.
Essential hypertension -stable.
Hypothyroidism -levothyroxine.
Morbid obesity due to excess calories
Full code
Anticipated Discharge: > 48 hours
Subjective/Interval History
-
Date of Service: January 20, 2025
Patient seen and examined. No complaints. Wants to eat.
Objective Data
-
Labs:
Laboratory Results
01/20/25
03:29
WBC 15.7 H
Hgb 9.0 L
Hct 28.9 L
Plt Count 234
HCO3 33.5 H
Sodium 144
Potassium 3.8
Chloride 108 H
Carbon Dioxide 30
BUN 60 H
Creatinine 1.2 H
Glucose 112 H
Calcium 8.9
Total Bilirubin 1.3
AST 19
ALT 28
Alkaline Phosphatase 68
Vital Signs:
Vital Signs
Temp Pulse Resp BP Pulse Ox
98.5 F 74 25 128/56 98
01/20/25 08:09 01/20/25 08:21 01/20/25 08:21 01/19/25 12:11 01/20/25 08:21
I&O
01/19/25 01/20/25 01/21/25
06:59 06:59 06:59
Intake Total 1865.6 / 1881.3 593.1 / 593.1
Output Total 4380 / 4410 1737 / 1737
Balance -2514.4 / -2528.7 -1143.9 / -1143.9
Review of Systems
-
History Source: Patient
All other systems: Reviewed and negative
[2025-01-20 09:32] LABS: Glucose - Point of Care 91 mg/dl (70-99)
--- NOTE | 2025-01-20 09:35 | W.PN.CD ---
Today's Communication / Plan
-
Continue to treat PNA/ARDS.
Keep I/O net even.
Incentive spirometry.
Ambulate.
Tentative plan for TATYANA/LHC-Coronary Angiography on Thursday (01/23/2025) based on respiratory status.
DC [facility].
Impression / Plan
-
Impression/Plan: 74 y/o female with hypothyroidism, HTN, HLD, ITP/thalassemia, admitted with fever and acute hypoxic respiratory failure consistent with CAP with severe sepsis, progressing to ARDS requiring intubation/ventillation (01/07/2025), new
diagnosis of HFmEF (LVEF 45-50% with inferolateral hypokinesis) and moderate severe MR and mildly elevated troponin.
#Hypoxic respiratory failure/severe mitral valve regurgitation
-Condition is threat to life.
-Remains intubated and breathing comfortably on ventilator. Currently on assist-control, Vt remains low, mildly tachypneic.
-Multifactorial, due to CAP (likely progressed to ARDS) and HFmEF with moderate/severe MR and severe pulmonary hypertension.
-01/11/2025 and 01/12/2025: FiO2 increased from 45% to 60% despite diuresis, recurrent fever.
-01/12/2025: Defervesced after 11:41. CT chest most suggestive of severe multifocal pneumonia pulmonary edema is considered less likely, small bilateral effusions severe coronary calcification. Ceftriaxone changed to cefepime. A-Line placed.
Norepinephrine started to maintain MAP > 65 mmHg. Vent settings changed and dexamethasone started for ARDS. Plateau pressure ~ 24 cmH2O (consistent with non-compliant lung parenchyma). ANCA/DIONY ordered for hemoptysis. Troponin 3.7.
-01/13/2025: FiO2 down to 50%. I/O net positive 1500 mL. Norepinephrine weaned. Repeat Flu/COVID negative.
-[place] placed, demonstrating severely elevated filling pressures, severe pulmonary hypertension, WHO groups 2/3.
-01/17-: Bumetanide gtt with drastic reduction in filling pressures. Bumetanide gtt turned off on 01/18/2025 PM.
-01/19/2025: PA = 20/08/17, RA = 4, CI = 1.92, SVR = 1718. New SHARMIN, HCO3 up to 36. ABG showed metabolic alkalosis with some respiratory acidosis. Acetazolamide given. Extubated to 6LNC, NIV overnight.
-01/20/2025: RA pressure now 3. CI down. I/O roughly even, perhaps a little negative. D/C Laurier-West today.
-Tentative plan for TATYANA Thursday (01/23/2025) to evaluate MR based on respiratory status.
#PNA, sepsis:
-Acute, threat to life.
-ABX per pulm/CC.
-Incentive spirometry.
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
-New diagnosis.
-Previous notes suggest records from outside showed she was last seen in 2021 at which time she had a normal echo and stress test with no ischemia.
-Echo 01/09/25: Mildly reduced left ventricular systolic function. Left ventricular ejection fraction is 45-50% with basal inferolateral hypokinesis, mild AI, moderate/severe MR.
-Given the complexity of her volume status and pulmonary injury which may increase RV filling pressures - BNP should NOT be used as a marker of volume.
-ECG with anterolateral and inferior ST and T wave changes and troponin elevation (3.7) raise possibility of ischemia (further suggested by coronary calcification on CT chest).
-Plan for LHC/Coronary angiography on Thursday (01/23/2025).
-GDMT
-Diuretics: Acetazolamide.
-Beta damian: Start metoprolol succinate 12.5 mg daily.
-ACEI/ARB/ARNi: On hold for SHARMIN, borderline blood pressure.
-MRA: On hold for SHARMIN.
-SGLT2i: On hold for SHARMIN. Consider dapagliflozin 10 mg daily tomorrow.
#SHARMIN
-Acute.
-Creatinine down to 1.2.
#HTN
-Chronic, stable.
#Anemia
-Chronic, known history of ITP/thalassemia.
-Management per primary team.
Critical Care Time = 40 minutes.
Subjective/Interval History:
Extubated yesterday.
Repeat echo shows no change.
DATA:
Cultures:
Blood Cx (01/06/2025): Negative x2
Influenza (01/06/2025): Negative
SARS-CoV-2 Ag (01/06/2025): Negative
Legionella UAg (01/06/2025): Negative
S. Pneumoniae UAg (01/06/2025): Negative
Endotracheal Aspirate Cx (01/08/2025): C. Albicans
Endotracheal Aspirate Cx (01/11/2025): C. Albicans
Blood Cx (01/11/2025): Negative x2
Influenza (01/12/2025): Negative
SARS-CoV-2 Ag (01/12/2025): Negative
CT Chest, 01/06/2025:
IMPRESSION:
Extensive bilateral multifocal pneumonia.
Small bilateral pleural effusions, right greater than left.
Severe coronary artery calcifications. Please correlate with symptoms of and risk factors for coronary artery disease, with further workup as clinically appropriate.
Severe hepatic steatosis.
TTE, 01/09/2025:
CONCLUSIONS
Mildly reduced left ventricular systolic function. Left ventricular ejection
fraction is 45-50% by Thomas's method of discs.
Basal inferolateral hypokinesis.
Mild aortic regurgitation.
Moderate/severe mitral regurgitation.
No prior study available for comparison.
CT Chest, 01/12/2025:
IMPRESSION:
1. Severe bilateral multifocal airspace consolidation with air bronchograms, most suggestive of severe multifocal pneumonia. Pulmonary edema is considered less likely, although not completely excluded.
2. Small bilateral pleural effusions, right greater than left.
3. 6 mm lung nodule within the right lower lobe, which may be related to severe pneumonia. Consider CT examination following resolution of the acute event to evaluate for true pulmonary nodule.
4. Severe coronary arterial calcification. Please correlate with symptoms of and risk factors for coronary artery disease, with further workup as clinically appropriate.
5. Cholelithiasis.
6. Diffuse fatty infiltration of the liver.
TTE, 01/12/2025:
CONCLUSIONS
Mildly reduced left ventricular systolic function.
Inferolateral hypokinesis LV ejection fraction is 40-45% .
Moderate to severe mitral regurgitation.
Compared to previous echo 01/09/2025 reported EF is mildly less. Previously
estimated 45 to 50%. Mitral regurgitation appears a bit more prominent on the
previous study but some of this may be related to imaging technique .
RHC, 01/17/2025:
CONCLUSION:
1. Severely elevated filling pressures (PCWP = 31 mmHg at 93.4 kg) with large V waves (52 mmHg) consistent with a noncompliant left atrium as well as a history of moderate to severe mitral regurgitation.
2. Moderately to severely depressed cardiac function (cardiac index = 1.70 L/min/m� by Joshua equation, 2.0 L/min/m� by thermodilution).
3. 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
TTE, 01/19/2025:
CONCLUSIONS
Mildly reduced left ventricular systolic function.
Left ventricular ejection fraction is 40-45% by visual estimate.
The entire anterior and inferior septum contract well and the rest of the LV
looks mild to moderately hypokinetic.
Mild LAE.
Probably severe mitral regurgitation.
Systolic flow reversal in the pulmonary veins with mitral regurgitation
present.
Trivial pericardial effusion.
No significant change since the prior study of 01/12/2025.
Physical Exam
Vital Signs/Labs
Vital Signs
Temp Pulse Resp BP Pulse Ox
36.9 C 74 25 128/56 98
01/20/25 08:09 01/20/25 08:21 01/20/25 08:21 01/19/25 12:11 01/20/25 08:21
01/18/25 01/19/25 01/20/25
11:59 11:59 11:59
Actual Weight 90.6 kg 86.9 kg 86.6 kg
01/20/25 03:29
01/20/25 03:29
PT 16.8 Sec (11.4-14.6) H 01/07/25 22:10
INR 1.33 01/07/25 22:10
APTT 31.4 Sec (23.4-35.0) 01/19/25 04:02
Magnesium 2.4 mg/dl (1.6-2.3) H 01/19/25 04:02
Triglycerides 128 mg/dl (10-149) 01/19/25 04:02
01/08/25 01/12/25
04:59 03:34
[id number] Pept [id number]
Physical Exam
Constitutional: No acute distress and Comfortable
EENT: Anicteric and Moist mucous membranes
Cardiovascular: Rhythm & rate is regular, Pedal edema is absent, JVD pressure is normal, S1S2 is normal and Murmur/rub/gallop absent
Respiratory: Respiratory effort normal, Lungs clear to auscul., Wheeze Absent, Crackles Absent and Rhonchi Present (Basilar rhonchi, L > R.)
GI: Soft, Distention absent, Flat, Non tender and Normal bowel sounds
Neuro/Psych: AO x 3
Other: Cath Site (Right IJ PA catheter site is C/D/I.)
Data Reviewed
-
Date of Service: January 20, 2025
Medical Decision Making: Reviewed Test Results, Independent Historian Assessment, Test Interpretation and Review of Case with other Provider
EKG: Tracing Personally Visualized and interpreted and Report Reviewed by me
Echo: Tracing Personally Visualized and interpreted and Report Reviewed by me
X-Ray/CT/US/MRI/NUC/PET: Image Personally Visualized and interpreted and Report Reviewed by me
Medical Tests (PFT, Pathology etc): Image Personally Visualized and interpreted and Report Reviewed by me
Labs: Labs Reviewed by me
Old Records: Reviewed
[2025-01-20 11:44] LABS: Glucose - Point of Care 130 mg/dl (70-99)
--- NOTE | 2025-01-20 13:22 | PTOTSP ---
Speech Therapy Swallowing Assessment
Patient without overt signs of aspiration but risk factors for such include recent prolonged intubation with residual vocal hoarseness, acute illness, weak cough and limited mobility. Cannot rule out silent aspiration given prolonged intubation, but
patient without even minor signs/symptoms of aspiration across oral trials today.
Recommend:
1. Regular solids and thin liquids
2. Aspiration precautions/Upright with all intake
3. Meds whole in applesauce.
4. Diligent oral care 3x/day
5. ST will follow to ensure diet tolerance. If respiratory status deteriorates, contact ST and will reassess and determine need for instrumental swallowing study.
--- NOTE | 2025-01-20 13:25 | PTCARENOTE ---
Grand round performed; plan to de-line and advance therapy services. Dr. Garcia to bedside; R IJ cordis and swan removed by . Taylor cervantes A-line removed; pressure held until bleeding ceased and clean dressing applied. Bailon discontinued; DTV @ 1800.
VACATION GUIDE to bedside, diet advanced to regular. Awaiting PT/OT to bedside. Remains on 4LNC, tolerating. Assisted w active repositioning in bed. Family @ bedside, updated. Call turner hobson in reach.
[2025-01-20 13:26] LABS: Glucose - Point of Care 158 mg/dl (70-99)
--- NOTE | 2025-01-20 15:38 | CM ---
Extubated on 01/19/25. Treating PNA and ARDS. Plan for TATYANA, LHC, coronary angiography on 01/23/25. Discharge POC: TBD. If HH, preference is [facility].
[2025-01-20 15:46] LABS: Glucose - Point of Care 172 mg/dl (70-99)
--- NOTE | 2025-01-20 17:06 | PTCARENOTE ---
PT/OT assisted pt. OOB to chair x2 w RW. Pt. tolerated chair position for approx 2H then assisted back to bed x2 w RW. Rectal trumpet removed. Taylor coronel d/c'd per orders. Pt. tolerating advanced diet. Remains on 4LNC, no s/s of resp
distress. Family remains @ bedside, call tompkins in reach.
[2025-01-20 17:11] LABS: Glucose - Point of Care 175 mg/dl (70-99)
[2025-01-20] MEDS: NOVOLOG FLEXPEN-LOW RESISTANCE 1 UNITS SC (18:13)
[2025-01-20] MEDS: LOVENOX 40 MG SC (18:13)
[2025-01-20] MEDS: TYLENOL ORAL SOLUTION 650 MG PO (19:49)
[2025-01-20] MEDS: SEROQUEL 25 MG PO (21:22)
[2025-01-20] MEDS: NEURONTIN 100 MG PO (21:22)
[2025-01-20] MEDS: ATIVAN 0.5 MG PO (21:22)
[2025-01-20] MEDS: XALATAN OPHTHALMIC SOLUTION 1 DROP BOTH EYES (21:23)
[2025-01-21] VITALS (26 sets, daily range): BP systolic 106–149; BP diastolic 56–105; PULSE 2–68; BMI 37.6
[2025-01-21 00:19] LABS: Glucose - Point of Care 136 mg/dl (70-99)
[2025-01-21] MEDS: SYNTHROID 112 MCG PO (05:35)
[2025-01-21 05:41] LABS: Venous Blood Gas B.E. 7.1 mmol/L (-4 to +4); Venous Blood Gas O2 Sat % 99.5 %; Venous Blood Gas pCO2 46 mmHg (35-48); Venous Blood Gas pH 7.45 (7.32-7.43); Venous Blood Gas pO2 125 mmHg (30-50)
[2025-01-21 05:45] LABS: % Basophils 0.1 % (0-2); % Eosinophils 0.8 % (0-6); % Immature Granulocytes 1.5 % (0-0.5); % Lymphocytes 5.7 % (20.5-51.1); % Monocytes 6.1 % (1.7-9.3); % Neutrophils 85.8 % (42.2-75.2); Absolute Eosinophils 0.1 10^3/uL (0-0.7); Absolute Immature Granulocytes 0.2 10^3/uL (0-0.05); Absolute Lymphocytes 0.8 10^3/uL (1.2-3.4); Absolute Monocytes 0.9 10^3/uL (0.1-0.6); Absolute Neutrophils 12.2 10^3/uL (1.4-6.5); Hematocrit 33.9 % (37.0-47.0); Hemoglobin 10.1 g/dL (12.0-16.0); Mean Corp Hgb Conc. 29.8 g/dL (33.0-37.0); Mean Corpuscular Hgb 18.3 pg (27.0-31.0); Mean Corpuscular Volume 61.3 fL (81.0-99.0); Mean Platelet Volume 11.4 fL (7.4-10.4); Nucleated Red Blood Cells % 0.1 %; Platelet Count 262 10^3/uL (130-400); Red Blood Cell Count 5.53 10^6/uL (4.20-5.40); Red Cell Dist. Width 16.9 % (11.5-14.5); White Blood Cell Count 14.2 10^3/uL (4.8-10.8)
[2025-01-21 06:05] LABS: ALT (SGPT) 27 U/L (0-35); AST (SGOT) 18 U/L (14-36); Albumin 3.2 g/dl (3.5-5.0); Alkaline Phosphatase 80 U/L (38-126); Blood Urea Nitrogen 55 mg/dl (7-17); Calcium 9.1 mg/dl (8.4-10.2); Carbon Dioxide 29 mmol/L (22-30); Chloride 110 mmol/L (98-107); Direct Bilirubin 0.2 mg/dl (0.0-0.4); Estimated Creatinine Clearance 41 ml/min; Glucose 121 mg/dl (70-99); HDL Cholesterol 51 mg/dl; LDL Cholesterol, Calculated 153 mg/dl; Magnesium 2.6 mg/dl (1.6-2.3); Phosphorus 3.5 mg/dl (2.5-4.5); Potassium 3.6 mmol/L (3.5-5.1); Sodium 146 mmol/L (135-145); Total Bilirubin 1.7 mg/dl (0.2-1.3); Total Cholesterol 237 mg/dl (50-199); Total Protein 6.5 g/dl (6.3-8.2); Triglyceride 165 mg/dl (10-149); Very Low Density Lipoprotein 33 mg/dl (0-30); eGFR 48.09
[2025-01-21] MEDS: DUONEB 3 ML INH (07:45)
--- NOTE | 2025-01-21 08:32 | W.PN.CD ---
Today's Communication / Plan
-
continue to monitor respiratory status, ICS, OOB
keep even to slightly positive.
monitor renal function
possible caitie/LHC on Thursday
Impression / Plan
-
Impression/Plan: 74 y/o female with hypothyroidism, HTN, HLD, ITP/thalassemia, admitted with fever and acute hypoxic respiratory failure consistent with CAP with severe sepsis, progressing to ARDS requiring intubation/ventillation (01/07/2025), new
diagnosis of HFmEF (LVEF 45-50% with inferolateral hypokinesis) and moderate severe MR and mildly elevated troponin.
#Hypoxic respiratory failure/severe mitral valve regurgitation
-Condition is threat to life.
-Multifactorial, due to CAP (likely progressed to ARDS) and HFmEF with moderate/severe MR and severe pulmonary hypertension.
-01/20/2025: RA pressure now 3. CI down. I/O roughly even, perhaps a little negative. [place] d/c'd
-today slightly hypernatremic, would keep even to slightly positive.
-Tentative plan for CAITIE Thursday (01/23/2025) to evaluate MR based on respiratory status.
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
-New diagnosis.
-Previous notes suggest records from outside showed she was last seen in 2021 at which time she had a normal echo and stress test with no ischemia.
-Echo 01/09/25: Mildly reduced left ventricular systolic function. Left ventricular ejection fraction is 45-50% with basal inferolateral hypokinesis, mild AI, moderate/severe MR.
-Given the complexity of her volume status and pulmonary injury which may increase RV filling pressures - BNP should NOT be used as a marker of volume.
-ECG with anterolateral and inferior ST and T wave changes and troponin elevation (3.7) raise possibility of ischemia (further suggested by coronary calcification on CT chest).
-Tentative plan for LHC/Coronary angiography on Thursday (01/23/2025)
-GDMT
-Diuretics: none
-Beta damian: Start metoprolol succinate 12.5 mg daily.
-ACEI/ARB/ARNi: On hold for SHARMIN, borderline blood pressure.
-MRA: On hold for SHARMIN.
-SGLT2i: On hold for SHARMIN. Consider dapagliflozin 10 mg daily tomorrow.
#PNA, sepsis:
-Acute, threat to life.
-improving
-completed ABX per pulm/CC.
-Incentive spirometry.
#SHARMIN
-Acute.
-Creatinine down to 1.2 and holding.
#HTN
-Chronic, stable.
#Anemia
-Chronic, known history of ITP/thalassemia.
-Management per primary team.
#Tremor:
-new since 01/20/25, d/w [facility] supervisor who will evaluate
Critical Care Time = 35 minutes. Daughter at the bedside participated in our visit.
Subjective/Interval History:
she is feeling ok, has a constant tremor. She has no cp or sob.
DATA:
Cultures:
Blood Cx (01/06/2025): Negative x2
Influenza (01/06/2025): Negative
SARS-CoV-2 Ag (01/06/2025): Negative
Legionella UAg (01/06/2025): Negative
S. Pneumoniae UAg (01/06/2025): Negative
Endotracheal Aspirate Cx (01/08/2025): C. Albicans
Endotracheal Aspirate Cx (01/11/2025): C. Albicans
Blood Cx (01/11/2025): Negative x2
Influenza (01/12/2025): Negative
SARS-CoV-2 Ag (01/12/2025): Negative
CT Chest, 01/06/2025:
IMPRESSION:
Extensive bilateral multifocal pneumonia.
Small bilateral pleural effusions, right greater than left.
Severe coronary artery calcifications. Please correlate with symptoms of and risk factors for coronary artery disease, with further workup as clinically appropriate.
Severe hepatic steatosis.
TTE, 01/09/2025:
CONCLUSIONS
Mildly reduced left ventricular systolic function. Left ventricular ejection
fraction is 45-50% by Thomas's method of discs.
Basal inferolateral hypokinesis.
Mild aortic regurgitation.
Moderate/severe mitral regurgitation.
No prior study available for comparison.
CT Chest, 01/12/2025:
IMPRESSION:
1. Severe bilateral multifocal airspace consolidation with air bronchograms, most suggestive of severe multifocal pneumonia. Pulmonary edema is considered less likely, although not completely excluded.
2. Small bilateral pleural effusions, right greater than left.
3. 6 mm lung nodule within the right lower lobe, which may be related to severe pneumonia. Consider CT examination following resolution of the acute event to evaluate for true pulmonary nodule.
4. Severe coronary arterial calcification. Please correlate with symptoms of and risk factors for coronary artery disease, with further workup as clinically appropriate.
5. Cholelithiasis.
6. Diffuse fatty infiltration of the liver.
TTE, 01/12/2025:
CONCLUSIONS
Mildly reduced left ventricular systolic function.
Inferolateral hypokinesis LV ejection fraction is 40-45% .
Moderate to severe mitral regurgitation.
Compared to previous echo 01/09/2025 reported EF is mildly less. Previously
estimated 45 to 50%. Mitral regurgitation appears a bit more prominent on the
previous study but some of this may be related to imaging technique .
RHC, 01/17/2025:
CONCLUSION:
1. Severely elevated filling pressures (PCWP = 31 mmHg at 93.4 kg) with large V waves (52 mmHg) consistent with a noncompliant left atrium as well as a history of moderate to severe mitral regurgitation.
2. Moderately to severely depressed cardiac function (cardiac index = 1.70 L/min/m� by Joshua equation, 2.0 L/min/m� by thermodilution).
3. 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
TTE, 01/19/2025:
CONCLUSIONS
Mildly reduced left ventricular systolic function.
Left ventricular ejection fraction is 40-45% by visual estimate.
The entire anterior and inferior septum contract well and the rest of the LV
looks mild to moderately hypokinetic.
Mild LAE.
Probably severe mitral regurgitation.
Systolic flow reversal in the pulmonary veins with mitral regurgitation
present.
Trivial pericardial effusion.
No significant change since the prior study of 01/12/2025.
Physical Exam
Vital Signs/Labs
Vital Signs
Temp Pulse Resp BP Pulse Ox
98.8 F 74 20 106/56 95
01/21/25 07:17 01/21/25 07:47 01/21/25 07:47 01/21/25 04:00 01/21/25 07:47
01/20/25 01/21/25 01/22/25
06:59 06:59 06:59
Actual Weight 190 lb 14.725 oz 192 lb 10.944 oz
01/21/25 05:31
01/21/25 05:31
PT 16.8 Sec (11.4-14.6) H 01/07/25 22:10
INR 1.33 01/07/25 22:10
APTT 31.4 Sec (23.4-35.0) 01/19/25 04:02
Magnesium 2.6 mg/dl (1.6-2.3) H 01/21/25 05:31
Triglycerides 165 mg/dl (10-149) H 01/21/25 05:31
LDL Cholesterol, Calc 153 mg/dl 01/21/25 05:31
VLDL Cholesterol, Calc 33 mg/dl (0-30) H 01/21/25 05:31
HDL Cholesterol 51 mg/dl 01/21/25 05:31
01/08/25 01/12/25
04:59 03:34
Nuq-N-Hvmdlgxfjzq Pept [id number]
Physical Exam
Constitutional: No acute distress
Cardiovascular: Rhythm & rate is regular and Pedal edema is absent
Respiratory: Respiratory effort normal and Crackles Present (basilar)
GI: Soft
Neuro/Psych: AO x 3
Data Reviewed
-
Date of Service: January 21, 2025
Medical Decision Making: Review of Case with other Provider (Dr Gonzalez, Dr Priest and ICU nursing)
EKG: Tracing Personally Visualized and interpreted (NSR with LVH NS st abnormalilty) and Other (sinus on tele)
[2025-01-21 08:35] LABS: Glucose - Point of Care 116 mg/dl (70-99)
--- NOTE | 2025-01-21 08:57 | W.PN.HOSP.TC ---
Today's Communication/Plan
-
Continue current care
Assessment / Plan
Assessment / Plan
Gen-awake, alert, NAD
HEENT-NC, AT, anicteric, clear oral mm
Neck-supple
CV-reg, no M, +S1/S2
Lungs-decreased breath sounds bilaterally
Abd-soft, NT, ND
Ext-bilateral lower extremity pedal edema
Musculoskeletal-no cyanosis, clubbing
Neuro-alert and oriented on the vent and no neurological deficits, mild tremors noted
Skin-warm and dry
Acute hypoxic respiratory failure - likely multifactorial etiology, due to extensive bilateral pneumonia and heart failure and ARDS.
Successfully extubated January 19. Currently on 3 L nasal cannula oxygen, wean down as able.
Steroids discontinued.
Completed 7 days of cefepime. Now off antibiotics.
Right heart catheterization done 01/17.
Tolerating solid diet.
Acute HFmEF/valvulopathy/suspected type II [place] - but cannot rule out obstructive CAD-BNP 7480; Echocardiogram showed EF of 40-45% and basal inferolateral hypokinesis, moderate-severe mitral regurgitation, mild aortic regurgitation. Started on
aspirin. Beta-blockers on hold due to hypotension. Ischemic evaluation after acute illness. Cardiology consulted and input appreciated.
Continue IV Bumex drip, started January 17. Weight trending down, from a high of 95 kg to 86 kg today.
Chest x-ray today shows some mild improvement in pulmonary edema.
Bumex drip now on hold due to SHARMIN.
Repeat PCWP improved to 18.
Cardiology recommends left heart catheterization/TATYANA on Thursday.
[place]-West catheter removed.
SHARMIN -concern for component of contraction alkalosis, diuretic effect. Creatinine stable at 1.2. Diuretics per cardiology.
Sepsis due to extensive multifocal community-acquired pneumonia -sepsis resolved. Now off antibiotics.
Acute left cephalic vein SVT -noted on Doppler ultrasound 01/17. Subcu Lovenox at prophylactic doses.
Hypokalemia -continue repletion. Magnesium was normal.
Elevated LFTs -transaminases normalized. Mild hyperbilirubinemia noted.
Troponin elevation -troponin peaked. Suspect type II KY due to demand ischemia.
Microcytic anemia -hemoglobin stable. Unknown acuity. No clinical evidence of bleeding. B12 603, folate 11, iron 29, TIBC 211, 13% saturation, and ferritin 636.
Impaired fasting glucose - hemoglobin A1c 6.2%. IV insulin on hold given controlled glucoses, 96 this morning.
Essential hypertension -stable.
Hypothyroidism -levothyroxine.
Morbid obesity due to excess calories
Full code
PT/OT
Anticipated Discharge: > 48 hours
Subjective/Interval History
-
Date of Service: January 21, 2025
Patient seen and examined, complaining of mild shaking. Denies shortness of breath.
Objective Data
-
Labs:
Laboratory Results
01/21/25
05:31
WBC 14.2 H
Hgb 10.1 L
Hct 33.9 L
Plt Count 262
Sodium 146 H
Potassium 3.6
Chloride 110 H
Carbon Dioxide 29
BUN 55 H
Creatinine 1.2 H
Glucose 121 H
Calcium 9.1
Total Bilirubin 1.7 H
AST 18
ALT 27
Alkaline Phosphatase 80
Vital Signs:
Vital Signs
Temp Pulse Resp BP Pulse Ox
98.8 F 74 20 106/56 95
01/21/25 07:17 01/21/25 07:47 01/21/25 07:47 01/21/25 04:00 01/21/25 07:47
I&O
01/20/25 01/21/25 01/22/25
06:59 06:59 06:59
Intake Total 593.1 / 603.1 40 / 40
Output Total 1737 / 1787 825 / 825
Balance -1143.9 / -1183.9 -785 / -785
Review of Systems
-
History Source: Patient
All other systems: Reviewed and negative
--- NOTE | 2025-01-21 09:00 | PTCARENOTE ---
Received pt @ change of shift; assessment per charting- see flow sheet. RT attempted to wean O2 down to 3LNC, SpO2 88%. O2 titrated back up to 4LNC and SpO2 recovered to 94%. Family @ bedside. Pt. assisted w active repositioning. Call turner hobson in
reach.
[2025-01-21] MEDS: NOVOLOG FLEXPEN-LOW RESISTANCE SC (09:19)
[2025-01-21] MEDS: LIDOCAINE 4% PATCH 1 PATCH TOPICAL (09:21)
[2025-01-21] MEDS: TOPROL XL 25 MG PO (09:22)
[2025-01-21] MEDS: MIRALAX 17 GRAMS PO (09:22)
[2025-01-21] MEDS: NEURONTIN 100 MG PO ×3 (09:23→21:36)
[2025-01-21] MEDS: DECADRON 10 MG IV (09:23)
[2025-01-21] MEDS: LOW STRENGTH ASPIRIN 81 MG PO (09:23)
--- NOTE | 2025-01-21 11:10 | W.PN.PUL3 ---
Today's Communication / Plan
-
Continue holding diuretics as patient remains at her dry weight - cardiology in agreement
Continue with BiPAP at night and prn during the day
Outpatient pulmonary office follow-up will be arranged; outpatient records from [facility] will need to be obtained
TATYANA with [facility] this upcoming Thursday - depending on these results, either MitraClip would be recommended vs discussion with cardiothoracic surgery for CABG + mitral valve replacement
Keep K>4, Mg>2
Diet as per ASSISTANT MANAGER PT with aspiration precaution
Hopefully we can remove her rectal tube in the next 1-2 days; hold bowel regimen for loose stools; may need psyllium husk to absorb water and bulk up stool
s/p 7-day course of cefepime
Keep SpO2 >88-90%
Pulmonary service will continue to follow along
Assessment
-
Assessment: 74-year-old female non-smoker with a past medical history of CVA, asthma, hypertension, hypothyroidism and ITP/thalassemia who presented with shortness of breath + cough. Symptoms started this past Thursday (01/03/2025). Initially in
the ER she was febrile to 100.4 �F, tachycardic to 123, respiratory rate initially 18, BP 158/82 and saturating 86% on room air. She was transitioned to high flow nasal cannula at 60% FiO2 with saturations improvement to 98%. Initial labs were
significant for leukocytosis to 17, glucose 289, lactate 6.7, T. bili 1.7, and COVID-19 antigen negative. Blood cultures collected, and CXR showed bilateral pneumonia. In the ER she was given ceftriaxone, acetaminophen, Zofran, Zithromax, and 1 L
NS 0.9% and admitted to the IMU for further care. Pulmonary service consulted for additional management/recommendations; patient was managed in the IMU and she deteriorated, being transitioned from high flow nasal cannula to BiPAP and was
emergently intubated on 01/07 and transferred to the ICU where she is currently being managed.
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
Assessment and plan:
#1. 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
- Patient was initially on high flow, subsequently intubated (01/07) due to increasing respiratory distress. Extubated on 01/19/2025 to NIV
- MRSA screen negative, culture stayed negative, Heidi noted on sputum - likely contaminant. Legionella + Strep PNA urine antigens both negative. Influenza A, B and COVID-19 negative.
- Patient completed 5 days of azithromycin and was continued on ceftriaxone until 01/11, then switched to cefepime on 01/11 in view of worsening respiratory failure
- 01/12, worsening hypoxia and desaturation with position change noted. Patient also started spiking fever. Concern for developing ARDS. Worsening infiltrate noted on chest x-ray.
- Lung protective mechanical ventilation for suspected ARDS
- s/p dexamethasone 20 mg daily from 01/12 - 01/16/2025 in view of ARDS --> resumed decadron at 10mg daily on 01/17 for finite course --> last day today
- Minimal blood-tinged tracheal aspirate, now resolved. Scant endotracheal secretions. Hemoglobin has been stable and O2 requirement has not changed. Not suggestive of diffuse alveolar hemorrhage. DIONY and ANCA negative
- Repeat influenza and COVID-19 testing negative. Tracheal aspirate again growing Heidi.
- Patient was successfully extubated on 01/19/2025 to NIV after tolerating pressure support trial the day prior on 03/31; PEEP dropped to 0 on 01/19 and she continued to tolerate this, and was liberated
- ASSISTANT MANAGER PT eval --> passed, okay for regular solids with thin liquids; cholesterol-lowering diet ordered with fluid restriction as well as carbohydrate restrictions given her recent insulin drip requirements and she had been on the higher end of normal
regarding her blood glucose.
- Removed Dobhoff tube on 01/20
#2. Newly diagnosed acute on suspected chronic heart failure with mildly reduced EF with severe MR. Echocardiogram 01/09 shows EF of 45 to 50% with moderate to severe mitral regurgitation; repeat echo on 01/19/2025 shows suspected severe mitral
regurgitation with systolic flow reversal in the pulmonary veins, as well as moderately hypokinetic LV except for the anterior and inferior septum; there was inferolateral hypokinesis seen on TTE from 01/12/2025
- Elevated troponin noted, discussed with cardiology service (01/12), felt to be related to underlying critical illness, although unable to rule out ACS, adelina given her WMA seen on echo from 01/12/2025
- [place] at > [address] despite aggressive diuresis. Pulmonary edema in addition to ARDS
- Recheck proBNP tomorrow as I do believe that we are at her euvolemic/dry weight which is 190 pounds
- Lasix was on hold in view of mild SHARMIN - Lasix 40 mg IV twice daily re-started (01/15 then stopped 01/17 due to RHC)
- Patient underwent RHC on 01/17 showing PCWP 31, mPAP 51, PVR 6.25, TPG 20, and CO/CI 3.77/2 --> bumex gtt started. Bumex gtt on hold as of 01/19 as her PADP dropped to mid-teens on 11/18 and she developed an SHARMIN. Believe that we are now at her dry
weight which is 190 pounds. Continue to assess daily if additional Lasix/Bumex is needed.
- [place] catheter removed on 01/[address] Garcia
- Plan for TATYANA with left heart catheterization on Thursday (01/23), and then depending on those tests she potentially could be a candidate for mitraclip otherwise may need to speak to the cardiothoracic surgeons for CABG + mitral valve replacement.
#3. h/o Lung nodule
- Patient will need follow-up imaging in about 8 weeks time once volume overload and pneumonia have resolved
- Patient reportedly had an outpatient PET/CT and this right-sided nodule had resolved, per daughter
- History of follow-up with [facility] pulmonology
- Patient would like to follow-up locally here at [facility] and I will arrange for this; she had seen a boot and shoe repairman at [place] and those records will need to be obtained; will also need the imaging reports that were done at [facility]
#4. Hyperglycemia. Related to stress of acute illness, IV steroids and tube feeding --> tube feeds now off, and her acute illness has markedly improved
- Now off insulin infusion; diabetic RAILROAD WORKER on board
- Goal BG 140-180
- ISS
Other medical co-morbidities:
#Prediabetes (HbA1c: 6.2 on 01/07/2025)
#Transaminitis
#Obstructive sleep apnea with suspected OHS on BiPAP at home (per the daughter it is a BiPAP)
#Obesity (BMI: 39.4)
#History of hypertension
#History of CVA
#History of ITP/thalassemia
#Severe hepatic steatosis likely due to morbid obesity
#Severe coronary artery calcifications seen radiographically on CT chest
The patient's daughter, Jaylyn, was updated at bedside and all questions were answered.
Code status: Full code
Patient was downgraded to IMU on 01/20. Pulmonary service will continue to follow along. Ultimately, outpatient pulmonary office follow-up will be arranged to manage her sleep apnea and to perform PFTs + 6MWT.
Data:
CT chest with IV contrast 01/06/2025:
Extensive bilateral multifocal pneumonia.
Small bilateral pleural effusions, right greater than left.
Severe coronary artery calcifications. Please correlate with symptoms of and risk factors for coronary artery disease, with further workup as clinically appropriate.
Severe hepatic steatosis.
CT chest without contrast 01/12/2025:
1. Severe bilateral multifocal airspace consolidation with air bronchograms, most suggestive of severe multifocal pneumonia. Pulmonary edema is considered less likely, although not completely excluded.
2. Small bilateral pleural effusions, right greater than left.
3. 6 mm lung nodule within the right lower lobe, which may be related to severe pneumonia. Consider CT examination following resolution of the acute event to evaluate for true pulmonary nodule.
4. Severe coronary arterial calcification. Please correlate with symptoms of and risk factors for coronary artery disease, with further workup as clinically appropriate.
5. Cholelithiasis.
6. Diffuse fatty infiltration of the liver.
CXR 01/19/2025:
Generalized heterogeneous bilateral pulmonary opacities. These are without significant change when allowing for differences in lung volumes. Differential diagnosis includes pulmonary edema versus diffuse pneumonia.
Feeding tube with its tip in the region of the first portion of duodenum
Total time spent today was 37 minutes for this encounter. Time includes reviewing laboratory test/imaging results, reviewing pertinent medical records, obtaining and reviewing medical history, performing an appropriate exam, ordering medications,
tests and procedures. Time also includes documentation of this encounter, coordinating patient care and communicating with other healthcare professionals. Total time does not include separately billed tests performed on this date of service.
Subjective Data
-
Date of Service:
Date of Service: January 21, 2025
Chief Complaint: Pulmonary Follow Up
Subjective:
Patient seen today at bedside. Blood gas this morning shows stable pH + pCO2. Wore BiPAP overnight on 07/31 bled with 4 L/min. She wants to wear a mask and would rather use ours compared to her home machine. She wishes she did not have to wear
anything at all during sleep. Patient's heart rate currently 80, and saturating 96% on 5 L/min nasal cannula. She currently denies chest pain or shortness of breath.
Review of Systems
General: Other (Negative unless mentioned above)
Objective Data
Data Reviewed
Vital Signs / I&O / Oxygen:
Vital Signs
Temp Pulse Resp BP Pulse Ox
98.8 F 85 20 117/74 94
01/21/25 07:17 01/21/25 09:22 01/21/25 07:47 01/21/25 09:22 01/21/25 10:21
Intake and Output
01/20/25 01/21/25 01/22/25
06:59 06:59 06:59
Intake Total 593.1 / 603.1 40 / 40 240 / 240
Output Total 1737 / 1787 1025 / 1025
Balance -1143.9 / -1183.9 -985 / -985 240 / 240
SaO2 [NIV (Non Invasive 99
Ventilation)]
SaO2 [ASV] 92
SaO2 [CPAP/PSV] 91
SaO2 [A/C] 98
SaO2 94
Nasal Cannula flow liters per 4
minute
Physical Exam
General: Respiratory Distress (negative), Comfortable, Chills (negative) and Sweats (negative)
HEENT: Normocephalic and Anicteric
Cardiovascular: S1-S2 and Peripheral Edema (negative)
Respiratory: Wheeze (negative), Crackles (negative), Rhonchi (Left posterior lung field), Non-Labored Respirations, Stridor (negative) and Other (Bases are clear bilaterally)
GI: Soft, Distended (Abdominal obesity), Non Tender and Normal Bowel Sounds
Neurology: AO x 3 and Tremors (negative)
Skin: Warm, Dry, Cyanosis (negative) and Jaundice (negative)
Labs/Micro/Reports
Lab Data
01/21/25 05:31
01/21/25 05:31
[2025-01-21] MEDS: DUONEB INH (12:28)
[2025-01-21] MEDS: NOVOLOG FLEXPEN-LOW RESISTANCE 1 UNITS SC ×2 (12:36→18:18)
[2025-01-21 12:46] LABS: Glucose - Point of Care 164 mg/dl (70-99)
[2025-01-21] MEDS: LOVENOX 40 MG SC (17:14)
[2025-01-21 17:23] LABS: Glucose - Point of Care 187 mg/dl (70-99)
--- NOTE | 2025-01-21 19:48 | PTCARENOTE ---
Pt Aox3, VSS, NSR w/ bbb on monitor, trace edema to lower extremities. Denies pain. Remains on 4Lit NC, using IS independently. Plan for Bipap 07/31 for bedtime. Pt was oob in chair, and placed back into bed with heavy assist of 2 and walker.
Purewick in place. Patient offers no complaints at this time, will continue with plan of care.
[2025-01-21] MEDS: ATIVAN 0.5 MG PO (21:36)
[2025-01-21] MEDS: SEROQUEL 25 MG PO (21:36)
[2025-01-21] MEDS: XALATAN OPHTHALMIC SOLUTION 1 DROP BOTH EYES (21:42)
[2025-01-21 21:51] LABS: Glucose - Point of Care 140 mg/dl (70-99)
[2025-01-22] VITALS (24 sets, daily range): BP systolic 121–151; BP diastolic 68–94; PULSE 2–63; BMI 36.5
[2025-01-22 04:01] LABS: Hematocrit 33.2 % (37.0-47.0); Mean Corp Hgb Conc. 30.1 g/dL (33.0-37.0); Mean Corpuscular Hgb 18.6 pg (27.0-31.0); Mean Corpuscular Volume 61.6 fL (81.0-99.0); Mean Platelet Volume 11.1 fL (7.4-10.4); Platelet Count 262 10^3/uL (130-400); Red Blood Cell Count 5.39 10^6/uL (4.20-5.40); Red Cell Dist. Width 16.4 % (11.5-14.5); White Blood Cell Count 12.4 10^3/uL (4.8-10.8)
[2025-01-22 04:20] LABS: Blood Urea Nitrogen 51 mg/dl (7-17); Calcium 8.8 mg/dl (8.4-10.2); Carbon Dioxide 28 mmol/L (22-30); Chloride 112 mmol/L (98-107); Estimated Creatinine Clearance 50 ml/min; Glucose 116 mg/dl (70-99); Potassium 3.7 mmol/L (3.5-5.1); Sodium 143 mmol/L (135-145); eGFR 59.86
[2025-01-22 04:26] LABS: NT-proBNP 11300 pg/ml
[2025-01-22 04:28] LABS: Magnesium 2.4 mg/dl (1.6-2.3)
[2025-01-22] MEDS: SYNTHROID 112 MCG PO (05:38)
[2025-01-22] MEDS: TOPROL XL 25 MG PO (07:29)
[2025-01-22] MEDS: MIRALAX PO (07:29)
[2025-01-22] MEDS: LOW STRENGTH ASPIRIN 81 MG PO (07:30)
[2025-01-22] MEDS: NEURONTIN 100 MG PO ×3 (07:30→20:57)
[2025-01-22] MEDS: LIDOCAINE 4% PATCH 1 PATCH TOPICAL (07:32)
[2025-01-22 07:44] LABS: Glucose - Point of Care 89 mg/dl (70-99)
[2025-01-22] MEDS: NOVOLOG FLEXPEN-LOW RESISTANCE SC ×3 (08:05→18:56)
--- NOTE | 2025-01-22 08:50 | W.PN.HOSP.TC ---
Today's Communication/Plan
-
N.p.o. after midnight
telemetry transfer
Assessment / Plan
Assessment / Plan
Gen-awake, alert, NAD
HEENT-NC, AT, anicteric, clear oral mm
Neck-supple
CV-reg, no M, +S1/S2
Lungs-decreased breath sounds bilaterally
Abd-soft, NT, ND
Ext-bilateral lower extremity pedal edema
Musculoskeletal-no cyanosis, clubbing
Neuro-alert and oriented on the vent and no neurological deficits, mild tremors noted
Skin-warm and dry
Acute hypoxic respiratory failure - likely multifactorial etiology, due to extensive bilateral pneumonia and heart failure and ARDS.
Successfully extubated January 19. Currently on 4 L nasal cannula oxygen, wean down as able.
Steroids discontinued.
Completed 7 days of cefepime. Now off antibiotics.
Right heart catheterization done 01/17.
Tolerating solid diet.
Acute HFmEF/valvulopathy/suspected type II [place] - but cannot rule out obstructive CAD-BNP 7480; Echocardiogram showed EF of 40-45% and basal inferolateral hypokinesis, moderate-severe mitral regurgitation, mild aortic regurgitation. Started on
aspirin, Toprol-XL. Ischemic evaluation after acute illness. Cardiology consulted and input appreciated.
Weight is down to 84 kg.
Chest x-ray 01/19 shows some mild improvement in pulmonary edema.
Off diuretics, she is at dry weight.
Repeat PCWP improved to 18.
Cardiology recommends left heart catheterization/TATYANA on Thursday.
[place] catheter removed.
SHARMIN -concern for component of contraction alkalosis, diuretic effect. SHARMIN improved.
Sepsis due to extensive multifocal community-acquired pneumonia -sepsis resolved. Now off antibiotics.
Acute left cephalic vein SVT -noted on Doppler ultrasound 01/17. Subcu Lovenox at prophylactic doses.
Hypokalemia -improved.
Elevated LFTs -transaminases normalized. Mild hyperbilirubinemia noted.
Troponin elevation -troponin peaked. Suspect type II [place] due to demand ischemia.
Microcytic anemia -hemoglobin stable. Unknown acuity. No clinical evidence of bleeding. B12 603, folate 11, iron 29, TIBC 211, 13% saturation, and ferritin 636.
Impaired fasting glucose - hemoglobin A1c 6.2%. Glucose is now controlled. Continue low resistance subcutaneous NovoLog scale.
Essential hypertension -stable.
Hypothyroidism -levothyroxine.
Morbid obesity due to excess calories
Full code
PT/OT -acute rehab recommended.
Anticipated Discharge: > 48 hours
Subjective/Interval History
-
Date of Service: January 22, 2025
Patient seen and examined. Denies shortness of breath. No complaints.
Objective Data
-
Labs:
Laboratory Results
01/22/25
03:40
WBC 12.4 H
Hgb 10.0 L
Hct 33.2 L
Plt Count 262
Sodium 143
Potassium 3.7
Chloride 112 H
Carbon Dioxide 28
BUN 51 H
Creatinine 1.0
Glucose 116 H
Calcium 8.8
Vital Signs:
Vital Signs
Temp Pulse Resp BP Pulse Ox
97.8 F 69 24 144/83 96
01/22/25 07:00 01/22/25 04:00 01/22/25 04:00 01/22/25 04:00 01/22/25 03:00
I&O
01/21/25 01/22/25 01/23/25
06:59 06:59 06:59
Intake Total 40 / 40 1310 / 1310
Output Total 1025 / 1025 600 / 600
Balance -985 / -985 710 / 710
Review of Systems
-
History Source: Patient
All other systems: Reviewed and negative
--- NOTE | 2025-01-22 11:25 | W.PN.PUL3 ---
Today's Communication / Plan
-
Continue holding diuretics as patient remains at her dry weight - cardiology in agreement
Continue with BiPAP at night and prn during the day
Outpatient pulmonary office follow-up will be arranged; outpatient records from [facility] will need to be obtained
TATYANA with [facility] tomorrow - depending on these results, either MitraClip would be recommended vs discussion with cardiothoracic surgery for CABG + mitral valve replacement
Keep K>4, Mg>2
Diet as per LEAD ENGINEER with aspiration precautions
s/p 7-day course of cefepime
Keep SpO2 >88-90%
She needs an ambulatory pulse oximetry prior to discharge
Majority of her remaining interventions is going to involve cardiology workup, possibly cardiothoracic evaluation and rehabilitation with PT/OT
No additional recommendations at this time. Pulmonary service will now sign off. Please reconsult if there are any additional questions/concerns, or if patient's respiratory status deteriorates. Outpatient pulmonary office follow-up will be
arranged with me.
Assessment
-
Assessment: 74-year-old female non-smoker with a past medical history of CVA, asthma, hypertension, hypothyroidism and ITP/thalassemia who presented with shortness of breath + cough. Symptoms started this past Thursday (01/03/2025). Initially in
the ER she was febrile to 100.4 �F, tachycardic to 123, respiratory rate initially 18, BP 158/82 and saturating 86% on room air. She was transitioned to high flow nasal cannula at 60% FiO2 with saturations improvement to 98%. Initial labs were
significant for leukocytosis to 17, glucose 289, lactate 6.7, T. bili 1.7, and COVID-19 antigen negative. Blood cultures collected, and CXR showed bilateral pneumonia. In the ER she was given ceftriaxone, acetaminophen, Zofran, Zithromax, and 1 L
NS 0.9% and admitted to the IMU for further care. Pulmonary service consulted for additional management/recommendations; patient was managed in the IMU and she deteriorated, being transitioned from high flow nasal cannula to BiPAP and was
emergently intubated on 01/07 and transferred to the ICU where she is currently being managed.
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
Assessment and plan:
#1. 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
- Patient was initially on high flow, subsequently intubated (01/07) due to increasing respiratory distress. Extubated on 01/19/2025 to NIV
- MRSA screen negative, culture stayed negative, Heidi noted on sputum - likely contaminant. Legionella + Strep PNA urine antigens both negative. Influenza A, B and COVID-19 negative.
- Patient completed 5 days of azithromycin and was continued on ceftriaxone until 01/11, then switched to cefepime on 01/11 in view of worsening respiratory failure
- 01/12, worsening hypoxia and desaturation with position change noted. Patient also started spiking fever. Concern for developing ARDS. Worsening infiltrate noted on chest x-ray.
- Lung protective mechanical ventilation for suspected ARDS
- s/p dexamethasone 20 mg daily from 01/12 - 01/16/2025 in view of ARDS --> resumed decadron at 10mg daily on 01/17 for finite course --> last day on 01/21
- Minimal blood-tinged tracheal aspirate, now resolved. Scant endotracheal secretions. Hemoglobin has been stable and O2 requirement has not changed. Not suggestive of diffuse alveolar hemorrhage. DIONY and ANCA negative
- Repeat influenza and COVID-19 testing negative. Tracheal aspirate again growing Heidi.
- Patient was successfully extubated on 01/19/2025 to NIV after tolerating pressure support trial the day prior on 03/31; PEEP dropped to 0 on 01/19 and she continued to tolerate this, and was liberated
- LEAD ENGINEER eval --> passed, okay for regular solids with thin liquids; cholesterol-lowering diet ordered with fluid restriction as well as carbohydrate restrictions given her recent insulin drip requirements and she had been on the higher end of normal
regarding her blood glucose.
- Removed Dobhoff tube on 01/20
#2. Newly diagnosed acute on suspected chronic heart failure with mildly reduced EF with severe MR. Echocardiogram 01/09 shows EF of 45 to 50% with moderate to severe mitral regurgitation; repeat echo on 01/19/2025 shows suspected severe mitral
regurgitation with systolic flow reversal in the pulmonary veins, as well as moderately hypokinetic LV except for the anterior and inferior septum; there was inferolateral hypokinesis seen on TTE from 01/12/2025
- Elevated troponin noted, discussed with cardiology service (01/12), felt to be related to underlying critical illness, although unable to rule out ACS, adelina given her WMA seen on echo from 01/12/2025
- BNP elevated at > 05512 despite aggressive diuresis. Pulmonary edema in addition to ARDS
- Recheck proBNP tomorrow as I do believe that we are at her euvolemic/dry weight which is 190 pounds
- Lasix was on hold in view of mild SHARMIN - Lasix 40 mg IV twice daily re-started (01/15 then stopped 01/17 due to RHC)
- Patient underwent RHC on 01/17 showing PCWP 31, mPAP 51, PVR 6.25, TPG 20, and CO/CI 3.77/2 --> bumex gtt started. Bumex gtt on hold as of 01/19 as her PADP dropped to mid-teens on 11/18 and she developed an SHARMIN. Believe that we are now at her dry
weight which is 190 pounds. Continue to assess daily if additional Lasix/Bumex is needed.
- [place] catheter removed on 01/[address] Garcia
- Plan for TATYANA with left heart catheterization tomorrow (01/23), and then depending on those tests she potentially could be a candidate for mitraclip otherwise may need to speak to the cardiothoracic surgeons for CABG + mitral valve replacement.
#3. h/o Lung nodule
- Patient will need follow-up imaging in about 8 weeks time once volume overload and pneumonia have resolved
- Patient reportedly had an outpatient PET/CT and this right-sided nodule had resolved, per daughter
- History of follow-up with [facility] pulmonology
- Patient would like to follow-up locally here at [place] and I will arrange for this; she had seen a cyber systems engineer at [place] and those records will need to be obtained; will also need the imaging reports that were done at [facility]
#4. Hyperglycemia. Related to stress of acute illness, IV steroids and tube feeding --> tube feeds now off, and her acute illness has markedly improved
- Now off insulin infusion; diabetic PHARMACIST IN CHARGE OWNER on board
- Goal BG 140-180
- ISS
Other medical co-morbidities:
#Prediabetes (HbA1c: 6.2 on 01/07/2025)
#Transaminitis
#Obstructive sleep apnea with suspected OHS on BiPAP at home (per the daughter it is a BiPAP)
#Obesity (BMI: 39.4)
#History of hypertension
#History of CVA
#History of ITP/thalassemia
#Severe hepatic steatosis likely due to morbid obesity
#Severe coronary artery calcifications seen radiographically on CT chest
Code status: Full code
Patient to continue to do very well. No additional recommendations at this time. Pulmonary service will now sign off. Thank you for allowing us to be involved in the care of this patient. Please reconsult if there are any additional
questions/concerns, or if patient's respiratory status deteriorates.
Ultimately, outpatient pulmonary office follow-up will be arranged to manage her sleep apnea and to perform PFTs + 6MWT.
Data:
CT chest with IV contrast 01/06/2025:
Extensive bilateral multifocal pneumonia.
Small bilateral pleural effusions, right greater than left.
Severe coronary artery calcifications. Please correlate with symptoms of and risk factors for coronary artery disease, with further workup as clinically appropriate.
Severe hepatic steatosis.
CT chest without contrast 01/12/2025:
1. Severe bilateral multifocal airspace consolidation with air bronchograms, most suggestive of severe multifocal pneumonia. Pulmonary edema is considered less likely, although not completely excluded.
2. Small bilateral pleural effusions, right greater than left.
3. 6 mm lung nodule within the right lower lobe, which may be related to severe pneumonia. Consider CT examination following resolution of the acute event to evaluate for true pulmonary nodule.
4. Severe coronary arterial calcification. Please correlate with symptoms of and risk factors for coronary artery disease, with further workup as clinically appropriate.
5. Cholelithiasis.
6. Diffuse fatty infiltration of the liver.
CXR 01/19/2025:
Generalized heterogeneous bilateral pulmonary opacities. These are without significant change when allowing for differences in lung volumes. Differential diagnosis includes pulmonary edema versus diffuse pneumonia.
Feeding tube with its tip in the region of the first portion of duodenum
Total time spent today was 39 minutes for this encounter. Time includes reviewing laboratory test/imaging results, reviewing pertinent medical records, obtaining and reviewing medical history, performing an appropriate exam, ordering medications,
tests and procedures. Time also includes documentation of this encounter, coordinating patient care and communicating with other healthcare professionals. Total time does not include separately billed tests performed on this date of service.
Subjective Data
-
Date of Service:
Date of Service: January 22, 2025
Chief Complaint: Pulmonary Follow Up
Subjective:
Pt seen this AM. She feels well. Daughter and at bedside. Wore BiPAP 12/8 cmH2O bled with 4L/min overnight. Patient currently feels well. Saturating 94% on 2 L/min nasal cannula. Heart rate 75 and BP 128/75. She denies chest pain, HERNANDES,
nausea, fevers or chills.
Review of Systems
General: Other (Negative unless mentioned above)
Objective Data
Data Reviewed
Vital Signs / I&O / Oxygen:
Vital Signs
Temp Pulse Resp BP Pulse Ox
97.8 F 69 24 144/83 96
01/22/25 07:00 01/22/25 04:00 01/22/25 04:00 01/22/25 04:00 01/22/25 03:00
Intake and Output
01/21/25 01/22/25 01/23/25
06:59 06:59 06:59
Intake Total 1310 / 1310
Output Total 1025 / 1025 600 / 600
Balance -985 / -985 710 / 710
SaO2 [NIV (Non Invasive 99
Ventilation)]
SaO2 [ASV] 92
SaO2 [CPAP/PSV] 91
SaO2 [A/C] 98
SaO2 96
Nasal Cannula flow liters per 4
minute
Physical Exam
General: Respiratory Distress (negative), Comfortable, Chills (negative) and Sweats (negative)
HEENT: Normocephalic and Anicteric
Cardiovascular: S1-S2 and Peripheral Edema (negative)
Respiratory: Wheeze (negative), Crackles (negative), Rhonchi (Left posterior lung field), Non-Labored Respirations, Stridor (negative) and Other (Bases are clear bilaterally)
GI: Soft, Distended (Abdominal obesity), Non Tender and Normal Bowel Sounds
Neurology: AO x 3 and Tremors (negative)
Skin: Warm, Dry, Cyanosis (negative) and Jaundice (negative)
Labs/Micro/Reports
Lab Data
01/22/25 03:40
01/22/25 03:40
[2025-01-22 12:12] LABS: Glucose - Point of Care 97 mg/dl (70-99)
--- NOTE | 2025-01-22 12:15 | PTCARENOTE ---
Pt received in bed @ 0700. AAOx3. Lidocaine patch provided to right shoulder for pain. Sinus rhythm with BBBC on secured entrance monitor. Generalized trace anasarca. Weaned to 2L NC; SaO2 95%. Crackles auscultated at right base. 1,000ml witnessed using
incentive spirometer. (+) bowel sounds. Purewick external female catheter with yellow urine. (R) DL PICC with (+) blood return, flushed.
--- NOTE | 2025-01-22 15:15 | W.PN.CD ---
Today's Communication / Plan
-
npo p mn for caitie/lhc tomorrow
Impression / Plan
-
Impression/Plan: 74 y/o female with hypothyroidism, HTN, HLD, ITP/thalassemia, admitted with fever and acute hypoxic respiratory failure consistent with CAP with severe sepsis, progressing to ARDS requiring intubation/ventillation (01/07/2025), new
diagnosis of HFmEF (LVEF 45-50% with inferolateral hypokinesis) and moderate severe MR and mildly elevated troponin.
#Hypoxic respiratory failure/severe mitral valve regurgitation
-Condition is threat to life.
-Multifactorial, due to CAP (likely progressed to ARDS) and HFmEF with moderate/severe MR and severe pulmonary hypertension.
-01/20/2025: RA pressure now 3. CI down. I/O roughly even, perhaps a little negative. [place] d/c'd
-goal to keep even today
-Plan for CAITIE Thursday (01/23/2025) to evaluate MR
#HFmEF/[employer] LEADER/Troponin elevation
-New diagnosis.
-Previous notes suggest records from outside showed she was last seen in 2021 at which time she had a normal echo and stress test with no ischemia.
-Echo 01/09/25: Mildly reduced left ventricular systolic function. Left ventricular ejection fraction is 45-50% with basal inferolateral hypokinesis, mild AI, moderate/severe MR.
-Given the complexity of her volume status and pulmonary injury which may increase RV filling pressures - BNP should NOT be used as a marker of volume.
-ECG with anterolateral and inferior ST and T wave changes and troponin elevation (3.7) raise possibility of ischemia (further suggested by coronary calcification on CT chest).
-Plan for LHC/Coronary angiography on Thursday (01/23/2025)
-GDMT
-Diuretics: none
-Beta damian: metoprolol succinate 12.5 mg daily.
-ACEI/ARB/ARNi: On hold for SHARMIN,recovered, will start after dye exposure
-MRA: On hold for SHARMIN.
-SGLT2i: On hold for SHARMIN. Consider dapagliflozin 10 mg daily after cath
#PNA, sepsis:
-Acute, threat to life.
-improving
-completed ABX per pulm/CC.
-Incentive spirometry.
#SHARMIN
-Acute.
-Creatinine down to 1.0 today
#HTN
-Chronic, stable.
#Anemia
-Chronic, known history of ITP/thalassemia.
-Management per primary team.
#Tremor:
-new since 01/20/25, d/w medicine and bond manager who will evaluate
-not present today
OK to down grade to IVU
Subjective/Interval History:
she is feeling much better, she is oob to chair most of the day and happy about it
DATA:
Cultures:
Blood Cx (01/06/2025): Negative x2
Influenza (01/06/2025): Negative
SARS-CoV-2 Ag (01/06/2025): Negative
Legionella UAg (01/06/2025): Negative
S. Pneumoniae UAg (01/06/2025): Negative
Endotracheal Aspirate Cx (01/08/2025): C. Albicans
Endotracheal Aspirate Cx (01/11/2025): C. Albicans
Blood Cx (01/11/2025): Negative x2
Influenza (01/12/2025): Negative
SARS-CoV-2 Ag (01/12/2025): Negative
CT Chest, 01/06/2025:
IMPRESSION:
Extensive bilateral multifocal pneumonia.
Small bilateral pleural effusions, right greater than left.
Severe coronary artery calcifications. Please correlate with symptoms of and risk factors for coronary artery disease, with further workup as clinically appropriate.
Severe hepatic steatosis.
TTE, 01/09/2025:
CONCLUSIONS
Mildly reduced left ventricular systolic function. Left ventricular ejection
fraction is 45-50% by Thomas's method of discs.
Basal inferolateral hypokinesis.
Mild aortic regurgitation.
Moderate/severe mitral regurgitation.
No prior study available for comparison.
CT Chest, 01/12/2025:
IMPRESSION:
1. Severe bilateral multifocal airspace consolidation with air bronchograms, most suggestive of severe multifocal pneumonia. Pulmonary edema is considered less likely, although not completely excluded.
2. Small bilateral pleural effusions, right greater than left.
3. 6 mm lung nodule within the right lower lobe, which may be related to severe pneumonia. Consider CT examination following resolution of the acute event to evaluate for true pulmonary nodule.
4. Severe coronary arterial calcification. Please correlate with symptoms of and risk factors for coronary artery disease, with further workup as clinically appropriate.
5. Cholelithiasis.
6. Diffuse fatty infiltration of the liver.
TTE, 01/12/2025:
CONCLUSIONS
Mildly reduced left ventricular systolic function.
Inferolateral hypokinesis LV ejection fraction is 40-45% .
Moderate to severe mitral regurgitation.
Compared to previous echo 01/09/2025 reported EF is mildly less. Previously
estimated 45 to 50%. Mitral regurgitation appears a bit more prominent on the
previous study but some of this may be related to imaging technique .
RHC, 01/17/2025:
CONCLUSION:
1. Severely elevated filling pressures (PCWP = 31 mmHg at 93.4 kg) with large V waves (52 mmHg) consistent with a noncompliant left atrium as well as a history of moderate to severe mitral regurgitation.
2. Moderately to severely depressed cardiac function (cardiac index = 1.70 L/min/m� by Joshua equation, 2.0 L/min/m� by thermodilution).
3. 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
TTE, 01/19/2025:
CONCLUSIONS
Mildly reduced left ventricular systolic function.
Left ventricular ejection fraction is 40-45% by visual estimate.
The entire anterior and inferior septum contract well and the rest of the LV
looks mild to moderately hypokinetic.
Mild LAE.
Probably severe mitral regurgitation.
Systolic flow reversal in the pulmonary veins with mitral regurgitation
present.
Trivial pericardial effusion.
No significant change since the prior study of 01/12/2025.
Physical Exam
Vital Signs/Labs
Vital Signs
Temp Pulse Resp BP Pulse Ox
98.7 F 73 25 136/68 95
01/22/25 11:38 01/22/25 14:00 01/22/25 14:00 01/22/25 14:00 01/22/25 12:08
01/21/25 01/22/25 01/23/25
06:59 06:59 06:59
Actual Weight 186 lb 15.232 oz
01/22/25 03:40
01/22/25 03:40
PT 16.8 Sec (11.4-14.6) H 01/07/25 22:10
INR 1.33 01/07/25 22:10
APTT 31.4 Sec (23.4-35.0) 01/19/25 04:02
Magnesium 2.4 mg/dl (1.6-2.3) H 01/22/25 03:40
Triglycerides 165 mg/dl (10-149) H 01/21/25 05:31
LDL Cholesterol, Calc 153 mg/dl 01/21/25 05:31
VLDL Cholesterol, Calc 33 mg/dl (0-30) H 01/21/25 05:31
HDL Cholesterol 51 mg/dl 01/21/25 05:31
01/08/25 01/12/25 01/22/25
04:59 03:34 03:40
Ptc-Y-Wwyvazkypyo Pept [id number]
Physical Exam
Constitutional: No acute distress
Cardiovascular: Rhythm & rate is regular, Pedal edema is absent and Murmur/rub/gallop absent
Respiratory: Respiratory effort normal, Lungs clear to auscul., Wheeze Absent, Crackles Absent and Rhonchi Absent
Neuro/Psych: AO x 3
Data Reviewed
-
Date of Service: January 22, 2025
Medical Decision Making: Review of Case with other Provider (KAILASH mcqueen, Dr Guillaume, will do procedures tomorrow)
Medical Tests (PFT, Pathology etc): Discussed with Family (left message with Jaylyn with the plan for tomorrow)
[2025-01-22] MEDS: LOVENOX 40 MG SC (18:56)
[2025-01-22] MEDS: XALATAN OPHTHALMIC SOLUTION 1 DROP BOTH EYES (20:56)
[2025-01-22] MEDS: TYLENOL ORAL SOLUTION 650 MG PO (20:56)
[2025-01-22] MEDS: SEROQUEL 25 MG PO (20:57)
[2025-01-22] MEDS: ATIVAN 0.5 MG PO (21:50)
--- NOTE | 2025-01-22 22:21 | PTCARENOTE ---
Received pt from previous RN. Pt is AAOx3, anxious at times, PRN Ativan given (see MAR). NSR on the monitor. On 2L NC O2 sat 97%, lungs diminished/coarse, bipap 12/[address] for incont. Pt c/o right shoulder pain, PRN Tylenol given (see
OCT). Mouth care provided. Pt is laying in bed with call tompkins in reach. Safe environment maintained.
[2025-01-22 22:27] LABS: Glucose - Point of Care 145 mg/dl (70-99)
[2025-01-23] VITALS (21 sets, daily range): BP systolic 127–179; BP diastolic 46–90; PULSE 2–66; BMI 36.9
[2025-01-23 04:34] LABS: % Basophils 0.1 % (0-2); % Eosinophils 2.7 % (0-6); % Immature Granulocytes 0.9 % (0-0.5); % Lymphocytes 6.8 % (20.5-51.1); % Monocytes 5.2 % (1.7-9.3); % Neutrophils 84.3 % (42.2-75.2); Absolute Eosinophils 0.4 10^3/uL (0-0.7); Absolute Immature Granulocytes 0.1 10^3/uL (0-0.05); Absolute Lymphocytes 1.1 10^3/uL (1.2-3.4); Absolute Monocytes 0.8 10^3/uL (0.1-0.6); Hematocrit 36.1 % (37.0-47.0); Hemoglobin 10.7 g/dL (12.0-16.0); Mean Corp Hgb Conc. 29.6 g/dL (33.0-37.0); Mean Corpuscular Hgb 18.4 pg (27.0-31.0); Nucleated Red Blood Cells % 0 %; Platelet Count 266 10^3/uL (130-400); Red Blood Cell Count 5.82 10^6/uL (4.20-5.40); Red Cell Dist. Width 16.6 % (11.5-14.5); White Blood Cell Count 15.5 10^3/uL (4.8-10.8)
[2025-01-23 04:48] LABS: Blood Urea Nitrogen 39 mg/dl (7-17); Calcium 8.7 mg/dl (8.4-10.2); Carbon Dioxide 27 mmol/L (22-30); Chloride 112 mmol/L (98-107); Estimated Creatinine Clearance 62 ml/min; Glucose 123 mg/dl (70-99); Potassium 3.7 mmol/L (3.5-5.1); Sodium 143 mmol/L (135-145); eGFR > 60.00
[2025-01-23] MEDS: SYNTHROID 112 MCG PO (06:05)
[2025-01-23] MEDS: LIDOCAINE 4% PATCH 1 PATCH TOPICAL (07:27)
[2025-01-23] MEDS: LOW STRENGTH ASPIRIN 81 MG PO (07:27)
[2025-01-23] MEDS: MIRALAX PO (07:28)
[2025-01-23] MEDS: TOPROL XL 25 MG PO (07:28)
[2025-01-23] MEDS: NEURONTIN 100 MG PO ×3 (07:28→21:42)
[2025-01-23 07:35] LABS: Glucose - Point of Care 121 mg/dl (70-99)
--- NOTE | 2025-01-23 08:35 | PN.DE.MGMTRT ---
Insulin Management
- -
01/23/2025 Diabetes Management Follow up
Patient admitted 01/06 with breathing problem, Pneumonia and CHF.
PMH: HTN, hypothyroid. No history of diabetes, A1C on admission 6.2%. Cr today 0.8, eGFR >60.
Patient was started on glycemic protocol on 01/12 due to elevated glucose, > 200. Transitioned off insulin infusion on 01/21 to low corrective insulin with meals.
Pt has been NPO since MN. She is currently off the floor for TATYANA, unabel to interview. Daughter- Jaylyn at bedside, all questions answered.
Glucose stable, 01/22 premeal 89 to 97, @ HS 145, Fasting 121 POC this AM.
Will make no changes, cont low corrective insulin with meals.
Discussed with nurse. Will cont to follow
Diabetes History
- -
Type of Diabetes: 2
Pre-Admission Diabetes Regimen
01/23/25
03:55
Creatinine 0.8
Lab Results
Hemoglobin A1c 6.2 % (4.0-5.6) H 01/07/25 04:50
Insulin Pump Settings
IP Diabetes Regimen
01/22/25 01/22/25 01/23/25
12:00 22:16 03:55
Glucose 123 H
POC Glucose 97 145 H
01/23/25
07:34
Glucose
POC Glucose 121 H
Meal type: Breakfast
Patient Education
[2025-01-23] MEDS: NOVOLOG FLEXPEN-LOW RESISTANCE SC ×3 (09:31→17:10)
--- NOTE | 2025-01-23 11:16 | PTCARENOTE ---
report received, assessments per work list. patient report and care tranfer to hospital laboratory technician.
--- NOTE | 2025-01-23 11:54 | W.PN.HOSP.TC ---
Today's Communication/Plan
-
Cardiac cath today.
Assessment / Plan
Assessment / Plan
Gen-awake, alert, NAD
HEENT-NC, AT, anicteric, clear oral mm
Neck-supple
CV-reg, no M, +S1/S2
Lungs-decreased breath sounds bilaterally
Abd-soft, NT, ND
Ext-bilateral lower extremity pedal edema
Musculoskeletal-no cyanosis, clubbing
Neuro-alert and oriented and no neurological deficits, generalized weakness
Skin-warm and dry
Acute hypoxic respiratory failure - likely multifactorial etiology, due to extensive bilateral pneumonia and heart failure and ARDS.
Successfully extubated January 19. Currently on 4 L nasal cannula oxygen, wean down as able.
Steroids discontinued.
Completed 7 days of cefepime. Now off antibiotics.
Right heart catheterization done 01/17.
Tolerating solid diet.
Discussed with daughter at bedside today on 01/23
Acute HFmEF/valvulopathy/suspected type II DE - but cannot rule out obstructive CAD-BNP 7480; Echocardiogram showed EF of 40-45% and basal inferolateral hypokinesis, moderate-severe mitral regurgitation, mild aortic regurgitation. Started on
aspirin, Toprol-XL. Ischemic evaluation after acute illness. Cardiology consulted and input appreciated.
Weight is down to 84 kg.
Chest x-ray 01/19 shows some mild improvement in pulmonary edema.
Off diuretics, she is at dry weight.
Repeat PCWP improved to 18.
Cardiology recommends left heart catheterization/TATYANA--> multivessel CAD noticed on cardiac cath. Discussed with consumer marketing analyst and patient and family at bedside. Plan for CABG as outpatient.
[place] catheter removed.
SHARMIN -concern for component of contraction alkalosis, diuretic effect. SHARMIN improved.
Sepsis due to extensive multifocal community-acquired pneumonia -sepsis resolved. Now off antibiotics.
Acute left cephalic vein SVT -noted on Doppler ultrasound 01/17. Subcu Lovenox at prophylactic doses.
Hypokalemia -improved.
Elevated LFTs -transaminases normalized. Mild hyperbilirubinemia noted.
Troponin elevation -troponin peaked. Suspected type II DE due to demand ischemia but could have been her obstructive CAD contributing as well.
Microcytic anemia -hemoglobin stable. Unknown acuity. No clinical evidence of bleeding. B12 603, folate 11, iron 29, TIBC 211, 13% saturation, and ferritin 636.
Impaired fasting glucose - hemoglobin A1c 6.2%. Glucose is now controlled. Continue low resistance subcutaneous NovoLog scale.
Essential hypertension -stable.
Hypothyroidism -levothyroxine.
Morbid obesity due to excess calories
Full code
Total time spent on today's encounter was 52 minutes which included time spent in counseling the patient/family regarding diagnosis and treatment plan as listed above, goals of care, and symptom management. Case was discussed with nursing staff,
specialists, and care coordinators/case management. All labs and imaging personally reviewed by me. Remainder the time spent in detailed review of previous records, lab data, imaging, and other medical provider documentation.
Anticipated Discharge: 24 - 48 hours
Subjective/Interval History
-
Date of Service: January 23, 2025
Patient denies any chest pain or shortness of breath currently. Afebrile
Objective Data
-
Labs:
Laboratory Results
01/23/25
03:55
WBC 15.5 H
Hgb 10.7 L
Hct 36.1 L
Plt Count 266
Sodium 143
Potassium 3.7
Chloride 112 H
Carbon Dioxide 27
BUN 39 H
Creatinine 0.8
Glucose 123 H
Calcium 8.7
Vital Signs:
Vital Signs
Temp Pulse Resp BP Pulse Ox
97.8 F 68 26 138/70 94
01/23/25 08:00 01/23/25 08:00 01/23/25 08:00 01/23/25 08:00 01/23/25 08:00
I&O
01/22/25 01/23/25 01/24/25
06:59 06:59 06:59
Intake Total 1310 / 1310 1400 / 1400 120 / 120
Output Total 600 / 600 950 / 950
Balance 710 / 710 450 / 450 120 / 120
--- NOTE | 2025-01-23 13:10 | ITS.CL.CATH ---
Junior Accountant - Catheterization
Cardiac Catheterization
Procedure Report:
CARDIAC CATHETERIZATION REPORT
Date of Procedure: 01/23/2025
Referring: Comfort Wang M.D.
INDICATION: Cardiomyopathy, NYHA class III, non-ST elevation myocardial infarction, moderate to moderate/severe mitral valve regurgitation.
PROCEDURE:
1. Left heart catheterization.
2. Coronary angiography.
A total of 26 minutes of procedural/moderate sedation was utilized. An independent medical doctor nuclear medicine was present to assist with and help manage the patient's level of consciousness and physiologic status.
ACCESS:
1. 6 [place] right rate artery using a modified Seldinger technique.
CATHETERS:
1. 5 [place] JR4.
2. 5 [place] JL 3.5.
HEMODYNAMIC DATA
Weight (kg): 85.7
AO (s/d/x, mmHg): 128/70/95
LV (s/x mmHg): 132/10
LEFT VENTRICULOGRAPHY: Not performed.
CORONARY ANGIOGRAPHY
Dominance: Right.
Left Main: Normal size, bifurcating vessel. There is no coronary artery disease.
LAD: Large size vessel giving rise to 1 large diagonal before wrapping around the apex and supplying the inferior interventricular septum. The diagonal supplies the majority of the anterolateral wall. There is a 70% lesion at the origin of the
diagonal, and 80% lesion immediately distal to the origin of the diagonal followed by a second 70% lesion in this mid vessel. There is a 50% lesion in the inferior LAD. There is a hazy, 90% lesion in the proximal margin of the large diagonal.
Ramus: Congenitally absent.
Circumflex: Normal size, nondominant vessel that appears to be a single large marginal supplying the inferolateral wall. There is a 99% lesion in the proximal margin of the circumflex. The proximal circumflex fills antegrade. The obtuse
marginal fills retrograde from collaterals from the diagonal system.
RCA: Normal size, dominant vessel with a high, anterior takeoff that is difficult to engage. The vessel is chronically totally occluded in its proximal margin. The RPDA and distal RCA is supplied by collaterals from the LAD.
INTERVENTION(S)
None.
Closure Device: Vascular band.
Radiation (mGy): 443
DAP (cm2.Gy): 20.9
Fluoroscopy time (minutes): 2.9
CONCLUSIONS
1. Right dominant circulation with multivessel coronary disease including a 99% subtotal occlusion of the proximal circumflex with YADY I flow to the proximal vessel and retrograde filling from the distal OM, a chronic total occlusion of the
proximal RCA supplied by collaterals from the LAD, and 90% lesion in the proximal margin of the large diagonal and tandem 70%, 80% and 70% lesions in the mid LAD.
2. Normal filling pressures (LVEDP = 10 mmHg at 85.7 kg).
3. At least moderate mitral valve regurgitation on transesophageal echocardiography.
RECOMMENDATIONS:
1. Expectant management after cardiac catheterization via right radial approach.
2. Limited weight bearing on the right wrist for one week.
3. Consultation with CT surgery regarding optimal revascularization strategy.
4. OMT/GDMT as hemodynamics will tolerate.
5. Aggressive secondary prevention with high-dose, high potency statin.
Copy to: Comfort Wang M.D.
Jerry Garcia DO, FACC, FACP
[2025-01-23] MEDS: NSS 1000 IV (13:42)
[2025-01-23 13:43] LABS: Glucose - Point of Care 112 mg/dl (70-99)
--- NOTE | 2025-01-23 13:58 | CONSULT.CT ---
Consultation
-
Date/Time Consultation Requested: 01/23/25 13:30
Date/Time Consultation Performed: 01/23/25 1400
Requesting Provider: Jose
Performing Provider: Jose Juan Benitez PA-C
Reason for Consultation: CAD/MR
Patient History
Physicians
Outpatient Logistics Loss Prevention Manager: Dr. Hudson
Inpatient Logistics Loss Prevention Manager: Jerry Garcia
History of Present Illness
74 y/o female with hypertension, dyslipidemia, hypothyroidism, ITP who presented for SOB and cough to the ED. Initially in the ER she was febrile to 100.4 �F, tachycardic to 123, respiratory rate initially 18, BP 158/82 and saturating 86% on room
air. She was transitioned to high flow nasal cannula at 60% FiO2 with saturations improvement to 98%. Initial labs were significant for leukocytosis to 17, glucose 289, lactate 6.7, T. bili 1.7, and COVID-19 antigen negative. Blood cultures
collected, and CXR showed bilateral pneumonia. In the ER she was given ceftriaxone, acetaminophen, Zofran, Zithromax, and 1 L NS 0.9% and admitted to the IMU for further care. She eventually needed to be intubated due to hypoxic respiratory failure
and has since been liberated from the ventilator. ECG with anterolateral and inferior ST and T wave changes and troponin elevation (3.7) suggested the possibility of ischemia (further suggested by coronary calcification on CT chest). Echo showed EF
45-50% with WMA (details below) and moderate to severe MR. She denies any CP. She underwent LHC today and was found to have 3VCAD (see cath report)
Past Medical History
Past Medical History: Asthma, CVA/TIA, HTN and Hypothyroidism
ITP/thalassemia, pneumonia with hypoxic respiratory failure
Past Surgical History
Past Surgical History: Orthopedic (b/l TKA's)
Cataract surgery
Family History
Mother: at Age (had CABG)
Father: at Age (Had CAD)
Social History
Alcohol: None
Drug: None
Tobacco: Non-Smoker
Allergies
Allergy/AdvReac Type Severity Reaction Status Date / Time
carvedilol Allergy chest Verified 01/06/25 15:46
discomfort
cyclobenzaprine HCl (From Allergy throat Verified 01/06/25 15:46
Flexeril) closing,
tongue
swelling
hydralazine Allergy chest Verified 01/06/25 15:46
discomfort
hydrochlorothiazide Allergy chest Verified 01/06/25 15:46
discomfort
levofloxacin (From Levaquin) Allergy diarrhea Verified 01/06/25 15:46
mivacurium Allergy pseudocholinesterase Verified 01/06/25 15:46
deficiency
oxycodone Allergy Nausea/Vomi Verified 01/06/25 15:46
ting
succinylcholine Allergy pseudocholinesterase Verified 01/06/25 15:46
deficiency
Home Medications
�Medication �Instructions �Recorded �Confirmed �Type
levothyroxine 112 mcg tablet 112 mcg PO DAILY Thyroid 09/14/16 01/06/25 History
latanoprost 0.005 % eye drops 1 drp BOTH EYES HS Eye condition 10/13/16 01/06/25 History
metoprolol succinate 50 mg capsule 50 mg PO HS Blood pressure 04/21/22 01/06/25 History
sprinkle, ext. release 24 hr
lorazepam 0.5 mg tablet 0.5 mg PO HSPRN PRN anxiety #1 tab 05/13/22 01/06/25 Rx
acetaminophen 650 mg 1,300 mg PO [id number] PRN mild pain 01/06/25 01/06/25 History
tablet,extended release
elderberry fruit 350 mg capsule 350 mg PO DAILY Supplement 01/06/25 01/06/25 History
gabapentin 100 mg capsule 100 mg PO Q8HPRN PRN mild pain 01/06/25 01/06/25 History
tizanidine 2 mg tablet 2 mg PO Q6HPRN PRN muscle spasms 01/06/25 01/06/25 History
Review of Systems
-
History Source: Patient and Family
General: Denies Weight Gain or Weight Loss
HEENT: Reports Other (has her own teeth, sees dentist regularly); Denies Visual Changes
Respiratory: Reports SOB and Cough
Cardiac: Denies Chest Pain
Abdomen/GI: Reports No Symptoms
: Reports No Symptoms
Physical Exam
Vital Signs
Temp 97.8 F 01/23/25 08:00
Temp route: Oral 01/23/25 08:00
Pulse 72 01/23/25 10:00
Rhythm: Normal sinus rhythm 01/23/25 08:00
With- First Degree Heart Block 01/23/25 08:00
Resp Rate 31 01/23/25 10:00
Systolic BP: 99 01/19/25 10:35
Blood pressure 146/74 01/23/25 10:00
Blood pressure extremity used: Left upper arm 01/10/25 20:24
Position: Lying 01/17/25 03:17
MAP (cuff-Angel Monitor) 96 01/23/25 10:00
MAP 84 01/10/25 20:24
SaO2 94 01/23/25 08:00
Nasal Cannula flow liters per minute 2 01/23/25 08:00
Oxygen Mode of Delivery BiPAP 01/19/25 14:18
Flow liters per minute # 60 01/07/25 17:50
% Oxygen delivered 40 01/19/25 14:18
Pulse Ox at Rest 96 01/20/25 14:58
Can the patient verbally communicate their pain? Yes 01/22/25 21:56
Pain scale ratin 01/22/25 21:56
Arterial Systolic Pressure 168 01/20/25 10:00
Arterial Diastolic Pressure 73 01/20/25 10:00
MAP (R-Eywg-Gyjibyz Monitor) 108 01/20/25 10:00
MAP A-Line 72 01/16/25 07:10
Pulmonary Artery Systolic Pressure 42 01/20/25 10:00
Pulmonary Artery Diastolic Pressure 16 01/20/25 10:00
Right Atrial Pressure (RA) 3 01/20/25 10:00
Pulmonary Capillary Wedge Pressure(PCWP) 18 01/19/25 09:37
Cardiac Output 5.11 01/20/25 08:45
Cardiac Index 2.79 01/20/25 08:45
Systemic Vascular Resistance (SVR) 1,612 01/20/25 08:45
Pulmonary Vascular Resistance (PVR) 208 01/19/25 04:25
Actual Weight 189 lb 2.506 oz 01/23/25 03:57
Body Mass Index (BMI) 36.9 01/23/25 03:57
Supine- Blood Pressure 136/78 01/20/25 14:58
Supine- Pulse 94 01/20/25 14:58
Oxygen Saturation with Activity 91 01/20/25 13:25
Labs
01/23/25 03:55
01/23/25 03:55
PT 16.8 Sec (11.4-14.6) H 01/07/25 22:10
APTT 31.4 Sec (23.4-35.0) 01/19/25 04:02
Hemoglobin A1c 6.2 % (4.0-5.6) H 01/07/25 04:50
Troponin I 2.890 ng/ml H* 01/13/25 08:28
Ibd-D-Qqplcitclnw Pept 53560 pg/ml 01/22/25 03:40
Arterial Blood Gases
pH 7.47 (7.35-7.45) H 01/20/25 03:29
pCO2 46 mmHg (32-35) H 01/20/25 03:29
pO2 111 mmHg (83-108) H 01/20/25 03:29
HCO3 33.5 mmol/L (21-28) H 01/20/25 03:29
Base Excess 8.8 mmol/L 01/20/25 03:29
ABG O2 Sat (Measured) 99.9 % (94-98) H 01/20/25 03:29
O2 Delivery Level Niv 01/20/25 03:29
Urinalysis
Urine Color Yellow 01/19/25 10:15
Urine Clarity Clear (Clear) 01/19/25 10:15
Urine pH 8.0 (5.0-9.0) 01/19/25 10:15
Ur Specific [place] 1.015 (<1.030) 01/19/25 10:15
Urine Ketones Negative (Negative) 01/19/25 10:15
Urine Occult Blood 3+ (Negative) A 01/19/25 10:15
Urine Bilirubin Negative (Negative) 01/19/25 10:15
Ur Leukocyte Esterase Negative (Negative) 01/19/25 10:15
Urine RBC 7-10 /HPF (0-2) A 01/19/25 10:15
Urine WBC 0-2 /HPF (0-5) 01/19/25 10:15
Ur Squamous Epith Cells 0-2 /LPF (Few) 01/19/25 10:15
Urine Glucose Negative (Negative) 01/19/25 10:15
Urine Albumin 2+ (Neg - Trace) A 01/19/25 10:15
Exam
General: Well Developed; Negative Respiratory Distress
HEENT: Anicteric
Respiratory: Clear
Cardiac: Regular Rhythm
GI: Non Tender and Non Distended
Rectal: Deferred by Provider
Skin: Warm and Dry
Neuro: AO x 3
Extremities: Negative Lower Level Edema
Psych: Calm
Assessment / Plan
-
74 year old female who presented with pneumonia and ultimately intubated due to hypoxic respiratory failure, subsequently liberated from ventilator. She also developed SHARMIN, all of which is improving. She was found to have ST changes and elevated
troponins. EF was depressed (45-50%) with MR on echo. LHC revealed 3VCAD. The patients' risk for isolated CABG vs. CABG/MVR are noted below. Her MR may be ischemic in nature as valve morphology appears normal per report. Will discuss case with
Dr. Whelan.
Procedure Type:�Isolated CABG
Perioperative Outcome Estimate %
Operative Mortality 4.32%
Morbidity & Mortality 19.9%
Stroke 3.81%
Renal Failure 3.33%
Reoperation 2.89%
Prolonged Ventilation 13.1%
Deep Sternal Wound Infection 0.464%
Long Hospital Stay (>14 days) 15%
Short Hospital Stay (<6 days)* 15.6%
Procedure Type:�CABG + MVR
Perioperative Outcome Estimate %
Operative Mortality 14.7%
Morbidity & Mortality 45.7%
Stroke 6.03%
Renal Failure 10.3%
Reoperation 6.29%
Prolonged Ventilation 42.2%
Deep Sternal Wound Infection 0.39%
Long Hospital Stay (>14 days) 38.7%
Short Hospital Stay (<6 days)* 3.37%
Clinical Summary
Planned Surgery: CABG +/- MVR, Urgent, First cardiovascular surgery
Demographics: 74 year old, White, female, 86kg, 152.4cm, BMI: 37 kg/m�
Lab Values: Creatinine: 0.8 mg/dL, Hematocrit: 36.1%, WBC Count: 15.5 10�/�L, Platelet Count: 281932 cells/�L
Risk Factors / Comorbidities: Hypertension
Pulmonary RF: Severity Unknown CLD
Vascular RF: Cerebrovascular Disease: CVA > 30 days
Cardiac Status: Acute heart failure, NYHA Class IV, Ejection Fraction = 45%
Coronary Artery Disease: 3 vessels diseased, No coronary symptoms, ME: Unknown
Valve Disease: Mild AR, Moderate MR
--- NOTE | 2025-01-23 16:19 | CM ---
LHC and coronary angiography today. Discharge POC: Therapy recommendation for acute rehab. Will get preferences.
[2025-01-23] MEDS: LOVENOX 40 MG SC (17:10)
[2025-01-23 17:15] LABS: Glucose - Point of Care 134 mg/dl (70-99)
--- NOTE | 2025-01-23 19:08 | PTCARENOTE ---
report called to IVU RN
--- NOTE | 2025-01-23 19:30 | PTCARENOTE ---
Pt transported with all her belongings.
[2025-01-23] MEDS: TYLENOL ORAL SOLUTION 650 MG PO (21:42)
[2025-01-23] MEDS: SEROQUEL 25 MG PO (21:42)
[2025-01-23] MEDS: ATIVAN 0.5 MG PO (21:42)
[2025-01-23 22:13] LABS: Glucose - Point of Care 158 mg/dl (70-99)
[2025-01-23] MEDS: XALATAN OPHTHALMIC SOLUTION 1 DROP BOTH EYES (22:18)
[2025-01-24] VITALS (8 sets, daily range): BP systolic 136–162; BP diastolic 70–87; BMI 36.8
[2025-01-24 04:55] LABS: Hematocrit 34.1 % (37.0-47.0); Hemoglobin 10.3 g/dL (12.0-16.0); Mean Corp Hgb Conc. 30.2 g/dL (33.0-37.0); Mean Corpuscular Hgb 18.8 pg (27.0-31.0); Mean Corpuscular Volume 62.1 fL (81.0-99.0); Platelet Count 241 10^3/uL (130-400); Red Blood Cell Count 5.49 10^6/uL (4.20-5.40); Red Cell Dist. Width 16.6 % (11.5-14.5); White Blood Cell Count 15.8 10^3/uL (4.8-10.8)
[2025-01-24 05:21] LABS: Blood Urea Nitrogen 29 mg/dl (7-17); Calcium 8.5 mg/dl (8.4-10.2); Carbon Dioxide 25 mmol/L (22-30); Chloride 112 mmol/L (98-107); Estimated Creatinine Clearance 62 ml/min; Glucose 135 mg/dl (70-99); Potassium 3.5 mmol/L (3.5-5.1); Sodium 142 mmol/L (135-145); eGFR > 60.00
[2025-01-24] MEDS: SYNTHROID 112 MCG PO (05:38)
--- NOTE | 2025-01-24 05:45 | PTCARENOTE ---
Rec'd pt at change of shift as transfer from ICU. Pt AAO*3, VSS, and SR on TELE monitor. Pt with R radial site CDI. Pt denies any pain or discomfort. Pt post L heart cath with MVD and multiple blockages. Pt not on heparin gtt, DR Justice
notified. Pt luci any chest pain or discomfort. See MAR and flowchart for full pt care and assessment.
[2025-01-24 07:06] LABS: Glucose - Point of Care 114 mg/dl (70-99)
[2025-01-24] MEDS: NOVOLOG FLEXPEN-LOW RESISTANCE SC ×3 (07:57→17:37)
--- NOTE | 2025-01-24 08:10 | W.PN.CD ---
Today's Communication / Plan
-
Start statin and Spironolactone
CM to alves Entresto and SGLT2i
Aim for dry weight 188-190 lb
Impression / Plan
-
Impression/Plan: 74 y/o female with hypothyroidism, HTN, HLD, ITP/thalassemia, admitted with fever and acute hypoxic respiratory failure consistent with CAP with severe sepsis, progressing to ARDS requiring intubation/ventillation (01/07/2025), new
diagnosis of HFmEF (LVEF 45-50% with inferolateral hypokinesis) and moderate severe MR and mildly elevated troponin. Found to have 3v CAD.
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
-New diagnosis. Records from outside showed she was last seen in 2021 at which time she had a normal echo and stress test with no ischemia.
-Echo 01/09/25: Mildly reduced left ventricular systolic function. Left ventricular ejection fraction is 45-50% with basal inferolateral hypokinesis, mild AI, moderate/severe MR.
-Given the complexity of her volume status and pulmonary injury which may increase RV filling pressures - BNP should NOT be used as a marker of volume.
-[facility] 01/23/25: 99% OM, RESIDENT INTERN RCA, 90% prox diagonal; tandem 70%, 80%, and 70% lesions in mid LAD
-GDMT
-Diuretics: none
-Beta damian: metoprolol succinate 25 mg daily.
-ACEI/ARB/ARNi: CM to alves Entresto
-MRA: Start Spironolactone 25mg daily
-SGLT2i: CM to alves SGLT2i
#Obstructive 3v CAD
-[facility] 01/23/25: 99% OM, RESIDENT INTERN RCA, 90% prox diagonal; tandem 70%, 80%, and 70% lesions in mid LAD
-Plan for CABG as an outpatient +/- MVR
-Continue ASA and BB. Start atorvastatin 40mg daily
#Moderate/severe MR
-Echo 01/09/25: Mildly reduced left ventricular systolic function. Left ventricular ejection fraction is 45-50% with basal inferolateral hypokinesis, mild AI, moderate/severe MR.
-[facility] 01/23/25: LVEF 45-50%, moderate central MR, no leaflet tethering or prolapse, mild AI
-Reevaluate after GDMT
-CT surgery considering MV repair with CABG, as above
#Hypoxic respiratory failure, resolved
-Patient initially required intubation. Now down to 4L NC.
-Multifactorial, due to CAP (likely progressed to ARDS) and HFmEF with moderate/severe MR and severe pulmonary hypertension.
-01/20/2025: RA pressure 3 at 190 lb
#PNA, sepsis:
-improving
-completed ABX per pulm/CC.
-Incentive spirometry.
#HTN
-Chronic, stable.
#Anemia
-Chronic, known history of ITP/thalassemia.
-Management per primary team.
#Tremor:
-new since 01/20/25, d/w medicine and barrel inspector tight who will evaluate
-not present today
Subjective/Interval History:
She is feeling ok. Frustrated because she wants breakfast.
DATA:
Cultures:
Blood Cx (01/06/2025): Negative x2
Influenza (01/06/2025): Negative
SARS-CoV-2 Ag (01/06/2025): Negative
Legionella UAg (01/06/2025): Negative
S. Pneumoniae UAg (01/06/2025): Negative
Endotracheal Aspirate Cx (01/08/2025): C. Albicans
Endotracheal Aspirate Cx (01/11/2025): C. Albicans
Blood Cx (01/11/2025): Negative x2
Influenza (01/12/2025): Negative
SARS-CoV-2 Ag (01/12/2025): Negative
CT Chest, 01/06/2025:
IMPRESSION:
Extensive bilateral multifocal pneumonia.
Small bilateral pleural effusions, right greater than left.
Severe coronary artery calcifications. Please correlate with symptoms of and risk factors for coronary artery disease, with further workup as clinically appropriate.
Severe hepatic steatosis.
TTE, 01/09/2025:
CONCLUSIONS
Mildly reduced left ventricular systolic function. Left ventricular ejection
fraction is 45-50% by Thomas's method of discs.
Basal inferolateral hypokinesis.
Mild aortic regurgitation.
Moderate/severe mitral regurgitation.
No prior study available for comparison.
CT Chest, 01/12/2025:
IMPRESSION:
1. Severe bilateral multifocal airspace consolidation with air bronchograms, most suggestive of severe multifocal pneumonia. Pulmonary edema is considered less likely, although not completely excluded.
2. Small bilateral pleural effusions, right greater than left.
3. 6 mm lung nodule within the right lower lobe, which may be related to severe pneumonia. Consider CT examination following resolution of the acute event to evaluate for true pulmonary nodule.
4. Severe coronary arterial calcification. Please correlate with symptoms of and risk factors for coronary artery disease, with further workup as clinically appropriate.
5. Cholelithiasis.
6. Diffuse fatty infiltration of the liver.
TTE, 01/12/2025:
CONCLUSIONS
Mildly reduced left ventricular systolic function.
Inferolateral hypokinesis LV ejection fraction is 40-45% .
Moderate to severe mitral regurgitation.
Compared to previous echo 01/09/2025 reported EF is mildly less. Previously
estimated 45 to 50%. Mitral regurgitation appears a bit more prominent on the
previous study but some of this may be related to imaging technique .
RHC, 01/17/2025:
CONCLUSION:
1. Severely elevated filling pressures (PCWP = 31 mmHg at 93.4 kg) with large V waves (52 mmHg) consistent with a noncompliant left atrium as well as a history of moderate to severe mitral regurgitation.
2. Moderately to severely depressed cardiac function (cardiac index = 1.70 L/min/m� by Joshua equation, 2.0 L/min/m� by thermodilution).
3. 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
TTE, 01/19/2025:
CONCLUSIONS
Mildly reduced left ventricular systolic function.
Left ventricular ejection fraction is 40-45% by visual estimate.
The entire anterior and inferior septum contract well and the rest of the LV
looks mild to moderately hypokinetic.
Mild LAE.
Probably severe mitral regurgitation.
Systolic flow reversal in the pulmonary veins with mitral regurgitation
present.
Trivial pericardial effusion.
No significant change since the prior study of 01/12/2025.
Physical Exam
Vital Signs/Labs
Vital Signs
Temp Pulse Resp BP Pulse Ox
97.8 F 75 20 156/81 95
01/24/25 07:10 01/24/25 04:00 01/24/25 07:10 01/24/25 03:25 01/24/25 07:10
01/23/25 01/24/25 01/25/25
06:59 06:59 06:59
Actual Weight 189 lb 2.506 oz 188 lb 4.396 oz
01/24/25 04:18
01/24/25 04:18
PT 16.8 Sec (11.4-14.6) H 01/07/25 22:10
INR 1.33 01/07/25 22:10
APTT 31.4 Sec (23.4-35.0) 01/19/25 04:02
Magnesium 2.4 mg/dl (1.6-2.3) H 01/22/25 03:40
Triglycerides 165 mg/dl (10-149) H 01/21/25 05:31
LDL Cholesterol, Calc 153 mg/dl 01/21/25 05:31
VLDL Cholesterol, Calc 33 mg/dl (0-30) H 01/21/25 05:31
HDL Cholesterol 51 mg/dl 05/31/25 05:31
01/08/25 01/12/25 01/22/25
04:59 03:34 03:40
Jnv-U-Iryxynqcokw Pept [id number]
Physical Exam
Constitutional: No acute distress and Comfortable
Cardiovascular: Rhythm & rate is regular, Pedal edema is absent, Systolic murmur present and S1S2 is normal
Respiratory: Respiratory effort normal and Crackles Present
Neuro/Psych: AO x 3
Other: Cath Site (clean, no erythema or swelling)
Data Reviewed
-
Date of Service: January 24, 2025
Medical Decision Making: Reviewed Test Results, Independent Historian Assessment, Test Interpretation and Review of Case with other Provider
EKG: Tracing Personally Visualized and interpreted
Echo: Tracing Personally Visualized and interpreted
Labs: Labs Reviewed by me
--- NOTE | 2025-01-24 09:08 | W.PN.HOSP.TC ---
Today's Communication/Plan
-
GDMT.
Assessment / Plan
Assessment / Plan
Gen-awake, alert, NAD
HEENT-NC, AT, anicteric, clear oral mm
Neck-supple
CV-reg, no M, +S1/S2
Lungs-decreased breath sounds bilaterally
Abd-soft, NT, ND
Ext-bilateral lower extremity pedal edema
Musculoskeletal-no cyanosis, clubbing
Neuro-alert and oriented and no neurological deficits, generalized weakness
Skin-warm and dry
Obstructive CAD-aspirin, beta-blockers, statins. Reviewed cardiac cath. Plan for CABG as outpatient. Discussed with daughter at bedside today. Transfer to telemetry today.
Moderate to severe MR-at the time of CABG will be evaluated if required valve replacement or repair.
Acute hypoxic respiratory failure -resolved. Likely due to extensive bilateral pneumonia and heart failure and ARDS. Completed course of steroids diuretic and antibiotics and extubated.
Acute HFmEF-on metoprolol succinate, spironolactone. No need for diuretic. Entresto and SGLT2 inhibitor checking for cost.
SHARMIN -resolved
Leukocytosis-reactive
Sepsis due to extensive multifocal community-acquired pneumonia -sepsis resolved. Now off antibiotics.
Acute left cephalic vein SVT -noted on Doppler ultrasound 01/17. Subcu Lovenox at prophylactic doses.
Hypokalemia -improved.
Elevated LFTs -transaminases normalized. Mild hyperbilirubinemia noted.
Troponin elevation -troponin peaked. Suspected type II [place] due to demand ischemia but could have been her obstructive CAD contributing as well.
Microcytic anemia -hemoglobin stable. Unknown acuity. No clinical evidence of bleeding. B12 603, folate 11, iron 29, TIBC 211, 13% saturation, and ferritin 636.
Impaired fasting glucose - hemoglobin A1c 6.2%. Glucose is now controlled. Continue low resistance subcutaneous NovoLog scale.
Essential hypertension -stable.
Hypothyroidism -levothyroxine.
Morbid obesity due to excess calories
Full code
Total time spent on today's encounter was 52 minutes which included time spent in counseling the patient/family regarding diagnosis and treatment plan as listed above, goals of care, and symptom management. Case was discussed with nursing staff,
specialists, and care coordinators/case management. All labs and imaging personally reviewed by me. Remainder the time spent in detailed review of previous records, lab data, imaging, and other medical provider documentation.
Anticipated Discharge: 24 - 48 hours
Subjective/Interval History
-
Date of Service: January 24, 2025
Patient is sitting in a chair today. No chest pain or shortness of breath. Weak overall.
Objective Data
-
Labs:
Laboratory Results
01/24/25
04:18
WBC 15.8 H
Hgb 10.3 L
Hct 34.1 L
Plt Count 241
Sodium 142
Potassium 3.5
Chloride 112 H
Carbon Dioxide 25
BUN 29 H
Creatinine 0.8
Glucose 135 H
Calcium 8.5
Vital Signs:
Vital Signs
Temp Pulse Resp BP Pulse Ox
97.8 F 84 20 147/79 95
01/24/25 07:10 01/24/25 08:00 01/24/25 07:10 01/24/25 07:08 01/24/25 07:10
I&O
01/23/25 01/24/25 01/25/25
06:59 06:59 06:59
Intake Total 1400 / 1400 1347 / 1347
Output Total 950 / 950 500 / 500
Balance 450 / 450 847 / 847
[2025-01-24] MEDS: NEURONTIN PO ×2 (09:24→10:10)
[2025-01-24] MEDS: LOW STRENGTH ASPIRIN 81 MG PO (09:24)
[2025-01-24] MEDS: LIDOCAINE 4% PATCH 1 PATCH TOPICAL (09:25)
[2025-01-24] MEDS: TOPROL XL 25 MG PO (09:25)
[2025-01-24] MEDS: ALDACTONE 25 MG PO (09:25)
[2025-01-24] MEDS: FLUSH (NSS) 2 FLUSH IV (09:26)
--- NOTE | 2025-01-24 09:33 | PN.DE.MGMTRT ---
Insulin Management
- -
01/24/2025 Diabetes Management Follow up
Patient admitted 01/06 with breathing problem, Pneumonia and CHF. PMH: HTN, hypothyroid. No history of diabetes, A1C on admission 6.2%. Cr today 0.8, eGFR >60.
Patient was started on glycemic protocol on 01/12 due to elevated glucose, > 200. Transitioned off insulin infusion on 01/21 to low corrective insulin with meals.
Patient is oob in chair, alert oriented, able to discuss care Daughter- Jaylyn at bedside, very supportive. Patient and daughter both state she does not have diabetes. Agreed with patient but would encourage diet modification and daily exercise to
help prevent onset of overt diabetes.
Glucose stable, 01/23 premeal 112 to 158, @ HS 158, required no corrective insulin. Fasting 114 POC this AM.
Will make no changes, cont low corrective insulin with meals.
Discussed with nurse. Will cont to follow
Diabetes History
- -
Pre-Admission Diabetes Regimen
01/24/25
04:18
Creatinine 0.8
Lab Results
Hemoglobin A1c 6.2 % (4.0-5.6) H 01/07/25 04:50
Insulin Pump Settings
IP Diabetes Regimen
01/23/25 01/23/25 01/23/25
13:42 17:04 22:12
Glucose
POC Glucose 112 H 134 H 158 H
01/24/25 01/24/25
04:18 07:05
Glucose 135 H
POC Glucose 114 H
Meal type: Dinner
Meal type: Lunch
Amount consumed: 85%
Amount consumed: 50%
Patient Education
[2025-01-24] MEDS: MIRALAX 17 GRAMS PO (10:00)
--- NOTE | 2025-01-24 10:41 | VATNOTE ---
Notified by PCN that the white lumen of pt's PICC line would not flush. During routine rounds assessed both white and purple lumens, both flushed and aspirated with ease. PCN notified.
--- NOTE | 2025-01-24 11:50 | PTCARENOTE ---
Patient motivated to get oob in the chair this morning. Assisted by PT/OT to get oob to the commode and then transferred to the chair. Patient is very weak but feels better in the chair. Lungs clear bilaterally but decreased at the bases. Daughter
in visiting and assisting with hygiene. Call tompkins in reach.
[2025-01-24 12:32] LABS: Glucose - Point of Care 135 mg/dl (70-99)
[2025-01-24] MEDS: LIPITOR 40 MG PO (17:31)
[2025-01-24] MEDS: LOVENOX 40 MG SC (17:32)
[2025-01-24 17:38] LABS: Glucose - Point of Care 147 mg/dl (70-99)
[2025-01-24] MEDS: XALATAN OPHTHALMIC SOLUTION 1 DROP BOTH EYES (21:02)
[2025-01-24] MEDS: COMPAZINE 10 MG IV (21:58)
[2025-01-24] MEDS: ATIVAN 0.5 MG PO (22:26)
[2025-01-24 22:54] LABS: Glucose - Point of Care 128 mg/dl (70-99)
--- NOTE | 2025-01-25 00:15 | PTCARENOTE ---
Patient received at change of shift out of bed to the chair. Assisted back to the bed, x2 max assist with RW. Right wrist puncture with gauze and tegaderm C/D/I, radial pulse palpable. Patient offers no complaints of pain. Reports fatigue. RUE
double lumen PICC flushed but did not have blood return initially. Spoke with VAT team RN who came to the bedside to assess the PICC line, she was able to flush and get blood return. Sinus rhythm on telemetry. Oxygen saturation 94-95% on 2L NC,
patient oxygen was 90% when on room air.
Offered to toilet patient when checking 2300 vitals signs and accucheck but patient declined. Stated she did not have to urinate. The patient had not voided while on this shift. Bladder scanned patient which showed approximately 630mL of urine.
Offered again to toilet patient but she refused. Discussed protocol of bladder scan and straight cath if the patient cannot void but she was adamantly against a catheter but refused to get out of bed to attempt to void. Offered a purewick which the
patient was okay with. Perineal area cleansed and purewick applied. Upon reassessment the patient was only able to void 50mL edward urine. The patient again declined to get out of bed to the bedside commode. Discussed bladder scan and straight cath
protocol again with patient who was agreeable. Spoke with [facility]. Order obtained. See worklist intervention.
[2025-01-25 03:09] VITALS: BP 144/64
[2025-01-25 03:10] VITALS: BMI 37.6
[2025-01-25 03:43] LABS: % Basophils 0.2 % (0-2); % Eosinophils 2.1 % (0-6); % Immature Granulocytes 0.9 % (0-0.5); % Lymphocytes 5.8 % (20.5-51.1); % Monocytes 4.6 % (1.7-9.3); % Neutrophils 86.4 % (42.2-75.2); Absolute Eosinophils 0.3 10^3/uL (0-0.7); Absolute Immature Granulocytes 0.2 10^3/uL (0-0.05); Absolute Monocytes 0.7 10^3/uL (0.1-0.6); Hemoglobin 9.3 g/dL (12.0-16.0); Mean Corpuscular Hgb 18.5 pg (27.0-31.0); Mean Corpuscular Volume 61.8 fL (81.0-99.0); Nucleated Red Blood Cells % 0 %; Platelet Count 221 10^3/uL (130-400); Red Blood Cell Count 5.02 10^6/uL (4.20-5.40); Red Cell Dist. Width 16.5 % (11.5-14.5); White Blood Cell Count 16.3 10^3/uL (4.8-10.8)
[2025-01-25 04:00] LABS: Blood Urea Nitrogen 25 mg/dl (7-17); Calcium 8.5 mg/dl (8.4-10.2); Carbon Dioxide 25 mmol/L (22-30); Chloride 112 mmol/L (98-107); Estimated Creatinine Clearance 71 ml/min; Glucose 143 mg/dl (70-99); Potassium 3.7 mmol/L (3.5-5.1); Sodium 141 mmol/L (135-145); eGFR > 60.00
[2025-01-25] MEDS: SYNTHROID 112 MCG PO (05:30)
--- NOTE | 2025-01-25 07:49 | W.PN.CD ---
Today's Communication / Plan
-
Start sacubitril/valsartan 24/26 mg BID.
Start dapagliflozin 10 mg daily.
Await case management follow up on ARNi/SGLT2i alves.
Confirm that CT surgery has completed all necessary preoperative testing.
Discharge planning (acute rehab).
Impression / Plan
-
Impression/Plan: 74 y/o female with hypothyroidism, HTN, HLD, ITP/thalassemia, admitted with fever and acute hypoxic respiratory failure consistent with CAP with severe sepsis, progressing to ARDS requiring intubation/ventillation (01/07/2025), new
diagnosis of HFmEF (LVEF 45-50% with inferolateral hypokinesis) and moderate severe MR and mildly elevated troponin. Found to have 3v CAD.
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
-New diagnosis. Records from outside showed she was last seen in 2021 at which time she had a normal echo and stress test with no ischemia.
-Echo 01/09/25: Mildly reduced left ventricular systolic function. Left ventricular ejection fraction is 45-50% with basal inferolateral hypokinesis, mild AI, moderate/severe MR.
-Given the complexity of her volume status and pulmonary injury which may increase RV filling pressures - BNP should NOT be used as a marker of volume.
-[facility] 01/23/25: 99% OM, [employer] PA[employer]ABLE BOOKKEEPER RCA, 90% prox diagonal; tandem 70%, 80%, and 70% lesions in mid LAD.
-GDMT
-Diuretics: Start furosemide 40 mg PO. When weight drops, we may transition to daily dosing vs. PRN dosing.
-Beta damian: Metoprolol succinate 25 mg daily.
-ACEI/ARB/ARNi: Sacubitril/Valsartan - case management to alves.
-MRA: Spironolactone 25mg daily.
-SGLT2i: Dapagliflozin 10 mg daily - case management to alves.
#Obstructive 3v CAD
-[facility] 01/23/25: 99% OM, ACC[employer] PAYABLE BOOKKEEPER RCA, 90% prox diagonal; tandem 70%, 80%, and 70% lesions in mid LAD.
-Plan for CABG as an outpatient +/- MVR.
-Continue ASA and BB. Start atorvastatin 40mg daily.
#Moderate/severe MR
-Echo 01/09/25: Mildly reduced left ventricular systolic function. Left ventricular ejection fraction is 45-50% with basal inferolateral hypokinesis, mild AI, moderate/severe MR.
-[facility] 01/23/25: LVEF 45-50%, moderate central MR, no leaflet tethering or prolapse, mild AI.
-Re-evaluate after GDMT.
-CT surgery considering MV repair with CABG, as above.
#Hypoxic respiratory failure
-Patient initially required intubation. Now down to 4L NC.
-Multifactorial, due to CAP (likely progressed to ARDS) and HFmEF with moderate/severe MR and severe pulmonary hypertension.
-01/20/2025: RA pressure 3 at 190 lb.
-Any residual hypoxia likely due to deconditioning/atelectasis. Encourage incentive spirometry.
-This will likely be assisted by PT/OT.
#PNA, sepsis:
-Improving.
-Completed ABX per pulm/CC.
-Incentive spirometry.
#HTN
-Chronic, stable.
#Anemia
-Chronic, known history of ITP/thalassemia.
-Management per primary team.
#Tremor:
-new since 01/20/25, d/w medicine and contract assistant who will evaluate
-not present today
Subjective/Interval History:
Weight is up 2 kg from yesterday (87.4 <-- 85.4). Rishi weight 84.8 (01/22/2025).
Hbg down to 9.3 (from 10.3).
Consistently mild to moderately hypertensive.
DATA:
Cultures:
Blood Cx (01/06/2025): Negative x2
Influenza (01/06/2025): Negative
SARS-CoV-2 Ag (01/06/2025): Negative
Legionella UAg (01/06/2025): Negative
S. Pneumoniae UAg (01/06/2025): Negative
Endotracheal Aspirate Cx (01/08/2025): C. Albicans
Endotracheal Aspirate Cx (01/11/2025): C. Albicans
Blood Cx (01/11/2025): Negative x2
Influenza (01/12/2025): Negative
SARS-CoV-2 Ag (01/12/2025): Negative
CT Chest, 01/06/2025:
IMPRESSION:
Extensive bilateral multifocal pneumonia.
Small bilateral pleural effusions, right greater than left.
Severe coronary artery calcifications. Please correlate with symptoms of and risk factors for coronary artery disease, with further workup as clinically appropriate.
Severe hepatic steatosis.
TTE, 01/09/2025:
CONCLUSIONS
Mildly reduced left ventricular systolic function. Left ventricular ejection
fraction is 45-50% by Thomas's method of discs.
Basal inferolateral hypokinesis.
Mild aortic regurgitation.
Moderate/severe mitral regurgitation.
No prior study available for comparison.
CT Chest, 01/12/2025:
IMPRESSION:
1. Severe bilateral multifocal airspace consolidation with air bronchograms, most suggestive of severe multifocal pneumonia. Pulmonary edema is considered less likely, although not completely excluded.
2. Small bilateral pleural effusions, right greater than left.
3. 6 mm lung nodule within the right lower lobe, which may be related to severe pneumonia. Consider CT examination following resolution of the acute event to evaluate for true pulmonary nodule.
4. Severe coronary arterial calcification. Please correlate with symptoms of and risk factors for coronary artery disease, with further workup as clinically appropriate.
5. Cholelithiasis.
6. Diffuse fatty infiltration of the liver.
TTE, 01/12/2025:
CONCLUSIONS
Mildly reduced left ventricular systolic function.
Inferolateral hypokinesis LV ejection fraction is 40-45% .
Moderate to severe mitral regurgitation.
Compared to previous echo 01/09/2025 reported EF is mildly less. Previously
estimated 45 to 50%. Mitral regurgitation appears a bit more prominent on the
previous study but some of this may be related to imaging technique .
RHC, 01/17/2025:
CONCLUSION:
1. Severely elevated filling pressures (PCWP = 31 mmHg at 93.4 kg) with large V waves (52 mmHg) consistent with a noncompliant left atrium as well as a history of moderate to severe mitral regurgitation.
2. Moderately to severely depressed cardiac function (cardiac index = 1.70 L/min/m� by Joshua equation, 2.0 L/min/m� by thermodilution).
3. 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
TTE, 01/19/2025:
CONCLUSIONS
Mildly reduced left ventricular systolic function.
Left ventricular ejection fraction is 40-45% by visual estimate.
The entire anterior and inferior septum contract well and the rest of the LV
looks mild to moderately hypokinetic.
Mild LAE.
Probably severe mitral regurgitation.
Systolic flow reversal in the pulmonary veins with mitral regurgitation
present.
Trivial pericardial effusion.
No significant change since the prior study of 01/12/2025.
Cardiac Catheterization, 01/23/2025:
CONCLUSIONS
1. Right dominant circulation with multivessel coronary disease including a 99% subtotal occlusion of the proximal circumflex with YADY I flow to the proximal vessel and retrograde filling from the distal OM, a chronic total occlusion of the
proximal RCA supplied by collaterals from the LAD, and 90% lesion in the proximal margin of the large diagonal and tandem 70%, 80% and 70% lesions in the mid LAD.
2. Normal filling pressures (LVEDP = 10 mmHg at 85.7 kg).
3. At least moderate mitral valve regurgitation on transesophageal echocardiography.
Physical Exam
Vital Signs/Labs
Vital Signs
Temp Pulse Resp BP Pulse Ox
36.7 C 76 14 144/64 94
01/25/25 03:09 01/25/25 06:00 01/25/25 03:09 01/25/25 03:09 01/25/25 03:09
01/23/25 01/24/25 01/25/25
11:59 11:59 11:59
Actual Weight 85.8 kg 85.4 kg 87.407 kg
01/25/25 03:17
01/25/25 03:17
PT 16.8 Sec (11.4-14.6) H 01/07/25 22:10
INR 1.33 01/07/25 22:10
APTT 31.4 Sec (23.4-35.0) 01/19/25 04:02
Magnesium 2.4 mg/dl (1.6-2.3) H 01/22/25 03:40
Triglycerides 165 mg/dl (10-149) H 01/21/25 05:31
LDL Cholesterol, Calc 153 mg/dl 01/21/25 05:31
VLDL Cholesterol, Calc 33 mg/dl (0-30) H 01/21/25 05:31
HDL Cholesterol 51 mg/dl 01/21/25 05:31
01/08/25 01/12/25 01/22/25
04:59 03:34 03:40
Mau-Y-Wcodwdlfunc Pept [id number]
Physical Exam
Constitutional: No acute distress and Comfortable
EENT: Anicteric and Moist mucous membranes
Cardiovascular: Rhythm & rate is regular, Pedal edema is absent, JVD pressure is normal, Systolic murmur present and S1S2 is normal
Respiratory: Respiratory effort normal, Lungs clear to auscul., Wheeze Absent, Crackles Absent and Rhonchi Absent
GI: Soft, Distention absent, Flat, Non tender and Normal bowel sounds
Neuro/Psych: AO x 3
Data Reviewed
-
Date of Service: January 25, 2025
Medical Decision Making: Reviewed Test Results, Independent Historian Assessment and Test Interpretation
EKG: Tracing Personally Visualized and interpreted and Report Reviewed by me
Echo: Tracing Personally Visualized and interpreted and Report Reviewed by me
X-Ray/CT/US/MRI/NUC/PET: Image Personally Visualized and interpreted, Report Reviewed by me, Discussed with Physician, Discussed with Patient and Discussed with Family
Medical Tests (PFT, Pathology etc): Image Personally Visualized and interpreted, Report Reviewed by me, Discussed with Physician, Discussed with Patient and Discussed with Family
Labs: Labs Reviewed by me
Old Records: Reviewed
--- NOTE | 2025-01-25 08:03 | PN.DE.MGMTRT ---
Insulin Management
- -
01/25/2025 Diabetes Management Follow up
Patient admitted 01/06 with breathing problem, Pneumonia and CHF. PMH: HTN, hypothyroid. No history of diabetes, A1C on admission 6.2%. Cr today 0.8, eGFR >60. Patient with pre diabetes.
Patient was started on glycemic protocol on 01/12 due to elevated glucose, > 200. Transitioned off insulin infusion on 01/21 to low corrective insulin with meals.
Patient is oob in chair, alert oriented, able to discuss care Daughter- Jaylyn at bedside, very supportive. Patient and daughter both state she does not have diabetes. Agreed with patient but would encourage diet modification and daily exercise to
help prevent onset of overt diabetes.
Glucose stable, 01/24 premeal 114 to 147, @ HS 128, required no corrective insulin. Fasting 143 POC this AM.
Will make no changes, cont low corrective insulin with meals.
Discussed with nurse. Will cont to follow
Diabetes History
- -
Pre-Admission Diabetes Regimen
01/25/25
03:17
Creatinine 0.7
Lab Results
Hemoglobin A1c 6.2 % (4.0-5.6) H 01/07/25 04:50
Insulin Pump Settings
IP Diabetes Regimen
01/24/25 01/24/25 01/24/25
12:31 17:36 22:53
Glucose
POC Glucose 135 H 147 H 128 H
01/25/25
03:17
Glucose 143 H
POC Glucose
Meal type: Lunch
Meal type: Breakfast
Amount consumed: 100%
Amount consumed: 100%
Patient Education
[2025-01-25 08:07] VITALS: BP 155/79
[2025-01-25 08:11] LABS: Glucose - Point of Care 136 mg/dl (70-99)
[2025-01-25] MEDS: NOVOLOG FLEXPEN-LOW RESISTANCE SC ×3 (08:15→18:33)
[2025-01-25] MEDS: LIDOCAINE 4% PATCH 1 PATCH TOPICAL (09:00)
[2025-01-25] MEDS: ALDACTONE 25 MG PO (09:00)
[2025-01-25] MEDS: TOPROL XL 25 MG PO (09:00)
[2025-01-25] MEDS: MIRALAX 17 GRAMS PO (09:00)
[2025-01-25] MEDS: LOW STRENGTH ASPIRIN 81 MG PO (09:00)
--- NOTE | 2025-01-25 10:31 | CM ---
Addendum entered by LATONYA Cho 01/25/25 11:58:
I met with patient and confirmed that she DOES NOT have Medicare, therefore she would qualify for coupons bringing cost down to $10/mo
Original Note:
Priced the following medications through [facility]- [phone]
Entresto- PLEASE NOTE, Patient's PCP had RX'ed this and it was sent to [facility] on 01/10- cost $169.18.
Dexiga- 143.90/mo
Abraham- 151.03/mo
--- NOTE | 2025-01-25 12:20 | W.PN.HOSP.TC ---
Today's Communication/Plan
-
Continue cardiac medications. Discharge planning
Assessment / Plan
Assessment / Plan
Gen-awake, alert, NAD
HEENT-NC, AT, anicteric, clear oral mm
Neck-supple
CV-reg, no M, +S1/S2
Lungs-decreased breath sounds bilaterally
Abd-soft, NT, ND
Ext-bilateral lower extremity pedal edema
Musculoskeletal-no cyanosis, clubbing
Neuro-alert and oriented and no neurological deficits, generalized weakness
Skin-warm and dry
Obstructive CAD-aspirin, beta-blockers, statins. Reviewed cardiac cath. Plan for CABG as outpatient. Discussed with daughter at bedside yesterday. Transferred order to telemetry yesterday.
Moderate to severe MR-at the time of CABG will be evaluated if required valve replacement or repair.
Acute hypoxic respiratory failure -resolved. Likely due to extensive bilateral pneumonia and heart failure and ARDS. Completed course of steroids diuretic and antibiotics and extubated. Oxygen as needed.
Acute HFmEF-on metoprolol succinate, spironolactone. No need for diuretic. Entresto and SGLT2 inhibitor checking for cost.
SHARMIN -resolved
Leukocytosis-reactive
Sepsis due to extensive multifocal community-acquired pneumonia -sepsis resolved. Now off antibiotics.
Acute left cephalic vein SVT -noted on Doppler ultrasound 01/17. Subcu Lovenox at prophylactic doses.
Hypokalemia -improved.
Elevated LFTs -transaminases normalized. Mild hyperbilirubinemia noted.
Troponin elevation -troponin peaked. Suspected type II GA due to demand ischemia but could have been her obstructive CAD contributing as well.
Microcytic anemia -hemoglobin stable. Unknown acuity. No clinical evidence of bleeding. B12 603, folate 11, iron 29, TIBC 211, 13% saturation, and ferritin 636.
Impaired fasting glucose - hemoglobin A1c 6.2%. Glucose is now controlled. Continue low resistance subcutaneous NovoLog scale.
Essential hypertension -stable.
Hypothyroidism -levothyroxine.
Morbid obesity due to excess calories
Full code
Anticipated Discharge: 24 - 48 hours
Subjective/Interval History
-
Date of Service: January 25, 2025
Patient denies any chest pain or shortness of breath today. On supplemental oxygen. Afebrile
Objective Data
-
Labs:
Laboratory Results
01/25/25
03:17
WBC 16.3 H
Hgb 9.3 L
Hct 31.0 L
Plt Count 221
Sodium 141
Potassium 3.7
Chloride 112 H
Carbon Dioxide 25
BUN 25 H
Creatinine 0.7
Glucose 143 H
Calcium 8.5
Vital Signs:
Vital Signs
Temp Pulse Resp BP Pulse Ox
98.1 F 85 18 155/79 97
01/25/25 08:07 01/25/25 10:00 01/25/25 08:07 01/25/25 09:00 01/25/25 08:07
I&O
01/24/25 01/25/25 01/26/25
06:59 06:59 06:59
Intake Total 1347 / 1347 480 / 480
Output Total 500 / 500 600 / 600 75 / 75
Balance 847 / 847 -120 / -120 -75 / -75
[2025-01-25 12:37] LABS: Glucose - Point of Care 128 mg/dl (70-99)
--- NOTE | 2025-01-25 13:08 | CM ---
CM following for DC planning needs.
Met w/ patient, dtr. Willow and other dtr. Jaylyn via speakerphone.
Pt. resides w/ spouse (who is physically disabled) in a [address] w/ [address] [place]. Pt. has a RW at home, which she uses to ambulate.
There is a stair glide in the home as well.
We discussed DC plans. Pt. REALLY wants to go home. Her granddtr. is graduating and she wishes to attend. She will not consider rehab at this time.
Dtrs. feel that if patient is and assist x1 she can be managed at home. Dtr. Jaylyn is the manager ct at [facility]. She reports that they can offer SNF level care at home that she can arrange. At this time, patient is an assist x2. They are
aware of this. Will need updated/ongoing therapy notes. I have asked for updated PT-OT evaluations.
Additionally, patient would require a commode, a short RW and possibly a hosp. bed. Pt. would like referral to [facility].
We did discuss rehab options IF she does not progress the way she wishes to. Her preference would be [facility] [place].
I have sent a referral. Did follow up. They would like PMR consult. TT to to request this.
CM following for DC plans; SNF/AR[facility] v home w/ home-care
[2025-01-25 13:28] VITALS: BP 145/84; PULSE 85; O2SAT 96
--- NOTE | 2025-01-25 16:56 | CON.MD ---
Consultation - Medical
-
Chief Complaint:�Difficulty doing daily tasks after pneumonia
�
History of Present Illness:�74-year-old female with PMH (as below) presented to [facility] on 01/06/2025 with fever and shortness of breath for 1 week. Upon arrival to the emergency department she was found to be hypoxic with an x-ray
concerning for pneumonia. She was started on antibiotics and fluids. COVID-19 antigen negative. Found to be septic with septic shock secondary to pneumonia. Also with acute anemia and transaminitis. Also with severe hepatic steatosis likely
secondary to morbid obesity and severe coronary artery calcification seen radiographically on CT of the chest. She had acute hypoxic respiratory failure and acute respiratory distress and was intubated on 01/07/2025. Found to have new onset acute
heart failure with EF 45-50% on 01/09 and BNP 7000 requiring diuresis. Also with hyperglycemia and prediabetes with glucose elevated on hydrocortisone. Started on dexamethasone for ARDS. Had a troponin of 3.7 but trended down. EKG with anterior
lateral and inferior ST and T wave changes that remain stable. [place] to have a type II demand ischemic myocardial infarction. She had a right heart cath on 01/17/2025 noting elevated filling pressures, noncompliant left atrium and moderate to severe
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 Started on bumetanide drip per cardiology. Extubated on 01/19.
On 01/23/2025 she had a left heart cath noting:
1. Right dominant circulation with multivessel coronary disease including a 99% subtotal occlusion of the proximal circumflex with YADY I flow to the proximal vessel and retrograde filling from the distal OM, a chronic total occlusion of the
proximal RCA supplied by collaterals from the LAD, and 90% lesion in the proximal margin of the large diagonal and tandem 70%, 80% and 70% lesions in the mid LAD.
2. Normal filling pressures (LVEDP = 10 mmHg at 85.7 kg).
3. At least moderate mitral valve regurgitation on transesophageal echocardiography.
RECOMMENDATIONS:
1. Expectant management after cardiac catheterization via right radial approach.
2. Limited weight bearing on the right wrist for one week.
3. Consultation with CT surgery regarding optimal revascularization strategy.
4. OMT/GDMT as hemodynamics will tolerate.
5. Aggressive secondary prevention with high-dose, high potency statin.
She was seen by CT surgery with plan for CABG x 4 and left atrial appendage clip to be done at a later time. She was started on statin, spironolactone and possibility of Entresto versus SGLT2 inhibitor. Plan is for her to have some improvement in
her recovery and go to rehabilitation prior to getting her CABG procedure.
�
Past Medical History:�Hypertension, hypothyroidism, idiopathic thrombocytopenia purpura/thalassemia, asthma, morbid obesity
Procedure History:�Cataract surgery, right TKA, left TKA
Family History:�Mother with osteoporosis
�
Social History:�
Functional Level Premorbidly:�Independent with all activities�
Functional Level Currently:�Mod assist transfer, mod assist ambulating 2 feet from chair to commode x 2. Had dysphagia and has moderate dysphonia. Currently with a regular and thin liquid diet with no overt aspiration observed. Dependent for
toileting and lower extremity self-care.
�
Tobacco:�Denies�
Alcohol:�Denies�
Drug use:�Denies�
�
Lives with:�Spouse
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
Number of floors:�1
# steps to enter:�2 or 6 depending on entrance. Stair glide to enter through the basement
Driving:�Yes
Occupation:�Retired
�
�
Allergies:�
Allergy/AdvReac Type Severity Reaction Status Date / Time
carvedilol Allergy chest Verified 01/06/25 15:46
discomfort
cyclobenzaprine HCl (From Allergy throat Verified 01/06/25 15:46
Flexeril) closing,
tongue
swelling
hydralazine Allergy chest Verified 01/06/25 15:46
discomfort
hydrochlorothiazide Allergy chest Verified 01/06/25 15:46
discomfort
levofloxacin (From Levaquin) Allergy diarrhea Verified 01/06/25 15:46
mivacurium Allergy pseudocholinesterase Verified 01/06/25 15:46
deficiency
oxycodone Allergy Nausea/Vomi Verified 01/06/25 15:46
ting
succinylcholine Allergy pseudocholinesterase Verified 01/06/25 15:46
deficiency
�
Review of Systems:�
Constitutional: (x) abNormal _fatigue
Eye: (x) Normal _
Ear/Nose/Throat: (x) Normal _
Respiratory: (x) abNormal _pneumonia
Cardiovascular: (x) Normal _
Gastrointestinal: (x) Normal _
Genitourinary: (x) Normal _
Musculoskeletal: (x) abNormal _general weakness
Integumentary: (x) Normal _
Neurologic: (x) Normal _
Psychiatric: (x) abNormal _frustrated, just wants to get home
Endocrine: (x) Normal _
Hematologic/Lymphatic: (x) Normal _
Allergic/Immunologic: (x) Normal _
�
Medications:�
Active Current Visit Medication List
Category Date Time Status
Acetaminophen [Tylenol Oral Solution] Med 01/07/25 19:42 Active
650 mg PO Q4HPRN PRN
Aspirin Chewable [Low Strength Aspirin] Med 01/20/25 18:52 Active
81 mg PO DAILY
Atorvastatin [Lipitor] Med 01/24/25 18:00 Active
40 mg PO QPM
Bisacodyl [Dulcolax] Med 01/07/25 18:36 Active
10 mg RECTAL DAILYPRN PRN
Dextrose 50%-Water [Dextrose 50% Syringe] Med 01/20/25 20:00 Active
12.5 grams IV [id number] PRN
Enoxaparin Sodium [Lovenox] Med 01/20/25 18:00 Active
40 mg SC QPM
Flush (0.9% Sodium Chloride) [Flush (Nss)] Med 01/06/25 20:00 Active
See Dose Instructions IV PER PROTOCOL
Glucagon [GlucaGen] Med 01/06/25 19:47 Active
1 mg IM PRN PRN
Insulin Aspart Corrective Low [Novolog Flexpen-Low Med 01/20/25 16:30 Active
Resistance]
See Protocol SC AC
Ipratropium/Albuterol Sulfate [Duoneb] Med 01/07/25 21:01 Active
3 ml INH R Q4HPRN PRN
Latanoprost [Xalatan Ophthalmic Solution] Med 01/06/25 22:00 Active
See Dose Instructions BOTH EYES HS
Levothyroxine [Synthroid] Med 01/20/25 18:52 Active
112 mcg PO DAILY@0600
Lidocaine [Lidocaine 4% Patch] Med 01/08/25 11:00 Active
1 patch TOPICAL DAILY
Lorazepam [Ativan] Med 01/20/25 18:52 Active
0.5 mg PO HSPRN PRN
Metoprolol Xl [Toprol Xl] Med 01/21/25 08:00 Active
25 mg PO DAILY
Polyethylene Glycol Powder [Miralax] Med 01/20/25 18:52 Active
17 grams PO DAILY
Prochlorperazine [Compazine] Med 01/07/25 16:57 Active
10 mg IV Q6HPRN PRN
Remove Patch [Remove Lidocaine Patch] Med 01/08/25 20:00 Active
See Dose Instructions REMOVE DAILY@2000
Spironolactone [Aldactone] Med 01/24/25 09:00 Active
25 mg PO DAILY
Tizanidine [Zanaflex] Med 01/20/25 19:08 Active
2 mg PO Q6HPRN PRN
�
Vitals:�
Temp Pulse Resp BP Pulse Ox
98.1 F 75 18 155/79 95
01/25/25 15:17 01/25/25 15:17 01/25/25 15:17 01/25/25 09:00 01/25/25 15:17
Height 5 ft
Actual Weight 87.407 kg
Body Mass Index (BMI) 37.6
�
Physical Exam:�
General Appearance/Observation: Well-developed, well-nourished female in no apparent distress.�
Pain/Comfort Assessment: Denies�
Mood/Affect: Appropriate�
�
Integumentary/Operative Site:�Right arm line intact
�
Eyes: Conjunctiva/Lids: normal��� Pupils: pupils equal round and reactive to light and Accommodation
Ears/Nose/Throat: oral mucosa moist, throat clear.������������ Lips/Teeth/Gums: normal
Cardiovascular: Heart: regular, no murmur�
Pulses: dorsalis pedis 2+ bilaterally�
Respiratory: Respiratory Effort/Chest Expansion: normal������ Auscultation: Clear to auscultation bilaterally
Gastrointestinal: abdomen not tender, no distension, normal abdominal bowel sounds
Genitourinary: No [place]�
Rectal Exam: Deferred�
Extremities:�Edema: None�Cyanosis: None�Trophic�changes: None
�
Neurology Exam:
Orientation: Alert, Oriented to self, Time, Place�
Memory: Intact for recent medical concerns
Repetition: Intact
Comprehension: Intact
Two step command: Intact
Cranial Nerves:
�� CNII:�Pupillary light reflex: Intact���Visual Field: Intact
�� CN III, IV, : Extraocular muscles: Intact�
�� CN V:�Facial Sensation�at�Forehead: Intact,�Maxilla: Intact,�Mandible: Intact
�� CN VII:�Facial movement: Symmetric
�� CN VIII:�Hearing: Normal
�� CN IX/X:�Speech & swallow: mildly hoarse voice,�Position of Uvula: Midline
�� CN XI:�Shoulder shrug: Symmetric
�� CN XII:�Tongue protrusion: Midline
Sensory:
�� Light touch: Intact in bilateral upper and lower extremities
�
Reflexes:
�� Biceps: 2+ bilaterally
�� Brachioradialis: 2+ bilaterally
�� Triceps: 2+ bilaterally
�� Patellar: 2+ bilaterally
�� Achilles: 2+ bilaterally
�� Babinski: Down going bilaterally
�� Clonus: None
�� Geovanny: Negative bilaterally�
Cerebellar: Dysmetria/Ataxia: None�
Musculoskeletal: Motor: (Manual muscle scale 0-5)�
Muscle SA EF WE EE FF FA HF KE DF EHL PF
Right� 4 5 5 5 5 4 4 5 5 5 5
Left 4 5 5 5 5 4 4 5 5 5 5
�
Tone: Normal in all extremities�
Range of Motion: Passively within normal limits in all extremities�
�
Lab Results
Laboratory Data
01/25/25 03:17
01/25/25 03:17
PT 16.8 Sec (11.4-14.6) H 01/07/25 22:10
INR 1.33 01/07/25 22:10
APTT 31.4 Sec (23.4-35.0) 01/19/25 04:02
Total Bilirubin 1.7 mg/dl (0.2-1.3) H 01/21/25 05:31
Direct Bilirubin 0.2 mg/dl (0.0-0.4) 01/21/25 05:31
AST 18 U/L (14-36) 01/21/25 05:31
ALT 27 U/L (0-35) 01/21/25 05:31
Alkaline Phosphatase 80 U/L (38-126) 01/21/25 05:31
Total Protein 6.5 g/dl (6.3-8.2) 01/21/25 05:31
Albumin 3.2 g/dl (3.5-5.0) L 01/21/25 05:31
�
Diagnostic Results:�as per HPI�
�
Assessment
74 y/o F PMH (HTN, hypothyroidism, ITP/thalassemia, asthma, stroke, morbid obesity) with 01/06/2025 septic shock from bilateral community-acquired pneumonia with VDRF requiring intubation, anemia, transaminitis, acute onset acute heart failure with
EF 45-50%, prediabetes with steroid-induced hyperglycemia, type II myocardial infarction, left/right heart cath with multivessel CAD, moderate to severe mitral regurgitation, pulmonary HTN��requiring CABG x 4 which will be done at a later time and
results in ADL, ambulatory, swallow, speech dysfunction.
Plan�
PM&R�PT/OT to increase independence with ADLs, improve balance, coordination, endurance, strength, mobility, community reintegration, decreased burden of care on others and family education.�
Bilateral PNA with acute hypoxic respiratory failure and VDRF, septic shock: Completed course of antibiotics. DuoNeb as needed
Dysphagia: speech, oral care protocol, aspiration precautions.� Regular with thin liquid diet.�
Hoarse voice: speech, likely related to intubation
Pulmonary HTN: Spironolactone, metoprolol, monitor closely�
HLD: Statin�
Multivessel CAD Aspirin, statin, beta-damian�������������������������������������������
Acute CHF: EF 45�50%, beta damian, spironolactone, monitor fluid status�
Prediabetes with hyperglycemia: Accu-Cheks, insulin sliding scale, metformin, aspart, lantus.�
Hypothyroidism: levothyroxine�
Acute anemia: Likely multifactorial.� Continue to monitor.�
�
Psych: Psychology consult.� Monitor mood, medications as needed.�
Skin: monitor for pressure sores/rashes/lesions.�
Pain: acetaminophen as needed.�
Bowel: Colace and Senna, PRN bisacodyl.�
Bladder: Time void, PVRs, PRN straight cath.�
GI Prophylaxis: Pantoprazole�
DVT Prophylaxis: Mechanical and Lovenox
Pulmonary: Incentive spirometry�
Morbid obesity: Continue to supervisor counseling and guidance patient about diet adjustments to control obesity. Body habitus and increased force to move body and extremities causes further difficulty with functional tasks.�
Safety: Continue to reinforce assistance with all transfers.�
Code Status:� Full code
Dispo�(date/plan/equipment needs): Home with family care.� Social history reviewed.�
Functional and Medical Goals:�Modified Independent with ADL�s, ambulation, transfers�
Discharge Destination:�Acute inpatient rehabilitation�
�
�
Thank you for allowing me to care for your patient. Please contact me with any questions or concerns.
Consultation
-
Date/Time Consultation Performed: 01/25/25
Requesting Provider: Dr. Zachery Guzman
Performing Provider: Dr. Jose Juan Lozano
Reason for Consultation: Rehabilitation placement
--- NOTE | 2025-01-25 18:23 | PTCARENOTE ---
~2879-2094: Handoff report received from nightshift RN. Pt AOx4, NSr 1st degree AVB 70s-80s on tele, SBP 150s, 2L NC satting 96-97%, patient ESPITIA. Ax2 to stand and pivot to commode and recliner with walker. Pt c/o chronic R shoulder pain, lidocaine
patch applied. Pt voided in commode, I/Os charted. Bladder scan completed per protocol. Family at bedside. O2 weaned to 1L NC, satting 97% at this time. All needs met, call tompkins within reach.
~6218-5201: Patient worked with PT. Pt Ax2 to wheelchair and taken to sitting area with family. Patient weaned to RA.
~[id number]: Patient back in room with Ax2 stand and pivot with walker to bed. Washed up by PCT with CHG wipes. PICC line redressed by IV team. Handoff report called to 4 Evan RN. Patient transported in stable condition by this RN and PCT.
[2025-01-25] MEDS: LOVENOX 40 MG SC (18:33)
[2025-01-25] MEDS: LIPITOR PO (18:33)
[2025-01-25 18:35] LABS: Glucose - Point of Care 107 mg/dl (70-99)
--- NOTE | 2025-01-25 18:56 | PTCARENOTE ---
pt received from IVU. pt oriented to room, no complaints offered at this time. call tompkins within reach and pt able to make needs known
[2025-01-25] MEDS: LIPITOR 40 MG PO (19:04)
[2025-01-25 19:55] VITALS: BP 164/80
[2025-01-25] MEDS: ENTRESTO 24 MG/26 MG 1 TAB PO (20:50)
[2025-01-25 21:11] LABS: Glucose - Point of Care 142 mg/dl (70-99)
[2025-01-25] MEDS: XALATAN OPHTHALMIC SOLUTION 1 DROP BOTH EYES (21:54)
[2025-01-25] MEDS: ATIVAN 0.5 MG PO (23:06)
[2025-01-25 23:30] VITALS: BP 159/66
[2025-01-26 03:22] VITALS: BP 158/72
[2025-01-26] MEDS: SYNTHROID 112 MCG PO (05:40)
[2025-01-26 05:55] LABS: B.E. 1.9 mmol/L; HCO3 25.5 mmol/L (21-28); O2 Saturation % 94.4 % (94-98); PCO2 35 mmHg (32-35); pH 7.47 (7.35-7.45)
[2025-01-26 06:00] VITALS: BMI 37.3
[2025-01-26 06:02] LABS: PO2 58 mmHg (83-108)
[2025-01-26 06:07] LABS: % Basophils 0.2 % (0-2); % Eosinophils 3.4 % (0-6); % Immature Granulocytes 0.8 % (0-0.5); % Lymphocytes 6.4 % (20.5-51.1); % Monocytes 5.6 % (1.7-9.3); % Neutrophils 83.6 % (42.2-75.2); Absolute Eosinophils 0.4 10^3/uL (0-0.7); Absolute Immature Granulocytes 0.1 10^3/uL (0-0.05); Absolute Lymphocytes 0.7 10^3/uL (1.2-3.4); Absolute Monocytes 0.6 10^3/uL (0.1-0.6); Absolute Neutrophils 9.5 10^3/uL (1.4-6.5); Hematocrit 28.2 % (37.0-47.0); Hemoglobin 8.8 g/dL (12.0-16.0); Mean Corp Hgb Conc. 31.2 g/dL (33.0-37.0); Mean Corpuscular Hgb 19.1 pg (27.0-31.0); Mean Corpuscular Volume 61.2 fL (81.0-99.0); Nucleated Red Blood Cells % 0 %; Platelet Count 200 10^3/uL (130-400); Red Blood Cell Count 4.61 10^6/uL (4.20-5.40); Red Cell Dist. Width 16.3 % (11.5-14.5); White Blood Cell Count 11.4 10^3/uL (4.8-10.8)
[2025-01-26 06:08] LABS: INR 1.16; PT 15.3 Sec (11.4-14.6)
[2025-01-26 06:09] LABS: APTT 35.1 Sec (23.4-35.0)
[2025-01-26 06:24] LABS: ALT (SGPT) 28 U/L (0-35); AST (SGOT) 18 U/L (14-36); Albumin 2.8 g/dl (3.5-5.0); Alkaline Phosphatase 83 U/L (38-126); Blood Urea Nitrogen 20 mg/dl (7-17); Calcium 8.6 mg/dl (8.4-10.2); Carbon Dioxide 25 mmol/L (22-30); Chloride 109 mmol/L (98-107); Direct Bilirubin 0.1 mg/dl (0.0-0.4); Estimated Creatinine Clearance 71 ml/min; Glucose 111 mg/dl (70-99); Potassium 3.6 mmol/L (3.5-5.1); Sodium 139 mmol/L (135-145); Total Bilirubin 1.4 mg/dl (0.2-1.3); Total Protein 5.7 g/dl (6.3-8.2); eGFR > 60.00
--- NOTE | 2025-01-26 06:39 | PTCARENOTE ---
0600 ABG resulted, ph was 7.47. Patient placed on 2L of O2 per respiratory. pipe manufacture supervisor REVIEW COORDINATOR made aware.
[2025-01-26 07:00] VITALS: BP 149/77
--- NOTE | 2025-01-26 07:25 | W.PN.HOSP.TC ---
Today's Communication/Plan
-
Continue GDMT. Home oxygen assessment. Discharge planning
Assessment / Plan
Assessment / Plan
Gen-awake, alert, NAD
HEENT-NC, AT, anicteric, clear oral mm
Neck-supple
CV-reg, no M, +S1/S2
Lungs-decreased breath sounds bilaterally
Abd-soft, NT, ND
Ext-bilateral lower extremity pedal edema
Musculoskeletal-no cyanosis, clubbing
Neuro-alert and oriented and no neurological deficits, generalized weakness
Skin-warm and dry
Obstructive CAD-aspirin, beta-blockers, statins. Reviewed cardiac cath. Plan for CABG as outpatient. Discussed with daughter at bedside prior. Rehab consulted.
Moderate to severe MR-at the time of CABG will be evaluated if required valve replacement or repair. Assess for home oxygen
Acute hypoxic respiratory failure -resolved. Likely due to extensive bilateral pneumonia and heart failure and ARDS. Completed course of steroids diuretic and antibiotics and extubated. Oxygen as needed.
Acute HFmEF-on metoprolol succinate, spironolactone, Entresto, and spironolactone. No need for diuretic but can use if weight more than 192 pounds-discussed with cardiology.
SHARMIN -resolved
Leukocytosis-reactive
Sepsis due to extensive multifocal community-acquired pneumonia -sepsis resolved. Now off antibiotics.
Acute left cephalic vein SVT -noted on Doppler ultrasound 01/17. Subcu Lovenox at prophylactic doses.
Hypokalemia -improved.
Elevated LFTs -transaminases normalized. Mild hyperbilirubinemia noted.
Troponin elevation -troponin peaked. Suspected type II [place] due to demand ischemia but could have been her obstructive CAD contributing as well.
Microcytic anemia -hemoglobin stable. Unknown acuity. No clinical evidence of bleeding. B12 603, folate 11, iron 29, TIBC 211, 13% saturation, and ferritin 636.
Impaired fasting glucose - hemoglobin A1c 6.2%. Glucose is now controlled. Continue low resistance subcutaneous NovoLog scale.
Essential hypertension -stable.
Hypothyroidism -levothyroxine.
Morbid obesity due to excess calories
Full code
Anticipated Discharge: Within 24 hours
Subjective/Interval History
-
Date of Service: January 26, 2025
Patient feels well no chest pain or shortness of breath. Afebrile
Objective Data
-
Labs:
Laboratory Results
01/26/25 01/26/25
05:10 05:40
WBC 11.4 H
Hgb 8.8 L
Hct 28.2 L
Plt Count 200
PT 15.3 H
INR 1.16
APTT 35.1 H
HCO3 25.5
Sodium 139
Potassium 3.6
Chloride 109 H
Carbon Dioxide 25
BUN 20 H
Creatinine 0.7
Glucose 111 H
Calcium 8.6
Total Bilirubin 1.4 H
AST 18
ALT 28
Alkaline Phosphatase 83
Vital Signs:
Vital Signs
Temp Pulse Resp BP Pulse Ox
99.1 F 82 16 158/72 92
01/26/25 03:22 01/26/25 03:22 01/26/25 03:22 01/26/25 03:22 01/26/25 03:22
I&O
01/25/25 01/26/25 01/27/25
06:59 06:59 06:59
Intake Total 480 / 480
Output Total 600 / 600 1075 / 1075
Balance -120 / -120 -1075 / -1075
--- NOTE | 2025-01-26 07:29 | PN.DE.MGMTRT ---
Insulin Management
- -
01/26/2025 Diabetes Management Follow up
Patient admitted 01/06 with breathing problem, Pneumonia and CHF. PMH: HTN, hypothyroid. No history of diabetes, A1C on admission 6.2%. Cr today 0.8, eGFR >60. Patient with pre diabetes.
Patient was started on glycemic protocol on 01/12 due to elevated glucose, > 200. Transitioned off insulin infusion on 01/21 to low corrective insulin with meals.
Patient is off the unit for ultrasound at the time of my visit. Discussed with nurse pre diabetes status and Farxiga started by Cardiology.
Glucose stable, 01/25 premeal 128 to 147, required no corrective insulin. Fasting [address] Garcia, cardiology has started Farxiga 10 mg daily, first dose today. Will make no changes, cont low corrective insulin with meals.
Discussed with nurse. Will cont to follow
Diabetes History
- -
Pre-Admission Diabetes Regimen
01/26/25
05:10
Creatinine 0.7
Lab Results
Hemoglobin A1c 6.2 % (4.0-5.6) H 01/07/25 04:50
Insulin Pump Settings
IP Diabetes Regimen
01/25/25 01/25/25 01/25/25
08:10 12:36 18:31
Glucose
POC Glucose 136 H 128 H 107 H
01/25/25 01/26/25
21:10 05:10
Glucose 111 H
POC Glucose 142 H
Meal type: Lunch
Meal type: Breakfast
Amount consumed: 80%
Amount consumed: 60%
Patient Education
--- NOTE | 2025-01-26 08:13 | W.PN.CD ---
Today's Communication / Plan
-
increase metoprolol to 50mg daily
Impression / Plan
-
Impression/Plan: 74 y/o female with hypothyroidism, HTN, HLD, ITP/thalassemia, admitted with fever and acute hypoxic respiratory failure consistent with CAP with severe sepsis, progressing to ARDS requiring intubation/ventillation (01/07/2025), new
diagnosis of HFmEF (LVEF 45-50% with inferolateral hypokinesis) and moderate severe MR and mildly elevated troponin. Found to have 3v CAD.
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
-New diagnosis. Records from outside showed she was last seen in 2021 at which time she had a normal echo and stress test with no ischemia.
-Echo 01/09/25: Mildly reduced left ventricular systolic function. Left ventricular ejection fraction is 45-50% with basal inferolateral hypokinesis, mild AI, moderate/severe MR.
-Given the complexity of her volume status and pulmonary injury which may increase RV filling pressures - BNP should NOT be used as a marker of volume.
-C 01/23/25: 99% OM, CD REACTOR OPERATOR HEAD RCA, 90% prox diagonal; tandem 70%, 80%, and 70% lesions in mid LAD.
-GDMT
-Diuretics: Start furosemide 40 mg PO daily PRN weight >192lbs
-Beta damian: Metoprolol succinate increase to 50mg daily.
-ACEI/ARB/ARNi: Sacubitril/Valsartan - case management to [facility]ves.
-MRA: Spironolactone 25mg daily.
-SGLT2i: Dapagliflozin 10 mg daily - case management to alves.
#Obstructive 3v CAD
-C 01/23/25: 99% OM, CD REACTOR OPERATOR HEAD RCA, 90% prox diagonal; tandem 70%, 80%, and 70% lesions in mid LAD.
-Plan for CABG as an outpatient +/- MVR.
-Continue ASA and BB. Start atorvastatin 40mg daily.
#Moderate/severe MR
-Echo 01/09/25: Mildly reduced left ventricular systolic function. Left ventricular ejection fraction is 45-50% with basal inferolateral hypokinesis, mild AI, moderate/severe MR.
-TATYANA 01/23/25: LVEF 45-50%, moderate central MR, no leaflet tethering or prolapse, mild AI.
-Re-evaluate after GDMT.
-CT surgery considering MV repair with CABG, as above.
#Hypoxic respiratory failure
-Patient initially required intubation. Now down to 4L NC.
-Multifactorial, due to CAP (likely progressed to ARDS) and HFmEF with moderate/severe MR and severe pulmonary hypertension.
-01/20/2025: RA pressure 3 at 190 lb.
-Any residual hypoxia likely due to deconditioning/atelectasis. Encourage incentive spirometry.
-This will likely be assisted by PT/OT.
#PNA, sepsis:
-Improving.
-Completed ABX per pulm/CC.
-Incentive spirometry.
#HTN
-Chronic, stable.
#Anemia
-Chronic, known history of ITP/thalassemia.
-Management per primary team.
#Tremor:
-new since 01/20/25, d/w medicine and tapping machine operator automatic who will evaluate
-not present today
Subjective/Interval History:
she is tired but feeling better
DATA:
Cultures:
Blood Cx (01/06/2025): Negative x2
Influenza (01/06/2025): Negative
SARS-CoV-2 Ag (01/06/2025): Negative
Legionella UAg (01/06/2025): Negative
S. Pneumoniae UAg (01/06/2025): Negative
Endotracheal Aspirate Cx (01/08/2025): C. Albicans
Endotracheal Aspirate Cx (01/11/2025): C. Albicans
Blood Cx (01/11/2025): Negative x2
Influenza (01/12/2025): Negative
SARS-CoV-2 Ag (01/12/2025): Negative
CT Chest, 01/06/2025:
IMPRESSION:
Extensive bilateral multifocal pneumonia.
Small bilateral pleural effusions, right greater than left.
Severe coronary artery calcifications. Please correlate with symptoms of and risk factors for coronary artery disease, with further workup as clinically appropriate.
Severe hepatic steatosis.
TTE, 01/09/2025:
CONCLUSIONS
Mildly reduced left ventricular systolic function. Left ventricular ejection
fraction is 45-50% by Thomas's method of discs.
Basal inferolateral hypokinesis.
Mild aortic regurgitation.
Moderate/severe mitral regurgitation.
No prior study available for comparison.
CT Chest, 01/12/2025:
IMPRESSION:
1. Severe bilateral multifocal airspace consolidation with air bronchograms, most suggestive of severe multifocal pneumonia. Pulmonary edema is considered less likely, although not completely excluded.
2. Small bilateral pleural effusions, right greater than left.
3. 6 mm lung nodule within the right lower lobe, which may be related to severe pneumonia. Consider CT examination following resolution of the acute event to evaluate for true pulmonary nodule.
4. Severe coronary arterial calcification. Please correlate with symptoms of and risk factors for coronary artery disease, with further workup as clinically appropriate.
5. Cholelithiasis.
6. Diffuse fatty infiltration of the liver.
TTE, 01/12/2025:
CONCLUSIONS
Mildly reduced left ventricular systolic function.
Inferolateral hypokinesis LV ejection fraction is 40-45% .
Moderate to severe mitral regurgitation.
Compared to previous echo 01/09/2025 reported EF is mildly less. Previously
estimated 45 to 50%. Mitral regurgitation appears a bit more prominent on the
previous study but some of this may be related to imaging technique .
RHC, 01/17/2025:
CONCLUSION:
1. Severely elevated filling pressures (PCWP = 31 mmHg at 93.4 kg) with large V waves (52 mmHg) consistent with a noncompliant left atrium as well as a history of moderate to severe mitral regurgitation.
2. Moderately to severely depressed cardiac function (cardiac index = 1.70 L/min/m� by Joshua equation, 2.0 L/min/m� by thermodilution).
3. 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
TTE, 01/19/2025:
CONCLUSIONS
Mildly reduced left ventricular systolic function.
Left ventricular ejection fraction is 40-45% by visual estimate.
The entire anterior and inferior septum contract well and the rest of the LV
looks mild to moderately hypokinetic.
Mild LAE.
Probably severe mitral regurgitation.
Systolic flow reversal in the pulmonary veins with mitral regurgitation
present.
Trivial pericardial effusion.
No significant change since the prior study of 01/12/2025.
Cardiac Catheterization, 01/23/2025:
CONCLUSIONS
1. Right dominant circulation with multivessel coronary disease including a 99% subtotal occlusion of the proximal circumflex with YADY I flow to the proximal vessel and retrograde filling from the distal OM, a chronic total occlusion of the
proximal RCA supplied by collaterals from the LAD, and 90% lesion in the proximal margin of the large diagonal and tandem 70%, 80% and 70% lesions in the mid LAD.
2. Normal filling pressures (LVEDP = 10 mmHg at 85.7 kg).
3. At least moderate mitral valve regurgitation on transesophageal echocardiography.
Physical Exam
Vital Signs/Labs
Vital Signs
Temp Pulse Resp BP Pulse Ox
99.1 F 82 16 158/72 92
01/26/25 03:22 01/26/25 03:22 01/26/25 03:22 01/26/25 03:22 01/26/25 03:22
01/25/25 01/26/25 01/27/25
06:59 06:59 06:59
Actual Weight 192 lb 11.2 oz 191 lb 2 oz
01/26/25 05:10
01/26/25 05:10
PT 15.3 Sec (11.4-14.6) H 01/26/25 05:10
INR 1.16 01/26/25 05:10
APTT 35.1 Sec (23.4-35.0) H 01/26/25 05:10
Magnesium 2.4 mg/dl (1.6-2.3) H 01/22/25 03:40
Triglycerides 165 mg/dl (10-149) H 01/21/25 05:31
LDL Cholesterol, Calc 153 mg/dl 01/21/25 05:31
VLDL Cholesterol, Calc 33 mg/dl (0-30) H 01/21/25 05:31
HDL Cholesterol 51 mg/dl 01/21/25 05:31
01/08/25 01/12/25 01/22/25
04:59 03:34 03:40
Tsz-K-Qccqrymqudi Pept [id number]
Physical Exam
Constitutional: No acute distress
Cardiovascular: Rhythm & rate is regular, Pedal edema is absent, JVD pressure is normal and Systolic murmur absent
Respiratory: Respiratory effort normal, Lungs clear to auscul., Wheeze Absent, Crackles Absent and Rhonchi Absent
Neuro/Psych: AO x 3
Data Reviewed
-
Date of Service: January 26, 2025
Medical Decision Making: Review of Case with other Provider (Dr Guzman increase kennedy burrell)
[2025-01-26 08:20] LABS: Glucose - Point of Care 117 mg/dl (70-99)
[2025-01-26] MEDS: NOVOLOG FLEXPEN-LOW RESISTANCE SC ×2 (08:27→12:03)
[2025-01-26] MEDS: ENTRESTO 24 MG/26 MG 1 TAB PO (08:28)
[2025-01-26] MEDS: LOW STRENGTH ASPIRIN 81 MG PO (08:28)
[2025-01-26] MEDS: LIDOCAINE 4% PATCH 1 PATCH TOPICAL (08:32)
[2025-01-26] MEDS: TOPROL XL 25 MG PO ×2 (08:32→09:25)
[2025-01-26] MEDS: ALDACTONE 25 MG PO (08:32)
[2025-01-26] MEDS: MIRALAX 17 GRAMS PO (08:32)
[2025-01-26] MEDS: FARXIGA 10 MG PO (08:32)
[2025-01-26 11:40] VITALS: BP 118/57
[2025-01-26 11:57] VITALS: BP 118/57; PULSE 74; O2SAT 92
[2025-01-26 11:59] LABS: Glucose - Point of Care 108 mg/dl (70-99)
--- NOTE | 2025-01-26 13:58 | CM ---
Addendum entered by Felisa Altman 01/26/25 15:13:
CM received call from [facility], auth approved 01/26-02/01, auth #[id number]. Patient and daughter seen bedside, aware of approval, plan for discharge to [facility] today.
[facility] Report: [phone]
[facility]
Original Note:
CM reviewed chart, patient seen bedside with daughter, requesting PT/OT to work with patient, if patient assist x1, comfortable bringing patient home with [facility], will need a commode, RW, hospital bed, otherwise agreeable to acute rehab
at [facility]. PT/OT continue to recommend acute rehab, patient/daughter Jaylyn agreeable, auth submitted to [facility], auth being submitted to certified medical dosimetrist, discussed PMR consult completed 01/25 also recommending acute rehab- pending reference
#[id number]. CM will continue to follow for all discharge planning needs.
Plan; await auth from certified medical dosimetrist for [facility], pending reference #[id number]
[2025-01-26 15:00] VITALS: BP 163/74
--- NOTE | 2025-01-26 15:07 | W.DCSUMMARY ---
Discharge Summary
Discharge Data
Date of Admission: 01/06/25
Date of Discharge: 01/26/25
Total time spent discharging patient (in min): 42
-
Pending Results: No
Hospital Course
Patient 74 years old female history of ITP/thalassemia CVA, hypertension, hypothyroidism, asthma, presented to the heart with respiratory failure. Patient found to have severe pneumonia and went into ARDS. Pulmonary teaching pastor had her on
mechanical ventilation in ICU for a while. She was treated with IV steroid and broad-spectrum IV antibiotics. Cardiology was also consulted and she had elevated troponin and wall motion abnormalities as well as reduced ejection fraction. She
underwent cardiac catheterization revealed multivessel CAD. She was recommended to undergo CABG. Cardiology and CT surgery recommended to recover as outpatient and they will bring her back for bypass surgery in the near future. Patient cardiac
medications have been adjusted. Otherwise, patient is hemodynamically stable and has shown signs of substantial improvement. She will be going to acute rehab for further rehabilitation.
Discharge duration: 42 minutes
Discharge Plan
-
Patient Disposition: Acute Rehab Facility
Discharge Diagnosis/Procedures: Acute hypoxic respiratory failure. Acute systolic congestive heart failure. Obstructive coronary artery disease. Moderate to severe mitral regurgitation. Acute kidney injury. Sepsis due to extensive pneumonia.
Acute left cephalic vein thrombosis.
Diet: Low Cholesterol, 2 Gram Sodium, Diabetic, Carb Controlled and Restrict fluids to 64 oz
Activity: As tolerated
Blood Work: Please PCP to order CBC, BMP within 1 week
Specialty Instructions: Weigh Daily- Call MD for wt gain/loss 3 lbs overnight/5 lbs in 1 week
Referrals:
Osman Priest MD [Active] - in two to three weeks
Tulio Whelan MD [Active, Cardiac Surgery] - 02/13/25 1:30 pm
Referral Note: to discuss heart surgery
UNKNOWN,NO INTERVIEW [Family Provider]
Tyrone Wang MD [Active, Cardiology] - in two to three weeks
Prescriptions:
New
spironolactone 25 mg Tablet
25 mg PO DAILY 30 Days Qty: 30 0RF
dapagliflozin propanediol 10 mg Tablet
10 mg PO DAILY 30 Days Qty: 30 0RF
Entresto 24-26 mg Tablet
1 tab PO BID 30 Days Qty: 60 0RF
furosemide 40 mg Tablet
40 mg PO DAILYPRN PRN (Reason: wt of 192# or more) Qty: 4 0RF
atorvastatin 40 mg Tablet
40 mg PO QPM 30 Days Qty: 30 0RF
aspirin 81 mg Tablet,Chewable
81 mg PO DAILY Qty: 30 0RF
metoprolol succinate 50 mg Tablet Extended Release 24 Hr
50 mg PO DAILY 30 Days Qty: 30 0RF
Continued
levothyroxine 112 MCG tablet
112 mcg PO DAILY
latanoprost 1 DROP drops
1 drp BOTH EYES HS
Patient Comments:
lorazepam 0.5 MG tablet
0.5 mg PO HSPRN PRN (Reason: anxiety) Qty: 1 0RF
tizanidine 2 mg Tablet
2 mg PO Q6HPRN PRN (Reason: muscle spasms)
Discontinued
metoprolol succinate 50 mg Capsule,Sprinkle,Er 24hr
50 mg PO HS
acetaminophen [Tylenol Arthritis] 650 mg Tablet Extended Release
1,300 mg PO [id number] PRN (Reason: mild pain)
gabapentin 100 mg Capsule
100 mg PO Q8HPRN PRN (Reason: mild pain)
elderberry fruit 350 mg Capsule
350 mg PO DAILY
Discharge Orders:
Discharge Patient (As Directed); Ordered 01/26/25
Ordered By: Zachery Guzman
Care Plan Goals
Care Plan Goals:
Problem: Readiness for enhanced knowledge related to diagnosis and treatment plan
Goal: Understand your diagnosis and treatment plan needs, including medications if applicable.
Instructions: Know your diagnosis, underlying causes and treatment plan options, including medications if applicable. Consult with your health care team to learn about your diagnosis and treatment plan, including medications if applicable.
Discharge Date and Time
Print Language: ICELANDIC
== END 2025-01-26 17:35 | DRG 870 ==
LOC: 4 WEST ACU 17:52
PROVIDERS: Hospitalist; Internal Medicine Cardiovascular Disease; Nurse Practitioner; Nurse Practitioner Family; Nurse Practitioner Primary Care; Radiology Diagnostic Radiology; Radiology Neuroradiology; Radiology Vascular & Interventional Radiology; Registered Nurse; Student in an Organized Health Care Education/Training Program; ADMITTING PHYSICIAN Hospitalist; ATTENDING PHYSICIAN Hospitalist; CONSULT PHYSICIAN Internal Medicine; CONSULT PHYSICIAN Internal Medicine Critical Care Medicine; CONSULT PHYSICIAN Physical Medicine & Rehabilitation; CONSULT PHYSICIAN Thoracic Surgery (Cardiothoracic Vascular Surgery); EMERGENCY PHYSICIAN Student in an Organized Health Care Education/Training Program; OTHER PHYSICIAN Internal Medicine
PROC: 5A0945A Assistance with Respiratory Ventilation, 24-96 Consecutive Hours, High Flow/Velocity Cannula (ICD-10-PCS; 2025-01-06)
PROC: 0BH17EZ Insertion of Endotracheal Airway into Trachea, Via Natural or Artificial Opening (ICD-10-PCS; 2025-01-07)
PROC: 5A1955Z Respiratory Ventilation, Greater than 96 Consecutive Hours (ICD-10-PCS; 2025-01-07)
PROC: 0DH67UZ Insertion of Feeding Device into Stomach, Via Natural or Artificial Opening (ICD-10-PCS; 2025-01-08)
PROC: 4A133B1 Monitoring of Arterial Pressure, Peripheral, Percutaneous Approach (ICD-10-PCS; 2025-01-12)
PROC: 4A133J1 Monitoring of Arterial Pulse, Peripheral, Percutaneous Approach (ICD-10-PCS; 2025-01-12)
PROC: 03HY32Z Insertion of Monitoring Device into Upper Artery, Percutaneous Approach (ICD-10-PCS; 2025-01-12)
PROC: B2141ZZ Fluoroscopy of Right Heart using Low Osmolar Contrast (ICD-10-PCS; 2025-01-17)
PROC: 02HQ32Z Insertion of Monitoring Device into Right Pulmonary Artery, Percutaneous Approach (ICD-10-PCS; 2025-01-17)
PROC: 4A133B3 Monitoring of Arterial Pressure, Pulmonary, Percutaneous Approach (ICD-10-PCS; 2025-01-17)
PROC: 4A023N6 Measurement of Cardiac Sampling and Pressure, Right Heart, Percutaneous Approach (ICD-10-PCS; 2025-01-17)
PROC: 4A1239Z Monitoring of Cardiac Output, Percutaneous Approach (ICD-10-PCS; 2025-01-17)
PROC: 02H633Z Insertion of Infusion Device into Right Atrium, Percutaneous Approach (ICD-10-PCS; 2025-01-18)
PROC: 5A09357 Assistance with Respiratory Ventilation, Less than 24 Consecutive Hours, Continuous Positive Airway Pressure (ICD-10-PCS; 2025-01-19)
PROC: B24BZZ4 Ultrasonography of Heart with Aorta, Transesophageal (ICD-10-PCS; 2025-01-23)
PROC: B2111ZZ Fluoroscopy of Multiple Coronary Arteries using Low Osmolar Contrast (ICD-10-PCS; 2025-01-23)
PROC: 4A023N7 Measurement of Cardiac Sampling and Pressure, Left Heart, Percutaneous Approach (ICD-10-PCS; 2025-01-23)
DX: A41.89 Other specified sepsis (principal); J18.9 Pneumonia, unspecified organism; R65.21 Severe sepsis with septic shock; J80 Acute respiratory distress syndrome; I50.23 Acute on chronic systolic (congestive) heart failure; I21.A1 Myocardial infarction type 2; D69.3 Immune thrombocytopenic purpura; E87.20 Acidosis, unspecified; Z99.11 Dependence on respirator [ventilator] status; N17.9 Acute kidney failure, unspecified; I82.612 Acute embolism and thrombosis of superficial veins of left upper extremity; E87.4 Mixed disorder of acid-base balance; I11.0 Hypertensive heart disease with heart failure; E03.9 Hypothyroidism, unspecified; R73.9 Hyperglycemia, unspecified; R74.01 Elevation of levels of liver transaminase levels; E86.0 Dehydration; R91.8 Other nonspecific abnormal finding of lung field; R73.03 Prediabetes; J45.909 Unspecified asthma, uncomplicated; E66.01 Morbid (severe) obesity due to excess calories; I25.10 Atherosclerotic heart disease of native coronary artery without angina pectoris; K76.0 Fatty (change of) liver, not elsewhere classified; F41.1 Generalized anxiety disorder; I34.0 Nonrheumatic mitral (valve) insufficiency; H40.9 Unspecified glaucoma; D50.9 Iron deficiency anemia, unspecified; D56.9 Thalassemia, unspecified; G47.33 Obstructive sleep apnea (adult) (pediatric); R91.1 Solitary pulmonary nodule; I25.5 Ischemic cardiomyopathy; R13.10 Dysphagia, unspecified; K80.20 Calculus of gallbladder without cholecystitis without obstruction; I27.22 Pulmonary hypertension due to left heart disease; I27.23 Pulmonary hypertension due to lung diseases and hypoxia; I95.9 Hypotension, unspecified; E87.6 Hypokalemia; Z96.653 Presence of artificial knee joint, bilateral; Z90.710 Acquired absence of both cervix and uterus; Z86.2 Personal history of diseases of the blood and blood-forming organs and certain disorders involving the immune mechanism; Z79.82 Long term (current) use of aspirin; Z79.890 Hormone replacement therapy; Z79.52 Long term (current) use of systemic steroids; Z88.1 Allergy status to other antibiotic agents; Z88.5 Allergy status to narcotic agent; Z88.8 Allergy status to other drugs, medicaments and biological substances; Z11.52 Encounter for screening for COVID-19; Z82.62 Family history of osteoporosis; Z86.73 Personal history of transient ischemic attack (TIA), and cerebral infarction without residual deficits; Z68.39 Body mass index [BMI] 39.0-39.9, adult; Z82.49 Family history of ischemic heart disease and other diseases of the circulatory system
CPT/HCPCS: 93308; 36600; 71045; 71250; 71260; 74018; 80048; 80053; 80061; 80202; 81003; 81015; 82248; 82570; 82607; 82728; 82746; 82805; 82962; 83036; 83516; 83540; 83550; 83605; 83735; 83880; 84100; 84145; 84300; 84478; 84484; 85025; 85027; 85045; 85610; 85730; 86038; 86850; 86900; 86901; 87040; 87070; 87205; 87449; 87502; 87641; 87811; 87899; 92526; 92610; 93005; 93306; 93312; 93320; 93321; 93325; 93451; 93458; 93880; 93971; 94002; 94003; 94640; 94660; 96361; 96365; 96375; 97116; 97163; 97164; 97167; 97530; 97535; 99152; 99153; 99291; C1894; Q9967

== ENCOUNTER → 2025-02-09 09:52 | Outpatient (REF) | payer BC, SELFPAY | LOC: HWRAD 09:52 | PROVIDERS: ATTENDING PHYSICIAN Nurse Practitioner; FAMILY PHYSICIAN Family Medicine | DX: I25.10 Atherosclerotic heart disease of native coronary artery without angina pectoris (principal); I34.0 Nonrheumatic mitral (valve) insufficiency | CPT/HCPCS: 71250 ==

== ENCOUNTER → 2025-03-03 10:13 | Outpatient (REF) | payer OTHER, SELFPAY | LOC: HWRCS 10:13 | PROVIDERS: ATTENDING PHYSICIAN Thoracic Surgery (Cardiothoracic Vascular Surgery) | DX: I25.10 Atherosclerotic heart disease of native coronary artery without angina pectoris (principal); Z01.810 Encounter for preprocedural cardiovascular examination | CPT/HCPCS: 93306 ==

== ENCOUNTER → 2025-03-07 09:44 | Outpatient (REF) | payer OTHER, SELFPAY | LOC: HWRAD 09:44 | PROVIDERS: ATTENDING PHYSICIAN Thoracic Surgery (Cardiothoracic Vascular Surgery); FAMILY PHYSICIAN Family Medicine | DX: Z01.810 Encounter for preprocedural cardiovascular examination (principal); I25.10 Atherosclerotic heart disease of native coronary artery without angina pectoris | CPT/HCPCS: 71250 ==

== ENCOUNTER → 2025-05-09 13:03 | Outpatient (REF) | payer OTHER, SELFPAY | LOC: HWRAD 13:03 | PROVIDERS: ATTENDING PHYSICIAN Thoracic Surgery (Cardiothoracic Vascular Surgery); FAMILY PHYSICIAN Family Medicine | DX: Z01.810 Encounter for preprocedural cardiovascular examination (principal); I25.10 Atherosclerotic heart disease of native coronary artery without angina pectoris | CPT/HCPCS: 71250; 93306 ==

== ENCOUNTER 2025-05-23 05:05 | Inpatient (IN) | payer OTHER, SELFPAY ==
--- NOTE | 2025-03-09 10:23 | CM ---
Chart reviewed. Met with the patient and her daughter in [facility]. Reviewed preoperative and postoperative instructions and restrictions, along with showering guidelines. Gave patient 2 soaps and Cardiac Surgery Book. Patient is agreeable to a home
visit by CT Transitional RN. Patient is independent of ADLS, lives with her in a 1 ST, 4 [place] in the front and ramp access around the back, patient does not use any DME but has a RW and SPC at home if needed, along with a chair glide to
the basement. Patient was hospitalized at [facility] 01/06-01/26 and discharged to [place]. Patient is current with [facility] PT/OT/VN. [facility] but willing to come to the hospital. Patient with a
supportive family. Plan is for the patient to return home with CT Transitional RN.
[2025-03-09 11:17] LABS: Urine Character Clear (Clear)
[2025-03-09 11:20] LABS: Hematocrit 38.3 % (37.0-47.0); Hemoglobin 11.2 g/dL (12.0-16.0); Mean Corp Hgb Conc. 29.2 g/dL (33.0-37.0); Mean Corpuscular Volume 66.1 fL (81.0-99.0); Nucleated Red Blood Cells % 0 %; Platelet Count 155 10^3/uL (130-400); Red Cell Dist. Width 19.0 % (11.5-14.5)
[2025-03-09 11:21] LABS: INR 1.03; PT 14.1 Sec (11.4-14.6)
[2025-03-09 11:32] LABS: ALT (SGPT) 15 U/L (0-35); AST (SGOT) 22 U/L (14-36); Albumin 5.0 g/dl (3.5-5.0); Alkaline Phosphatase 78 U/L (38-126); Blood Urea Nitrogen 27 mg/dl (7-17); Calcium 10.1 mg/dl (8.4-10.2); Carbon Dioxide 25 mmol/L (22-30); Chloride 105 mmol/L (98-107); Glucose 95 mg/dl (70-99); Potassium 3.8 mmol/L (3.5-5.1); Sodium 141 mmol/L (135-145); Total Protein 8.7 g/dl (6.3-8.2); eGFR 59.86
[2025-03-09 11:52] LABS: Urine Squamous Cell 16-20 /LPF (Few); Urine Urothelial Cell 0-2 /LPF (FEW); Urine White Cell 0-2 /HPF (0-5)
[2025-03-09 13:34] VITALS: BMI 34.8
[2025-03-09 14:08] LABS: Glycohemoglobin (HgbA1c) 5.4 % (4.0-5.6)
[2025-05-18 12:11] VITALS: BMI 40.2
[2025-05-18 12:58] LABS: Urine Character Clear (Clear)
[2025-05-18 13:04] LABS: Hematocrit 41.7 % (37.0-47.0); Hemoglobin 12.4 g/dL (12.0-16.0); Mean Corp Hgb Conc. 29.7 g/dL (33.0-37.0); Mean Corpuscular Volume 60.4 fL (81.0-99.0); Nucleated Red Blood Cells % 0 %; Platelet Count 114 10^3/uL (130-400); Red Cell Dist. Width 17.6 % (11.5-14.5)
[2025-05-18 13:11] LABS: INR 0.95; PT 13.1 Sec (11.4-14.6)
[2025-05-18 13:27] LABS: ALT (SGPT) 16 U/L (0-35); AST (SGOT) 23 U/L (14-36); Albumin 5.0 g/dl (3.5-5.0); Alkaline Phosphatase 81 U/L (38-126); Blood Urea Nitrogen 25 mg/dl (7-17); Calcium 9.8 mg/dl (8.4-10.2); Carbon Dioxide 24 mmol/L (22-30); Chloride 106 mmol/L (98-107); Estimated Creatinine Clearance 43 ml/min; Glucose 78 mg/dl (70-99); Potassium 4.6 mmol/L (3.5-5.1); Sodium 141 mmol/L (135-145); Total Protein 8.5 g/dl (6.3-8.2); eGFR 53.39
--- NOTE | 2025-05-18 15:30 | CM ---
spoke to pt and daughter in [facility]'s. we discussed preop teaching including driving land lifting restrictions, she is prev indep, lives with her husb in a 1 story home with 4 steps to enter. she has a cane and a walker at home to use if needed. her
is currently admitted on the 4th floor with 'possible CVA', she was going up to see him after this meeting. she has 2 daughters and a son who are very supportive and close by. she is agreeable to a f/u visist form the ct transitional care
nurse after dc. she has the CT Surgery book, soap and instructions. cm role explained and all questions answered.
[2025-05-19 07:09] LABS: Glycohemoglobin (HgbA1c) 6.3 % (4.0-5.6)
[2025-05-23] VITALS (14 sets, daily range): BP systolic 85–147; BP diastolic 53–81; BMI 39.0
[2025-05-23] MEDS: LOPRESSOR 25 MG PO (05:50)
[2025-05-23] MEDS: PROTONIX 40 MG PO (05:50)
[2025-05-23] MEDS: BACTROBAN 2% OINTMENT 1 APPLIC NASAL ×2 (05:51→19:30)
[2025-05-23] MEDS: MAGNESIUM OXIDE 400 MG PO (05:51)
--- NOTE | 2025-05-23 06:15 | PTCARENOTE ---
Patient arrived to room 2263 with daughter and senior network security engineer. Patient A+A+Ox3. No neurological deficits noted. No c/o pain or discomfort. Ambulates without difficulty. Patient confirmed taking 4% chlorhexidine shower last night and this
morning. Patient confirmed NPO status after midnight. Patient clipped and prepped per protocol. CHG wipes. Admission questions and medication reconciliation completed. Pre-Op medications administered. Dr. Whelan arrived and spoke with patient.
housecalls nurse to [facility].
--- NOTE | 2025-05-23 06:25 | W.CVOR.SURPR ---
[facility] Surgeon Immed Pre Op
-
I have examined this patient prior to performance of the scheduled procedure.
The patient's condition is unchanged from the time of the dictated/written History and
Physical and the patient is able to undergo the scheduled procedure.
Higher Risk CABG MVrR LAAE
[2025-05-23 07:26] LABS: Urine Character Clear (Clear)
[2025-05-23 07:51] LABS: ACT+ - POC 126 Seconds (82-134)
[2025-05-23 07:56] LABS: Urine Red Blood Cell 0-2 /HPF (0-2); Urine White Cell 0-2 /HPF (0-5)
--- NOTE | 2025-05-23 08:19 | CM ---
Reviewed chart. Mrs. Krueger is in the operating room today. Prior to admission she resides with her spouse in a one story home with four steps to enter. She has a ramp to enter from the back of the house. Prior to admission she was independent
with ambulation and adls. She has a walker, single point cane and stair glide in the home. She has been in [facility] in the past and is current with [facility]. She has a prescription plan. Medical work-up in progress. The discharge plan is
to return home with her spouse and resumption of VNA Services when medically stable.
[2025-05-23 09:33] LABS: ACT+ - POC 748 Seconds (82-134)
[2025-05-23 09:50] LABS: B.E. - POC -1.6 mmol/L; Glucose - POC 107 mg/dl (70-99); HCO3 - POC 23 mmol/L (21-28); Hematocrit - POC 33 % PCV (37-47); Hemodilution- POC Yes; Hemoglobin Calculated - POC 11.2; Ionized Calcium - POC 1.23 mmol/L (1.15-1.33); Lactate - POC 1.27 mmol/L (0.36-0.75); O2 Saturation %Calculated-POC 99.9 % (94-98); PCO2 - POC 38 mmHg (35-48); PO2 - POC 290 mmHg (83-108); Potassium - POC 3.5 mmol/L (3.5-5.1); Sodium - POC 139 mmol/L (136-145); Specimen Type - POC Arterial; pH - POC 7.39 (7.35-7.45)
[2025-05-23 10:12] LABS: ACT+ - POC 796 Seconds (82-134)
[2025-05-23 10:28] LABS: B.E. - POC 0.9 mmol/L; Glucose - POC 175 mg/dl (70-99); HCO3 - POC 25 mmol/L (21-28); Hematocrit - POC 24 % PCV (37-47); Hemodilution- POC Yes; Hemoglobin Calculated - POC 8.3; Ionized Calcium - POC 1.04 mmol/L (1.15-1.33); Lactate - POC 1.06 mmol/L (0.36-0.75); O2 Saturation %Calculated-POC 100.0 % (94-98); PCO2 - POC 37 mmHg (35-48); PO2 - POC 364 mmHg (83-108); Potassium - POC 5.1 mmol/L (3.5-5.1); Sodium - POC 141 mmol/L (136-145); Specimen Type - POC Arterial; pH - POC 7.44 (7.35-7.45)
[2025-05-23 10:54] LABS: ACT+ - POC 577 Seconds (82-134)
[2025-05-23 11:26] LABS: B.E. - POC 0.3 mmol/L; Glucose - POC 205 mg/dl (70-99); HCO3 - POC 26 mmol/L (21-28); Hematocrit - POC 24 % PCV (37-47); Hemodilution- POC Yes; Hemoglobin Calculated - POC 8.1; Ionized Calcium - POC 1.10 mmol/L (1.15-1.33); Lactate - POC 1.48 mmol/L (0.36-0.75); O2 Saturation %Calculated-POC 99.8 % (94-98); PCO2 - POC 49 mmHg (35-48); PO2 - POC 235 mmHg (83-108); Potassium - POC 5.2 mmol/L (3.5-5.1); Sodium - POC 143 mmol/L (136-145); Specimen Type - POC Arterial; pH - POC 7.34 (7.35-7.45)
[2025-05-23 11:35] LABS: ACT+ - POC 498 Seconds (82-134)
[2025-05-23 11:42] LABS: B.E. - POC -2.2 mmol/L; Glucose - POC 197 mg/dl (70-99); HCO3 - POC 25 mmol/L (21-28); Hematocrit - POC 26 % PCV (37-47); Hemodilution- POC Yes; Hemoglobin Calculated - POC 8.8; Ionized Calcium - POC 1.15 mmol/L (1.15-1.33); Lactate - POC 2.03 mmol/L (0.36-0.75); O2 Saturation %Calculated-POC 99.8 % (94-98); PCO2 - POC 53 mmHg (35-48); PO2 - POC 266 mmHg (83-108); Potassium - POC 4.2 mmol/L (3.5-5.1); Sodium - POC 144 mmol/L (136-145); Specimen Type - POC Arterial; pH - POC 7.28 (7.35-7.45)
[2025-05-23 11:51] LABS: ACT+ - POC 451 Seconds (82-134)
[2025-05-23 12:21] LABS: B.E. - POC -3.6 mmol/L; Glucose - POC 176 mg/dl (70-99); HCO3 - POC 24 mmol/L (21-28); Hematocrit - POC 26 % PCV (37-47); Hemodilution- POC Yes; Hemoglobin Calculated - POC 8.8; Ionized Calcium - POC 1.09 mmol/L (1.15-1.33); Lactate - POC 3.57 mmol/L (0.36-0.75); O2 Saturation %Calculated-POC 99.9 % (94-98); PCO2 - POC 58 mmHg (35-48); PO2 - POC 355 mmHg (83-108); POC Comment WARM; Potassium - POC 4.6 mmol/L (3.5-5.1); Sodium - POC 147 mmol/L (136-145); Specimen Type - POC Arterial; pH - POC 7.23 (7.35-7.45)
[2025-05-23 12:27] LABS: ACT+ - POC 123 Seconds (82-134)
[2025-05-23 12:48] LABS: B.E. - POC -4.5 mmol/L; Glucose - POC 127 mg/dl (70-99); HCO3 - POC 22 mmol/L (21-28); Hematocrit - POC 25 % PCV (37-47); Hemodilution- POC Yes; Hemoglobin Calculated - POC 8.4; Ionized Calcium - POC 1.39 mmol/L (1.15-1.33); Lactate - POC 3.85 mmol/L (0.36-0.75); O2 Saturation %Calculated-POC 99.2 % (94-98); PCO2 - POC 46 mmHg (35-48); PO2 - POC 158 mmHg (83-108); Potassium - POC 3.7 mmol/L (3.5-5.1); Sodium - POC 144 mmol/L (136-145); Specimen Type - POC Arterial; pH - POC 7.28 (7.35-7.45)
[2025-05-23 13:22] LABS: ACT+ - POC 140 Seconds (82-134)
[2025-05-23 13:23] LABS: B.E. - POC -8.0 mmol/L; Glucose - POC 111 mg/dl (70-99); HCO3 - POC 19 mmol/L (21-28); Hematocrit - POC 25 % PCV (37-47); Hemodilution- POC Yes; Hemoglobin Calculated - POC 8.4; Ionized Calcium - POC 1.09 mmol/L (1.15-1.33); Lactate - POC 3.85 mmol/L (0.36-0.75); O2 Saturation %Calculated-POC 97.7 % (94-98); PCO2 - POC 46 mmHg (35-48); PO2 - POC 118 mmHg (83-108); POC Comment POST; Potassium - POC 3.1 mmol/L (3.5-5.1); Sodium - POC 147 mmol/L (136-145); Specimen Type - POC Arterial; pH - POC 7.23 (7.35-7.45)
--- NOTE | 2025-05-23 13:29 | CON.INTV ---
Consultation
Consultation Request
Date/Time Consultation Requested: 05/23/2025
Date/Time Consultation Performed: 05/23/2025
Medical History
-
Chief Complaint: Shortness of breath
History of Present Illness:
Patient is a 74-year-old female with known history of congestive heart failure with preserved ejection fraction as well as moderate to severe mitral regurgitation along with multivessel coronary artery disease, was admitted to the hospital today for
elective coronary artery bypass graft as well as mitral valve repair. 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
In brief, patient was admitted to the hospital in 12/2024 with worsening shortness of breath and was noted to have bilateral pulmonary edema. Patient ended up requiring intubation, mechanical ventilation. Stay was complicated by concern for
pneumonia and possibly ARDS. Subsequently a right heart cath confirmed a very high pulmonary capillary wedge pressure along with evidence of mitral regurgitation on echocardiogram. Patient had a coronary angiogram performed which was suggestive of
multivessel coronary artery disease. Patient subsequently was extubated, medically managed and required a rehabilitation stay. She was then evaluated by CT surgery as outpatient and was recommended to have surgical revascularization as well as
mitral valve repair along with left atrial appendage exclusion. Patient is currently intubated, sedated and unable to provide any history, most information is obtained from review of chart and discussion with other healthcare providers.
Past Medical History
Past Medical History: Reports Other
Additional Past Medical History:
Hypertension, stroke, asthma
Past Surgical History: Reports Other
Additional Past Surgical History:
Cataract surgery, right TKA, left TKA
Social History
Tobacco: Non-smoker
Alcohol: None
Drug: None
Living: With Family
Family History
Family History: Not pertinent
Allergies / Home Medications
Allergies
Allergy/AdvReac Type Severity Reaction Status Date / Time
carvedilol Allergy Severe chest Verified 05/16/25 08:56
discomfort
cyclobenzaprine HCl (From Allergy Severe throat Verified 05/16/25 08:56
Flexeril) closing,
tongue
swelling
hydralazine Allergy Severe chest Verified 05/16/25 08:56
discomfort
hydrochlorothiazide Allergy Severe chest Verified 05/16/25 08:56
discomfort
mivacurium Allergy Severe pseudocholinesterase Verified 05/16/25 08:56
deficiency
succinylcholine Allergy Severe pseudocholinesterase Verified 05/16/25 08:56
deficiency
levofloxacin (From Levaquin) Allergy Intermediate diarrhea Verified 05/16/25 08:56
oxycodone Allergy Intermediate Nausea/Vomi Verified 05/16/25 08:56
ting
Home Medications
�Medication �Instructions �Recorded �Confirmed �Last Taken �Type
levothyroxine 112 mcg tablet 112 mcg PO DAILY Thyroid 09/14/16 05/23/25 05/22/25 07:00 History
112 mcq
latanoprost 0.005 % eye drops 1 drp BOTH EYES HS Eye condition 10/13/16 05/23/25 05/22/25 20:00 History
1 drop
aspirin 81 mg chewable tablet 81 mg PO DAILY #30 tabs 01/26/25 05/23/25 05/22/25 08:00 Rx
81 mg
acetaminophen 325 mg tablet 650 mg (2 x 325 mg) PO Q6HPRN PRN 02/03/25 05/23/25 05/22/25 20:00 Rx
mild pain 30 days #100 tabs 650 mg
dapagliflozin propanediol 10 mg 5 mg (1/2 x 10 mg) PO DAILY Heart 02/03/25 05/23/25 05/19/25 08:00 Rx
tablet failure 30 days #30 tabs 5 mg PO
lidocaine 5 % topical patch 1 patch topical DAILY Pain 30 days 02/03/25 05/23/25 05/21/25 08:00 Rx
#30 ea 1 Patch
metoprolol succinate 50 mg 50 mg PO DAILY Blood pressure 30 02/03/25 05/23/25 05/22/25 08:00 Rx
tablet,extended release 24 hr days #30 tabs 50 mg
pantoprazole 40 mg tablet,delayed 40 mg PO DAILY Gastrointestinal 02/03/25 05/23/25 05/22/25 08:00 Rx
release issue 30 days #30 tabs 40 mg
sacubitril 24 mg-valsartan 26 mg 1 tab PO BID Heart failure 30 days 02/03/25 05/23/25 05/20/25 08:00 Rx
tablet (Entresto) #60 tabs 1 tab
spironolactone 25 mg tablet 25 mg PO DAILY Fluid 02/03/25 05/23/25 05/20/25 08:00 Rx
retention/Swelling 30 days #30 tabs 25 mg
E[place] 1 dose PO DAILY 03/07/25 05/23/25 05/15/25 08:00 History
1
furosemide 40 mg tablet 20 mg PO DAILY 05/16/25 05/23/25 05/22/25 08:00 History
20 mg
lorazepam 0.5 mg tablet 0.5 mg PO DAILY 05/16/25 05/23/25 05/23/25 04:15 History
0.5 mg
Review of Systems
-
Unable to Obtain full review of systems at this time due to: Patient Intubation
Vitals / Labs / Diagnostic Testing
Vital Signs
Temp Pulse Resp BP Pulse Ox
97.7 F 71 16 146/60 100
05/23/25 05:15 05/23/25 05:50 05/23/25 05:15 05/23/25 05:50 05/23/25 05:15
Diagnostic Testing:
Physical Exam
-
HEENT: Normocephalic
Cardiovascular: S1/S2 and Peripheral Edema (More pronounced on upper extremities)
Respiratory: Clear and Non-Labored Respirations
GI: Soft and Non Distended
Neurology: Other (Sedated)
Skin: Warm
General: Comfortable
Assessment
-
74-year-old female with history of multivessel coronary artery disease as well as moderate to severe mitral regurgitation with pulmonary hypertension and congestive heart failure, s/p coronary artery bypass graft, simple mitral valve repair and left
atrial appendage exclusion, POD # 0
Titrate off pressors per protocol, currently on Levophed infusing at 6, dobutamine infusing at 4, MAP of 67. CVP of 13.
ECHO reviewed with normal EF, moderate to severe mitral regurgitation
PA catheter readings reviewed, 16/08, mean of 16. CVP of 13.
Management of chest tubes per primary service
Intubated/sedated, initiate SAT when able. Currently on Precedex infusing at 0.4
Pain control
RASS goal of 0 to -1
Intubated for procedure, SBT trial when patient able to spontaneously breath
Current vent settings: SIMV, 500/14/50%/8
AB.30 4/38/141
CXR with no obvious opacities/infiltrates, low lung volumes, ETT in good position, lines/tubes in place
Extubate per protocol
Maintain supplement oxygen as needed
No prior PFTs to review, currently not bronchospastic
Can add nebulizers if needed
Aspiration precautions
Encouraged incentive spirometry, OOB/ambulation/early mobility
Advance diet as tolerated following extubation
GI prophylaxis: Protonix
Monitor critical I/O's
Bailon/chest tube output
Hb/platelets postoperatively, reviewed
Trend CBC for now
Can transfuse if indicated for Hb <7, plt <50 in surgical patients
DVT prophylaxis including SCDs
Insulin protocol initiated and ongoing
Transition to SQ/off as indicated per team
Other medical diagnoses:
-Pulmonary Hypertension. Primarily Group II with elevated PCWP and Severe MR
-HFpEF, severe MR
-Multivessel CAD. s/p CABG . ASA/Plavix/Metoprolol and Lipitor
-Prediabetes (HbA1c: 6.2 on 01/07/2025). Currently on insulin infusion
-Obesity (BMI: 39.0)
-History of hypertension
-History of CVA
-History of ITP/thalassemia. Platelet count > 100 now.
-Hepatic steatosis likely due to morbid obesity
-Pulmonary nodule. F/u with [facility]
-Hypothyroidism
-Hypoxic respiratory failure required Intubation/Mechanical ventilation in 12/2024, related to CHF due to MR as well as suspected Pneumonia with ARDS
- ? MICK. Will get additional history once patient is awake and alert.
Critical Care time [62] mins -- The patient is admitted for acute critical illness for the treatment of vital organ failure and/or prevention of further life-threatening conditions. Total care includes time spent in review of history, physical exam,
medications, hemodynamic/ventilator parameters, laboratory data, imaging and discussion with house staff, pharmacy, respiratory therapy, materials research engineer, and nursing
Data:
ECHO 04/2025: 1. Normal biventricular size and function without regional wall motion abnormalities.
2. LVEF is 50-55% by visual estimation. Stage I diastolic dysfunction.
3. Moderate to severe MR.
4. Normal estimated PASP at 24 mmHg.
5. Compared to prior from March 03, 2025, on [id number] comparison overall LVEF has improved and is now approximately 50-55%, previously 47%.
CT Chest 04/2025: 1. No convincing acute abnormality identified in the chest within the limits of unenhanced CT, as described above.
2. Scattered patchy bilateral areas of intralobular septal thickening and subtle groundglass densities, likely reflecting chronic scarring possibly related to prior infections, grossly stable.
3. Severe coronary artery calcifications.
4. Cholelithiasis.
LHC 01/2025: 1. Right dominant circulation with multivessel coronary disease including a 99% subtotal occlusion of the proximal circumflex with YADY I flow to the proximal vessel and retrograde filling from the distal OM, a chronic total occlusion
of the proximal RCA supplied by collaterals from the LAD, and 90% lesion in the proximal margin of the large diagonal and tandem 70%, 80% and 70% lesions in the mid LAD.
2. Normal filling pressures (LVEDP = 10 mmHg at 85.7 kg).
3. At least moderate mitral valve regurgitation on transesophageal echocardiography.
TATYANA 01/2025: Mildly reduced left ventricular systolic function with inferolateral wall hypokinesis. LVEF 45-50%.
Moderate central mitral regurgitation due to malcoaptation of the leaflets. No
obvious leaflet tethering or prolapse.
Mild aortic regurgitation.
RHC 12/2024: PA 78/37 (51), PCWP 31. CI 1.7, CO 3.2. PVR 6.25. Combined pre and postcapillary pulmonary hypertension with severely elevated pulmonary capillary wedge pressure. Patient was on mechanical ventilation during testing.
[2025-05-23] MEDS: SYNTHROID PO (13:30)
--- NOTE | 2025-05-23 13:38 | W.PN.CT.SURG ---
Addendum entered and electronically signed by Tulio Whelan MD 05/23/25 14:26:
Additional pleural drain was placed on the Right side as I did harvest the SANJU but left it hanging and did not transect it until I decided it would be needed.
Original Note:
CT Surgery Operative Note
-
CARDIAC SURGERY OPERATIVE REPORT
Preoperative Diagnosis: Multivessel coronary disease status post MN with acute on chronic ischemic cardiomyopathy and functional mitral valve insufficiency
Postoperative Diagnosis: Same
Procedure(s) Performed:
1. Standard sternotomy with aortic and bicaval cannulation
2. Left internal mammary artery harvesting, pedicle
3. Coronary artery bypass grafting x 4 [ROBLEDO to LAD, Ao to RSVG to OM, Off RSVG to OM to diagonal, Ao to RSVG to mid RCA]
4. Simple mitral valve repair [30 mm ring annuloplasty] via transseptal approach
5. Left atrial appendage exclusion [35 mm device]
6. Placement temporary atrial ventricular pacing wires
7. Transesophageal echocardiography
8. Bilateral endoscopic harvesting of saphenous vein graft from thigh
Date of Surgery: 05/23/25
Comorbidities:
1. Multivessel coronary disease with myocardial infarction
2. ARDS status post prolonged intubation and home oxygen need
3. Pulmonary hypertension
4. Ischemic cardiomyopathy and heart failure
5. Sepsis
6. ITP
7. Hyperlipidemia
8. Hypertension
9. Functional mitral valve insufficiency, type IIIb secondary to ischemic cardiomyopathy
Attending Surgeon: Tulio Whelan MD, MS
Assistants: Janneth Mariano PA-C (present and necessary to surgical first assistant, retraction, suction, exposure, suture management, and wound closure under my direction), Jasmine Aranda MD (diag and rca distals)
Anesthesiology: Bayron Lay MD and Josh Joyce CRNA
Scrub and Circulating RNs: Mushtaq Manzano, RN, Nita Bustamante, RN
Store Promoter: Abida Granados CCP
Anesthesia: GETA
EBL: per perfusion records
Products: 2 plts and 1prbcs, and 250 of cell saver
CPB Time: 157 minutes
Aortic Cross Clamp Time: 125 minutes
Indication(s) for Procedures: This is a 74-year-old female who was initially consulted to me while she was inpatient. At that time she had ARDS sepsis acute MN and was in cardiogenic shock. She did recover from that event and was seen in the
office. I had delayed her surgery for several months given that she had segue from her ARDS and was requiring intermittent home oxygen. On her most recent CT scan her lung had significantly improved and she was feeling significantly better from a
clinical standpoint. Her EF also recovered from 35 to approximately 50%. She still had some residual functional mitral valve insufficiency secondary to ischemic cardiomyopathy. She was offered high risk CABG and mitral valve repair and given her
elevated chads Vasc, her left atrial appendage was planned to be ligated as well..
Mitral Valve Description: Normal-appearing leaflets, restriction mostly towards the P2 P3 aspect with asymmetric dilation towards the basal inferior wall with tethering of the leaflets. Functional MR.
Findings: Left ventricular ejection fraction preoperatively was approximately 45 to 50% with significant regional wall motion abnormalities towards the basal inferior wall. After surgery her EF did look significantly better at 50 to 55% and the
regional wall did appear to be improved. Her mitral valve looked functional in its pathology and the beginning of the case and given the moderate to severe level of leakage on TTE preoperatively, I opted to repair her valve as she had a relatively
decent EF and I suspect her valve was salvageable and would improve with revascularization. The mitral valve was accessed through a transseptal incision as there was a malfunctioning of the operating room table bed as it can no longer be
manipulated. A total of 11 nonpledgeted 2 Ethibond sutures were placed circumferentially anchoring the mitral valve with a 30 mm ring annuloplasty. After coming off of cardiopulmonary bypass, there was none to trace residual mitral valve
insufficiency. There is no systolic anterior motion of the leaflets. Her cardiac index starting the case was 1.4 on no inotropes and at the conclusion of the case was 2.2 on 2 of dobutamine. There was some clinically significant oozing from the
LV wall posteriorly at the inclusion the case. This required manipulation and transient reinstitution of cardiopulmonary bypass in order to repair this area. Additional repair sutures were placed along the diagonal and [place] topical hemostatic
agent was applied over the OM raw muscle surface which was bleeding. This resolved the issue. All grafts had acceptable flows in them. The left atrial appendage was verified are free of any thrombus or debris preoperatively and found to be
totally occlusive postoperatively. The grafts were probed accordingly after the performance of the anastomosis and verified to be free. Antegrade cardioplegia was also given down the graft to verify flow. She came off of cardiopulmonary bypass on
2 of dobutamine, off and on Levophed, received 1 PRBC and 2 platelets as well as additional Cell Saver scavenged from the field.
Specimen(s): None.
Target(s) Quality:
mRCA -large target, good flow with test dosing antegrade, flow probe assessment had a flow of 29 cc a minute with a pulse index of 1.2
OM -smaller target, but ultimately had good flow of 26 cc a minute with a pulse index of 1.6
Diagonal -calcified vessel but decent sized target, heavy pack posteriorly. Mean flow down this was a vein graft taken off of the OM vein conduit. Mean flow was approximately 8 cc a minute.
LAD -excellent, very large target mean flow here was 17 cc a minute with a pulse initially 3.0 with excellent visual flow in the LAD territory and pinking up of the myocardium towards the apex of the anterolateral wall
Prosthesis:
1. 30 mm Walls physio 2 annuloplasty ring, serial #[id number]
2. Hemostatic patch, serial #[id number], EVARREST
3. Left atrial appendage clip, serial #[id number]
4. 8 hole rib plate placed along the left sternal edge, 4 x 14 mm screws applied
Description of Procedure: The patient was taken to the operating room. Their identity and procedure to be performed were verified and they were positioned supine on the operating table. Induction via general anesthesia with endotracheal intubation
was performed and central venous access and arterial monitoring were inserted. A preoperative transesophageal echocardiogram was performed to assess cardiac function and valvular function. The patient was then prepped and draped from chin to feet in
a sterile fashion. A preoperative time-out was performed with all members of the team present. A midline chest incision was performed along with median sternotomy. The Rultract retractor was placed in order to expose the left hemithorax. The ROBLEDO
was then harvested in the usual fashion as a pedicle after giving 5000 units of heparin. The distal end was then double clipped and then transected. There is excellent flow in the ROBLEDO itself. This was then clipped again with medium clips and
placed into a papaverine soaked Ray-Zoila back into the left hemithorax. There was simultaneous harvesting of the right lower extremity for vein conduit. Given her small stature, there was concern that she would not have enough conduit for use in
her for bypasses and so I preemptively skeletonized her SANJU without transecting the distal end. Meanwhile, endoscopic harvesting of the left thigh was then performed. I then exchanged the Rultract retractor for a median sternotomy retractor. The
innominate vein was isolated. Full heparinization was given (a total of 45,000 units). We created a pericardial well. The aortic cannulation site was chosen where it was soft, pliable, and free of calcium. Cannulation was performed with an arterial
cannula in the ascending aorta, angled metal tip cannula in the superior vena cava and straight bendable cannula in the inferior vena cava. The arterial cannula line had an appropriate bounce and correlating pressures. Next, a root vent/antegrade
cannula was inserted into the ascending aorta. The ACT was confirmed to be over 400 and retrograde autologous priming was performed before commencing cardiopulmonary bypass. The pulmonary artery was away from the aorta to facilitate a
clamp site. Sondergaard�s groove was developed after creating the oblique sinus. The aortic cross-clamp was placed after decreasing the flow on the bypass and mean arterial pressure. A total of 1.2L initial dose of antegrade Del-Nido cardioplegia
solution was given and planned for re-dosing every 60 minutes as necessary. There was rapid electro-mechanical arrest of the heart at 250-300 cc of cardioplegia. The left ventricle was observed for distention on echocardiogram and manual palpation.
Cold slush was placed into a lap on the RV and we systemically cooled to 34 degrees centigrade.
I positioned the heart to expose the left atrial appendage and then ligated this with a 35mm device. At this point since the OM was already visualized, we dissected with a Wil[place] blade here and perform a small coronary arteriotomy. The distal end
of that graft was actually quite atretic and heavily diseased. However we did have decent flow retrograde and forwards. The vein conduit was then beveled accordingly and end-to-side anastomosis was created 7-0 Prolene. I did have to oversew the
myocardium here as there was some venous oozing while giving test dosing of antegrade down the graft. I then positioned the heart in order to expose the diagonal vessel. This was dissected in similar fashion and then a small coronary durotomy was
then created. A piece of the vein was then used in order to perform a end-to-side anastomosis with 7-0 Prolene. Test dose of antegrade was given down the graft and found to be acceptable. A single repair stitch was placed towards the toe as there
were some oozing from the site with test dosing antegrade. A suitable target on the mid left anterior descending was identified. We dissected and prepared the distal target in a similar fashion. We retrieved the ROBLEDO from the chest and created a
pericardial opening while being cognizant of the phrenic nerve to facilitate the course of the mammary. The distal end of the mammary was prepped and the underbelly of the ROBLEDO graft was incised and enlarged with Buck scissors. We verified
orientation and length of the EDWARD and found brisk flow. An end-to-side anastomosis was created with a 7-0 prolene. We temporarily released the bulldog clamp on the mammary to inspect flow. Perfusion to the LAD territory was visualized and hemostasis
was confirmed. The bull clamp was replaced on the mammary. I then positioned the heart in order to expose the mid RCA. This was dissected down at the AV groove. A coronary arteriotomy was then created and large with Buck scissors. This was
quite a sizable graft and the vein graft was then beveled accordingly and end-to-side anastomosis was created with 7-0 Prolene. There was excellent flow with test dosing antegrade down this graft.
Carbon dioxide was used to flood the field. At this point, there was malfunctioning with the OR bed as it was completely . I could not facilitate exposure via Sondergaard's groove and the patient's left atrial dome was actually quite leftward
I then placed snares using Vesseloops around the SVC and IVC and then anterior to be of the right atrium at the kearney ovale. The mitral valve was repaired as described above. I then closed the septal defect with 4-0 Prolene and over and over
stitch. At this point I turned my attention back to performing the proximal anastomoses. The heart was filled and the root was distended with antegrade cardioplegia to make final assessment of graft length and orientation. We created 2 aortotomies
using a #11 blade then a 4.0mm aortic punch. The diagonal conduit was not long enough in order to reach the aorta and so an vein to vein anastomosis was created off of the OM graft. The proximal anastomoses were created in an end-to-side fashion
using 6-0 prolene. At the the same time, we re-warmed to 36.5 degrees centigrade.
Additional de-airing maneuvers were performed and temporary bipolar ventricular pacing wires were placed on the base of the right ventricle and temporal atrial pacing wires at the SVC right atrial junction. The patient was placed in a Trendelenburg
position and flows on bypass were lowered. The aortic cross clamp was removed and flows were slowly brought back up. The heart was allowed to reperfuse here while I performed the right atrial closure with the SVC and IVC isolated. Was done with
4-0 Prolene in a running fashion in 2 layers. The snares were then removed off the SVC and IVC. Transesophageal echocardiography revealed no evidence of systolic anterior motion and ventricular function was at baseline. Once de-airing was
satisfactory the root vent was removed. After verifying acceptable parameters, we initiated weaning from cardiopulmonary bypass. Once we were off cardiopulmonary bypass, the venous cannulas was clamped and removed sequentially. A test dose of
protamine was administered and the patient was monitored for any adverse reaction before resuming protamine. Once half of the protamine dose was delivered, pump suckers were turned off and the systolic blood pressure was lowered for aortic
decannulation. The aortic cannula was removed and purse strings were tied down. All cannulation sites were oversewn with a 4-0 prolene. The right atrial suture line was inspected and hemostasis was confirmed. There was some dark blood that started
to ooze in the back of the heart. At this point I opted to place a off-pump cardiac stabilizer and expose both the diagonal and the OM graft. There was some bleeding at the tail of the diagonal that was repaired. There was not visible dark oozing
blood from the posterior aspect at the previous dissection site of the OM. A pledgeted suture was then placed but only had a marginal effect and so EVARREST topical hemostatic patch was then applied with good effect. Mediastinal hemostasis was
obtained. Two #24 Julio César drains were placed within the pericardium. The sternum was approximated with 4 #7 single and 3 #8 double stainless steel wires. Given that there were fractures of the left hemisternum, a single 8 hole plate was then applied
along the sternal edge with 4 screws. Fascia was approximated with #1 vicryl suture. The subcutaneous, dermis and epidermis were closed in layers in a running fashion. The skin wound was cleansed and dressed.
All instrument, sponge, and needle counts were confirmed to be correct x 2 at the end of the operation. The patient was transferred to the cardiac intensive care unit in critical but stable condition.
I, Dr. Tulio Whelan, was present, scrubbed for, and performed all critical elements of this procedure.
Tulio Whelan MD, MS
Cardiothoracic Surgeon
[facility]
This dictation was created using the [employer] dictation system. Please excuse any grammatical, typographical, or 'sound alike' errors
[2025-05-23 13:58] LABS: Glucose - Point of Care 117 mg/dl (70-99)
--- NOTE | 2025-05-23 14:03 | W.PN.UPDATE ---
Update Note
Progress Note Update
74 year old female electively admitted 05/23/25 for mitral repair/CABG due to severe MR, triple vessel coronary disease. Recent history of PNA with ARDS/septic shock in January 2025.
IV fluids: 1300
U.O.:� 900
Blood:� 2 plts, 1 PRBC
Cell Saver: 475
Wires:� A + V wires
Drips: Levophed @ 6, Dobutamine @ 4 , Precedex @ 0.5
�
NEURO: sedated, pupils +2mm B/L
RESP: #8OT @22cm> 500/60%//. Lungs clear B/L. 2 mediastinal (5cc on arrival) and R/L pleural (50cc on arrival) chest tubes to -20cm suction. Sanguineous drainage
CV: RRR +S1, S2, no S3, no�rub, no murmur. Dermabond to median sternotomy. RIJ w/[place] locked @ 38cm. PA /; CVP 10
ABD: obese round, soft, no BS
EXT: no edema, +2/4 DP pulses B/L, no femoral bruit, B/L LE PRUDENCIO wrap intact; left radial A-line intact
: Bailon with clear yellow urine
�
A/P: POD #0 s/p mitral valve repair [30 mm ring annuloplasty] via transseptal approach, CABG 4 [ROBLEDO to LAD, Ao to RSVG to OM, Off RSVG to OM to diagonal, Ao to RSVG to mid RCA], Left atrial appendage exclusion [35 mm device]
TATYANA: EF�55%, MV mean 1mmHg
- wean and extubate
- will need instruction regarding antibiotic prophylaxis for dental and invasive procedures
- CUT V-wires, may pull A-wires
- check pre DC TTE
- may wean Dobut to 3 and hold
- goal SBP: 90-130mmHg
- Temp 94.4F>warming blanket
# CAD
- will require ASA, Plavix, statin, beta damian
# HFrEF (47%)- chronic
- resume Entresto/Aldactone/Faxiga prior to DC
�
# acute surgical blood loss anemia-expected
- trend CBC
# Hypothyroidism
- resume levothyroxine 112mcg/d
-check TSH (last 18.3 on 01/27/25)
�
# preDM (A1C 6.3)
- insulin infusion x 24h
- resume Farxiga when tolerating solids
# Class II Obesity (BMI 39)
- carb/calorie reduced cardiac diet
# Hx ITP
- pre-op plts 114k
- trend CBC
# Glaucoma
- continue Latanoprost eye drops
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
- glidescope intubation
- alert anesthesia if reintubation needed
[2025-05-23] MEDS: LR 250 ML IV ×4 (14:10→17:32)
[2025-05-23] MEDS: NOVOLOG FLEXPEN SC ×2 (14:11→15:32)
[2025-05-23] MEDS: ANCEF 10 IV ×2 (14:11)
[2025-05-23 14:14] LABS: B.E. -3.6 mmol/L; HCO3 22.1 mmol/L (21-28); Hematocrit 29.3 % (37.0-47.0); Hemoglobin 9.1 g/dL (12.0-16.0); O2 Saturation % 97.7 % (94-98); PCO2 42 mmHg (32-35); PO2 75 mmHg (83-108); Platelet Count 144 10^3/uL (130-400); Potassium 3.6 mMOL/L (3.5-5.1); Sodium 141 mMOL/L (136-145)
[2025-05-23 14:15] LABS: O2 Therapy vent
[2025-05-23 14:20] LABS: INR 1.59; PT 19.2 Sec (11.4-14.6)
[2025-05-23 14:21] LABS: APTT 30.6 Sec (23.4-35.0)
[2025-05-23] MEDS: KCL 50 IV ×2 (14:22→15:43)
[2025-05-23 14:24] LABS: Blood Urea Nitrogen 18 mg/dl (7-17); Estimated Creatinine Clearance 61 ml/min; Glucose 112 mg/dl (70-99); Magnesium 3.0 mg/dl (1.6-2.3)
--- NOTE | 2025-05-23 14:57 | W.PN.CD ---
Addendum entered and electronically signed by PRITI Ryan 05/23/25 15:52:
Hypercholesterolemia with CAD
- Patient is no longer on statin
- She was discharged from rehab on atorvastatin 40 mg. She will require high intensity statin with CAD. LDL preinitiation 153. If she did not tolerate atorvastatin we can trial rosuvastatin.
- If she has side effects to rosuvastatin, PCSK9 inhibition will be started.
Original Note:
Today's Communication / Plan
-
Follow telemetry
Extubation per CT surgery
Impression / Plan
-
I/P: 74F with hypertension, hypothyroidism, hyperlipidemia, ITP/thalassemia with recent admission including findings of obstructive coronary artery disease, HFmrEF, and severe mitral regurgitation who presents for CABG/mitral valve repair.
Primary produce inspector: Dr. Velasquez
CAD s/p CABG x 4 (ROBLEDO to LAD, Ao to RSVG to OM, Off RSVG to OM to diagonal, Ao to RSVG to mid RCA) & moderate to severe MR s/p MV repair by Dr. Whelan 05/23/2025
- Simple mitral valve repair (30 mm ring annuloplasty) via transseptal approach and PATRICIA occlusion (35mm device)
- Pre-LVEF 45-50% post 50-55% and regional wall appeared improved, mitral regurgitation trace
- CI pre-Case 1.4, post case 2.2 on 2 of dobutamine
- EKG sinus rhythm with right bundle branch block, RBBB new
- On dobutamine and Levophed
Ischemic cardiomyopathy
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
- LVEF improved postoperatively
- Not in acute/decompensated heart failure, follow volume status
- GDMT as tolerated
-PRUDENCIO/ARB/ARNI: Sacubitril�valsartan on hold preoperatively
-SGLT2 inhibitor: Farxiga 10 mg daily on hold, resume when able
-Aldosterone agonist: Spironolactone 25 mg on hold preoperatively
-Beta damian: Metoprolol tartrate currently ordered, will need to transition to succinate prior to discharge
-Isosorbide/Hydralazine:�Not currently indicated
-ICD: Not indicated
- Trend daily weight, I/O, and BMP
ITP, follow platelets
Prediabetes, HbA1c 6.3%
Obesity, BMI 39
Subjective:
Operative report reviewed.
Physical Exam
Vital Signs/Labs
Vital Signs
Temp Pulse Resp BP Pulse Ox
94.2 F L 87 14 146/60 98
05/23/25 14:05 05/23/25 14:04 05/23/25 14:04 05/23/25 05:50 05/23/25 14:45
05/22/25 05/23/25 05/24/25
06:59 06:59 06:59
Actual Weight 87.5 kg
05/23/25 14:00
PT 19.2 Sec (11.4-14.6) H 05/23/25 14:00
INR 1.59 05/23/25 14:00
APTT 30.6 Sec (23.4-35.0) 05/23/25 14:00
Magnesium 3.0 mg/dl (1.6-2.3) H 05/23/25 14:00
Physical Exam
Constitutional: No acute distress and Comfortable
EENT: Anicteric and Moist mucous membranes
Cardiovascular: Rhythm & rate is regular, S1S2 is normal and Rub present (faint)
Respiratory: Lungs clear to auscul. and Other (Mechanical ventilation)
GI: Soft and Distention absent
Neuro/Psych: Other (Sedated)
Other: Skin (Warm and dry without edema)
Data Reviewed
-
Date of Service: May 23, 2025
Labs: Labs Reviewed by me
Old Records: Reviewed
[2025-05-23 15:02] LABS: Glucose - Point of Care 167 mg/dl (70-99)
[2025-05-23 15:07] LABS: B.E. -4.8 mmol/L; HCO3 20.5 mmol/L (21-28); O2 Saturation % 100.0 % (94-98); PCO2 38 mmHg (32-35); PO2 141 mmHg (83-108)
[2025-05-23] MEDS: NEURONTIN PO ×3 (15:11→21:44)
[2025-05-23] MEDS: NSS 500 IV (15:11)
[2025-05-23] MEDS: SODIUM BICARBONATE 50 MEQ IV ×3 (15:15→23:01)
[2025-05-23] MEDS: PACERONE PO ×2 (15:16→21:44)
--- NOTE | 2025-05-23 15:37 | PTCARENOTE ---
Patient received from [facility] s/p CABG x 4/MVr/LAAL. Sedated and intubated, NSR via cm, SaO2 @ 95% on ventilator, titrating FiO2 as able. RIJ Cordis/[place] catheter, L radial arterial lines present -leveled, flushed, and calibrated w/good waveforms
returned. Epicardial A+V pacing wires set to back up rate - next to box but disconnected, tested in [facility] per surgeon. Mediastinal chest tubes x 2, Y-connected to one pleurevac; L and R pleural chest tubes Y-connected to separate collection chamber -
both placed to -20cm suction w/no air leaks noted. Bailon catheter to gravity. All procedural sites stable. Labs drawn, EKG performed, pcxr obtained. NIKUNJ Ian updated to results. See work list for full assessment, interventions performed, and
intravenous infusions and titrations.
[2025-05-23 16:01] LABS: Glucose - Point of Care 134 mg/dl (70-99)
[2025-05-23] MEDS: NOVOLIN R INSULIN INFUSION 100 IV (16:05)
--- NOTE | 2025-05-23 16:30 | PTCARENOTE ---
NIKUNJ Ian to bedside, updated to status. Orders given.
[2025-05-23 17:01] LABS: Glucose - Point of Care 157 mg/dl (70-99)
[2025-05-23 18:13] LABS: B.E. - POC -2.3 mmol/L; Blood Urea Nitrogen - POC 18 mg/dl (3-120); Chloride - POC 113 mmol/L (96-111); Creatinine - POC 0.89 mg/dl (0.3-1.0); Glucose - POC 163 mg/dl (70-99); HCO3 - POC 23 mmol/L (21-28); Hematocrit - POC 32 % PCV (37-47); Hemodilution- POC No; Hemoglobin Calculated - POC 11.0; Ionized Calcium - POC 1.22 mmol/L (1.15-1.33); Lactate - POC 3.83 mmol/L (0.36-0.75); O2 Saturation %Calculated-POC 96.1 % (94-98); PCO2 - POC 41 mmHg (35-48); PO2 - POC 86 mmHg (83-108); Potassium - POC 5.1 mmol/L (3.5-5.1); Sodium - POC 146 mmol/L (136-145); Specimen Type - POC Arterial; pH - POC 7.36 (7.35-7.45)
[2025-05-23 18:13] LABS: Glucose - Point of Care 144 mg/dl (70-99)
[2025-05-23 18:21] LABS: Hematocrit 32.7 % (37.0-47.0); Hemoglobin 10.4 g/dL (12.0-16.0); Platelet Count 165 10^3/uL (130-400)
[2025-05-23] MEDS: ALBUMIN 5% 250 IV (18:21)
[2025-05-23 19:06] LABS: Glucose - Point of Care 141 mg/dl (70-99)
[2025-05-23] MEDS: LEVOPHED 250 IV (19:09)
[2025-05-23] MEDS: ASPIRIN 300 MG RECTAL (19:10)
[2025-05-23] MEDS: OFIRMEV 100 IV (19:10)
--- NOTE | 2025-05-23 19:23 | PTCARENOTE ---
received pt from previous rn. pt intubated and able to follow all commands. NSR w/ L and R BBB per tele monitor. HR 80s. trace generalized anasarca. weak palpable pulses. Epicardial A+V pacing wires set to back up rate - next to box but
disconnected. lungs diminished. Vent set to SIMV 14/500/8/50%. ET tube 8.0/22 at the lip. pox 97%. Mediastinal chest tubes x 2, Y-connected to one pleurevac; L and R pleural chest tubes Y-connected to separate collection chamber - both placed to
-20cm suction w/no air leaks noted. hypoactive bs. ballard draining clear yellow urine. all surgical sites intact. RIJ Cordis/[place] catheter, L radial arterial lines present -leveled, flushed, and calibrated w/good waveforms returned. PIV intact
infusing insulin per glycemic protocol. See work list for full assessment, interventions performed, and intravenous infusions and titrations.
[2025-05-23] MEDS: ANCEF 5 IV (19:30)
[2025-05-23] MEDS: SENOKOT PO (19:31)
[2025-05-23] MEDS: TYLENOL PO (20:13)
[2025-05-23 21:00] LABS: Glucose - Point of Care 134 mg/dl (70-99)
[2025-05-23 21:03] LABS: B.E. -1.1 mmol/L; HCO3 23.5 mmol/L (21-28); O2 Saturation % 99.0 % (94-98); PCO2 38 mmHg (32-35); PO2 93 mmHg (83-108); Potassium 4.7 mMOL/L (3.5-5.1)
[2025-05-23] MEDS: DILAUDID 0.5 MG IV ×2 (21:03→23:48)
[2025-05-23] MEDS: ZOFRAN 4 MG IV (21:04)
[2025-05-23] MEDS: CALCIUM GLUCONATE 130 MG IV (21:31)
[2025-05-23] MEDS: LIPITOR PO (21:44)
[2025-05-23] MEDS: XALATAN OPHTHALMIC SOLUTION 1 DROP BOTH EYES (21:45)
[2025-05-23 22:00] LABS: B.E. -1.2 mmol/L; HCO3 23.6 mmol/L (21-28); O2 Saturation % 98.9 % (94-98); PCO2 39 mmHg (32-35); PO2 82 mmHg (83-108); Potassium 4.6 mMOL/L (3.5-5.1)
[2025-05-23 22:51] LABS: Glucose - Point of Care 97 mg/dl (70-99)
[2025-05-23 22:51] LABS: Glucose - Point of Care 109 mg/dl (70-99)
[2025-05-23 22:52] LABS: B.E. -2.1 mmol/L; HCO3 23.2 mmol/L (21-28); O2 Saturation % 98.6 % (94-98); PCO2 41 mmHg (32-35); PO2 78 mmHg (83-108); Potassium 4.6 mMOL/L (3.5-5.1)
--- NOTE | 2025-05-23 23:00 | PTCARENOTE ---
bedside report received pt from previous RN. pt AAOx4, c/o sternal incision pain. NSR w BBB and PVCs on monitor, HR 70s. trace generalized anasarca noted. +peripheral pulses. heart tones clear. epicardial A+V pacing wires intact and off. RIJ cordis
+ swan intact w KVOs infusing. last CI 1.8. Dobut gtt infusing @ 4mcg. PAPs 20s/10s. CVP ~ 5. L radial art line in place. SBP 90s-110s. bilateral breath sounds present. POX 96% on 6LNC. IS encouraged. CT x4 intact to -20cm wall suction, drainage
WNL, no air leak present. hypoactive BS present. Insulin gtt infusing per glycemic protocol. ballard catheter in place, draining CYU, UO adequate. all surgical sites stable. PIV intact and patent. turning/repositioning pt Q2H and as needed. see work
list for full assessment, VS, and interventions.
--- NOTE | 2025-05-23 23:15 | PTCARENOTE ---
ABG reviewed w/ CTPA Ed Mercedes. pt extubated @ 2300 to 6L NC w/o incident. able to state name and and able to follow all commands.
[2025-05-24] VITALS (26 sets, daily range): BP systolic 88–138; BP diastolic 44–107; BMI 40.7
[2025-05-24] MEDS: NSS 250 IV (00:43)
[2025-05-24 00:57] LABS: Glucose - Point of Care 110 mg/dl (70-99)
[2025-05-24] MEDS: DILAUDID 0.25 MG IV (01:04)
[2025-05-24] MEDS: ROXICODONE 5 MG PO ×3 (02:46→12:14)
[2025-05-24] MEDS: DILAUDID 0.5 MG IV (02:46)
[2025-05-24 02:55] LABS: Glucose - Point of Care 118 mg/dl (70-99)
--- NOTE | 2025-05-24 03:05 | PTCARENOTE ---
no acute changes in assessment. VSS. pt AAOx4, see MAR for PRN med administration for sternal incision pain. NSR w PVCs on monitor, HR 60s-70s. +1 generalized anasarca noted. +peripheral pulses. heart tones clear. last CI 1.98. Dobut gtt maintained
@ 4mcg. PAPs 20s/10s. CVP ~ 14. SBP 90s-110s. bilateral breath sounds present. POX 91% on 5LNC. IS encouraged. CT output and UO WNL. Insulin gtt maintained per glycemic protocol. all surgical sites stable. turning/repositioning pt Q2H and as needed.
AM labs drawn and sent. EKG done. pt resting between care.
[2025-05-24 03:30] LABS: INR 1.28; PT 16.3 Sec (11.4-14.6)
[2025-05-24 03:36] LABS: Blood Urea Nitrogen 20 mg/dl (7-17); Calcium 9.2 mg/dl (8.4-10.2); Carbon Dioxide 26 mmol/L (22-30); Chloride 112 mmol/L (98-107); Estimated Creatinine Clearance 49 ml/min; Glucose 118 mg/dl (70-99); Magnesium 2.6 mg/dl (1.6-2.3); Potassium 4.8 mmol/L (3.5-5.1); Sodium 143 mmol/L (135-145); eGFR 59.86
[2025-05-24 03:39] LABS: Hematocrit 27.5 % (37.0-47.0); Hemoglobin 8.8 g/dL (12.0-16.0); Mean Corp Hgb Conc. 32.0 g/dL (33.0-37.0); Mean Corpuscular Volume 64.4 fL (81.0-99.0); Platelet Count 94 10^3/uL (130-400); Red Cell Dist. Width 21.0 % (11.5-14.5)
--- NOTE | 2025-05-24 03:48 | W.PN.CT ---
Today's Communication / Plan
-
Plan:
-No major issues overnight. Hemodynamically and neurologically intact
-Slow to awaken from anesthesia, successfully extubated @ 2300 on 05/23/25
-Weaned of Levophed gtt overnight, on Dobutamine @ 4 mcg/kg/min
-Last CI 2.38, MVO2 55.6%, U/O since OR 740 mL
-Monitor chest tube output: 2meds 190/240, R/L pleurals 100/260. F/U CXR
-Receiving 1u PRBC this AM for h/h 8.8/27.5 this AM, did get 1L LR, 250 mL of albumin and 250 mL of NS postop
-Holding Amiodarone and BB while on Dobutamine with HR 60-70's
-Cont. current meds (ASA, Plavix, Lipitor, Synthroid, Protonix)
-Slow wean of dobutamine as tolerated
-Maintain ballard while on dobutamine for accurate I/O's
-Maintain swan and a-line while on dobutamine
-Will transition off insulin gtt today per protocol
-Maintain temporary PW
-Encourage use of IS
-Wean off of O2 as tolerated
-OOB into chair
-Will repeat echo to reassess MV repair in 1-2 days
Assessment / Plan
-
Assessment:
-S/P Standard sternotomy/CABG x 4 [ROBLEDO to LAD, Ao to RSVG to OM, Off RSVG to OM to diagonal, Ao to RSVG to mid RCA]/ROBLEDO harvesting/ Bilateral endoscopic harvesting of SVG from thigh/Simple mitral valve repair [30 mm ring annuloplasty] via
transseptal approach/ Left atrial appendage exclusion [35 mm device], by Dr. Whelan, 05/23/25, pod#1
-Multivessel coronary disease with myocardial infarction
-ARDS status post prolonged intubation and home oxygen need
-Pulmonary hypertension
-Ischemic cardiomyopathy and heart failure
-LVEF 50% per intraop TATYANA
-Sepsis
-ITP
-Hyperlipidemia
-Hypertension
-Functional mitral valve insufficiency, type IIIb secondary to ischemic cardiomyopathy
-Class 3 obesity (BMI 40)
-Prediabetes (hgb A1C 6.3)
-Anemia
-Hx of transaminitis, 01/18/25
-Recent SHARMIN, 01/21/25
-Dysphagia
-Glaucoma
-Left cephalic vein thrombosis
-Anxiety
-S/P cataracts
-S/P L TKA, 05/12/2022
-S/P R TKA, 10/13/2016
-S/P LIMA
-Acute postop blood loss /anemia on chronic anemia (transfused 1u PRBC, 250 cc cell saver)
-Acute on chronic thrombocytopenia (transfused 2 {5pk} plts intraop)
-Acute postop atelectasis
-Acute postop pulmonary insufficiency
-Acute postop hypoxemia
-Acute postop metabolic acidosis
-Acute postop hypermagnesemia
-Acute postop hypovolemia with subsequent hypervolemia
Discussed patient care with: Cardiology, Nursing, Respiratory Therapy, Pharmacy and Care Team
Subjective
Procedure
-S/P Standard sternotomy/CABG x 4 [ROBLEDO to LAD, Ao to RSVG to OM, Off RSVG to OM to diagonal, Ao to RSVG to mid RCA]/ROBLEDO harvesting/ Bilateral endoscopic harvesting of SVG from thigh/Simple mitral valve repair [30 mm ring annuloplasty] via
transseptal approach/ Left atrial appendage exclusion [35 mm device], by Dr. Whelan
-
Date of Service: May 24, 2025
Pt c/o incisional pain, otherwise feels well
Objective Data
-
Lab Results
05/24/25 02:50
05/24/25 02:50
PT 16.3 Sec (11.4-14.6) H 05/24/25 02:50
INR 1.28 05/24/25 02:50
APTT 30.6 Sec (23.4-35.0) 05/23/25 14:00
Vital Signs
Vital Signs
Temp Pulse Resp BP Pulse Ox
97.4 F 72 28 101/60 92
05/24/25 03:00 05/24/25 03:15 05/24/25 03:15 05/24/25 01:00 05/24/25 03:15
CT Intake/Output/Weight
05/23/25 05/23/25 05/24/25
06:59 18:59 06:59
Intake Total 1355.7 / 2295.0 939.3 / 2295.0
Output Total 490 / 1100 610 / 1100
Balance 865.7 / 1195.0 329.3 / 1195.0
SaO2: 96 (6L)
Physical Exam
-
General: Awake, Oriented and AOx3
Cardiovascular: Regular rate & rhythm, No Murmurs, No Rub and No Gallop
Respiratory: Decreased Breath Sounds (at bases, otherwise clear)
Sternum: Stable
Incision: Clean, Dry, Intact and Dressing Intact
Extremities: Other (+trace edema)
Data Reviewed
-
Lab Results: Results Reviewed
Medications: Active Meds Reviewed
Chest X-Ray: Report Reviewed and Image Reviewed
ECG: Report Reviewed and Image Reviewed
[2025-05-24] MEDS: ANCEF 5 IV ×2 (04:44→12:03)
[2025-05-24 04:50] LABS: Glucose - Point of Care 114 mg/dl (70-99)
[2025-05-24] MEDS: TYLENOL PO ×2 (06:03→14:30)
[2025-05-24] MEDS: LASIX 20 MG IV (06:43)
[2025-05-24 06:50] LABS: Glucose - Point of Care 115 mg/dl (70-99)
[2025-05-24] MEDS: ZOFRAN 4 MG IV (07:14)
--- NOTE | 2025-05-24 07:49 | W.PN.CD ---
Today's Communication / Plan
-
remains in sinus
continue post op care per CT
wean dobutamine as tolerated
Impression / Plan
-
I/P: 74F with hypertension, hypothyroidism, hyperlipidemia, ITP/thalassemia with recent admission including findings of obstructive coronary artery disease, HFmrEF, and severe mitral regurgitation who presents for CABG/mitral valve repair.
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 Velasquez
CAD s/p CABG x 4 (ROBLEDO to LAD, Ao to RSVG to OM, Off RSVG to OM to diagonal, Ao to RSVG to mid RCA) & moderate to severe MR s/p MV repair ( 30mmannuoplasty ring)by Dr. Whelan 05/23/2025
- Mitral valve repair (30 mm ring annuloplasty) via transseptal approach and PATRICIA occlusion (35mm device)
- Pre-LVEF 45-50% post 50-55% and regional wall appeared improved, mitral regurgitation trace
wean dobutamine as tolerated
Ischemic cardiomyopathy
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
- LVEF improved postoperatively. can be reassessed later post op off pressors
- Not in acute/decompensated heart failure, follow volume status
- GDMT as patietn recovers, as tolerated
-PRUDENCIO/ARB/ARNI: Sacubitril�valsartan on hold preoperatively
-SGLT2 inhibitor: Farxiga 10 mg daily on hold, resume when able
-Aldosterone agonist: Spironolactone 25 mg on hold preoperatively
-Beta damian: Metoprolol tartrate currently ordered, will need to transition to succinate prior to discharge
-Isosorbide/Hydralazine:�Not currently indicated
-ICD: Not indicated
ITP, follow platelets - 94 on 05/24/25
Prediabetes, HbA1c 6.3%
Physical Exam
Vital Signs/Labs
Vital Signs
Temp Pulse Resp BP Pulse Ox
97.3 F 81 17 132/53 98
05/24/25 07:00 05/24/25 07:00 05/24/25 07:00 05/24/25 06:53 05/24/25 07:00
05/23/25 05/24/25 05/25/25
06:59 06:59 06:59
Actual Weight 87.5 kg 91.3 kg
05/24/25 02:50
05/24/25 02:50
PT 16.3 Sec (11.4-14.6) H 05/24/25 02:50
INR 1.28 05/24/25 02:50
APTT 30.6 Sec (23.4-35.0) 05/23/25 14:00
Magnesium 2.6 mg/dl (1.6-2.3) H 05/24/25 02:50
Physical Exam
Constitutional: No acute distress
Cardiovascular: Rhythm & rate is regular and Other (rub presetn . chest tubes are intact)
Respiratory: Wheeze Absent and Rhonchi Absent
GI: Soft
Neuro/Psych: Alert
Data Reviewed
-
Date of Service: May 24, 2025
Medical Decision Making: Reviewed Test Results
Echo: Report Reviewed by me
Medical Tests (PFT, Pathology etc): Report Reviewed by me
Labs: Labs Reviewed by me
--- NOTE | 2025-05-24 08:00 | PTCARENOTE ---
Addendum entered by Montserrat Ramos RN 05/24/25 09:01:
Epicardial AV wires to back up, unplugged from box. Pleural rub noted.
Original Note:
Assumed care of patient. Walking rounds completed with previous RN. Pt assessed while she was lying in bed. Pt alert and oriented x4. Rates sternal, back, and shoulder pain 03/02-see MAR. C/o intermittent nausea. Denies shortness of breath. GALO with
equal strength throughout. NSR on tele with rates in the 70s. BP 120s/50s. Cardene infusing at 2.5. CI 2.37. PA pressures 20s/10s. CVP 7-13. Bilateral radial and DP pulses weakly palpable. Generalized +2 edema. POX 93% on 6L NC. Lungs diminished
throughout. Occasional moist nonproductive cough. IS encouraged-500mL achieved. Right and left pleural chest tubes y-sited to 1 atrium to -20cm suction draining serosanguineous fluid. Mediastinal chest tubes x2 y-sited to 1 atrium to -20cm suction
draining serosanguineous fluid. No air leaks, tidaling, crepitus noted. Abdomen soft, round, obese, nontender. Hypoactive BS. Bailon catheter intact draining adequate amounts of clear yellow urine. Sternal incision approximated, AUTOMOTIVE PARTS ADVISOR. CT dressing CDI.
B/L groins soft, approximated, AUTOMOTIVE PARTS ADVISOR. B/l SVG harvests approximated with skin glue, PRUDENCIO CDI. Right IJ cordis with swan intact @37cm. Left radial irena intact with appropriate waveform. All lines flushed, leveled and zeroed. Left AC PIV intact with
insulin infusing per Critical Care Glycemic Protocol. Dobutamine infusing at 3. See MAR for medication administration. See worklist for complete nursing assessment. Plan of care reviewed and patient in agreement.
[2025-05-24] MEDS: SYNTHROID 112 MCG PO (08:05)
[2025-05-24] MEDS: SENOKOT 8.6 MG PO ×2 (08:05→20:23)
[2025-05-24] MEDS: NEURONTIN 100 MG PO ×3 (08:06→21:43)
[2025-05-24] MEDS: PROTONIX 40 MG PO (08:06)
[2025-05-24] MEDS: LIDOCAINE 4% PATCH 1 PATCH TOPICAL ×2 (08:06→21:42)
[2025-05-24] MEDS: DOBUTREX 500 MG 250 IV (08:07)
[2025-05-24] MEDS: BACTROBAN 2% OINTMENT 1 APPLIC NASAL ×2 (08:11→20:23)
[2025-05-24] MEDS: NSS IV (08:12)
[2025-05-24] MEDS: LOW STRENGTH ASPIRIN 81 MG PO (08:19)
[2025-05-24] MEDS: PLAVIX 75 MG PO (08:19)
[2025-05-24] MEDS: REGLAN 5 MG PO (08:27)
--- NOTE | 2025-05-24 08:40 | W.PN.INTV ---
Today's Communication / Plan
Recommendations
- Resume CPAP nightly and when napping, EPAP of 4
- Incentive spirometry
- Diuresis per primary team
- Wean oxygen and dobutamine as tolerated
Assessment
-
74-year-old female with history of multivessel coronary artery disease as well as moderate to severe mitral regurgitation with pulmonary hypertension and congestive heart failure, s/p coronary artery bypass graft, simple mitral valve repair and left
atrial appendage exclusion, POD # 1
Titrate off pressors per protocol, currently off levophed, dobutamine infusing at 3 along with Cardene at 2.5, MAP of 74. CVP of 10.
ECHO reviewed with normal EF, moderate to severe mitral regurgitation
PA catheter readings reviewed, 18/06, mean of 16. CVP of 10.
Management of chest tubes per primary service
Patient extubated, currently on supplemental oxygen 5 L, saturating 92%. Respiratory rate normal. No respiratory distress noted.
CXR appears mildly congested, low lung volumes, chest tubes in place
Maintain supplement oxygen as needed, keep saturations above 90% in view of history of pulmonary hypertension
No prior PFTs to review, currently not bronchospastic
Can add nebulizers if needed
Aspiration precautions
Encouraged incentive spirometry, OOB/ambulation/early mobility
Advance diet as tolerated following extubation
GI prophylaxis: Protonix
Monitor critical I/O's
Baioln/chest tube output
Hb/platelets postoperatively, drift noted.
Trend CBC for now
Can transfuse if indicated for Hb <7, plt <50 in surgical patients
DVT prophylaxis including SCDs
Insulin protocol ongoing
Other medical diagnoses:
-Pulmonary Hypertension. Primarily Group II with elevated PCWP and Severe MR
-HFpEF, severe MR. Appears hypervolemic today. s/p lasix.
-Multivessel CAD. s/p CABG . ASA/Plavix/Metoprolol and Lipitor
-Prediabetes (HbA1c: 6.2 on 01/07/2025). Insulin per protocol
-Obesity (BMI: 39.0)
-History of hypertension
-History of CVA
-History of ITP/thalassemia. Platelet count 94K this AM.
-Hepatic steatosis likely due to morbid obesity
-Pulmonary nodule. F/u with [facility]
-Hypothyroidism
-Hypoxic respiratory failure required Intubation/Mechanical ventilation in 12/2024, related to CHF due to MR as well as suspected Pneumonia with ARDS
-MICK. Resume CPAP nightly, EPAP 4.
Critical Care time [42] mins -- The patient is admitted for acute critical illness for the treatment of vital organ failure and/or prevention of further life-threatening conditions. Total care includes time spent in review of history, physical exam,
medications, hemodynamic/ventilator parameters, laboratory data, imaging and discussion with house staff, pharmacy, respiratory therapy, urologist physician, and nursing
Data:
ECHO 04/2025: 1. Normal biventricular size and function without regional wall motion abnormalities.
2. LVEF is 50-55% by visual estimation. Stage I diastolic dysfunction.
3. Moderate to severe MR.
4. Normal estimated PASP at 24 mmHg.
5. Compared to prior from March 03, 2025, on [id number] comparison overall LVEF has improved and is now approximately 50-55%, previously 47%.
CT Chest 04/2025: 1. No convincing acute abnormality identified in the chest within the limits of unenhanced CT, as described above.
2. Scattered patchy bilateral areas of intralobular septal thickening and subtle groundglass densities, likely reflecting chronic scarring possibly related to prior infections, grossly stable.
3. Severe coronary artery calcifications.
4. Cholelithiasis.
LHC 01/2025: 1. Right dominant circulation with multivessel coronary disease including a 99% subtotal occlusion of the proximal circumflex with YADY I flow to the proximal vessel and retrograde filling from the distal OM, a chronic total occlusion
of the proximal RCA supplied by collaterals from the LAD, and 90% lesion in the proximal margin of the large diagonal and tandem 70%, 80% and 70% lesions in the mid LAD.
2. Normal filling pressures (LVEDP = 10 mmHg at 85.7 kg).
3. At least moderate mitral valve regurgitation on transesophageal echocardiography.
TATYANA 01/2025: Mildly reduced left ventricular systolic function with inferolateral wall hypokinesis. LVEF 45-50%.
Moderate central mitral regurgitation due to malcoaptation of the leaflets. No
obvious leaflet tethering or prolapse.
Mild aortic regurgitation.
RHC 12/2024: PA 78/37 (51), PCWP 31. CI 1.7, CO 3.2. PVR 6.25. Combined pre and postcapillary pulmonary hypertension with severely elevated pulmonary capillary wedge pressure. Patient was on mechanical ventilation during testing.
Subjective Dataa
Subjective Data
Date of Service:
Date of Service: May 24, 2025
Subjective:
Patient comfortably lying in bed in no acute distress.
Review of Systems
Genitourinary: Other (All 14 systems reviewed and negative except as stated above in the history of present illness. Complains of chest pain at the site of chest tube insertion)
Objective Data
Data Reviewed
Vital Signs / I&O / Oxygen:
Vital Signs
Temp Pulse Resp BP Pulse Ox
97.6 F 75 25 120/62 90
05/24/25 08:00 05/24/25 08:15 05/24/25 08:15 05/24/25 08:12 05/24/25 08:15
Intake and Output
05/23/25 05/24/25 05/25/25
06:59 06:59 06:59
Intake Total 2673.7 / 2736.6 123.1 / 123.1
Output Total 1265 / 1480 505 / 505
Balance 1408.7 / 1256.6 -381.9 / -381.9
SaO2 [SIMV] 97
SaO2 90
Nasal Cannula flow liters per 6
minute
Physical Exam
General: Comfortable
HEENT: Normocephalic
Cardiovascular: S1-S2 and Peripheral Edema (1-2+)
Respiratory: Clear and Non-Labored Respirations
GI: Soft and Non Distended
Neurology: Awake and Alert
Skin: Warm
Labs/Micro/Reports
Lab Data
05/24/25 02:50
05/24/25 02:50
Laboratory Results
05/23/25 05/23/25 05/23/25
14:00 15:00 20:56
PT 19.2 H
INR 1.59
APTT 30.6
pH 7.33 L 7.34 L 7.40
pCO2 42 H 38 H 38 H
pO2 75 L 141 H 93
HCO3 22.1 20.5 L 23.5
O2 Delivery Level vent
05/23/25 05/23/25 05/24/25
21:55 22:48 02:50
PT 16.3 H
INR 1.28
APTT
pH 7.39 7.36
pCO2 39 H 41 H
pO2 82 L 78 L
HCO3 23.6 23.2
O2 Delivery Level Not Reportable
[2025-05-24] MEDS: NOVOLOG FLEXPEN SC ×2 (09:14→13:55)
[2025-05-24] MEDS: TRANSDERM-SCOP 1 PATCH TRANSDERM (09:17)
[2025-05-24 09:21] LABS: Glucose - Point of Care 128 mg/dl (70-99)
[2025-05-24 10:11] LABS: Glucose - Point of Care 120 mg/dl (70-99)
[2025-05-24 11:10] LABS: Glucose - Point of Care 103 mg/dl (70-99)
--- NOTE | 2025-05-24 11:26 | CM ---
Reviewed chart. Met with Mrs. Ireland to review discharge plans. She states she is feeling better now that the chest tubes are out. She states prior to admission she resides with her spouse in a one story home with four steps to enter. She
states prior to admission she was independent with ambulation and adls. She states her spouse uses a walker. Her spouse also has a private healthcare liaison for three hours in the a.m. and an hour and half in the evening. They pay privately for the
services. She also states her daughter resides nearby and works from home and can check on them. She also states her cxzqjew-qd-oxa also comes to check on them. She states she has a prescription plan. We reviewed a home visit by the Transitional
Care Nurse. She is agreeable to a home visit. Will need to see her current functional level to see if she will have any skilled care needs. Medical work-up in progress. The discharge plan is to return home with her spouse, family support, private
help and a home visit by the Transitional Care Nurse when medically stable.
[2025-05-24 12:10] LABS: Glucose - Point of Care 88 mg/dl (70-99)
--- NOTE | 2025-05-24 12:17 | PN.DE.MGMTRT ---
Insulin Management
- -
05/24/2025 Diabetes Management Consult
Patient admitted 05/23 for CABG x 4. PMH MVCAD, HTN, anxiety, severe MR, pacemaker, CVA, SHARMIN, hepatic steatosis, obesity, chf, pre diabetes. Prior to admission was taking farxiga 5 mg daily. A1C 6.3%, cr 1, eGFR 59.86.
POD 1 s/p CABG x 4, patient is awake alert and oriented sitting up in bed able to discuss pre diabetes. States her doctor never told her she had pre diabetes. Discussed briefly strategies to control glucose including diet and exercise when
approved.
Patient is currently receiving critical care glycemic protocol requiring 2 to 3 units of insulin per hour. Will continue insulin infusion overnight and assess for readiness to transition off insulin to farxiga with corrective insulin.
Discussed with nurse
Will follow.
Diabetes History
- -
Pre-Admission Diabetes Regimen
05/23/25 05/24/25
14:00 02:50
Creatinine 0.8 1.0
Lab Results
Hemoglobin A1c 6.3 % (4.0-5.6) H 05/18/25 12:29
Insulin Pump Settings
IP Diabetes Regimen
05/23/25 05/23/25 05/23/25
13:57 14:00 14:59
Glucose 112 H
POC Glucose 117 H 167 H
05/23/25 05/23/25 05/23/25
15:59 17:00 18:08
Glucose
POC Glucose 134 H 157 H 144 H
05/23/25 05/23/25 05/23/25
19:05 20:56 22:48
Glucose
POC Glucose 141 H 134 H 97
05/23/25 05/24/25 05/24/25
22:50 00:57 02:50
Glucose 118 H
POC Glucose 109 H 110 H
05/24/25 05/24/25 05/24/25
02:54 04:48 06:48
Glucose
POC Glucose 118 H 114 H 115 H
05/24/25 05/24/25 05/24/25
09:20 10:10 11:08
Glucose
POC Glucose 128 H 120 H 103 H
05/24/25
12:08
Glucose
POC Glucose 88
Meal type: Breakfast
Meal type: Dinner
Meal type: Lunch
Patient Education
--- NOTE | 2025-05-24 12:29 | PTCARENOTE ---
Pt reassessed. A&Ox4. Rates sternal pain 01/31-see MAR. Denies nausea and shortness of breath. Pt assisted OOB to chair with 2 assist, pt tolerated. NSR on tele with rates in the 70s. BP 104/54 via cuff, 116/61 via irena. POX 95% on 6L NC.
Mediastinal chest tubes intact with output WNL. Bailon draining adequate amounts of edward urine. Surgical sites stable. all lines remain intact. Dobutamine titrated to [address] THEATRICAL DRESSER. No other acute changes.
[2025-05-24 13:29] LABS: Glucose - Point of Care 116 mg/dl (70-99)
--- NOTE | 2025-05-24 14:13 | W.PN.ANS.POP ---
Anesthesia Post Operative
- Anesthesia Post Op Note
Vital Signs Stable-See Nursing Note: Yes
Airway Patent: Yes
Adequate Pain Control: Yes
Change in Mental Status: No
Current Postoperative Nausea & Vomiting: No
Anesthesia Complications: No
General Anesthetic Recall: No
Unplanned Admission: No
Post Op Hydration Adequate: Yes
[2025-05-24] MEDS: FERRLECIT 110 MG IV (14:30)
[2025-05-24] MEDS: TYLENOL 975 MG PO ×2 (14:35→21:43)
[2025-05-24 14:58] LABS: Glucose - Point of Care 143 mg/dl (70-99)
--- NOTE | 2025-05-24 16:00 | PTCARENOTE ---
Pt reassessed. Sitting up in the chair. Pt denies nausea. NSR with rates in the 80s. BP 120/50. POX 94% 2L NC. Surgical sites stable. Bailon draining adequate amounts of edward urine. All lines intact. CI 2.6. Dobutamine infusing at 2. Insulin
infusing per Critical Care glycemic. No other acute changes.
[2025-05-24] MEDS: PACERONE PO ×2 (16:07→22:38)
[2025-05-24 16:57] LABS: Glucose - Point of Care 129 mg/dl (70-99)
[2025-05-24] MEDS: NOVOLOG FLEXPEN 4 UNITS SC (17:57)
[2025-05-24 17:58] LABS: Glucose - Point of Care 112 mg/dl (70-99)
[2025-05-24 20:03] LABS: Glucose - Point of Care 96 mg/dl (70-99)
[2025-05-24] MEDS: REMOVE LIDOCAINE PATCH 1 PATCH REMOVE (20:23)
--- NOTE | 2025-05-24 20:45 | PTCARENOTE ---
Report received from GLEN Mariano. Walking rounds done. Pt awake, alert, oriented x 4. 2 RN assist back to bed. Equal strength x 4 yet generally weak. Pt on 1L/NC. Sats 91-92% in bed. O2 increased to 3L/NC. Sats up to 95-96%. BBS present. Decreased
to B bases. CDB and IS encouraged. Pt in SR. On dobutamine at 1 mcg/kg/min. CI 2.52. SVR 1092. [place] catheter at 37 cm. Pulsatile PA and CVP waveforms. Audible heart tones. +2 generalized edema. Mediastinal CTs to -20 cm suction with SSG
drainage. For pulse and wound assessments, see flowsheets. AV wires insulated to chest. Belly soft, obese. Normoactive bs x 4. Pt denies nausea for now. Reports passing flatus. Poor appetite. Bailon catheter draining clear,edward UO Q1 hr outputs
recorded. Glycemic protocol maintained. Ongoing plan of care.
[2025-05-24] MEDS: LIPITOR 40 MG PO (21:43)
[2025-05-24] MEDS: XALATAN OPHTHALMIC SOLUTION 1 DROP BOTH EYES (21:44)
[2025-05-24 22:24] LABS: Glucose - Point of Care 95 mg/dl (70-99)
[2025-05-24] MEDS: PACERONE 200 MG PO (22:53)
[2025-05-25] VITALS (29 sets, daily range): BP systolic 83–129; BP diastolic 21–118; PULSE 70; O2SAT 92–98; BMI 42.2
--- NOTE | 2025-05-25 | PTCARENOTE ---
Repeat CI on Dobutamine gtt 1 mcg/kg/min is 2.97. Pt initially refused amiodarone scheduled dose due to her mother's experience while taking amiodarone with side effects. MIKE Johns in to assess and talk with pt. Pt then willing to take evening
dose of amiodarone, and given. See MAR. Placed on CPAP at 4 and 4L/O2. Sats 94-96%. Remains in SR. A-line positional at times. New saline flush bag applied to transducer tubing.
[2025-05-25 00:27] LABS: Glucose - Point of Care 97 mg/dl (70-99)
--- NOTE | 2025-05-25 01:15 | PTCARENOTE ---
VS done. See flowsheet. Pt denies pain. Attempting to go back to sleep.
[2025-05-25 02:29] LABS: Glucose - Point of Care 88 mg/dl (70-99)
[2025-05-25] MEDS: ROXICODONE 5 MG PO ×3 (03:02→20:47)
--- NOTE | 2025-05-25 03:05 | PTCARENOTE ---
Repeat CI 2.84 on Dobut 1 mcg/kg/min. Pt requested to take CPAP off at 0230. Placed on 3L/NC. Sats 96%. Pt repositioned in bed. C/O moderate sternal pain. Oxycodone 5 mg po given. Ongoing plan of care.
--- NOTE | 2025-05-25 03:36 | W.PN.CT ---
Today's Communication / Plan
-
-pod #2
-no significant issues overnight
- last night c/o b/l hand tremor, better this am (no tremor while sleeping). No paresthesia, feeling intact, good cap refil, hand edema b/l - ? anxiety
-drips: Dobut 1, Insulin. CI 2.84, CO 5.11, SVR 939
-CT outputs: 2 meds 115/275 in 12/24 hrs
-wean off Dobut as tolerated
-labs are pending
-Echo is scheduled for 05/26
-pt initially refused po Amio, but now agreeable
-current meds (ASA, Plavix, Lipitor, Synthroid, Protonix). Lopressor is held while on Dobutamine. Mg held
-encourage IS, OOB
Assessment / Plan
-
Assessment:
-S/P Standard sternotomy/CABG x 4 [ROBLEDO to LAD, Ao to RSVG to OM, Off RSVG to OM to diagonal, Ao to RSVG to mid RCA]/ROBLEDO harvesting/ Bilateral endoscopic harvesting of SVG from thigh/Simple mitral valve repair [30 mm ring annuloplasty] via
transseptal approach/ Left atrial appendage exclusion [35 mm device], by Dr. Whelan, 05/23/25, pod#2
-Multivessel coronary disease with myocardial infarction
-ARDS status post prolonged intubation and home oxygen need
-Pulmonary hypertension
-Ischemic cardiomyopathy and heart failure
-LVEF 50% per intraop TATYANA
-Sepsis
-ITP
-Hyperlipidemia
-Hypertension
-Functional mitral valve insufficiency, type IIIb secondary to ischemic cardiomyopathy
-Class 3 obesity (BMI 40)
-Prediabetes (hgb A1C 6.3)
-Anemia
-Hx of transaminitis, 01/18/25
-Recent SHARMIN, 01/21/25
-Dysphagia
-Glaucoma
-Left cephalic vein thrombosis
-Anxiety
-S/P cataracts
-S/P L TKA, 05/12/2022
-S/P R TKA, 10/13/2016
-S/P LIMA
-Acute postop blood loss /anemia on chronic anemia (transfused 1u PRBC, 250 cc cell saver)
-Acute on chronic thrombocytopenia (transfused 2 {5pk} plts intraop)
-Acute postop atelectasis
-Acute postop pulmonary insufficiency
-Acute postop hypoxemia
-Acute postop metabolic acidosis
-Acute postop hypermagnesemia
-Acute postop hypovolemia with subsequent hypervolemia
Discussed patient care with: Nursing and Care Team
Subjective
Procedure
-S/P Standard sternotomy/CABG x 4 [ROBLEDO to LAD, Ao to RSVG to OM, Off RSVG to OM to diagonal, Ao to RSVG to mid RCA]/ROBLEDO harvesting/ Bilateral endoscopic harvesting of SVG from thigh/Simple mitral valve repair [30 mm ring annuloplasty] via
transseptal approach/ Left atrial appendage exclusion [35 mm device], by Dr. Whelan
-
Date of Service: May 25, 2025
Objective Data
-
PT 16.3 Sec (11.4-14.6) H 05/24/25 02:50
INR 1.28 05/24/25 02:50
APTT 30.6 Sec (23.4-35.0) 05/23/25 14:00
Vital Signs
Vital Signs
Temp Pulse Resp BP Pulse Ox
98.6 F 77 22 104/46 93
05/25/25 03:00 05/25/25 03:00 05/25/25 03:00 05/25/25 03:00 05/25/25 03:00
CT Intake/Output/Weight
05/24/25 05/24/25 05/25/25
06:59 18:59 06:59
Intake Total 1318.0 / 2736.6 591.3 / 832.6 241.3 / 832.6
Output Total 775 / 1480 1125 / 1500 375 / 1500
Balance 543.0 / 1256.6 -533.7 / -667.4 -133.7 / -667.4
SaO2: 93
Physical Exam
-
General: Awake and AOx3
Cardiovascular: Regular rate & rhythm, No Murmurs and No Rub
Respiratory: Decreased Breath Sounds
Sternum: Stable
Incision: Clean, Dry and Intact
Extremities: Edema +1 (b/l hands and legs b/l)
Abdomen: soft, nontender, nondistended,+decreased bowel sounds
Data Reviewed
-
Lab Results: Results Reviewed
Medications: Active Meds Reviewed
Chest X-Ray: Report Reviewed and Image Reviewed
ECG: Report Reviewed and Image Reviewed
[2025-05-25 04:27] LABS: Glucose - Point of Care 116 mg/dl (70-99)
[2025-05-25 05:25] LABS: Blood Urea Nitrogen 26 mg/dl (7-17); Calcium 8.7 mg/dl (8.4-10.2); Carbon Dioxide 27 mmol/L (22-30); Chloride 108 mmol/L (98-107); Estimated Creatinine Clearance 42 ml/min; Glucose 110 mg/dl (70-99); Magnesium 2.3 mg/dl (1.6-2.3); Potassium 4.5 mmol/L (3.5-5.1); Sodium 137 mmol/L (135-145); eGFR 48.09
[2025-05-25 05:29] LABS: Hematocrit 26.5 % (37.0-47.0); Hemoglobin 8.6 g/dL (12.0-16.0); Mean Corp Hgb Conc. 32.5 g/dL (33.0-37.0); Mean Corpuscular Volume 66.4 fL (81.0-99.0); Platelet Count 95 10^3/uL (130-400); Red Cell Dist. Width 22.9 % (11.5-14.5)
[2025-05-25] MEDS: SYNTHROID 112 MCG PO (05:30)
[2025-05-25] MEDS: TYLENOL 975 MG PO ×3 (05:30→20:46)
[2025-05-25 05:53] LABS: Glucose - Point of Care 83 mg/dl (70-99)
--- NOTE | 2025-05-25 06:42 | PTCARENOTE ---
Labs drawn and sent. CXR done. Discussed lab results and VS with PA. Pt to sitting. C/O transient lightheadedness. Assisted to standing scale with 2 RN assist. Weighed, then helped to recliner chair. After transfer to chair, Pt c/o of
lightheadedness. Chair placed in recliner position. BP via A line 100-120/50's. BP via cuff 114/87. Radio on for pt per request. Denies pain at present time.
--- NOTE | 2025-05-25 07:15 | W.PN.CD ---
Today's Communication / Plan
-
Furosemide 40 mg IV x1 and monitor.
Incentive spirometry.
Ambulate.
Pain/chest tube management per CT surgery.
Monitor H/H, platelets, renal function.
Impression / Plan
-
Impression/Plan: 74F with hypertension, hypothyroidism, hyperlipidemia, ITP/thalassemia with recent admission including findings of obstructive coronary artery disease, HFmrEF, and severe mitral regurgitation who presents for CABG/mitral valve
repair.
Primary business systems lead: Dr. Velasquez
#CAD
-Chronic, progressive.
-s/p CABG x 4 (ROBLEDO to LAD, Ao to RSVG to OM, Off RSVG to OM to diagonal, Ao to RSVG to mid RCA) with Dr. Whelan, 05/23/2025.
-Pre-LVEF 45-50% post 50-55%.
-Routine post operative management.
-Extubated POD #0.
-Titrate pressors/inotropes for MAP > 65 mmHg, CI > 1.8 L/min/m2.
-Incentive spirometry.
-Ambulation.
-Pain/chest tube management per CT surgery.
-Weight up 7.2 kg from baseline. MAPs are maintained. Lab evidence of hemodilution and cardiorenal syndrome. Furosemide 40 mg IV x1 and monitor.
#Mitral regurgitation
-Chronic, progressive.
-Moderate/severe, s/p MVR (#30 Walls Physio 2 annuloplasty ring, serial #[id number]) and LAAE (#35 AtriClip, serial #[id number]) with Dr. Whelan, 05/23/2025.
-MR reduced to trace.
-Post operative care as above.
#HFpEF
-Chronic.
-LVEF = 50%.
-Weight is now up 7.2 kg from baseline.
-Restart GDMT as patient recovers, as hemodynamics will tolerate:
-Diuretics: Furosemide 40 mg IV x1 and monitor.
-Beta damian: Metoprolol tartrate currently ordered, will need to transition to succinate prior to discharge.
-PRUDENCIO/ARB/ARNI: Sacubitril�valsartan on hold.
-SGLT2 inhibitor: Dapagliflozin 10 mg daily on hold.
-MRA: Spironolactone 25 mg on hold.
-Isosorbide/Hydralazine:� Not currently indicated.
-ICD: Not currently indicated.
#SHARMIN
-Acute.
-Creatinine 1.2.
-Likely cardiorenal/volume overload.
-ACEI/ARB/ARNi and SGLT2i on hold.
-Monitor with diuresis.
#Thalassemia/ITP/Anemia/Thrombocytopenia:
-Anemia/thrombocytopenia is acute.
-Likely post operative/dilutional.
-Monitor for improvement with diuresis.
-Transfuse for Hbg < 7.
-For ITP, there may be a role for steroids/heme consult if platelets do not improve with diuresis and temporal distance from surgery.
#Prediabetes
-Chronic, HbA1c = 6.3%.
-BMI is > 30.
-The patient would benefit from GLP-1 analogs at the time of discharge.
Subjective/Interval History:
No acute events.
BP stable.
SaO2 = 94% on 3LNC.
Weight up 7.2 kg from baseline.
DATA:
CABG/MVR, 05/23/2025:
Procedure(s) Performed:
1. Standard sternotomy with aortic and bicaval cannulation
2. Left internal mammary artery harvesting, pedicle
3. Coronary artery bypass grafting x 4 [ROBLEDO to LAD, Ao to RSVG to OM, Off RSVG to OM to diagonal, Ao to RSVG to mid RCA]
4. Simple mitral valve repair [30 mm ring annuloplasty] via transseptal approach
5. Left atrial appendage exclusion [35 mm device]
6. Placement temporary atrial ventricular pacing wires
7. Transesophageal echocardiography
8. Bilateral endoscopic harvesting of saphenous vein graft from thigh
TTE, 05/09/2025:
SUMMARY
1. Normal biventricular size and function without regional wall motion abnormalities.
2. LVEF is 50-55% by visual estimation. Stage I diastolic dysfunction.
3. Moderate to severe MR.
4. Normal estimated PASP at 24 mmHg.
5. Compared to prior from March 03, 2025, on [id number] comparison overall LVEF has improved and is now approximately 50-55%, previously 47%.
Cardiac Catheterization, 01/23/2025:
CONCLUSIONS
1. Right dominant circulation with multivessel coronary disease including a 99% subtotal occlusion of the proximal circumflex with YADY I flow to the proximal vessel and retrograde filling from the distal OM, a chronic total occlusion of the
proximal RCA supplied by collaterals from the LAD, and 90% lesion in the proximal margin of the large diagonal and tandem 70%, 80% and 70% lesions in the mid LAD.
2. Normal filling pressures (LVEDP = 10 mmHg at 85.7 kg).
3. At least moderate mitral valve regurgitation on transesophageal echocardiography.
Physical Exam
Vital Signs/Labs
Vital Signs
Temp Pulse Resp BP Pulse Ox
36.9 C 72 19 95/42 94
05/25/25 06:00 05/25/25 07:00 05/25/25 07:00 05/25/25 07:00 05/25/25 06:45
05/23/25 05/24/25 05/25/25
11:59 11:59 11:59
Actual Weight 87.5 kg 91.3 kg 94.7 kg
05/25/25 04:11
05/25/25 04:11
PT 16.3 Sec (11.4-14.6) H 05/24/25 02:50
INR 1.28 05/24/25 02:50
APTT 30.6 Sec (23.4-35.0) 05/23/25 14:00
Magnesium 2.3 mg/dl (1.6-2.3) 05/25/25 04:11
Physical Exam
Constitutional: No acute distress and Comfortable
EENT: Anicteric and Moist mucous membranes
Cardiovascular: Rhythm & rate is regular, Pedal edema is absent, JVD pressure is normal, S1S2 is normal and Murmur/rub/gallop absent
Respiratory: Respiratory effort normal, Lungs clear to auscul., Wheeze Absent, Crackles Absent and Rhonchi Absent
GI: Soft, Distention absent, Flat, Non tender and Normal bowel sounds
Neuro/Psych: AO x 3
Data Reviewed
-
Date of Service: May 25, 2025
Medical Decision Making: Reviewed Test Results, Independent Historian Assessment and Test Interpretation
EKG: Tracing Personally Visualized and interpreted and Report Reviewed by me
Echo: Tracing Personally Visualized and interpreted and Report Reviewed by me
X-Ray/CT/US/MRI/NUC/PET: Image Personally Visualized and interpreted and Report Reviewed by me
Medical Tests (PFT, Pathology etc): Image Personally Visualized and interpreted and Report Reviewed by me
Labs: Labs Reviewed by me
Old Records: Reviewed
--- NOTE | 2025-05-25 08:00 | PTCARENOTE ---
Resumed care of patient. Walking rounds completed with previous RN. Pt assessed while she was sitting in the chair. Pt alert and oriented x4. Pt rates sternal pain 7/10. Denies nausea and shortness of breath. GALO with equal strength throughout. NSR
on tele with rates in the 60s. BP 111/42. Heart tones audible. Bilateral radial and DP pulses weakly palpable. +2 generalized edema. CI 2.39 PA pressures 30s/10s. CVP 15. Epicardial AV wires insulated. POX 96% on 3L NC, titrated to 1L, POX 91%.
Lungs diminished in the bases. IS encouraged-750ml. Mediastinal chest tubes x2 y-sited to 1 atrium to -20cm suction draining serosanguineous fluid. No air leaks, tidaling, crepitus noted. Occasional moist nonproductive cough noted. Abdomen soft,
round, nontender, obese. +BS. Pt reports passing gas. Bailon draining adequate amounts of edward urine. Sternal incision approximated, TANNER. CT dressing CDI. B/l groin puncture sites approximated, TANNER. B/l SVG harvest sites approximated, TANNER. Right IJ
cordis with swan floated to 37cm. Left radial irena intact. All lines flushed, leveled, zeroed. Left AC PIV intact infusing insulin gtt per glycemic protocol. Dobutamine turned off as per Dr. Whelan. See MAR for medication administration. See worklist
for complete nursing assessment. Plan of care reviewed and patient in agreement.
[2025-05-25] MEDS: LASIX 40 MG IV ×3 (08:20→20:43)
[2025-05-25] MEDS: LOW STRENGTH ASPIRIN 81 MG PO (08:20)
[2025-05-25] MEDS: SENOKOT 8.6 MG PO ×2 (08:20→20:44)
[2025-05-25] MEDS: PACERONE 200 MG PO ×2 (08:20→20:45)
[2025-05-25] MEDS: PLAVIX 75 MG PO (08:20)
[2025-05-25] MEDS: PROTONIX 40 MG PO (08:20)
[2025-05-25] MEDS: NEURONTIN 100 MG PO ×3 (08:20→20:45)
[2025-05-25] MEDS: BACTROBAN 2% OINTMENT 1 APPLIC NASAL ×2 (08:21→20:44)
--- NOTE | 2025-05-25 08:21 | W.PN.INTV ---
Addendum entered and electronically signed by Tolu Rawls MD 05/25/25 14:07:
Patient transferring out of CVICU
Polymer Specialist service will sign off, please call as needed
Original Note:
Today's Communication / Plan
Recommendations
- Incentive spirometry, sit in chair as tolerated
- Transition off insulin infusion per protocol
- Follow-up chest x-ray in a.m.
Assessment
-
74-year-old female with history of multivessel coronary artery disease as well as moderate to severe mitral regurgitation with pulmonary hypertension and congestive heart failure, s/p coronary artery bypass graft, simple mitral valve repair and left
atrial appendage exclusion, POD # 2
Titrated off pressors per protocol, currently MAP of 82. Not requiring any pressors.
ECHO reviewed with normal EF, moderate to severe mitral regurgitation
PA catheter readings reviewed, , mean of 25
Management of chest tubes per primary service
Patient extubated, currently on supplemental oxygen 3 L, saturating 96%. Respiratory rate normal. No respiratory distress noted.
CXR with increased left lower lobe opacities, suspect atelectasis. Patient had minimal clear expectoration, is afebrile. White count somewhat elevated however clinically pneumonia appears to be unlikely. Continue to monitor for sign or symptom of
infection.
Maintain supplement oxygen as needed, keep saturations above 90% in view of history of pulmonary hypertension
No prior PFTs to review, currently not bronchospastic
Can add nebulizers if needed
Aspiration precautions
Encouraged incentive spirometry, OOB/ambulation/early mobility
Advance diet as tolerated following extubation
GI prophylaxis: Protonix
Monitor critical I/O's, creatinine slightly increased to 1.2 this morning, fluid balance -377 mL
Bailon/chest tube output
Hb/platelets postoperatively, drift noted.
Trend CBC for now
Can transfuse if indicated for Hb <7, plt <50 in surgical patients
DVT prophylaxis including SCDs
Insulin protocol ongoing
Other medical diagnoses:
-Pulmonary Hypertension. Primarily Group II with elevated PCWP and Severe MR
-HFpEF, severe MR. Appears euvolemic now
-Multivessel CAD. s/p CABG . ASA/Plavix/Metoprolol (on hold) and Lipitor
-Prediabetes (HbA1c: 6.2 on 01/07/2025). Insulin per protocol
-Obesity (BMI: 39.0)
-History of hypertension
-History of CVA
-History of ITP/thalassemia. Platelet count 95K this AM.
-Hepatic steatosis likely due to morbid obesity
-Pulmonary nodule. F/u with [facility]
-Hypothyroidism
-Hypoxic respiratory failure required Intubation/Mechanical ventilation in 12/2024, related to CHF due to MR as well as suspected Pneumonia with ARDS
-MICK. Resumed CPAP nightly, EPAP 4.
Critical Care time [38] mins -- The patient is admitted for acute critical illness for the treatment of vital organ failure and/or prevention of further life-threatening conditions. Total care includes time spent in review of history, physical exam,
medications, hemodynamic/ventilator parameters, laboratory data, imaging and discussion with house staff, pharmacy, respiratory therapy, solutions executive cloud sales, and nursing
Data:
ECHO 04/2025: 1. Normal biventricular size and function without regional wall motion abnormalities.
2. LVEF is 50-55% by visual estimation. Stage I diastolic dysfunction.
3. Moderate to severe MR.
4. Normal estimated PASP at 24 mmHg.
5. Compared to prior from March 03, 2025, on [id number] comparison overall LVEF has improved and is now approximately 50-55%, previously 47%.
CT Chest 04/2025: 1. No convincing acute abnormality identified in the chest within the limits of unenhanced CT, as described above.
2. Scattered patchy bilateral areas of intralobular septal thickening and subtle groundglass densities, likely reflecting chronic scarring possibly related to prior infections, grossly stable.
3. Severe coronary artery calcifications.
4. Cholelithiasis.
LHC 01/2025: 1. Right dominant circulation with multivessel coronary disease including a 99% subtotal occlusion of the proximal circumflex with YADY I flow to the proximal vessel and retrograde filling from the distal OM, a chronic total occlusion
of the proximal RCA supplied by collaterals from the LAD, and 90% lesion in the proximal margin of the large diagonal and tandem 70%, 80% and 70% lesions in the mid LAD.
2. Normal filling pressures (LVEDP = 10 mmHg at 85.7 kg).
3. At least moderate mitral valve regurgitation on transesophageal echocardiography.
TATYANA 01/2025: Mildly reduced left ventricular systolic function with inferolateral wall hypokinesis. LVEF 45-50%.
Moderate central mitral regurgitation due to malcoaptation of the leaflets. No
obvious leaflet tethering or prolapse.
Mild aortic regurgitation.
[facility] 12/2024: PA 78/37 (51), PCWP 31. CI 1.7, CO 3.2. PVR 6.25. Combined pre and postcapillary pulmonary hypertension with severely elevated pulmonary capillary wedge pressure. Patient was on mechanical ventilation during testing.
Subjective Dataa
Subjective Data
Date of Service:
Date of Service: May 25, 2025
Subjective:
Patient comfortably sitting in chair in no acute distress.
Review of Systems
Genitourinary: Other (All 14 systems reviewed and negative except as stated above in the history of present illness.)
Objective Data
Data Reviewed
Vital Signs / I&O / Oxygen:
Vital Signs
Temp Pulse Resp BP Pulse Ox
98.7 F 69 25 111/42 94
05/25/25 08:00 05/25/25 08:15 05/25/25 08:15 05/25/25 08:00 05/25/25 08:09
Intake and Output
05/24/25 05/25/25 05/26/25
06:59 06:59 06:59
Intake Total 2673.7 / 2736.6 961.4 / 981.7 73.8 / 73.8
Output Total 1265 / 1480 1695 / 1725 100 / 100
Balance 1408.7 / 1256.6 -733.6 / -743.3 -26.2 / -26.2
SaO2 [SIMV] 97
SaO2 94
Nasal Cannula flow liters per 1
minute
Physical Exam
General: Comfortable
HEENT: Normocephalic
Cardiovascular: S1-S2 and Peripheral Edema (1+)
Respiratory: Clear and Non-Labored Respirations
GI: Soft and Non Distended
Neurology: Awake and Alert
Skin: Warm
Labs/Micro/Reports
Lab Data
05/25/25 04:11
05/25/25 04:11
[2025-05-25] MEDS: LIDOCAINE 4% PATCH 1 PATCH TOPICAL ×2 (08:22→20:44)
[2025-05-25] MEDS: NOVOLOG FLEXPEN 4 UNITS SC (08:22)
--- NOTE | 2025-05-25 08:27 | PN.DE.MGMTRT ---
Insulin Management
- -
05/25/2025 Diabetes Management Consult Follow up
Patient admitted 05/23 for CABG x 4. PMH MVCAD, HTN, anxiety, severe MR, pacemaker, CVA, SHARMIN, hepatic steatosis, obesity, chf, pre diabetes. Prior to admission was taking farxiga 5 mg daily. A1C 6.3%, cr 1, eGFR 59.86.
POD 2 s/p CABG x 4, patient is awake alert and oriented sitting up in bed able to discuss pre diabetes. States her doctor never told her she had pre diabetes. Discussed briefly strategies to control glucose including diet and exercise when
approved.
Patient is currently receiving critical care glycemic protocol requiring 2 to 3 units of insulin per hour. Will continue insulin infusion today until after lunch. Will restart home Farxiga 5 mg this AM. Will start moderate corrective with dinner
if required.
Discussed with nurse
Will follow.
Diabetes History
- -
Type of Diabetes: 2
Pre-Admission Diabetes Regimen
05/25/25
04:11
Creatinine 1.2 H
Lab Results
Hemoglobin A1c 6.3 % (4.0-5.6) H 05/18/25 12:29
Insulin Pump Settings
IP Diabetes Regimen
05/24/25 05/24/25 05/24/25
09:20 10:10 11:08
Glucose
POC Glucose 128 H 120 H 103 H
05/24/25 05/24/25 05/24/25
12:08 13:24 14:57
Glucose
POC Glucose 88 116 H 143 H
05/24/25 05/24/25 05/24/25
16:56 17:56 20:01
Glucose
POC Glucose 129 H 112 H 96
05/24/25 05/25/25 05/25/25
22:22 00:26 02:28
Glucose
POC Glucose 95 97 88
05/25/25 05/25/25 05/25/25
04:11 04:26 05:52
Glucose 110 H
POC Glucose 116 H 83
Patient Education
--- NOTE | 2025-05-25 09:40 | PTCARENOTE ---
Pt assisted back to bed. CT MACHINIST MATE at bedside to cut v-wire and pull a-wire. Pt tolerated. Bedrest maintained for 1hr. q15 min vitals cycling.
[2025-05-25] MEDS: FARXIGA 5 MG PO (09:54)
[2025-05-25] MEDS: NSS 500 IV (09:54)
[2025-05-25] MEDS: REMOVE LIDOCAINE PATCH 1 PATCH REMOVE ×2 (09:54→20:44)
[2025-05-25 09:55] LABS: Glucose - Point of Care 160 mg/dl (70-99)
--- NOTE | 2025-05-25 11:00 | PTCARENOTE ---
As per CT CIVIL ENGINEERING TECHNICIAN, Mediastinal chest tubes d/c. [place] and irena d/c. Pt tolerated. Pt resting in bed at this time.
--- NOTE | 2025-05-25 11:22 | W.PN.UPDATE ---
Update Note
Progress Note Update
No pacing required since surgery. 2 epicardial atrial wires removed without incident. 1 bipolar ventricular wire clipped at skin level.
[2025-05-25 11:31] LABS: Glucose - Point of Care 111 mg/dl (70-99)
[2025-05-25 12:03] LABS: Glucose - Point of Care 58 mg/dl (70-99)
--- NOTE | 2025-05-25 12:03 | PTCARENOTE ---
blood sugar 58, 4oz apple juice given to patient. Insulin gtt stopped.
[2025-05-25 12:21] LABS: Glucose - Point of Care 73 mg/dl (70-99)
[2025-05-25] MEDS: NOVOLOG FLEXPEN SC (12:26)
--- NOTE | 2025-05-25 12:33 | CM ---
Reviewed chart. Met with Mrs. Ireland to review discharge plans. She states she is feeling much better. Prior to admission she resides with her spouse in a one story home with four steps to enter. Prior to admission she was independent with
ambulation and adls. Her spouse uses a walker. Her spouse also has a private home care liaison for three hours in the a.m. and an hour and half in the evening. They pay privately for the services. Her daughter resides nearby and works from home and can
check on them. Her [id number] also comes to check on them. She has a prescription plan. We reviewed a home visit by the Transitional Care Nurse. She is agreeable to a home visit. Will need to see her current functional level to see if she will
have any skilled care needs. Medical work-up in progress. The discharge plan is to return home with her spouse, family support, private help and a home visit by the Transitional Care Nurse when medically stable.
Initialized on 05/24/25 11:26 - END OF NOTE
[2025-05-25] MEDS: FERRLECIT 110 MG IV (14:00)
[2025-05-25] MEDS: PACERONE PO (15:46)
--- NOTE | 2025-05-25 16:26 | PTCARENOTE ---
Pt reassessed. NSR with rates in the 60s. BP 115/54. POX 95% on 2L NC. Surgical sites stable. Bailon draining adequate amounts of clear yellow urine. Cordis and PIV intact. No other acute changes. Pt sitting up in the chair.
[2025-05-25 17:49] LABS: Glucose - Point of Care 115 mg/dl (70-99)
[2025-05-25] MEDS: LIPITOR 40 MG PO (20:45)
[2025-05-25] MEDS: XALATAN OPHTHALMIC SOLUTION 1 DROP BOTH EYES (20:47)
--- NOTE | 2025-05-25 20:50 | PTCARENOTE ---
Report from GLEN Mariano. Walking rounds done. Pt assessed. VS done. See VS flowsheet. Pt sitting in chair. Awake, alert, oriented x 4. Generalized weakness, yet equal strength x 4. 2 RN assist to go back to bed. Pt on 2L/NC. Sats 95-96%. BBS
present. Decreased B bases. CDB, IS encouraged. IS peak 750 mls. Moist, productive cough at times, moderate, thin, clear sputum. Audible heart tones. Pt in SR. Normotensive. Surgibra intact. For pulse and wound assessments, see flowsheets. Belly
soft, obese, nontender. Normoactive bs x 4. Passing flatus. Fair appetite. Bailon draining clear, yellow urine after lasix 40 mg IV given. Oxycodone 5 mg given at 2046 for c/o moderate sternal and R shoulder pain. Ongoing plan of care.
[2025-05-25 21:25] LABS: Glucose - Point of Care 124 mg/dl (70-99)
--- NOTE | 2025-05-25 23:15 | PTCARENOTE ---
Pt given CHG bath. Faced washed, ballard care done. Assisted pt with brushing teeth. RT in to place pt on CPAP at 4 cm H2O with 4L/O2 overnight. Sats 95-96%. Lidocaine patch placed to R shoulder for c/o chronic rotator cuff pain. Bedtime glucose done.
Pt attempting to go to sleep.
[2025-05-26] VITALS (22 sets, daily range): BP systolic 86–133; BP diastolic 43–87; PULSE 81; O2SAT 99; BMI 41.8; BMI 42.0
--- NOTE | 2025-05-26 01:15 | PTCARENOTE ---
VS done. See flowsheet. Pt denies pain. Attempting to go back to sleep.
[2025-05-26] MEDS: ROXICODONE 5 MG PO ×4 (03:36→20:09)
--- NOTE | 2025-05-26 04:24 | PTCARENOTE ---
Pt called to RN. C/O 05/03 sternal pain. Repositioned in bed. Oxycodone 5 mg po given. See OCT. Pt wanted CPAP off. Placed on 3L/NC. Sats 95-96. VS done. Labs drawn and sent. MIKE Johns at bedside to see pt.
[2025-05-26 05:09] LABS: Blood Urea Nitrogen 25 mg/dl (7-17); Calcium 8.3 mg/dl (8.4-10.2); Carbon Dioxide 31 mmol/L (22-30); Chloride 103 mmol/L (98-107); Estimated Creatinine Clearance 51 ml/min; Glucose 101 mg/dl (70-99); Magnesium 2.2 mg/dl (1.6-2.3); Potassium 3.9 mmol/L (3.5-5.1); Sodium 136 mmol/L (135-145); eGFR 59.86
[2025-05-26 05:40] LABS: Hematocrit 24.8 % (37.0-47.0); Hemoglobin 7.8 g/dL (12.0-16.0); Mean Corp Hgb Conc. 31.5 g/dL (33.0-37.0); Mean Corpuscular Volume 67.4 fL (81.0-99.0); Platelet Count 122 10^3/uL (130-400); Red Cell Dist. Width 24.1 % (11.5-14.5)
[2025-05-26] MEDS: TYLENOL 975 MG PO ×3 (07:07→22:28)
[2025-05-26] MEDS: SYNTHROID 112 MCG PO (07:07)
--- NOTE | 2025-05-26 07:15 | W.PN.CD ---
Today's Communication / Plan
-
Continue aggressive diuresis.
Start dapagliflozin 10 mg daily.
Start sacubitril/valsartan tomorrow.
Ambulate.
Incentive spirometry.
Impression / Plan
-
Impression/Plan: 74F with hypertension, hypothyroidism, hyperlipidemia, ITP/thalassemia with recent admission including findings of obstructive coronary artery disease, HFmrEF, and severe mitral regurgitation who presents for CABG/mitral valve
repair.
Primary restrike hammer operator: Dr. Velasquez
#CAD
-Chronic, progressive.
-s/p CABG x 4 (ROBLEDO to LAD, Ao to RSVG to OM, Off RSVG to OM to diagonal, Ao to RSVG to mid RCA) with Dr. Whelan, 05/23/2025.
-Pre-LVEF 45-50% post 50-55%.
-Routine post operative management.
-Extubated POD #0.
-Incentive spirometry.
-Ambulation.
-Pain/chest tube management per CT surgery.
-Continue diuretics for post operative volume retention.
#Mitral regurgitation
-Chronic, progressive.
-Moderate/severe, s/p MVR (#30 Walls Physio 2 annuloplasty ring, serial #[id number]) and LAAE (#35 AtriClip, serial #[id number]) with Dr. Whelan, 05/23/2025.
-MR reduced to trace.
-Post operative care as above.
#HFpEF
-Chronic.
-LVEF = 50%.
-Weight is now up 7.2 kg from baseline.
-Restart GDMT as patient recovers, as hemodynamics will tolerate:
-Diuretics: Furosemide 40 mg IV.
-Beta damian: On hold. Plan to start metoprolol succinate 50 mg daily when more compensated.
-PRUDENCIO/ARB/ARNI: Sacubitril�valsartan on hold. Plan to start tomorrow.
-SGLT2 inhibitor: Start dapagliflozin 10 mg daily.
-MRA: Spironolactone 25 mg on hold.
-Isosorbide/Hydralazine:� Not currently indicated.
-ICD: Not currently indicated.
#SHARMIN
-Resolved.
#Thalassemia/ITP/Anemia/Thrombocytopenia:
-Anemia/thrombocytopenia is acute.
-Likely post operative/dilutional.
-Monitor for improvement with diuresis.
-Transfuse for Hbg < 7.
-For ITP, there may be a role for steroids/heme consult if platelets do not improve with diuresis and temporal distance from surgery.
#Prediabetes
-Chronic, HbA1c = 6.3%.
-BMI is > 30.
-The patient would benefit from GLP-1 analogs at the time of discharge.
Subjective/Interval History:
Furosemide started yesterday.
Weight down 0.9 kg.
Sternal pain treated with oxycodone.
SaO2 96% on 3LNC.
DATA:
CABG/MVR, 05/23/2025:
Procedure(s) Performed:
1. Standard sternotomy with aortic and bicaval cannulation
2. Left internal mammary artery harvesting, pedicle
3. Coronary artery bypass grafting x 4 [ROBLEDO to LAD, Ao to RSVG to OM, Off RSVG to OM to diagonal, Ao to RSVG to mid RCA]
4. Simple mitral valve repair [30 mm ring annuloplasty] via transseptal approach
5. Left atrial appendage exclusion [35 mm device]
6. Placement temporary atrial ventricular pacing wires
7. Transesophageal echocardiography
8. Bilateral endoscopic harvesting of saphenous vein graft from thigh
TTE, 05/09/2025:
SUMMARY
1. Normal biventricular size and function without regional wall motion abnormalities.
2. LVEF is 50-55% by visual estimation. Stage I diastolic dysfunction.
3. Moderate to severe MR.
4. Normal estimated PASP at 24 mmHg.
5. Compared to prior from March 03, 2025, on [id number] comparison overall LVEF has improved and is now approximately 50-55%, previously 47%.
Cardiac Catheterization, 01/23/2025:
CONCLUSIONS
1. Right dominant circulation with multivessel coronary disease including a 99% subtotal occlusion of the proximal circumflex with YADY I flow to the proximal vessel and retrograde filling from the distal OM, a chronic total occlusion of the
proximal RCA supplied by collaterals from the LAD, and 90% lesion in the proximal margin of the large diagonal and tandem 70%, 80% and 70% lesions in the mid LAD.
2. Normal filling pressures (LVEDP = 10 mmHg at 85.7 kg).
3. At least moderate mitral valve regurgitation on transesophageal echocardiography.
Physical Exam
Vital Signs/Labs
Vital Signs
Temp Pulse Resp BP Pulse Ox
36.6 C 74 15 117/51 96
05/26/25 04:22 05/26/25 05:00 05/26/25 04:22 05/26/25 04:22 05/26/25 04:22
05/24/25 05/25/25 05/26/25
11:59 11:59 11:59
Actual Weight 91.3 kg 94.7 kg 93.8 kg
05/26/25 04:14
05/26/25 04:14
PT 16.3 Sec (11.4-14.6) H 05/24/25 02:50
INR 1.28 05/24/25 02:50
APTT 30.6 Sec (23.4-35.0) 05/23/25 14:00
Magnesium 2.2 mg/dl (1.6-2.3) 05/26/25 04:14
Physical Exam
Constitutional: No acute distress and Comfortable
EENT: Anicteric and Moist mucous membranes
Cardiovascular: Rhythm & rate is regular, Pedal edema is absent, JVD pressure is normal, S1S2 is normal and Murmur/rub/gallop absent
Respiratory: Respiratory effort normal, Lungs clear to auscul., Wheeze Absent, Crackles Absent and Rhonchi Absent
GI: Soft, Distention absent, Flat, Non tender and Normal bowel sounds
Neuro/Psych: AO x 3
Data Reviewed
-
Date of Service: May 26, 2025
Medical Decision Making: Reviewed Test Results, Independent Historian Assessment and Test Interpretation
EKG: Tracing Personally Visualized and interpreted and Report Reviewed by me
Echo: Tracing Personally Visualized and interpreted and Report Reviewed by me
X-Ray/CT/US/MRI/NUC/PET: Image Personally Visualized and interpreted and Report Reviewed by me
Medical Tests (PFT, Pathology etc): Image Personally Visualized and interpreted and Report Reviewed by me
Labs: Labs Reviewed by me
Old Records: Reviewed
--- NOTE | 2025-05-26 07:19 | PTCARENOTE ---
Attempted to get pt OOB. Pt c/o dizziness with sitting. Pt stated dizziness became mildly better, then pt helped to standing. Pt with c/o increased dizziness, unable to step onto standing scale. Pt helped back to bed. Dizziness resolved. Remains in
SR, 70's. Sats 97% on 3L/NC. BP 109/57. Scheduled Tylenol and Synthroid given.
--- NOTE | 2025-05-26 07:32 | PN.DE.MGMTRT ---
Insulin Management
- -
05/26/2025: Diabetes Management Follow up
Patient admitted 05/23 for CABG x 4. PMH: MVCAD, HTN, Anxiety, Severe MR, pacemaker, CVA, SHARMIN, Hepatic steatosis, Obesity, CHF, Pre-Diabetes. Prior to admission was taking Farxiga 5 mg daily. A1C 6.3%, cr 1, eGFR 59.86. States her doctor never told
her she had pre diabetes. Discussed briefly strategies to control glucose including diet and exercise when approved.
Patient is awake alert and oriented sitting up in bed, c/o right sided arm pain, able to discuss pre diabetes.
POD # 3 s/p CABG x 4. Hgb 7.8 this AM.Currently receiving a unit of RBC. Transitioned off critical care glycemic protocol yesterday after lunch.
Glucose has remained stable and in range, fasting 101 V, 104 POC this AM.
Will continue his home Farxiga 5 mg this AM. Will cont moderate corrective with meals.
Discussed with nurse. Will cont to follow.
Diabetes History
- -
Type of Diabetes: 2
Pre-Admission Diabetes Regimen
05/26/25
04:14
Creatinine 1.0
Lab Results
Hemoglobin A1c 6.3 % (4.0-5.6) H 05/18/25 12:29
Insulin Pump Settings
IP Diabetes Regimen
05/25/25 05/25/25 05/25/25
08:13 09:53 12:01
Glucose
POC Glucose 111 H 160 H 58 L
05/25/25 05/25/25 05/25/25
12:19 17:47 21:24
Glucose
POC Glucose 73 115 H 124 H
05/26/25
04:14
Glucose 101 H
POC Glucose
Meal type: Dinner
Meal type: Breakfast
Amount consumed: 50%
Patient Education
--- NOTE | 2025-05-26 07:47 | W.PN.CT ---
Today's Communication / Plan
-
-pod #3
-no significant issues overnight
-diuresed with 40 iv tid Lasix on 05/25 (UO 1065/2660 in 12/24 hrs)
-Cr is stable - 1.0 today (1.2 on 05/25)
-Hg is down from 8.6 to 7.8 today. Pt felt dizzy getting out of bed. Will give 1 pRBC today and diurese
-Echo today
-continue current meds
-ambulate, encourage IS
Assessment / Plan
-
Assessment:
-S/P Standard sternotomy/CABG x 4 [ROBLEDO to LAD, Ao to RSVG to OM, Off RSVG to OM to diagonal, Ao to RSVG to mid RCA]/ROBLEDO harvesting/ Bilateral endoscopic harvesting of SVG from thigh/Simple mitral valve repair [30 mm ring annuloplasty] via
transseptal approach/ Left atrial appendage exclusion [35 mm device], by Dr. Whelan, 05/23/25, pod#3
-Multivessel coronary disease with myocardial infarction
-ARDS status post prolonged intubation and home oxygen need
-Pulmonary hypertension
-Ischemic cardiomyopathy and heart failure
-LVEF 50% per intraop TATYANA
-Sepsis
-ITP
-Hyperlipidemia
-Hypertension
-Functional mitral valve insufficiency, type IIIb secondary to ischemic cardiomyopathy
-Class 3 obesity (BMI 40)
-Prediabetes (hgb A1C 6.3)
-Anemia
-Hx of transaminitis, 01/18/25
-Recent SHARMIN, 01/21/25
-Dysphagia
-Glaucoma
-Left cephalic vein thrombosis
-Anxiety
-S/P cataracts
-S/P L TKA, 05/12/2022
-S/P R TKA, 10/13/2016
-S/P LIMA
-Acute postop blood loss /anemia on chronic anemia (transfused 1u PRBC, 250 cc cell saver)
-Acute on chronic thrombocytopenia (transfused 2 {5pk} plts intraop)
-Acute postop atelectasis
-Acute postop pulmonary insufficiency
-Acute postop hypoxemia
-Acute postop metabolic acidosis
-Acute postop hypermagnesemia
-Acute postop hypovolemia with subsequent hypervolemia
Discussed patient care with: Nursing and Care Team
Subjective
Procedure
-S/P Standard sternotomy/CABG x 4 [ROBLEDO to LAD, Ao to RSVG to OM, Off RSVG to OM to diagonal, Ao to RSVG to mid RCA]/ROBLEDO harvesting/ Bilateral endoscopic harvesting of SVG from thigh/Simple mitral valve repair [30 mm ring annuloplasty] via
transseptal approach/ Left atrial appendage exclusion [35 mm device], by Dr. Whelan
-
Date of Service: May 26, 2025
Objective Data
-
Lab Results
05/26/25 04:14
05/26/25 04:14
PT 16.3 Sec (11.4-14.6) H 05/24/25 02:50
INR 1.28 05/24/25 02:50
APTT 30.6 Sec (23.4-35.0) 05/23/25 14:00
Vital Signs
Vital Signs
Temp Pulse Resp BP Pulse Ox
98 F 74 17 109/57 97
05/26/25 07:42 05/26/25 07:42 05/26/25 07:42 05/26/25 07:23 05/26/25 07:47
CT Intake/Output/Weight
05/25/25 05/26/25 05/26/25
18:59 06:59 18:59
Intake Total 921.3 / 1081.3 150 / 1081.3
Output Total 1655 / 2790 1065 / 2790 70 / 70
Balance -733.7 / -1708.7 -915 / -1708.7 -60 / -60
SaO2: 97
Physical Exam
-
General: Awake and AOx3
Cardiovascular: Regular rate & rhythm, No Murmurs and No Rub
Respiratory: Decreased Breath Sounds
Sternum: Stable
Incision: Clean, Dry and Intact
Abdomen: soft, nontender, nondistended,+decreased bowel sounds
Extremities: Edema +1 (b/l hands and legs b/l)
Data Reviewed
-
Lab Results: Results Reviewed
Medications: Active Meds Reviewed
Chest X-Ray: Report Reviewed and Image Reviewed
ECG: Report Reviewed and Image Reviewed
[2025-05-26] MEDS: FARXIGA 5 MG PO (08:06)
[2025-05-26] MEDS: PACERONE 200 MG PO ×3 (08:06→22:27)
[2025-05-26 08:07] LABS: Glucose - Point of Care 104 mg/dl (70-99)
[2025-05-26] MEDS: PROTONIX 40 MG PO (08:07)
[2025-05-26] MEDS: PLAVIX 75 MG PO (08:07)
[2025-05-26] MEDS: LOW STRENGTH ASPIRIN 81 MG PO (08:07)
[2025-05-26] MEDS: NEURONTIN 100 MG PO ×3 (08:07→22:28)
[2025-05-26] MEDS: SENOKOT 8.6 MG PO ×2 (08:07→20:09)
[2025-05-26] MEDS: LIDOCAINE 4% PATCH TOPICAL ×2 (08:11→22:23)
--- NOTE | 2025-05-26 08:25 | PTCARENOTE ---
Patient received from mine shifter resting in bed, AAO x 3. NSR via cm, SaO2 @ 97% on 3lnc. RIJ Cordis w/kvo infusing. All procedural sites stable. Bailon catheter to gravity. Patient updated to plan of care for the day, in agreement. See work list
for full assessment and interventions performed.
[2025-05-26] MEDS: BACTROBAN 2% OINTMENT 1 APPLIC NASAL ×2 (09:05→20:10)
[2025-05-26] MEDS: NSS 500 IV (09:07)
[2025-05-26] MEDS: REMOVE LIDOCAINE PATCH 1 PATCH REMOVE (11:00)
[2025-05-26] MEDS: LASIX 40 MG IV (11:00)
[2025-05-26 11:57] LABS: Glucose - Point of Care 99 mg/dl (70-99)
--- NOTE | 2025-05-26 12:47 | PTCARENOTE ---
VS obtained, stable. Patient resting oob in chair, having lunch. Assisted to commode, voided.
[2025-05-26] MEDS: FERRLECIT 110 MG IV (14:08)
--- NOTE | 2025-05-26 14:56 | CM ---
Reviewed chart. Met with Mrs. Ireland. She states she is feeling better just feeling tired. We reviewed a home visit by the Transitional Care Nurse. She is agreeable to a home visit. She ambulated 75 feet today with breaks today. Prior to
admission she resides with her spouse in a one story home with four steps to enter. Prior to admission she was independent with ambulation and adls. Her spouse uses a walker. Her spouse also has a private critical care nurse practitioner for three hours in the a.m. and
an hour and half in the evening. They pay privately for the services. Her daughter resides nearby and works from home and can check on them. Her jeyxskz-rn-tll also comes to check on them. She has a prescription plan. We reviewed a home visit by
the Transitional Care Nurse. She is agreeable to a home visit. Will need to see her current functional level to see if she will have any skilled care needs. Medical work-up in progress. The discharge plan is to return home with her spouse, family
support, private help and a home visit by the Transitional Care Nurse when medically stable.
--- NOTE | 2025-05-26 14:59 | PTCARENOTE ---
Blood pressure 86/64 @ 1317 captured erroneously via Angel monitor.
--- NOTE | 2025-05-26 16:15 | PTCARENOTE ---
VS obtained, assessment stable. Patient remains oob in chair, pain controlled w/recent medication.
[2025-05-26 18:13] LABS: Glucose - Point of Care 108 mg/dl (70-99)
[2025-05-26] MEDS: REMOVE LIDOCAINE PATCH REMOVE (20:09)
--- NOTE | 2025-05-26 22:15 | PTCARENOTE ---
Patient resting in bed without difficulty. Patient A+A+Ox3. No neurological deficits noted. O2 2L via NC. SpO2 95%. Chest tube dressing intact. Sinus Rhythm. Heart rate 70's. Patient with no c/o chest pain, pressure or discomfort. Abdomen
soft, round, nontender. Normoactive bowel sounds in all four quads. No BM. Positive flatus. No c/o nausea. No vomiting. Patient with external urinary female device (Pure Wick) HS. Amaris, yellow urine. Generalized edema. Positive, palpable
pulses. Sternal incision intact. Right and Left groin punctures intact. Right and left lower extremity incisions intact. Right I.J. Cordis. Patient with no c/o back or flank pain. Assessment as documented.
[2025-05-26 22:22] LABS: Glucose - Point of Care 138 mg/dl (70-99)
[2025-05-26] MEDS: LIPITOR 40 MG PO (22:28)
[2025-05-26] MEDS: XALATAN OPHTHALMIC SOLUTION 1 DROP BOTH EYES (22:29)
[2025-05-27] VITALS (16 sets, daily range): BP systolic 99–147; BP diastolic 47–108; PULSE 77–78; O2SAT 100; BMI 42.0
[2025-05-27] MEDS: ROXICODONE 5 MG PO ×4 (00:28→20:02)
--- NOTE | 2025-05-27 00:30 | PTCARENOTE ---
Patient resting with CPAP intact. SpO2 97%. Roxicodone 5 mg PO given for pain management. No further changes from previous assessment.
--- NOTE | 2025-05-27 02:00 | PTCARENOTE ---
Patient sleeping without difficulty. CPAP intact. Assessment/Interventions as documented.
[2025-05-27] MEDS: DUONEB 3 ML INH ×3 (03:15→22:59)
--- NOTE | 2025-05-27 04:30 | PTCARENOTE ---
Patient awoke and removed CPAP. c/o SOB. Audible wheeze. Neb treatment ordered by PA and administered by Respiratory Therapist. O2 2L via NC. SpO2 95%. Heart rate 70's. Sinus Rhythm. Blood pressure 118/53 (73). Patient A+A+Ox3. No
neurological deficits noted. AM lab work collected and sent. Patient now resting in bed. OOB to chair in AM. Assessment/Interventions as documented.
[2025-05-27 04:44] LABS: Hematocrit 27.8 % (37.0-47.0); Hemoglobin 9.0 g/dL (12.0-16.0); Mean Corp Hgb Conc. 32.4 g/dL (33.0-37.0); Mean Corpuscular Volume 70.4 fL (81.0-99.0); Platelet Count 138 10^3/uL (130-400); Red Cell Dist. Width 25.4 % (11.5-14.5)
[2025-05-27 05:26] LABS: Blood Urea Nitrogen 23 mg/dl (7-17); Calcium 8.4 mg/dl (8.4-10.2); Carbon Dioxide 32 mmol/L (22-30); Chloride 102 mmol/L (98-107); Estimated Creatinine Clearance 57 ml/min; Glucose 101 mg/dl (70-99); Magnesium 2.2 mg/dl (1.6-2.3); Potassium 3.7 mmol/L (3.5-5.1); Sodium 134 mmol/L (135-145); eGFR > 60.00
[2025-05-27] MEDS: TYLENOL PO (06:41)
[2025-05-27] MEDS: SYNTHROID 112 MCG PO (06:45)
[2025-05-27 08:07] LABS: Glucose - Point of Care 106 mg/dl (70-99)
[2025-05-27] MEDS: BACTROBAN 2% OINTMENT 1 APPLIC NASAL (08:36)
[2025-05-27] MEDS: LIDOCAINE 4% PATCH TOPICAL ×2 (08:37→22:30)
[2025-05-27] MEDS: LOW STRENGTH ASPIRIN 81 MG PO (08:37)
[2025-05-27] MEDS: PROTONIX 40 MG PO (08:37)
[2025-05-27] MEDS: NEURONTIN 100 MG PO ×3 (08:37→22:35)
[2025-05-27] MEDS: FARXIGA 5 MG PO (08:37)
[2025-05-27] MEDS: PLAVIX 75 MG PO (08:37)
[2025-05-27] MEDS: SENOKOT 8.6 MG PO ×2 (08:37→20:07)
[2025-05-27] MEDS: PACERONE 200 MG PO ×3 (08:37→22:34)
--- NOTE | 2025-05-27 08:38 | PTCARENOTE ---
Received pt from equipment operator wage hand RN; pt AAOX3 and resting comfortably in chair; NSR on monitor and VSS: RIJ Cordis and PIV x1 patent; Lungs diminished, fine crackles in bases with wheezing bilaterally; positive bowel sounds; Purewick in place and skin
C/D/I; weak pulses throughout; +1 generalized edema noted; all surgical sites C/D/I; see nursing documentation for further details.
--- NOTE | 2025-05-27 09:39 | W.PN.CT ---
Today's Communication / Plan
-
-pod #4
-had some SOB and wheezing this am- improved with Duoneb, chest PT, IS and acapella
-got 1 pRBC on 05/26 for Hg 7.8 with dizziness. Hg today is 9.0
-continue diuresis
-continue current meds
-ambulate, encourage IS
Assessment / Plan
-
Assessment:
-S/P Standard sternotomy/CABG x 4 [ROBLEDO to LAD, Ao to RSVG to OM, Off RSVG to OM to diagonal, Ao to RSVG to mid RCA]/ROBLEDO harvesting/ Bilateral endoscopic harvesting of SVG from thigh/Simple mitral valve repair [30 mm ring annuloplasty] via
transseptal approach/ Left atrial appendage exclusion [35 mm device], by Dr. Whelan, 05/23/25, pod#4
-Multivessel coronary disease with myocardial infarction
-ARDS status post prolonged intubation and home oxygen need
-Pulmonary hypertension
-Ischemic cardiomyopathy and heart failure
-LVEF 50% per intraop TATYANA
-Sepsis
-ITP
-Hyperlipidemia
-Hypertension
-Functional mitral valve insufficiency, type IIIb secondary to ischemic cardiomyopathy
-Class 3 obesity (BMI 40)
-Prediabetes (hgb A1C 6.3)
-Anemia
-Hx of transaminitis, 01/18/25
-Recent SHARMIN, 01/21/25
-Dysphagia
-Glaucoma
-Left cephalic vein thrombosis
-Anxiety
-S/P cataracts
-S/P L TKA, 05/12/2022
-S/P R TKA, 10/13/2016
-S/P LIMA
-Acute postop blood loss /anemia on chronic anemia (transfused 1u PRBC, 250 cc cell saver)
-Acute on chronic thrombocytopenia (transfused 2 {5pk} plts intraop)
-Acute postop atelectasis
-Acute postop pulmonary insufficiency
-Acute postop hypoxemia
-Acute postop metabolic acidosis
-Acute postop hypermagnesemia
-Acute postop hypovolemia with subsequent hypervolemia
Discussed patient care with: Nursing and Care Team
Subjective
Procedure
-S/P Standard sternotomy/CABG x 4 [ROBLEDO to LAD, Ao to RSVG to OM, Off RSVG to OM to diagonal, Ao to RSVG to mid RCA]/ROBLEDO harvesting/ Bilateral endoscopic harvesting of SVG from thigh/Simple mitral valve repair [30 mm ring annuloplasty] via
transseptal approach/ Left atrial appendage exclusion [35 mm device], by Dr. Whelan
-
Date of Service: May 27, 2025
Objective Data
-
Lab Results
05/27/25 04:28
05/27/25 04:28
PT 16.3 Sec (11.4-14.6) H 05/24/25 02:50
INR 1.28 05/24/25 02:50
APTT 30.6 Sec (23.4-35.0) 05/23/25 14:00
Vital Signs
Vital Signs
Temp Pulse Resp BP Pulse Ox
98.4 F 72 18 118/53 97
05/27/25 04:00 05/27/25 07:46 05/27/25 07:46 05/27/25 04:06 05/27/25 07:46
CT Intake/Output/Weight
05/26/25 05/27/25 05/27/25
18:59 06:59 18:59
Intake Total 830 / 1190 360 / 1190
Output Total 1000 / 1500 500 / 1500
Balance -170 / -310 -140 / -310
SaO2: 97
Physical Exam
-
General: Awake and AOx3
Cardiovascular: Regular rate & rhythm, No Murmurs and No Rub
Respiratory: Decreased Breath Sounds
Sternum: Stable
Incision: Clean, Dry and Intact
Abdomen: soft, nontender, nondistended,+decreased bowel sounds
Extremities: Edema +1 (b/l hands and legs b/l)
Data Reviewed
-
Lab Results: Results Reviewed
Medications: Active Meds Reviewed
Chest X-Ray: Report Reviewed and Image Reviewed
ECG: Report Reviewed and Image Reviewed
[2025-05-27] MEDS: REMOVE LIDOCAINE PATCH REMOVE ×2 (10:02→19:55)
[2025-05-27] MEDS: LASIX 40 MG IV ×2 (10:02→16:12)
[2025-05-27] MEDS: MUCINEX 600 MG PO ×2 (10:34→20:02)
[2025-05-27] MEDS: ANESTHETIC LOZENGE 1 LOZENGE PO (10:34)
[2025-05-27] MEDS: TESSALON PERLES 100 MG PO ×2 (10:34→20:02)
--- NOTE | 2025-05-27 11:19 | PTCARENOTE ---
Assessment unchanged; NSR on monitor and VSS; pt worked with PT/OT; family at bedside updated.
[2025-05-27 11:50] LABS: Glucose - Point of Care 113 mg/dl (70-99)
[2025-05-27] MEDS: TYLENOL 975 MG PO ×2 (13:52→22:35)
[2025-05-27] MEDS: DIAMOX 2.5 MG IV (13:52)
--- NOTE | 2025-05-27 17:06 | PTCARENOTE ---
NSR on monitor and VSS; assessment unchanged; pt resting comfortably in chair.
[2025-05-27 17:30] LABS: Glucose - Point of Care 97 mg/dl (70-99)
[2025-05-27] MEDS: NSS IV (17:44)
--- NOTE | 2025-05-27 20:15 | PTCARENOTE ---
Patient received OOB in chair. Patient assisted to bed with assist x2. Patient A+A+Ox3. No neurological deficits noted. No c/o headache, dizziness or lightheadedness. Room air. SpO2 88%. O2 at 2L via NC HS. SpO2 96%. Patient does not want
to wear CPAP tonight. Chest tube dressing intact. Sinus Rhythm. Heart rate 70's. Blood pressure 134/60 (74). Patient with no c/o chest pain, pressure or discomfort. Abdomen soft, round, nontender. Normoactive bowel sounds. No BM. Positive
flatus. No c/o nausea. No vomiting. Voiding. External urinary device intact HS (Pure Wick). 400 ml yellow urine. Generalized edema. Positive, palpable pulses. Sternal incision intact. Right and left groin puncture sites intact. Right and
left lower extremity incisions intact. Patient with no c/o back or flank pain. Right I.J. Cordis. Assessment as documented.
[2025-05-27] MEDS: LIPITOR 40 MG PO (22:35)
[2025-05-27] MEDS: XALATAN OPHTHALMIC SOLUTION 1 DROP BOTH EYES (22:36)
[2025-05-27 22:49] LABS: Glucose - Point of Care 113 mg/dl (70-99)
--- NOTE | 2025-05-27 23:30 | PTCARENOTE ---
Patient with episodes of coughing and attempting to mobilize secretions. c/o SOB. Audible wheeze. Respiratory therapist notified. DuoNeb treatment administered. Patient now resting in bed. No further changes from previous assessment.
[2025-05-28] VITALS (18 sets, daily range): BP systolic 94–137; BP diastolic 57–109; PULSE 78; O2SAT 100; BMI 41.2
[2025-05-28] MEDS: LASIX 40 MG IV ×3 (00:44→16:16)
--- NOTE | 2025-05-28 04:15 | PTCARENOTE ---
Patient resting in bed. Patient A+A+Ox3. No neurological deficits noted. AM lab work collected and sent. [facility] bath and linens changed. OOB to chair in AM. Assessment/Interventions as documented.
[2025-05-28 04:28] LABS: Hematocrit 28.2 % (37.0-47.0); Hemoglobin 9.0 g/dL (12.0-16.0); Mean Corp Hgb Conc. 31.9 g/dL (33.0-37.0); Mean Corpuscular Volume 69.6 fL (81.0-99.0); Platelet Count 194 10^3/uL (130-400); Red Cell Dist. Width 26.4 % (11.5-14.5)
[2025-05-28 04:42] LABS: Blood Urea Nitrogen 20 mg/dl (7-17); Calcium 8.4 mg/dl (8.4-10.2); Carbon Dioxide 32 mmol/L (22-30); Chloride 100 mmol/L (98-107); Estimated Creatinine Clearance 46 ml/min; Glucose 93 mg/dl (70-99); Magnesium 2.3 mg/dl (1.6-2.3); Potassium 3.3 mmol/L (3.5-5.1); Sodium 136 mmol/L (135-145); eGFR 53.39
--- NOTE | 2025-05-28 05:26 | W.PN.CT ---
Addendum entered and electronically signed by Tulio Whelan MD 05/28/25 09:00:
I saw and examined the patient.
The PA's note was reviewed and I agree with the note.
Comment:
Weight coming down nicely, continue diuresis today. Add Diamox. Mobilize. Very short burst of A-fib, recovered with IV beta-damian. Continue oral beta-damian and amiodarone protocol. Looking at discharge likely Thursday.
Original Note:
Today's Communication / Plan
-
-pod #5
-got 1 pRBC on 05/26 for Hg 7.8 with dizziness. Hg yesterday is 9.0, today 9.7
-continue diuresis (lasix TID, diamox)
-UOP 1000/2750 cc out in 12/24 hrs
-continue current meds
-ambulate, encourage IS
Assessment / Plan
-
Assessment:
-S/P Standard sternotomy/CABG x 4 [ROBLEDO to LAD, Ao to RSVG to OM, Off RSVG to OM to diagonal, Ao to RSVG to mid RCA]/ROBLEDO harvesting/ Bilateral endoscopic harvesting of SVG from thigh/Simple mitral valve repair [30 mm ring annuloplasty] via
transseptal approach/ Left atrial appendage exclusion [35 mm device], by Dr. Whelan, 05/23/25, pod#5
-Multivessel coronary disease with myocardial infarction
-ARDS status post prolonged intubation and home oxygen need
-Pulmonary hypertension
-Ischemic cardiomyopathy and heart failure
-LVEF 50% per intraop TATYANA
-Sepsis
-ITP
-Hyperlipidemia
-Hypertension
-Functional mitral valve insufficiency, type IIIb secondary to ischemic cardiomyopathy
-Class 3 obesity (BMI 40)
-Prediabetes (hgb A1C 6.3)
-Anemia
-Hx of transaminitis, 01/18/25
-Recent SHARMIN, 01/21/25
-Dysphagia
-Glaucoma
-Left cephalic vein thrombosis
-Anxiety
-S/P cataracts
-S/P L TKA, 05/12/2022
-S/P R TKA, 10/13/2016
-S/P LIMA
-Acute postop blood loss /anemia on chronic anemia (transfused 1u PRBC, 250 cc cell saver)
-Acute on chronic thrombocytopenia (transfused 2 {5pk} plts intraop)
-Acute postop atelectasis
-Acute postop pulmonary insufficiency
-Acute postop hypoxemia
-Acute postop metabolic acidosis
-Acute postop hypermagnesemia
-Acute postop hypovolemia with subsequent hypervolemia
Subjective
Procedure
-S/P Standard sternotomy/CABG x 4 [ROBLEDO to LAD, Ao to RSVG to OM, Off RSVG to OM to diagonal, Ao to RSVG to mid RCA]/ROBLEDO harvesting/ Bilateral endoscopic harvesting of SVG from thigh/Simple mitral valve repair [30 mm ring annuloplasty] via
transseptal approach/ Left atrial appendage exclusion [35 mm device], by Dr. Whelan
-
Date of Service: May 28, 2025
Objective Data
-
Lab Results
05/28/25 04:09
05/28/25 04:09
PT 16.3 Sec (11.4-14.6) H 05/24/25 02:50
INR 1.28 05/24/25 02:50
APTT 30.6 Sec (23.4-35.0) 05/23/25 14:00
Vital Signs
Vital Signs
Temp Pulse Resp BP Pulse Ox
98.1 F 72 18 103/62 96
05/28/25 04:10 05/28/25 04:10 05/28/25 04:10 05/28/25 04:10 05/28/25 04:10
CT Intake/Output/Weight
05/27/25 05/27/25 05/28/25
06:59 18:59 06:59
Intake Total 360 / 1190 720 / 820 100 / 820
Output Total 500 / 1500 1750 / 2750 1000 / 2750
Balance -140 / -310 -1030 / -1930 -900 / -1930
SaO2: 96
Physical Exam
-
General: Awake and Oriented
Cardiovascular: Regular rate & rhythm
Respiratory: Clear, Equal and Decreased Breath Sounds
Sternum: Stable
Incision: Clean, Dry and Intact
Extremities: Edema +1, No Edema and No Erythema
Data Reviewed
-
Lab Results: Results Reviewed
Medications: Active Meds Reviewed
Chest X-Ray: Report Reviewed
CT Scan: Report Reviewed
ECG: Report Reviewed
[2025-05-28] MEDS: TYLENOL 975 MG PO ×3 (06:41→21:11)
[2025-05-28] MEDS: SYNTHROID 112 MCG PO (06:41)
[2025-05-28] MEDS: LOPRESSOR 2.5 MG IV ×2 (07:04→19:18)
[2025-05-28] MEDS: PACERONE 200 MG PO ×3 (07:05→21:11)
[2025-05-28] MEDS: LOPRESSOR 12.5 MG PO (07:05)
[2025-05-28] MEDS: KCL 100 IV (07:21)
--- NOTE | 2025-05-28 07:32 | PTCARENOTE ---
Pt had a brief episode of A-fib HR 130-150s; BP 120/77; CTPA updated, Lopressor 2.5mg IV x1 given, PO Amiodarone 200mg and Lopressor 12.5mg PO given; KCL 40meq IV infusing per CTPA order; currently NSR on monitor and VSS.
[2025-05-28 08:17] LABS: Glucose - Point of Care 108 mg/dl (70-99)
[2025-05-28] MEDS: NEURONTIN 100 MG PO ×3 (08:18→21:11)
[2025-05-28] MEDS: PROTONIX 40 MG PO (08:18)
[2025-05-28] MEDS: FARXIGA 5 MG PO (08:18)
[2025-05-28] MEDS: MUCINEX 600 MG PO ×2 (08:18→19:57)
[2025-05-28] MEDS: LIDOCAINE 4% PATCH TOPICAL (08:18)
[2025-05-28] MEDS: TESSALON PERLES 100 MG PO ×3 (08:18→21:12)
[2025-05-28] MEDS: SENOKOT 8.6 MG PO ×2 (08:18→19:57)
[2025-05-28] MEDS: LOW STRENGTH ASPIRIN 81 MG PO (08:18)
[2025-05-28] MEDS: PLAVIX 75 MG PO (08:18)
--- NOTE | 2025-05-28 08:50 | W.PN.CD ---
Today's Communication / Plan
-
- Continue diuresis.
Impression / Plan
-
Impression/Plan: 74F with hypertension, hypothyroidism, hyperlipidemia, ITP/thalassemia with recent admission including findings of obstructive coronary artery disease, HFmrEF, and severe mitral regurgitation who presents for CABG/mitral valve
repair.
Primary curator medical museum: Dr. Velasquez
#CAD
-Chronic, progressive.
-s/p CABG x 4 (ROBLEDO to LAD, Ao to RSVG to OM, Off RSVG to OM to diagonal, Ao to RSVG to mid RCA) with Dr. Whelan, 05/23/2025.
-Pre-LVEF 45-50% post 50-55%.
-Routine post operative management.
-Extubated
- Diuresing well. Adding Diamox.
-Incentive spirometry.
-Ambulation.
-Pain/chest tube management per CT surgery.
-Continue diuretics for post operative volume retention.
#Mitral regurgitation
-Chronic, progressive.
-Moderate/severe, s/p MVR (#30 Walls Physio 2 annuloplasty ring, serial #[id number]) and LAAE (#35 AtriClip, serial #[id number]) with Dr. Whelan, 05/23/2025.
-MR reduced to trace.
-Post operative care as above.
- Short run of AF - brief episode. On Beta blockers.
#HFpEF
-Chronic.
-LVEF = 50%.
-Weight is responding well.
-Restart GDMT as patient recovers, as hemodynamics will tolerate:
-Diuretics: Furosemide 40 mg IV.
-Beta damian: On hold. Plan to start metoprolol succinate 50 mg daily when more compensated.
-PRUDENCIO/ARB/ARNI: Sacubitril�valsartan on hold. Plan to start tomorrow.
-SGLT2 inhibitor: Start dapagliflozin 10 mg daily.
-MRA: Spironolactone 25 mg on hold.
-Isosorbide/Hydralazine:� Not currently indicated.
-ICD: Not currently indicated.
#SHARMIN
-Resolved.
#Thalassemia/ITP/Anemia/Thrombocytopenia:
-Anemia/thrombocytopenia is acute.
-Likely post operative/dilutional.
-Monitor for improvement with diuresis.
-Transfuse for Hbg < 7.
-For ITP, there may be a role for steroids/heme consult if platelets do not improve with diuresis and temporal distance from surgery.
#Prediabetes
-Chronic, HbA1c = 6.3%.
-BMI is > 30.
-The patient would benefit from GLP-1 analogs at the time of discharge.
Subjective/Interval History:
Diuresing well. Pain is better.
DATA:
CABG/MVR, 05/23/2025:
Procedure(s) Performed:
1. Standard sternotomy with aortic and bicaval cannulation
2. Left internal mammary artery harvesting, pedicle
3. Coronary artery bypass grafting x 4 [ROBLEDO to LAD, Ao to RSVG to OM, Off RSVG to OM to diagonal, Ao to RSVG to mid RCA]
4. Simple mitral valve repair [30 mm ring annuloplasty] via transseptal approach
5. Left atrial appendage exclusion [35 mm device]
6. Placement temporary atrial ventricular pacing wires
7. Transesophageal echocardiography
8. Bilateral endoscopic harvesting of saphenous vein graft from thigh
TTE, 05/09/2025:
SUMMARY
1. Normal biventricular size and function without regional wall motion abnormalities.
2. LVEF is 50-55% by visual estimation. Stage I diastolic dysfunction.
3. Moderate to severe MR.
4. Normal estimated PASP at 24 mmHg.
5. Compared to prior from March 03, 2025, on [id number] comparison overall LVEF has improved and is now approximately 50-55%, previously 47%.
Cardiac Catheterization, 01/23/2025:
CONCLUSIONS
1. Right dominant circulation with multivessel coronary disease including a 99% subtotal occlusion of the proximal circumflex with YADY I flow to the proximal vessel and retrograde filling from the distal OM, a chronic total occlusion of the
proximal RCA supplied by collaterals from the LAD, and 90% lesion in the proximal margin of the large diagonal and tandem 70%, 80% and 70% lesions in the mid LAD.
2. Normal filling pressures (LVEDP = 10 mmHg at 85.7 kg).
3. At least moderate mitral valve regurgitation on transesophageal echocardiography.
Physical Exam
Vital Signs/Labs
Vital Signs
Temp Pulse Resp BP Pulse Ox
98.4 F 73 20 124/58 94
05/28/25 08:00 05/28/25 08:19 05/28/25 08:00 05/28/25 08:19 05/28/25 08:00
05/27/25 05/28/25 05/29/25
06:59 06:59 06:59
Actual Weight 94.3 kg 92.5 kg
05/28/25 04:09
05/28/25 04:09
PT 16.3 Sec (11.4-14.6) H 05/24/25 02:50
INR 1.28 05/24/25 02:50
APTT 30.6 Sec (23.4-35.0) 05/23/25 14:00
Magnesium 2.3 mg/dl (1.6-2.3) 05/28/25 04:09
Physical Exam
Constitutional: No acute distress and Comfortable
EENT: Anicteric and Moist mucous membranes
Cardiovascular: Rhythm & rate is regular, Pedal edema is absent and JVD pressure is normal
Respiratory: Respiratory effort normal and Lungs clear to auscul.
Neuro/Psych: Alert, AO x 3 and Motor deficits absent
Data Reviewed
-
Date of Service: May 28, 2025
Medical Decision Making: Reviewed Test Results, Test Interpretation and Review of Case with other Provider
EKG: Tracing Personally Visualized and interpreted
Echo: Report Reviewed by me
Medical Tests (PFT, Pathology etc): Image Personally Visualized and interpreted
Labs: Labs Reviewed by me
Old Records: Reviewed
--- NOTE | 2025-05-28 09:04 | PTCARENOTE ---
Received pt from pony ride operator RN; pt AAOx3 and resting comfortably in chair; NSR on monitor and VSS: RIJ cordis and PIV x1 patent; Lungs diminished; IS 1000; positive bowel sounds; weak pulses throughout; +1 generalized edema; purewick in place and
skin C/D/I; all surgical sites C/D/I; see nursing documentation for further details.
[2025-05-28] MEDS: KCL 40 MEQ PO ×2 (10:26→21:43)
[2025-05-28] MEDS: DIAMOX 2.5 MG IV (10:26)
[2025-05-28] MEDS: REMOVE LIDOCAINE PATCH REMOVE ×2 (10:26→19:58)
[2025-05-28 11:33] LABS: Glucose - Point of Care 129 mg/dl (70-99)
--- NOTE | 2025-05-28 13:38 | PTCARENOTE ---
NSR on monitor and VSS; assessment unchanged; pt resting comfortably in chair and family at bedside.
--- NOTE | 2025-05-28 16:46 | PTCARENOTE ---
NSR on monitor and VSS; assessment unchanged and family at bedside.
[2025-05-28 17:03] LABS: Glucose - Point of Care 120 mg/dl (70-99)
[2025-05-28] MEDS: LOPRESSOR 25 MG PO (19:57)
--- NOTE | 2025-05-28 20:00 | PTCARENOTE ---
assumed care of pt from previous RN. pt A&Ox4, resting in chair at time of assessment. SR on tele-monitor. POX 93-95% on RA. abd s/n, round, obese. +BS. purewick in place, voiding clear, yellow colored urine. all surgical sites stable, CDI. R IJ
cordis w/ KVO. PIV intact. see worklist for complete nursing assessment, interventions, VS, and I&Os.
[2025-05-28 20:23] LABS: Blood Urea Nitrogen 21 mg/dl (7-17); Calcium 8.4 mg/dl (8.4-10.2); Carbon Dioxide 28 mmol/L (22-30); Chloride 102 mmol/L (98-107); Estimated Creatinine Clearance 42 ml/min; Glucose 140 mg/dl (70-99); Magnesium 2.4 mg/dl (1.6-2.3); Potassium 3.5 mmol/L (3.5-5.1); Sodium 135 mmol/L (135-145); eGFR 48.09
[2025-05-28] MEDS: LIDOCAINE 4% PATCH 1 PATCH TOPICAL (21:11)
[2025-05-28] MEDS: MYLICON 80 MG PO (21:11)
[2025-05-28] MEDS: LIPITOR 40 MG PO (21:11)
[2025-05-28] MEDS: ROXICODONE 5 MG PO (21:12)
[2025-05-28] MEDS: NSS 500 IV (21:12)
[2025-05-28] MEDS: XALATAN OPHTHALMIC SOLUTION 1 DROP BOTH EYES (21:14)
[2025-05-28] MEDS: DUONEB 3 ML INH (21:58)
[2025-05-28 23:01] LABS: Glucose - Point of Care 122 mg/dl (70-99)
[2025-05-29] VITALS (12 sets, daily range): BP systolic 98–129; BP diastolic 51–96; PULSE 77; O2SAT 95; BMI 40.5
--- NOTE | 2025-05-29 | PTCARENOTE ---
assessment remains unchanged. pt refused CPAP at bedtime. pt placed on 2 L NC to maintain O@ sat >90%.
[2025-05-29] MEDS: LASIX 40 MG IV ×3 (01:10→16:23)
--- NOTE | 2025-05-29 04:00 | PTCARENOTE ---
no acute changes. VSS.
[2025-05-29] MEDS: DUONEB 3 ML INH ×2 (04:06→22:50)
[2025-05-29 04:26] LABS: Hematocrit 29.1 % (37.0-47.0); Hemoglobin 9.5 g/dL (12.0-16.0); Mean Corp Hgb Conc. 32.6 g/dL (33.0-37.0); Mean Corpuscular Volume 70.8 fL (81.0-99.0); Platelet Count 221 10^3/uL (130-400); Red Cell Dist. Width 26.9 % (11.5-14.5)
[2025-05-29 04:40] LABS: Blood Urea Nitrogen 22 mg/dl (7-17); Calcium 8.6 mg/dl (8.4-10.2); Carbon Dioxide 29 mmol/L (22-30); Chloride 104 mmol/L (98-107); Estimated Creatinine Clearance 42 ml/min; Glucose 98 mg/dl (70-99); Magnesium 2.3 mg/dl (1.6-2.3); Potassium 3.8 mmol/L (3.5-5.1); Sodium 137 mmol/L (135-145); eGFR 48.09
--- NOTE | 2025-05-29 05:34 | W.PN.CT ---
Today's Communication / Plan
-
-pod #6
-short 15 min episode of Afib/rvr at 0700 hrs yesterday, then again at 1900 hrs, resolved with IV BB and electrolyte correction. Currently NSR in 60s
-continue diuresis (lasix TID, diamox), aggressive K replacement, UOP 750/2250 cc out in 12/24 hrs
-continue Amio, ASA, atorvastatin, Plavix, Farxiga, furosemide, metoprolol 25 mg
-ambulate, encourage IS
-DC planning, possibly Thursday
Assessment / Plan
-
Assessment:
-S/P Standard sternotomy/CABG x 4 [ROBLEDO to LAD, Ao to RSVG to OM, Off RSVG to OM to diagonal, Ao to RSVG to mid RCA]/ROBLEDO harvesting/ Bilateral endoscopic harvesting of SVG from thigh/Simple mitral valve repair [30 mm ring annuloplasty] via
transseptal approach/ Left atrial appendage exclusion [35 mm device], by Dr. Whelan, 05/23/25, pod#6
-Multivessel coronary disease with myocardial infarction
-ARDS status post prolonged intubation and home oxygen need
-Pulmonary hypertension
-Ischemic cardiomyopathy and heart failure
-LVEF 50% per intraop ATTYANA
-Sepsis
-ITP
-Hyperlipidemia
-Hypertension
-Functional mitral valve insufficiency, type IIIb secondary to ischemic cardiomyopathy
-Class 3 obesity (BMI 40)
-Prediabetes (hgb A1C 6.3)
-Anemia
-Hx of transaminitis, 01/18/25
-Recent SHARMIN, 01/21/25
-Dysphagia
-Glaucoma
-Left cephalic vein thrombosis
-Anxiety
-S/P cataracts
-S/P L TKA, 05/12/2022
-S/P R TKA, 10/13/2016
-S/P LIMA
-Acute postop blood loss /anemia on chronic anemia (transfused 1u PRBC, 250 cc cell saver)
-Acute on chronic thrombocytopenia (transfused 2 {5pk} plts intraop)
-Acute postop atelectasis
-Acute postop pulmonary insufficiency
-Acute postop hypoxemia
-Acute postop metabolic acidosis
-Acute postop hypermagnesemia
-Acute postop hypovolemia with subsequent hypervolemia
Subjective
Procedure
-S/P Standard sternotomy/CABG x 4 [ROBLEDO to LAD, Ao to RSVG to OM, Off RSVG to OM to diagonal, Ao to RSVG to mid RCA]/ROBLEDO harvesting/ Bilateral endoscopic harvesting of SVG from thigh/Simple mitral valve repair [30 mm ring annuloplasty] via
transseptal approach/ Left atrial appendage exclusion [35 mm device], by Dr. Whelan
-
Date of Service: May 29, 2025
Objective Data
-
Lab Results
05/29/25 04:06
05/29/25 04:06
PT 16.3 Sec (11.4-14.6) H 05/24/25 02:50
INR 1.28 05/24/25 02:50
APTT 30.6 Sec (23.4-35.0) 05/23/25 14:00
Vital Signs
Vital Signs
Temp Pulse Resp BP Pulse Ox
98.2 F 67 16 123/61 98
05/29/25 04:00 05/29/25 05:00 05/29/25 04:00 05/29/25 04:10 05/29/25 04:10
CT Intake/Output/Weight
05/28/25 05/28/25 05/29/25
06:59 18:59 06:59
Intake Total 120 / 840 100 / 190 90 / 190
Output Total 1600 / 3350 1500 / 2250 750 / 2250
Balance -1480 / -2510 -1400 / -2060 -660 / -2060
SaO2: 98
Physical Exam
-
General: Awake and Oriented
Cardiovascular: Regular rate & rhythm, No Murmurs and No Rub
Respiratory: Clear and Equal
Sternum: Stable
Incision: Clean and Dry
Extremities: Edema +1 and No Erythema
Data Reviewed
-
Lab Results: Results Reviewed
Medications: Active Meds Reviewed
Chest X-Ray: Report Reviewed
ECG: Report Reviewed
[2025-05-29] MEDS: KCL 40 MEQ PO (05:57)
[2025-05-29] MEDS: TYLENOL 975 MG PO ×3 (05:57→21:57)
[2025-05-29] MEDS: SYNTHROID 112 MCG PO (05:57)
--- NOTE | 2025-05-29 07:53 | PN.DE.MGMTRT ---
Insulin Management
- -
05/29/2025: Diabetes Management Follow up
Patient admitted 05/23 for CABG x 4. PMH: MVCAD, HTN, Anxiety, Severe MR, pacemaker, CVA, SHARMIN, Hepatic steatosis, Obesity, CHF, Pre-Diabetes. Prior to admission was taking Farxiga 5 mg daily. States her doctor never told her she had pre diabetes.
Discussed briefly strategies to control glucose including diet and exercise when approved. A1C 6.3%, Cr 1-->1.2, eGFR 48.09 today.
Patient is awake alert and oriented sitting up in chair, offers no complaints, able to discuss diabetes care plan.
POD # 6 s/p CABG x 4. Transitioned off critical care glycemic protocol on 05/25.
Glucose has remained stable and in range. 05/28 Premeal 108 to 129, fasting 98 V, 92 POC this AM.
Will make no changes to current regimen: Farxiga 5 mg daily and moderate corrective with meals.
Discussed with nurse. Will cont to follow.
Diabetes History
- -
Type of Diabetes: 2
Pre-Admission Diabetes Regimen
05/28/25 05/29/25
19:54 04:06
Creatinine 1.2 H 1.2 H
Lab Results
Hemoglobin A1c 6.3 % (4.0-5.6) H 05/18/25 12:29
Insulin Pump Settings
IP Diabetes Regimen
05/28/25 05/28/25 05/28/25
08:11 11:31 17:02
Glucose
POC Glucose 108 H 129 H 120 H
05/28/25 05/28/25 05/29/25
19:54 23:01 04:06
Glucose 140 H 98
POC Glucose 122 H
Meal type: Breakfast
Amount consumed: 100%
Patient Education
[2025-05-29 08:59] LABS: Glucose - Point of Care 92 mg/dl (70-99)
[2025-05-29] MEDS: LIDOCAINE 4% PATCH TOPICAL ×2 (09:03→23:13)
[2025-05-29] MEDS: FLEXBUMIN 50 IV (09:12)
[2025-05-29] MEDS: PLAVIX 75 MG PO (09:13)
[2025-05-29] MEDS: PROTONIX 40 MG PO (09:13)
[2025-05-29] MEDS: LOW STRENGTH ASPIRIN 81 MG PO (09:13)
[2025-05-29] MEDS: PACERONE 200 MG PO ×3 (09:13→21:57)
[2025-05-29] MEDS: MUCINEX 600 MG PO ×2 (09:13→19:49)
[2025-05-29] MEDS: LOPRESSOR 25 MG PO ×2 (09:13→19:49)
[2025-05-29] MEDS: NEURONTIN 100 MG PO ×3 (09:14→21:57)
[2025-05-29] MEDS: KCL 20 MEQ PO ×2 (09:14→16:22)
[2025-05-29] MEDS: FARXIGA 5 MG PO (09:14)
[2025-05-29] MEDS: REMOVE LIDOCAINE PATCH REMOVE ×2 (09:50→19:49)
[2025-05-29] MEDS: SENOKOT 8.6 MG PO (09:55)
--- NOTE | 2025-05-29 10:06 | W.PN.CD ---
Today's Communication / Plan
-
Agree with care
Impression / Plan
-
Background: 74F with hypertension, hypothyroidism, hyperlipidemia, ITP/thalassemia with recent admission including findings of obstructive coronary artery disease, HFmrEF, and severe mitral regurgitation who presents for CABG/mitral valve repair.
Primary tower foreman: Dr. Velasquez
CABG/MVrepair 05/23/2025
CAD, s/p CABG x 4 (ROBLEDO to LAD, Ao to RSVG to OM, Off RSVG to OM to diagonal, Ao to RSVG to mid RCA) with Dr. Whelan, 05/23/2025.
-Pre-LVEF 45-50% post 50-55%.
- Making good progress
Mitral regurgitation
-Chronic, progressive.
-Moderate/severe, s/p MVR (#30 Walls Physio 2 annuloplasty ring, serial #[id number]) and LAAE (#35 AtriClip, serial #[id number]) with Dr. Whelan, 05/23/2025.
-MR reduced to trace.
-Post operative care as above.
- Short run of AF - brief episode. On Beta blockers.
HFpEF
-Chronic.
-LVEF = 50%.
-Weight is responding well.
-Restart GDMT as patient recovers, as hemodynamics will tolerate:
-Diuretics: Furosemide 40 mg IV.
-ARB/ARNI: Sacubitril�valsartan on hold. Plan to start tomorrow.
-SGLT2 inhibitor: On dapagliflozin 10 mg daily.
-MRA: Spironolactone 25 mg on hold.
Heme:
- Thalassemia/ITP/Anemia/Thrombocytopenia:
- Anemia stable, 4 U PRBC transfused, plt improved
Prediabetes, HbA1c = 6.3%, and BMI is > 30 and CAD, The patient would benefit from GLP-1 analogs
Subjective/Interval History: Feels good. Pain controlled.
DATA:
CABG/MVR, 05/23/2025:
Procedure(s) Performed:
1. Standard sternotomy with aortic and bicaval cannulation
2. Left internal mammary artery harvesting, pedicle
3. Coronary artery bypass grafting x 4 [ROBLEDO to LAD, Ao to RSVG to OM, Off RSVG to OM to diagonal, Ao to RSVG to mid RCA]
4. Simple mitral valve repair [30 mm ring annuloplasty] via transseptal approach
5. Left atrial appendage exclusion [35 mm device]
6. Placement temporary atrial ventricular pacing wires
7. Transesophageal echocardiography
8. Bilateral endoscopic harvesting of saphenous vein graft from thigh
TTE, 05/09/2025:
SUMMARY
1. Normal biventricular size and function without regional wall motion abnormalities.
2. LVEF is 50-55% by visual estimation. Stage I diastolic dysfunction.
3. Moderate to severe MR.
4. Normal estimated PASP at 24 mmHg.
5. Compared to prior from March 03, 2025, on [id number]-fg-[id number] comparison overall LVEF has improved and is now approximately 50-55%, previously 47%.
Cardiac Catheterization, 01/23/2025:
CONCLUSIONS
1. Right dominant circulation with multivessel coronary disease including a 99% subtotal occlusion of the proximal circumflex with YADY I flow to the proximal vessel and retrograde filling from the distal OM, a chronic total occlusion of the
proximal RCA supplied by collaterals from the LAD, and 90% lesion in the proximal margin of the large diagonal and tandem 70%, 80% and 70% lesions in the mid LAD.
2. Normal filling pressures (LVEDP = 10 mmHg at 85.7 kg).
3. At least moderate mitral valve regurgitation on transesophageal echocardiography.
Physical Exam
Vital Signs/Labs
Vital Signs
Temp Pulse Resp BP Pulse Ox
99 F 78 22 129/58 96
05/29/25 08:55 05/29/25 09:55 05/29/25 09:00 05/29/25 09:55 05/29/25 09:52
05/28/25 05/29/25 05/30/25
06:59 06:59 06:59
Actual Weight 92.5 kg 90.9 kg
05/29/25 04:06
05/29/25 04:06
PT 16.3 Sec (11.4-14.6) H 05/24/25 02:50
INR 1.28 05/24/25 02:50
APTT 30.6 Sec (23.4-35.0) 05/23/25 14:00
Magnesium 2.3 mg/dl (1.6-2.3) 05/29/25 04:06
Physical Exam
Constitutional: No acute distress
EENT: Anicteric
Cardiovascular: Rhythm & rate is regular and Pedal edema is absent
Respiratory: Respiratory effort normal and Rhonchi Present (and decreased at left base)
GI: Soft and Distention absent
Neuro/Psych: AO x 3
Data Reviewed
-
Date of Service: May 29, 2025
--- NOTE | 2025-05-29 11:39 | CM ---
Addendum entered by Irma Hernández 05/29/25 14:12:
Sent referral to [facility] to see if they can accept referral.
Original Note:
Reviewed chart. Met with Mrs. Ireland to review discharge plans. She states she is feeling well and maybe able to go home soon. We reviewed a home visit by the Transitional Care Nurse. She is agreeable to a home visit. We reviewed her
follow-up referral back to [facility] after the Transitional Care Nurse visits are completed. She states she has a rolling walker at home. Prior to admission she resides with her spouse in a one story home with four steps to enter. Prior to
admission she was independent with ambulation and adls. Her spouse uses a walker. Her spouse also has a private insurance healthcare consultant for three hours in the a.m. and an hour and half in the evening. They pay privately for the services. Her daughter resides
nearby and works from home and can check on them. Her nuznhsz-dc-okr also comes to check on them. She has a prescription plan. We reviewed a home visit by the Transitional Care Nurse. She is agreeable to a home visit. Will need to see her current
functional level to see if she will have any skilled care needs. Medical work-up in progress. The discharge plan is to return home with her spouse, family support, private help and a home visit by the Transitional Care Nurse when medically stable.
[2025-05-29 12:15] LABS: Glucose - Point of Care 99 mg/dl (70-99)
--- NOTE | 2025-05-29 12:20 | PTCARENOTE ---
VS obtained, assessment stable. Patient working w/OT.
[2025-05-29] MEDS: NSS IV (13:42)
--- NOTE | 2025-05-29 16:30 | PTCARENOTE ---
VS obtained, assessment stable. Midline catheter placed per order by VAT, Bernard d/c'd. Patient assisted oob to chair. Family bedside for visit.
[2025-05-29 17:50] LABS: Glucose - Point of Care 104 mg/dl (70-99)
[2025-05-29] MEDS: SENOKOT PO (19:49)
--- NOTE | 2025-05-29 20:00 | PTCARENOTE ---
assumed care of pt from previous RN. pt A&Ox4, resting in chair at time of assessment. SR on tele-monitor. POX 98% on RA. abd s/n, round, obese. +BS. +BMs. pt w/ stress incontinence and urgency. purewick in place when pt in bed overnight. all
surgical sites stable, CDI. LUE midline intact. see worklist for complete nursing assessment, interventions, VS, and I&Os.
[2025-05-29] MEDS: LIPITOR 40 MG PO (21:57)
[2025-05-29] MEDS: XALATAN OPHTHALMIC SOLUTION 1 DROP BOTH EYES (22:01)
[2025-05-29 22:06] LABS: Glucose - Point of Care 152 mg/dl (70-99)
[2025-05-30] VITALS (16 sets, daily range): BP systolic 79–126; BP diastolic 51–98; PULSE 74; O2SAT 97–99; BMI 40.0
--- NOTE | 2025-05-30 00:12 | PTCARENOTE ---
pt in a fib from 2343 to 2359. BP stable. pt placed on [address] PA Aditya. pt sleeping comfortably in bed.
--- NOTE | 2025-05-30 04:15 | PTCARENOTE ---
pt briefly in and out of a fib. pt converted to SR w/o intervention. pt SR on tele-monitor at this time. VSS. AM labs collected and sent.
[2025-05-30 04:42] LABS: Blood Urea Nitrogen 27 mg/dl (7-17); Calcium 8.6 mg/dl (8.4-10.2); Carbon Dioxide 28 mmol/L (22-30); Chloride 105 mmol/L (98-107); Estimated Creatinine Clearance 36 ml/min; Glucose 103 mg/dl (70-99); Magnesium 2.3 mg/dl (1.6-2.3); Potassium 3.6 mmol/L (3.5-5.1); Sodium 137 mmol/L (135-145); eGFR 39.97
--- NOTE | 2025-05-30 04:57 | W.PN.CT ---
Today's Communication / Plan
-
Plan:
-No major issues overnight. Hemodynamically and neurologically intact
-Off all drips
-Had two brief <10 minutes self-limiting a-fib overnight. Had two episodes of 15 min a-fib in the on 05/28 which required IV Lopressor
-Will discuss anticoagulation if further a-fib
-Switched Lopressor to Toprol XL, was on Toprol XL at home
-Cont. current meds (ASA, Plavix, Amiodarone, Toprol XL, Synthroid, Lasix)
-Repeat echo showed and intact MV repair, no MR, MG 4 mmHg, LVEF 50%
-Will replete K
-Monitor SHARMIN, cr 1.4, was 1.2 yesterday, 0.7-1.1 preop. Diuresed 2675 mL/24hrs. Check wt today
-Encourage use of IS
-OOB into chair/Ambulate/ PT/OT following
-Home likely tomorrow
Assessment / Plan
-
Assessment:
-S/P Standard sternotomy/CABG x 4 [ROBLEDO to LAD, Ao to RSVG to OM, Off RSVG to OM to diagonal, Ao to RSVG to mid RCA]/ROBLEDO harvesting/ Bilateral endoscopic harvesting of SVG from thigh/Simple mitral valve repair [30 mm ring annuloplasty] via
transseptal approach/ Left atrial appendage exclusion [35 mm device], by Dr. Whelan, 05/23/25, pod#7
-Multivessel coronary disease with myocardial infarction
-ARDS status post prolonged intubation and home oxygen need
-Pulmonary hypertension
-Ischemic cardiomyopathy and heart failure
-LVEF 50% per intraop TATYANA
-Sepsis
-ITP
-Hyperlipidemia
-Hypertension
-Functional mitral valve insufficiency, type IIIb secondary to ischemic cardiomyopathy
-Class 3 obesity (BMI 40)
-Prediabetes (hgb A1C 6.3)
-Anemia
-Hx of transaminitis, 01/18/25
-Recent SHARMIN, 01/21/25
-Dysphagia
-Glaucoma
-Left cephalic vein thrombosis
-Anxiety
-S/P cataracts
-S/P L TKA, 05/12/2022
-S/P R TKA, 10/13/2016
-S/P LIMA
-Acute postop blood loss /anemia on chronic anemia (transfused 1u PRBC, 250 cc cell saver)
-Acute on chronic thrombocytopenia (transfused 2 {5pk} plts intraop)
-Acute postop atelectasis
-Acute postop pulmonary insufficiency
-Acute postop hypoxemia
-Acute postop metabolic acidosis
-Acute postop hypermagnesemia
-Acute postop hypovolemia with subsequent hypervolemia
-Acute postop SHARMIN
Discussed patient care with: Cardiology, Nursing, Respiratory Therapy, Pharmacy and Care Team
Subjective
Procedure
-S/P Standard sternotomy/CABG x 4 [ROBLEDO to LAD, Ao to RSVG to OM, Off RSVG to OM to diagonal, Ao to RSVG to mid RCA]/ROBLEDO harvesting/ Bilateral endoscopic harvesting of SVG from thigh/Simple mitral valve repair [30 mm ring annuloplasty] via
transseptal approach/ Left atrial appendage exclusion [35 mm device], by Dr. Whelan
-
Date of Service: May 30, 2025
Pt c/o mild incisional pain, otherwise feels well
Objective Data
-
Lab Results
05/29/25 04:06
05/30/25 04:02
PT 16.3 Sec (11.4-14.6) H 05/24/25 02:50
INR 1.28 05/24/25 02:50
APTT 30.6 Sec (23.4-35.0) 05/23/25 14:00
Vital Signs
Vital Signs
Temp Pulse Resp BP Pulse Ox
97.8 F 68 16 111/63 98
05/30/25 04:00 05/30/25 04:00 05/30/25 04:00 05/30/25 03:33 05/30/25 04:00
CT Intake/Output/Weight
05/29/25 05/29/25 05/30/25
06:59 18:59 06:59
Intake Total 90 / 190 810 / 810
Output Total 1500 / 3000 1400 / 1925 525 / 1925
Balance -1410 / -2810 -590 / -1115 -525 / -1115
SaO2: 98 (2L)
Physical Exam
-
General: Awake, Oriented and AOx3
Cardiovascular: Regular rate & rhythm, No Murmurs, No Rub and No Gallop
Respiratory: Decreased Breath Sounds (with mild bibasilar crackles)
Sternum: Stable
Incision: Clean, Dry, Intact and Dressing Intact
Extremities: Edema +1
Data Reviewed
-
Lab Results: Results Reviewed
Medications: Active Meds Reviewed
Chest X-Ray: Report Reviewed and Image Reviewed
ECG: Report Reviewed and Image Reviewed
[2025-05-30] MEDS: TYLENOL 975 MG PO ×3 (05:43→21:07)
[2025-05-30] MEDS: KCL 40 MEQ PO (05:43)
[2025-05-30] MEDS: SYNTHROID 112 MCG PO (05:43)
--- NOTE | 2025-05-30 07:30 | W.PN.CD ---
Today's Communication / Plan
-
Hold diuretics today. Consider transition to furosemide 40 mg PO tomorrow.
Ambulate.
Incentive spirometry.
Impression / Plan
-
Impression/Plan: 74F with hypertension, hypothyroidism, hyperlipidemia, ITP/thalassemia with recent admission including findings of obstructive coronary artery disease, HFmrEF, and severe mitral regurgitation who presents for CABG/mitral valve
repair.
Primary image editor: Dr. Velasquez
#CAD
-Chronic, progressive.
-s/p CABG x 4 (ROBLEDO to LAD, Ao to RSVG to OM, Off RSVG to OM to diagonal, Ao to RSVG to mid RCA) with Dr. Whelan, 05/23/2025.
-Pre-LVEF 45-50% post 50-55%.
-Routine post operative management.
-Extubated
-Diuresing well. Adding Diamox.
-Incentive spirometry.
-Ambulation.
-Pain/chest tube management per CT surgery.
-Continue diuretics for post operative volume retention.
#Mitral regurgitation
-Chronic, progressive.
-Moderate/severe, s/p MVR (#30 Walls Physio 2 annuloplasty ring, serial #[id number]) and LAAE (#35 AtriClip, serial #[id number]) with Dr. Whelan, 05/23/2025.
-MR reduced to trace.
-Post operative care as above.
#Atrial fibrillation
-Several short runs of PAF.
-Rate/rhythm control with metoprolol succinate.
-CHADS2-Vasc = 4 (CHF, Age x1, vascular disease, female).
-Given her propensity to lapse into AF, therapeutic anticoagulation seems reasonable.
#HFpEF
-Chronic.
-LVEF = 50%.
-Weight is responding well.
-Restart GDMT as patient recovers, as hemodynamics will tolerate:
-Diuretics: Hold diuretics today.
-Beta damian: Metoprolol succinate 25 mg daily.
-PRUDENCIO/ARB/ARNI: Sacubitril�valsartan on hold.
-SGLT2 inhibitor: Dapagliflozin 5 mg daily.
-MRA: Spironolactone 25 mg on hold.
-Isosorbide/Hydralazine:� Not currently indicated.
-ICD: Not currently indicated.
#SHARMIN
-Recurrent.
-Cr up to 1.4.
#Thalassemia/ITP/Anemia/Thrombocytopenia:
-Anemia is improving. Thrombocytopenia resolved.
-Transfuse for Hbg < 7.
#Prediabetes
-Chronic, HbA1c = 6.3%.
-BMI is > 30.
-The patient would benefit from GLP-1 analogs at the time of discharge.
Subjective/Interval History:
In and out of atrial fibrillation.
Weight down 1.1 kg from yesterday (89.8 <-- 90.9), remains 2.3 above baseline (87.5).
Transiently hypotensive to 79/53, immediately recovered.
Cr up to 1.4.
SaO2 98% on 2LNC.
DATA:
CABG/MVR, 05/23/2025:
Procedure(s) Performed:
1. Standard sternotomy with aortic and bicaval cannulation
2. Left internal mammary artery harvesting, pedicle
3. Coronary artery bypass grafting x 4 [ROBLEDO to LAD, Ao to RSVG to OM, Off RSVG to OM to diagonal, Ao to RSVG to mid RCA]
4. Simple mitral valve repair [30 mm ring annuloplasty] via transseptal approach
5. Left atrial appendage exclusion [35 mm device]
6. Placement temporary atrial ventricular pacing wires
7. Transesophageal echocardiography
8. Bilateral endoscopic harvesting of saphenous vein graft from thigh
TTE, 05/09/2025:
SUMMARY
1. Normal biventricular size and function without regional wall motion abnormalities.
2. LVEF is 50-55% by visual estimation. Stage I diastolic dysfunction.
3. Moderate to severe MR.
4. Normal estimated PASP at 24 mmHg.
5. Compared to prior from March 03, 2025, on [id number] comparison overall LVEF has improved and is now approximately 50-55%, previously 47%.
Cardiac Catheterization, 01/23/2025:
CONCLUSIONS
1. Right dominant circulation with multivessel coronary disease including a 99% subtotal occlusion of the proximal circumflex with YADY I flow to the proximal vessel and retrograde filling from the distal OM, a chronic total occlusion of the
proximal RCA supplied by collaterals from the LAD, and 90% lesion in the proximal margin of the large diagonal and tandem 70%, 80% and 70% lesions in the mid LAD.
2. Normal filling pressures (LVEDP = 10 mmHg at 85.7 kg).
3. At least moderate mitral valve regurgitation on transesophageal echocardiography.
Physical Exam
Vital Signs/Labs
Vital Signs
Temp Pulse Resp BP Pulse Ox
36.6 C 67 16 111/63 98
05/30/25 04:00 05/30/25 05:00 05/30/25 04:00 05/30/25 03:33 05/30/25 05:04
05/28/25 05/29/25 05/30/25
11:59 11:59 11:59
Actual Weight 92.5 kg 90.9 kg 89.8 kg
05/29/25 04:06
05/30/25 04:02
PT 16.3 Sec (11.4-14.6) H 05/24/25 02:50
INR 1.28 05/24/25 02:50
APTT 30.6 Sec (23.4-35.0) 05/23/25 14:00
Magnesium 2.3 mg/dl (1.6-2.3) 05/30/25 04:02
Physical Exam
Constitutional: No acute distress and Comfortable
EENT: Anicteric and Moist mucous membranes
Cardiovascular: Rhythm & rate is regular, Pedal edema is absent, JVD pressure is normal, S1S2 is normal and Murmur/rub/gallop absent
Respiratory: Respiratory effort normal, Lungs clear to auscul., Wheeze Absent, Crackles Absent and Rhonchi Absent
GI: Soft, Distention absent, Flat, Non tender and Normal bowel sounds
Neuro/Psych: AO x 3
Data Reviewed
-
Date of Service: May 30, 2025
Medical Decision Making: Reviewed Test Results, Independent Historian Assessment and Test Interpretation
EKG: Tracing Personally Visualized and interpreted and Report Reviewed by me
Echo: Report Reviewed by me
X-Ray/CT/US/MRI/NUC/PET: Image Personally Visualized and interpreted and Report Reviewed by me
Medical Tests (PFT, Pathology etc): Image Personally Visualized and interpreted and Report Reviewed by me
Labs: Labs Reviewed by me
Old Records: Reviewed
--- NOTE | 2025-05-30 07:54 | PN.DE.MGMTRT ---
Insulin Management
- -
05/30/2025: Diabetes Management Follow up
Patient admitted 05/23 for CABG x 4. PMH: MVCAD, HTN, Anxiety, Severe MR, pacemaker, CVA, SHARMIN, Hepatic steatosis, Obesity, CHF, Pre-Diabetes. Prior to admission was taking Farxiga 5 mg daily. States her doctor never told her she had pre diabetes.
Discussed briefly strategies to control glucose including diet and exercise when approved. A1C 6.3%, Cr 1.4, eGFR 39.97 today.
Patient is awake alert and oriented sitting up in chair, offers no complaints, able to discuss diabetes care plan.
POD # 7 s/p CABG x 4. Transitioned off critical care glycemic protocol on 05/25.
Glucose has remained stable and in range. 05/29 Premeal 92 to 152.
Fasting glucose today 103 this AM.
Will make no changes to current regimen: Farxiga 5 mg daily and moderate corrective with meals.
Discussed with nurse. Will cont to follow.
Diabetes History
- -
Pre-Admission Diabetes Regimen
05/30/25
04:02
Creatinine 1.4 H
Lab Results
Hemoglobin A1c 6.3 % (4.0-5.6) H 05/18/25 12:29
Insulin Pump Settings
IP Diabetes Regimen
05/29/25 05/29/25 05/29/25
08:58 12:13 17:49
Glucose
POC Glucose 92 99 104 H
05/29/25 05/30/25
22:02 04:02
Glucose 103 H
POC Glucose 152 H
Meal type: Dinner
Meal type: Lunch
Meal type: Breakfast
Amount consumed: 90%
Amount consumed: 75%
Amount consumed: 100%
Patient Education
--- NOTE | 2025-05-30 08:15 | PTCARENOTE ---
Resumed care of patient. Pt assessed while she was sitting in the chair. Pt alert and oriented x4. Denies pain, shortness of breath, and nausea. Standby assist to ambulate with Rolling walker to the bathroom. NSR on tele with rates in the 70s. BP
126/63. Bilateral radial pulses palpable. Bilateral DP pulses weakly palpable. Generalized trace nonpitting edema. POX 96% on RA. Lungs diminished in the bases. IS encouraged-750mL achieved. Abdomen soft, round, obese, nontender. +gas +BS. Pt voided
unmeasured but large amount of yellow urine in the toilet. Sternal incision approximated with scabbing noted. Old CT sites covered, CDI. B/l groin sites approximated, TANNER. Bilateral SVG harvest sites approximated TANNER. Left upper arm Midline intact
with good blood return. See MAR for medication administration. See worklist for complete nursing assessment. Plan of care reviewed and patient in agreement.
[2025-05-30] MEDS: TOPROL XL 25 MG PO ×2 (08:19→21:11)
[2025-05-30] MEDS: PROTONIX 40 MG PO (08:19)
[2025-05-30 08:20] LABS: Glucose - Point of Care 98 mg/dl (70-99)
[2025-05-30] MEDS: LOW STRENGTH ASPIRIN 81 MG PO (08:20)
[2025-05-30] MEDS: KCL 20 MEQ PO (08:20)
[2025-05-30] MEDS: FARXIGA 5 MG PO (08:20)
[2025-05-30] MEDS: PLAVIX 75 MG PO (08:20)
[2025-05-30] MEDS: SENOKOT 8.6 MG PO ×2 (08:20→21:12)
[2025-05-30] MEDS: NEURONTIN 100 MG PO ×3 (08:20→21:08)
[2025-05-30] MEDS: PACERONE 200 MG PO ×3 (08:20→21:09)
[2025-05-30] MEDS: MUCINEX 600 MG PO ×2 (08:20→21:11)
[2025-05-30] MEDS: LIDOCAINE 4% PATCH 1 PATCH TOPICAL (08:21)
--- NOTE | 2025-05-30 10:16 | PTCARENOTE ---
Pt received from CVICU via recliner chair. Pt on room air, denies any pain or sob. SR, rate in the 70's.
--- NOTE | 2025-05-30 10:59 | CM ---
Reviewed chart, Met with Mrs. Ireland to review discharge plans. She states she is feeling better and maybe able to go home soon. We reviewed [facility] has accept the referral with SOC on 06/01/25if discharged on Thursday
05/31/25. Telephone call to daughterJaylyn to review discharge plans. Prior to admission she resides with her spouse in a one story home with four steps to enter. Prior to admission she was independent with ambulation and adls. Her spouse uses a
walker. Her spouse also has a private memory care program resident for three hours in the a.m. and an hour and half in the evening. They pay privately for the services. Her daughter resides nearby and works from home and can check on them. Her elvkbfk-tg-yot also
comes to check on them. She has a prescription plan. Will need to see her current functional level to see if she will have any skilled care needs. Medical work-up in progress. The discharge plan is to return home with her spouse, family support,
private help and [facility] when medically stable.
[2025-05-30] MEDS: ROXICODONE 5 MG PO ×2 (11:28→23:01)
[2025-05-30] MEDS: REMOVE LIDOCAINE PATCH REMOVE ×2 (11:32→21:07)
[2025-05-30 11:33] LABS: Glucose - Point of Care 115 mg/dl (70-99)
[2025-05-30] MEDS: NSS IV (14:30)
--- NOTE | 2025-05-30 16:00 | PTCARENOTE ---
No change in status since am assessment. C/o of left breast pain requesting roxicodone. Medicated with Roxycodone as ordered with relief obtained. OOB ambulating in the hallway with 1 assist and stayed in the recliner chair all day. Chest tube site
dressing removed, sites clean, dry and scabbed. Right cordis removed and TANNER.
[2025-05-30 17:54] LABS: Glucose - Point of Care 89 mg/dl (70-99)
[2025-05-30] MEDS: LIPITOR 40 MG PO (21:08)
[2025-05-30] MEDS: LIDOCAINE 4% PATCH TOPICAL (21:08)
[2025-05-30] MEDS: ELIQUIS 2.5 MG PO (21:12)
[2025-05-30] MEDS: XALATAN OPHTHALMIC SOLUTION 1 DROP BOTH EYES (21:12)
[2025-05-30 22:48] LABS: Glucose - Point of Care 109 mg/dl (70-99)
--- NOTE | 2025-05-30 23:38 | PTCARENOTE ---
Assumed care on pt at change of shift, aaox3, SR on the monitor HR 70's. c/o pain from L breast, oxy 5mg adm. Mid chest incision well approximated and surgical glue intact. Ambulates to bathroom with assist x1, steady gait, no voiding issues. Call
tompkins within reach, POC ongoing.
[2025-05-31 02:28] VITALS: BMI 40.2
[2025-05-31 02:34] VITALS: BP 136/61
[2025-05-31 03:33] LABS: Blood Urea Nitrogen 23 mg/dl (7-17); Calcium 9.1 mg/dl (8.4-10.2); Carbon Dioxide 27 mmol/L (22-30); Chloride 106 mmol/L (98-107); Estimated Creatinine Clearance 45 ml/min; Glucose 93 mg/dl (70-99); Magnesium 2.4 mg/dl (1.6-2.3); Potassium 4.3 mmol/L (3.5-5.1); Sodium 138 mmol/L (135-145); eGFR 53.39
[2025-05-31 06:53] VITALS: BP 126/67
[2025-05-31] MEDS: SYNTHROID 112 MCG PO (07:38)
[2025-05-31] MEDS: TYLENOL 975 MG PO (07:38)
--- NOTE | 2025-05-31 08:03 | W.PN.CT ---
Today's Communication / Plan
-
-pod #8
-no issues overnight
-off all drips
-Cr peaked at 1.4 on 05/30. Cr is 1.1 today (0.8-1.0 preop)- follow
-no further a-fib noted - on ASA, Eliquis 2.5 bid, and Toprol 25 bid
-Cont. current meds (ASA, Eliquis, Amiodarone, Toprol XL, Synthroid, Lasix po)
-Repeat echo showed and intact MV repair, no MR, MG 4 mmHg, LVEF 50%
-Encourage use of IS
-OOB into chair/Ambulate/ PT/OT following
-possible d/c home soon
Assessment / Plan
-
Assessment:
-S/P Standard sternotomy/CABG x 4 [ROBLEDO to LAD, Ao to RSVG to OM, Off RSVG to OM to diagonal, Ao to RSVG to mid RCA]/ROBLEDO harvesting/ Bilateral endoscopic harvesting of SVG from thigh/Simple mitral valve repair [30 mm ring annuloplasty] via
transseptal approach/ Left atrial appendage exclusion [35 mm device], by Dr. Whelan, 05/23/25, pod#8
-Multivessel coronary disease with myocardial infarction
-ARDS status post prolonged intubation and home oxygen need
-Pulmonary hypertension
-Ischemic cardiomyopathy and heart failure
-LVEF 50% per intraop TATYANA
-Sepsis
-ITP
-Hyperlipidemia
-Hypertension
-Functional mitral valve insufficiency, type IIIb secondary to ischemic cardiomyopathy
-Class 3 obesity (BMI 40)
-Prediabetes (hgb A1C 6.3)
-Anemia
-Hx of transaminitis, 01/18/25
-Recent SHARMIN, 01/21/25
-Dysphagia
-Glaucoma
-Left cephalic vein thrombosis
-Anxiety
-S/P cataracts
-S/P L TKA, 05/12/2022
-S/P R TKA, 10/13/2016
-S/P LIMA
-Acute postop blood loss /anemia on chronic anemia (transfused 1u PRBC, 250 cc cell saver)
-Acute on chronic thrombocytopenia (transfused 2 {5pk} plts intraop)
-Acute postop atelectasis
-Acute postop pulmonary insufficiency
-Acute postop hypoxemia
-Acute postop metabolic acidosis
-Acute postop hypermagnesemia
-Acute postop hypovolemia with subsequent hypervolemia
-Acute postop SHARMIN
Discussed patient care with: Nursing and Care Team
Subjective
Procedure
-S/P Standard sternotomy/CABG x 4 [ROBLEDO to LAD, Ao to RSVG to OM, Off RSVG to OM to diagonal, Ao to RSVG to mid RCA]/ROBLEDO harvesting/ Bilateral endoscopic harvesting of SVG from thigh/Simple mitral valve repair [30 mm ring annuloplasty] via
transseptal approach/ Left atrial appendage exclusion [35 mm device], by Dr. Whelan
-
Date of Service: May 31, 2025
Objective Data
-
Lab Results
05/29/25 04:06
05/31/25 02:44
PT 16.3 Sec (11.4-14.6) H 05/24/25 02:50
INR 1.28 05/24/25 02:50
APTT 30.6 Sec (23.4-35.0) 05/23/25 14:00
Vital Signs
Vital Signs
Temp Pulse Resp BP Pulse Ox
97.8 F 67 18 136/61 97
05/31/25 02:32 05/31/25 04:00 05/31/25 02:32 05/31/25 02:34 05/31/25 02:32
CT Intake/Output/Weight
10/07/25 10/08/25 10/08/25
18:59 06:59 18:59
Intake Total 240 / 480 240 / 480
Output Total 200 / 200
Balance 240 / 280 40 / 280
SaO2: 97
Physical Exam
-
General: Awake and AOx3
Cardiovascular: Regular rate & rhythm, No Murmurs and No Rub
Respiratory: Clear and Decreased Breath Sounds
Sternum: Stable
Incision: Clean, Dry and Intact
Extremities: Edema +1 and Other
Abdomen: soft, nontender, nondistended, + bowel sounds
Data Reviewed
-
Lab Results: Results Reviewed
Medications: Active Meds Reviewed
Chest X-Ray: Report Reviewed and Image Reviewed
ECG: Report Reviewed and Image Reviewed
[2025-05-31 08:32] LABS: Glucose - Point of Care 143 mg/dl (70-99)
--- NOTE | 2025-05-31 08:47 | PN.DE.MGMTRT ---
Insulin Management
- -
05/31/2025: Diabetes Management Follow up
Patient admitted 05/23 for CABG x 4. PMH: MVCAD, HTN, Anxiety, Severe MR, pacemaker, CVA, SHARMIN, Hepatic steatosis, Obesity, CHF, Pre-Diabetes. Prior to admission was taking Farxiga 5 mg daily. States her doctor never told her she had pre diabetes.
Discussed briefly strategies to control glucose including diet and exercise when approved. A1C 6.3%, Cr 1.4, eGFR 39.97 today.
Patient is awake alert and oriented sitting up in chair, offers no complaints, able to discuss diabetes care plan.
POD # 8 s/p CABG x 4. Transitioned off critical care glycemic protocol on 05/25.
Glucose has remained stable and in range. 05/30 Premeal 89 to 115.
Fasting glucose today 143 this AM.
Will make no changes to current regimen: Farxiga 5 mg daily and moderate corrective with meals.
Discussed with nurse. Will cont to follow.
Diabetes History
- -
Pre-Admission Diabetes Regimen
05/31/25
02:44
Creatinine 1.1 H
Lab Results
Hemoglobin A1c 6.3 % (4.0-5.6) H 05/18/25 12:29
Insulin Pump Settings
IP Diabetes Regimen
05/30/25 05/30/25 05/30/25
11:32 17:52 22:46
Glucose
POC Glucose 115 H 89 109 H
05/31/25 05/31/25
02:44 08:31
Glucose 93
POC Glucose 143 H
Meal type: Lunch
Amount consumed: 100%
Patient Education
--- NOTE | 2025-05-31 09:06 | W.[place]-PDMP ---
[place]-PDMP
-
Checked the [place]- Prescription Drug Monitoring Program website, no red flags identified; safe to proceed with prescription.
[2025-05-31] MEDS: MUCINEX 600 MG PO (09:26)
[2025-05-31] MEDS: PACERONE 200 MG PO ×2 (09:26→16:43)
[2025-05-31] MEDS: PROTONIX 40 MG PO (09:26)
[2025-05-31] MEDS: LOW STRENGTH ASPIRIN 81 MG PO (09:26)
[2025-05-31] MEDS: TOPROL XL 25 MG PO (09:26)
[2025-05-31] MEDS: LASIX 40 MG PO (09:26)
[2025-05-31] MEDS: KCL 20 MEQ PO (09:26)
[2025-05-31] MEDS: NEURONTIN 100 MG PO ×2 (09:26→16:43)
[2025-05-31] MEDS: ELIQUIS 2.5 MG PO (09:27)
[2025-05-31] MEDS: SENOKOT 8.6 MG PO (09:27)
[2025-05-31] MEDS: FARXIGA 5 MG PO (09:30)
[2025-05-31] MEDS: LIDOCAINE 4% PATCH TOPICAL (09:30)
--- NOTE | 2025-05-31 09:34 | W.DCSUMMARY ---
Discharge Summary
Discharge Data
Date of Admission: 05/23/25
Date of Discharge: 05/31/25
Total time spent discharging patient (in min): 40
-
Pending Results: No
Hospital Course
Primary care physician:
Dr. Giuseppe Haney MD.
Outpatient teletray operator:
Dr. Gustabo Hudson MD.
Inpatient consultants:
[facility]-Dr. Anam Liu MD.
Procedures:
1. Coronary artery bypass grafting x 4 with ROBLEDO�LAD, saphenous vein graft to obtuse marginal, saphenous vein graft to OM in a sequential manner to diagonal, and saphenous vein graft to mid RCA
2. Simple mitral valve repair (30 mm ring annuloplasty) via transseptal approach
3. Left atrial appendage exclusion [address] Tulio Whelan on 05/23/25
Primary Diagnosis:
1. Multivessel coronary disease with myocardial infarction
2. Severe mitral regurgitation
3. Acute respiratory distress syndrome status post prolonged intubation and home oxygen need
4. Pulmonary hypertension
5. Ischemic cardiomyopathy and heart failure
6. Sepsis
7. Idiopathic thrombocytopenia purpura
8. Hyperlipidemia
9. Hypertension
10. Functional mitral valve insufficiency, type IIIb secondary to ischemic cardiomyopathy
11. History of cerebrovascular accident
12. Asthma
13. Hypothyroidism
14. Glaucoma
15. Obstructive sleep apnea
16. Bilateral total knee replacements
17. Morbid obesity, BMI 40.1
18. Hepatic steatosis
19. History of pneumonia
20. Heart failure with reduced ejection fraction
21. Prediabetes mellitus with hemoglobin A1c of 6.3
22. History of acute kidney injury
23. Dysphagia/aspiration precautions
24. Anxiety
25. Postoperative acute blood loss anemia requiring multiple units of packed red blood cells
26. Postoperative atrial fibrillation with rapid ventricular rate
27. Postoperative volume overload requiring aggressive diuresis
Secondary Diagnoses:
1. Same as the above
HPI:
Patient is a 74-year-old female who was initially consulted as an inpatient. At the time patient had acute respiratory distress syndrome and was septic in the setting of an acute VA and cardiogenic shock. Patient recovered from that event and was
seen as an outpatient in consultation in the office setting by Dr. Whelan. During that visit the patient had significantly improved and was feeling better from a clinical standpoint. Her EF also recovered from 35% to approximately 50. Patient was
deemed an acceptable candidate for surgical intervention and offered a high risk CABG and mitral valve repair and given her chads Vasc score left atrial appendage ligation.
Hospital course:
Patient presented electively on the date described above for the procedure described above. Patient tolerated procedure well. She was separate from cardiopulmonary bypass and transported to the cardiovascular intensive care unit where she
underwent her postoperative recovery. Postoperatively she remained on 8 of norepinephrine for pressor support. She received 1 L of LR for labile blood pressures she was found to to be acidotic and received 3 A of bicarb. More volume in the way of
1 unit of packed red blood cells and to 55% albumin was also infused. She was successfully extubated at 2300.
On postoperative day #1 Levophed was successfully weaned off. And she received an additional 1 unit of packed red blood cells for hemoglobin of 8.8. Cardiac index was 2.3 and mixed venous oxygenation was 55%. Her dobutamine was weaned from 3-1
over the course of postoperative day #1.
On postoperative day #2 dobutamine was successfully weaned off and the patient was declined. Atrial wires were removed and the wires were clipped. She was diuresed with Lasix 40 mg IV 3 times daily and responded well with 1595 cc of urine output.
Patient was added bed to chair and ambulating in the halls.
On postoperative day #3 the patient was dizzy well transitioning out of bed. Hemoglobin was found to be 7.8 and she was transfused an additional unit of 1 packed red blood cells. This was followed up with Lasix 40 mg IV x 1. Postoperative
transthoracic echocardiogram revealed an ejection fraction of 50% with no mitral regurgitation. Mitral valve mean gradient was 4 mmHg. PT OT was consulted.
Over the next subsequent days the patient progressed in routine fashion. Cordis was removed and the patient continued aggressive diuresis with Lasix 40 mg 3 times daily and Diamox 250 mg x 1.
On postoperative day #5 the patient developed atrial fibrillation with rapid ventricular rate (140s). She was given metoprolol 2.5 mg IV and converted to normal sinus rhythm after 10 minutes. P.o. Lopressor was started and a potassium of 3.3 was
repleted. She continued aggressive diuresis with Lasix and Diamox.
Patient continued to progress in her diuresis regimen was tapered. She was eventually transition to p.o. diuresis. On postoperative day #7 she was started on a DOAC for her atrial fibrillation with Eliquis 2.5 mg twice daily. On postoperative day
#8 she was seen by attending physician, and was deemed an acceptable discharge candidate to home.
Home medication changes:
See changes below
Discharge Plan
-
Patient Disposition: Home (Routine Discharge)
Discharge Diagnosis/Procedures: mitral repair, CABG x 4, left atrial appendage clip (05/23/25)
Condition: Good
Diet: Low Cholesterol, 2 Gram Sodium and Diabetic, Carb Controlled
Activity: No strenuous activity
Driving Restrictions: Not until seen by your Dr
Bathing Restrictions: OK to Shower
Other Services: Cardiac Rehab
Specialty Instructions: Weigh Daily- Call MD for wt gain/loss 3 lbs overnight/5 lbs in 1 week
Activity Restrictions/Additional Instructions:
Please call to make appointmetns for Phase II Cardiac Rehab:
Jennifer Kwong:
[phone]
ACTIVITY:
-No strenuous activity: no heavy lifting, pushing, pulling anything over 15 pounds for one month
-continue to use stairs as tolerated
DRIVING RESTRICTIONS:
-No driving for one month or until approved by your surgeon
WOUND CARE:
-Shower daily. Use soap & water.
-No lotions, creams or powders on incision area.
DIET:
-continue a low fat/low cholesterol diet.
-IF you are diabetic, continue carb controlled diet.
CARDIAC REHAB:
-Please make appointment to start in 5-6 weeks with your local hospital program. (See Cardiac Rehabilitation Discharge Booklet).
SPECIALTY INSTRUCTIONS:
-Weigh yourself daily. Call your physician for any weight gain/loss of 3 lbs overnight or 5 lbs in one week.
-REPORT any clicking noise or uneven appearance of your sternum to your surgeon immediately.
-If you smoke, you are instructed to quit. The [place] smoking hotline phone number is [phone]
Referrals:
[facility] [Other]
Referral Note: fAX NUMBER ID [phone].
Ashley Nelson CRNP [Specified Professional Personl, Cardiology] - 07/13/25 1:40 pm
Giuseppe Gonzalez MD [Family Provider, Family Practice] - in four to six weeks
Referral Note: Please make an appointment in four to six weeks.
Tulio Whelan MD [Active, Cardiac Surgery] - 06/26/25 2:15 pm
Prescriptions:
New
amiodarone [Pacerone] 200 mg Tablet
200 mg PO TID Qty: 60 0RF
Rx Instructions:
Please take 200mg twice a day for 14 days and then 200mg daily
Eliquis 2.5 mg Tablet
2.5 mg PO BID Qty: 60 1RF
atorvastatin 40 mg Tablet
40 mg PO HS Qty: 60 0RF
oxycodone 5 mg Tablet
2.5 mg PO Q6H Qty: 10 0RF
furosemide 40 mg Tablet
40 mg PO DAILY Qty: 7 0RF
potassium chloride 20 mEq Tablet,Er Particles/Crystals
20 meq PO DAILY Qty: 7 0RF
Continued
levothyroxine 112 MCG tablet
112 mcg PO DAILY
latanoprost 1 DROP drops
1 drp BOTH EYES HS
Patient Comments:
lorazepam 0.5 mg tablet
0.5 mg PO DAILY
aspirin 81 mg tablet,chewable
81 mg PO DAILY
acetaminophen 325 mg Tablet
650 mg PO Q6HPRN PRN (Reason: mild pain) 30 Days Qty: 100 0RF
pantoprazole 40 mg Tablet,Delayed Release (Dr/Ec)
40 mg PO DAILY 30 Days Qty: 30 0RF
lidocaine 5 % adhesive patch,medicated
1 patch topical DAILY 30 Days Qty: 30 0RF
metoprolol succinate 50 mg Tablet Extended Release 24 Hr
50 mg PO DAILY 30 Days Qty: 30 0RF
dapagliflozin propanediol 10 mg Tablet
5 mg PO DAILY 30 Days Qty: 30 0RF
sacubitril-valsartan [Entresto] 24-26 mg Tablet
1 tab PO BID 30 Days Qty: 60 0RF
Discontinued
Elderberry
1 dose PO DAILY
furosemide 40 mg tablet
20 mg PO DAILY
spironolactone 25 mg Tablet
25 mg PO DAILY 30 Days Qty: 30 0RF
Discharge Orders:
Discharge Patient (As Directed); Ordered 05/31/25
Ordered By: Sofy Castellano
Care Plan Goals
Care Plan Goals:
Problem: Readiness for enhanced knowledge related to diagnosis and treatment plan
Goal: Understand your diagnosis and treatment plan needs, including medications if applicable.
Instructions: Know your diagnosis, underlying causes and treatment plan options, including medications if applicable. Consult with your health care team to learn about your diagnosis and treatment plan, including medications if applicable.
Discharge Date and Time
Print Language: [place]
[2025-05-31] MEDS: REMOVE LIDOCAINE PATCH REMOVE (10:35)
[2025-05-31] MEDS: NSS IV (10:36)
[2025-05-31 10:40] VITALS: BP 122/63; PULSE 72; O2SAT 98
[2025-05-31 10:42] VITALS: BP 122/63
--- NOTE | 2025-05-31 11:00 | W.PN.CD ---
Today's Communication / Plan
-
Agree with apixaban and furosemide.
Agree with sacubitril/valsartan.
Continue to hold spironolactone for the time being. This can be re-addressed as an outpatient.
Stable for outpatient cardiology follow up.
Impression / Plan
-
Impression/Plan: 74F with hypertension, hypothyroidism, hyperlipidemia, ITP/thalassemia with recent admission including findings of obstructive coronary artery disease, HFmrEF, and severe mitral regurgitation who presents for CABG/mitral valve
repair.
Primary audit clerks supervisor: Dr. Velasquez
#CAD
-Chronic, progressive.
-s/p CABG x 4 (ROBLEDO to LAD, Ao to RSVG to OM, Off RSVG to OM to diagonal, Ao to RSVG to mid RCA) with Dr. Whelan, 05/23/2025.
-Pre-LVEF 45-50% post 50-55%.
-Routine post operative management.
-Incentive spirometry.
-Ambulation.
#Mitral regurgitation
-Chronic, progressive.
-Moderate/severe, s/p MVR (#30 Walls Physio 2 annuloplasty ring, serial #[id number]) and LAAE (#35 AtriClip, serial #[id number]) with Dr. Whelan, 05/23/2025.
-MR reduced to trace.
-Post operative care as above.
#Atrial fibrillation
-Several short runs of PAF.
-Rate/rhythm control with metoprolol succinate.
-CHADS2-Vasc = 4 (CHF, Age x1, vascular disease, female).
-Apixaban 2.5 mg BID.
#HFpEF
-Chronic.
-LVEF = 50%.
-Weight is responding well.
-Restart GDMT as patient recovers, as hemodynamics will tolerate:
-Diuretics: Furosemide 40 mg PO daily.
-Beta damian: Metoprolol succinate 25 mg daily.
-PRUDENCIO/ARB/ARNI: Sacubitril�valsartan 24/26 mg BID.
-SGLT2 inhibitor: Dapagliflozin 5 mg daily.
-MRA: Spironolactone 25 mg on hold due to blood pressure/renal dysfunction. Consider restarted as an outpatient.
-Isosorbide/Hydralazine:� Not currently indicated.
-ICD: Not currently indicated.
#SHARMIN
-Recurrent.
-Cr up to 1.4.
#Thalassemia/ITP/Anemia/Thrombocytopenia:
-Anemia is improving. Thrombocytopenia resolved.
-Transfuse for Hbg < 7.
#Prediabetes
-Chronic, HbA1c = 6.3%.
-BMI is > 30.
-The patient would benefit from GLP-1 analogs at the time of discharge.
#Dispo
-CTS angling for discharge.
Subjective/Interval History:
Weight up 0.3 kg.
BP stable.
SaO2 97% on RA.
Creatinine improved to 1.1.
CTS restarted furosemide 40 mg PO and started apixaban 2.5 mg BID.
DATA:
CABG/MVR, 05/23/2025:
Procedure(s) Performed:
1. Standard sternotomy with aortic and bicaval cannulation
2. Left internal mammary artery harvesting, pedicle
3. Coronary artery bypass grafting x 4 [ROBLEDO to LAD, Ao to RSVG to OM, Off RSVG to OM to diagonal, Ao to RSVG to mid RCA]
4. Simple mitral valve repair [30 mm ring annuloplasty] via transseptal approach
5. Left atrial appendage exclusion [35 mm device]
6. Placement temporary atrial ventricular pacing wires
7. Transesophageal echocardiography
8. Bilateral endoscopic harvesting of saphenous vein graft from thigh
TTE, 05/09/2025:
SUMMARY
1. Normal biventricular size and function without regional wall motion abnormalities.
2. LVEF is 50-55% by visual estimation. Stage I diastolic dysfunction.
3. Moderate to severe MR.
4. Normal estimated PASP at 24 mmHg.
5. Compared to prior from March 03, 2025, on [id number] comparison overall LVEF has improved and is now approximately 50-55%, previously 47%.
Cardiac Catheterization, 01/23/2025:
CONCLUSIONS
1. Right dominant circulation with multivessel coronary disease including a 99% subtotal occlusion of the proximal circumflex with YADY I flow to the proximal vessel and retrograde filling from the distal OM, a chronic total occlusion of the
proximal RCA supplied by collaterals from the LAD, and 90% lesion in the proximal margin of the large diagonal and tandem 70%, 80% and 70% lesions in the mid LAD.
2. Normal filling pressures (LVEDP = 10 mmHg at 85.7 kg).
3. At least moderate mitral valve regurgitation on transesophageal echocardiography.
Physical Exam
Vital Signs/Labs
Vital Signs
Temp Pulse Resp BP Pulse Ox
36.7 C 71 18 126/67 97
05/31/25 06:50 05/31/25 08:00 05/31/25 06:50 05/31/25 06:53 05/31/25 08:07
05/29/25 05/30/25 05/31/25
11:59 11:59 11:59
Actual Weight 90.9 kg 89.8 kg 90.1 kg
05/29/25 04:06
05/31/25 02:44
PT 16.3 Sec (11.4-14.6) H 05/24/25 02:50
INR 1.28 05/24/25 02:50
APTT 30.6 Sec (23.4-35.0) 05/23/25 14:00
Magnesium 2.4 mg/dl (1.6-2.3) H 05/31/25 02:44
Physical Exam
Constitutional: No acute distress and Comfortable
EENT: Anicteric and Moist mucous membranes
Cardiovascular: Rhythm & rate is regular, Pedal edema is absent, JVD pressure is normal, S1S2 is normal and Murmur/rub/gallop absent
Respiratory: Respiratory effort normal, Lungs clear to auscul., Wheeze Absent, Crackles Absent and Rhonchi Absent
GI: Soft, Distention absent, Flat, Non tender and Normal bowel sounds
Neuro/Psych: AO x 3
Data Reviewed
-
Date of Service: May 31, 2025
Medical Decision Making: Reviewed Test Results and Independent Historian Assessment
EKG: Tracing Personally Visualized and interpreted and Report Reviewed by me
Echo: Tracing Personally Visualized and interpreted and Report Reviewed by me
X-Ray/CT/US/MRI/NUC/PET: Image Personally Visualized and interpreted and Report Reviewed by me
Medical Tests (PFT, Pathology etc): Report Reviewed by me
Labs: Labs Reviewed by me
Old Records: Reviewed
[2025-05-31 11:05] VITALS: BP 122/63; PULSE 72
[2025-05-31 11:59] LABS: Glucose - Point of Care 93 mg/dl (70-99)
[2025-05-31] MEDS: TYLENOL PO (14:50)
[2025-05-31 15:28] VITALS: BP 127/60
--- NOTE | 2025-05-31 17:00 | PTCARENOTE ---
Pt showered w/assistance from this RN. Pt's midline access D/C'd by VAT after shower; Dressing C/D/I. Discussed D/C instructions w/pt & pt's daughter. Pt escorted out via WC by staff w/her daughter driving her home. Pt left w/personal belongings
incl cellphone, tablet, & chargers.
== END 2025-05-31 17:00 | disposition home health service (06) | DRG 219 ==
LOC: IVU 05:05
PROVIDERS: Nurse Practitioner; ADMITTING PHYSICIAN Thoracic Surgery (Cardiothoracic Vascular Surgery); CONSULT PHYSICIAN Internal Medicine; FAMILY PHYSICIAN Family Medicine
PROC: 06BP4ZZ Excision of Right Saphenous Vein, Percutaneous Endoscopic Approach (ICD-10-PCS; 2025-05-23)
PROC: 02100Z9 Bypass Coronary Artery, One Artery from Left Internal Mammary, Open Approach (ICD-10-PCS; 2025-05-23)
PROC: 5A1221Z Performance of Cardiac Output, Continuous (ICD-10-PCS; 2025-05-23)
PROC: B24BZZ4 Ultrasonography of Heart with Aorta, Transesophageal (ICD-10-PCS; 2025-05-23)
PROC: 02UG0JZ Supplement Mitral Valve with Synthetic Substitute, Open Approach (ICD-10-PCS; 2025-05-23)
PROC: 0212093 Bypass Coronary Artery, Three Arteries from Coronary Artery with Autologous Venous Tissue, Open Approach (ICD-10-PCS; 2025-05-23)
PROC: 30243R1 Transfusion of Nonautologous Platelets into Central Vein, Percutaneous Approach (ICD-10-PCS; 2025-05-23)
PROC: 30243N1 Transfusion of Nonautologous Red Blood Cells into Central Vein, Percutaneous Approach (ICD-10-PCS; 2025-05-23)
PROC: 02L70CK Occlusion of Left Atrial Appendage with Extraluminal Device, Open Approach (ICD-10-PCS; 2025-05-23)
PROC: 06BQ4ZZ Excision of Left Saphenous Vein, Percutaneous Endoscopic Approach (ICD-10-PCS; 2025-05-23)
PROC: 5A09357 Assistance with Respiratory Ventilation, Less than 24 Consecutive Hours, Continuous Positive Airway Pressure (ICD-10-PCS; 2025-05-24)
DX: I25.10 Atherosclerotic heart disease of native coronary artery without angina pectoris (principal); J95.1 Acute pulmonary insufficiency following thoracic surgery; D62 Acute posthemorrhagic anemia; D69.3 Immune thrombocytopenic purpura; Z68.41 Body mass index [BMI] 40.0-44.9, adult; J98.11 Atelectasis; E87.20 Acidosis, unspecified; I50.32 Chronic diastolic (congestive) heart failure; N17.9 Acute kidney failure, unspecified; I34.0 Nonrheumatic mitral (valve) insufficiency; I25.5 Ischemic cardiomyopathy; I27.20 Pulmonary hypertension, unspecified; D69.6 Thrombocytopenia, unspecified; E83.41 Hypermagnesemia; E86.1 Hypovolemia; I48.91 Unspecified atrial fibrillation; E87.70 Fluid overload, unspecified; I45.10 Unspecified right bundle-branch block; I11.0 Hypertensive heart disease with heart failure; R73.03 Prediabetes; E66.813 Obesity, class 3; E03.9 Hypothyroidism, unspecified; E78.00 Pure hypercholesterolemia, unspecified; K76.0 Fatty (change of) liver, not elsewhere classified; G47.33 Obstructive sleep apnea (adult) (pediatric); R13.10 Dysphagia, unspecified; H40.9 Unspecified glaucoma; F41.9 Anxiety disorder, unspecified; J45.909 Unspecified asthma, uncomplicated; Z96.653 Presence of artificial knee joint, bilateral; I25.2 Old myocardial infarction; Z99.81 Dependence on supplemental oxygen; Z90.710 Acquired absence of both cervix and uterus; Z86.73 Personal history of transient ischemic attack (TIA), and cerebral infarction without residual deficits; Z87.01 Personal history of pneumonia (recurrent); Z79.899 Other long term (current) drug therapy; Z79.890 Hormone replacement therapy; Z88.1 Allergy status to other antibiotic agents; Z88.5 Allergy status to narcotic agent; Z88.8 Allergy status to other drugs, medicaments and biological substances; Z79.82 Long term (current) use of aspirin
CPT/HCPCS: 36415; 71045; 71046; 80048; 80053; 81003; 81015; 82248; 82330; 82565; 82805; 82810; 82947; 82962; 83036; 83735; 84132; 84302; 84520; 85014; 85018; 85025; 85027; 85049; 85610; 85730; 86850; 86900; 86901; 86920; 87070; 93005; 93308; 93312; 93320; 93321; 93325; 94002; 94640; 94660; 97110; 97116; 97163; 97166; 97167; 97530; 97535; C1713; J2916; P9016; P9045; P9047; P9073